=== PATIENT | female | born 1955 | race African-American/Black ===

== ENCOUNTER 2017-08-12 19:31 | Emergency (ER) | payer OTHER ==
[2017-08-12 19:50] VITALS: BP 145/110; PULSE 85; TEMP 99.8; BMI 44.2
[2017-08-12] MEDS ORDERED: LEVOFLOXACIN 500 MG IVPB 100 ML IVPB ONE ×3 (21:11→22:00)
--- NOTE | 2017-08-12 21:11 | PDOC ---
History of Present Illness - General History Source: Patient Exam Limitations: No Limitations - History of Present Illness Initial Comments: 08/12/17 21:48 The patient is a 62 year old female, with a significant past medical history of HTN, DM who presents to the emergency department with pain and redness to L thumb. Patient reports having a small red blister on L thumb that significantly increased in size today. Patient reports increased pain, swelling and redness to the nail. Patient denies any headache, fever/chills, nausea or vomiting. Patient denies any trauma to the area and presents to the ED for further evaluation. <Whit De Guzman - Last Filed: 08/12/17 21:48> - General History Source: Patient <Parviz Sandoval - Last Filed: 08/12/17 23:15> - General Chief Complaint: Redness To Affected Area Stated Complaint: INFECTION Time Seen by Provider: 08/12/17 21:06 Past History <Whit De Guzman - Last Filed: 08/12/17 21:48> - Past Medical History Diabetes: Yes - Surgical History Cholecystectomy: Yes - Suicide/Smoking/Psychosocial Hx Smoking History: Never smoked Have you smoked in the past 12 months: No Hx Alcohol Use: No Drug/Substance Use Hx: No Substance Use Type: None <Parviz Sandoval - Last Filed: 08/12/17 23:15> - Past Medical History Allergies/Adverse Reactions: Allergies Allergy/AdvReac Type Severity Reaction Status Date / Time No Known Allergies Allergy Verified 06/09/15 18:20 Home Medications: Ambulatory Orders Cephalexin [Keflex] 500 mg PO TID #15 capsule 06/09/15 Hydrochlorothiazide [Hctz -] 25 mg PO DAILY #14 tablet 06/09/15 Clindamycin [Cleocin -] 300 mg PO TID #30 capsule 08/12/17 Review of Systems - Review of Systems Able to Perform ROS?: Yes Comments:: 08/12/17 21:48 CONSTITUTIONAL: Absent: fever, no chills, no fatigue EYES: Absent: visual changes ENT: Absent: ear pain, no sore throat CARDIOVASCULAR: Absent: chest pain, no palpitations RESPIRATORY: Absent: cough, no SOB GI: Absent: abdominal pain, no nausea, no vomiting, no constipation, no diarrhea GENITOURINARY: Absent: dysuria, no frequency, no hematuria MUSCULOSKELETAL: Absent: back pain, no arthralgia, no myalgia SKIN:+ L thumb blister. Absent: rash <Whit De Guzman - Last Filed: 08/12/17 21:48> *Physical Exam - Vital Signs Last Vital Signs Temp Pulse Resp BP Pulse Ox 99.8 F H 85 18 145/110 97 08/12/17 19:47 08/12/17 19:47 08/12/17 19:47 08/12/17 19:47 08/12/17 19:47 - Physical Exam Comments: 08/12/17 21:48 GENERAL: Well-appearing, well-nourished. No apparent distress. HEENT: Normocephalic, atraumatic. PERRL, EOM intact. CARDIOVASCULAR: Normal S1, S2. Regular rate and rhythm. PULMONARY: Clear to auscultation bilaterally. ABDOMEN: Soft, non-distended, non-tender. EXTREMITIES: Normal ROM in all four extremities. No gross deformities. SKIN: +Large blister that runs the entire length of lateral aspect of cuticle down to DIP joint. +There is surrounding erythema extended past the MCP joint. + Slight fluctuance with discharge at corner of cuticle. Warm, dry. No rash NEUROLOGICAL: No focal neurological deficits. <Whit De Guzman - Last Filed: 08/12/17 21:48> - Vital Signs Last Vital Signs Temp Pulse Resp BP Pulse Ox 99.8 F H 85 18 145/110 97 08/12/17 19:47 08/12/17 19:47 08/12/17 19:47 08/12/17 19:47 08/12/17 19:47 <Parviz Sandoval - Last Filed: 08/12/17 23:15> Procedures - Incision and Drainage I&D Site: Left: Paronychia (left thumb) Volume(ml): 15 Attempts: 1 Iodinated Packin/ in Plain Packing: No Complications: none Dressing: Yes Progress: 08/12/17 21:59 used 18 gauge needle to decompression blister. <Parviz Sandoval - Last Filed: 08/12/17 23:15> ED Treatment Course - LABORATORY CBC & Chemistry Diagram: 08/12/17 21:36 08/12/17 21:36 <Whit De Guzman - Last Filed: 08/12/17 21:48> - LABORATORY CBC & Chemistry Diagram: 08/12/17 21:36 08/12/17 21:36 <Parviz Sandoval - Last Filed: 08/12/17 23:15> Medical Decision Making - Medical Decision Making 08/12/17 23:15 Dr. Sandoval: The scribe's documentation has been prepared under my direction and personally reviewed by me in its entirery. I confirm that the note above accurately reflects all work, treatment, procedures, and medical decision making performed by me. <Parviz Sandoval - Last Filed: 08/12/17 23:15> *DC/Admit/Observation/Transfer - Attestations Scribe Attestion: 08/12/17 21:49 Documentation prepared by Whit De Guzman, acting as medical office secretary for Parviz Sandoval DO. <Whit De Guzman - Last Filed: 08/12/17 21:48> - Discharge Dispostion Admit: No <Parviz Sandoval - Last Filed: 08/12/17 23:15> Diagnosis at time of Disposition: Paronychia of finger of left hand Cellulitis Qualifiers: Site of cellulitis: extremity Site of cellulitis of extremity: finger Laterality: left Qualified Code(s): L03.012 - Cellulitis of left finger; L03.012 - Cellulitis of left finger - Discharge Dispostion Disposition: HOME Condition at time of disposition: Stable - Prescriptions Prescriptions: Clindamycin [Cleocin -] 300 mg PO TID #30 capsule - Patient Instructions Printed Discharge Instructions: DI for Wound Infection, DI for Cellulitis -- Child Additional Instructions: please take medication as directed. Follow up with your in two days. Return to the ER as soon as possible if increasing pain and swelling to left thumb.
[2017-08-12 21:44] LABS: BASOPHIL 0.9 % (0-2.0); EOSINOPHIL 0.9 % (0-4.5); MCH 31.2 pg (25.7-33.7); MCHC 34.4 g/dl (32.0-36.0); MEAN CELL VOLUME 90.6 fl (80-96); MEAN PLT VOLUME 8.9 fl (7.5-11.1); NEUTROPHILS 72.3 % (42.8-82.8); PLATELET COUNT 249 K/MM3 (134-434); WHITE BLOOD COUNT 15.4 K/mm3 (4.0-10.0)
[2017-08-12 21:57] LABS: INR 1.16 (0.82-1.09); PROTHROMBIN TIME (PATIENT) 13.1 SEC (9.98-11.88)
[2017-08-12 22:37] LABS: ALBUMIN 3.7 g/dl (3.4-5.0); ANION GAP 12 (8-16); CALCIUM 9.4 mg/dL (8.5-10.1); CO2 23 mmol/L (21-32); CREATININE 2.2 mg/dL (0.55-1.02); GLUCOSE,RANDOM 123 mg/dL (74-106); SGOT/AST 22 U/L (15-37); SGPT/ALT 21 U/L (12-78); TOT PROT 7.7 g/dl (6.4-8.2)
[2017-08-12 22:38] LABS: ALK PHOS 106 U/L (45-117); BILIRUBIN,TOTAL 0.8 mg/dL (0.2-1.0)
== END 2017-08-12 23:32 | disposition home or self-care (01) ==
LOC: JER 19:31
PROC: 0H9GXZZ Drainage of Left Hand Skin, External Approach (ICD-10-PCS; principal; 2017-08-12)
PROC: 3E02329 Introduction of Other Anti-infective into Muscle, Percutaneous Approach (ICD-10-PCS; 2017-08-12)
DX: L03.012 Cellulitis of left finger (principal); I10 Essential (primary) hypertension; E11.9 Type 2 diabetes mellitus without complications
CPT/HCPCS: 36415; 80053; 85025; 85610; 87040; 99281-25

== ENCOUNTER 2020-06-26 08:54 | Inpatient (IN) | payer OTHER ==
--- NOTE | 2020-06-26 09:19 | PDOC ---
History of Present Illness - General Chief Complaint: Pain Stated Complaint: LLE/BACK PAIN Time Seen by Provider: 06/26/20 09:07 - History of Present Illness Initial Comments: 06/26/20 10:15 HPI 64y/o F hx of HTN, DM, CKD,herniated disc in lower back (4 years ago) arthritis presents to the ED with 3 days of left sided buttock pain. at baseline, pt ambulates with assistance of a cane. Pt reports pain radiates from her buttock down her leg. She has been unable to ambulate due to pain She dennies any changes in bowel/bladder habits, saddle anesthesia, fevers, chills, trauma/fall. Pt endorsing vaginal bleeding which began 3 days ago as well.pt is post- menopausal,and went through menopause in her late 40''s to early 50's. She denies any other vaginal discharge, or lower abdominal pain. PMHx: as noted above ROS: as noted SHx: Denies Etoh, IVDA, tobacco use Allergies: NKDA ROS: GENERAL/CONSTITUTIONAL: No fever or chills. No weakness. HEAD, EYES, EARS, NOSE AND THROAT: No change in vision. No ear pain or discharge. No sore throat. CARDIOVASCULAR: No chest pain or shortness of breath RESPIRATORY: No cough, wheezing, or hemoptysis. GASTROINTESTINAL: No nausea, vomiting, diarrhea or constipation. GENITOURINARY: No dysuria, frequency, or change in urination. MUSCULOSKELETAL: No joint or muscle swelling or pain. No neck or back pain. SKIN: No rash NEUROLOGIC: No headache, vertigo, loss of consciousness, or change in strength/sensation. ENDOCRINE: No increased thirst. No abnormal weight change HEMATOLOGIC/LYMPHATIC: No anemia, easy bleeding, or history of blood clots. ALLERGIC/IMMUNOLOGIC: No hives or skin allergy. PE: GENERAL: Awake, alert, and fully oriented, uncomfortable. HEAD: No signs of trauma, normocephalic, atraumatic EYES: PERRLA, EOMI, sclera anicteric, conjunctiva clear ENT: Auricles normal inspection, hearing grossly normal, nares patent, oropharynx clear without exudates. Moist mucosa NECK: Normal ROM, supple, no lymphadenopathy, JVD, or masses LUNGS: No distress, speaks full sentences, clear to auscultation bilaterally HEART: Regular rate and rhythm, normal S1 and S2, no murmurs, rubs or gallops, peripheral pulses normal and equal bilaterally. ABDOMEN: Soft, nontender, normoactive bowel sounds. No guarding, no rebound. No masses RECTAL: +rectal tone, no stool in the vault or blood on glove, no saddle anesthesia EXTREMITIES : trace edema in RLE. +SLR, ttp of left buttock and left thigh NEUROLOGICAL: Cranial nerves II through XII grossly intact. Normal speech, no focal sensorimotor deficits SKIN: Warm, Dry, normal turgor, no rashes or lesions noted MDM DDx including but not limited to: MSK Strain, sciatica, endometrial cancer, coaguloathy Workup: labs, pelvis ultrasound, vaginal exam -tylenol, lidocaine patch ED course vaginal exam deferred,as patient unable to tolerate opening her legs secondary to pain,and speculum could not be inserted. scant blood noticed on pads,pt had no lower abdominal pain. able to visualize vulva and labia, and no copious bleeding noted. Re-assessment: pt reports some improvement in pain with tylenol and pain patch when lying still, however on passive leg raise past 30 degrees, she began screaming in pain. will give roxicodone and reassess. 06/26/20 10:44 06/26/20 11:20 06/26/20 12:38 Past History - Medical History Allergies/Adverse Reactions: Allergies Allergy/AdvReac Type Severity Reaction Status Date / Time No Known Allergies Allergy Verified 06/26/20 09:03 Home Medications: Ambulatory Orders Amlodipine Besylate [Norvasc -] 10 mg PO DAILY 06/26/20 Glimepiride [Amaryl -] 4 mg PO BID 06/26/20 Metoprolol Tartrate [Lopressor] 100 mg PO BID 06/26/20 Sitagliptin Phosphate [Januvia] 50 mg PO DAILY 06/27/20 Atorvastatin Ca [Lipitor] 40 mg PO HS #30 tablet 07/14/20 Cyclobenzaprine HCl [Flexeril -] 5 mg PO TID PRN 14 Days #20 tablet 07/14/20 Ferrous Sulfate [Feosol] 325 mg PO DAILY@0800 #30 ud 07/14/20 Folic Acid - 1 mg PO DAILY #30 tablet 07/14/20 Gabapentin [Neurontin -] 200 mg PO TID #90 capsule 07/14/20 Telmisartan [Micardis] 80 mg PO DAILY #30 tablet 07/17/20 COPD: No Diabetes: Yes HTN: Yes - Surgical History Cholecystectomy: Yes - Psycho-Social/Smoking History Smoking History: Unknown if ever smoked Have you smoked in the past 12 months: No - Substance Abuse Hx (Audit-C & DAST Scrn) How often the patient has a drink containing alcohol: Never Score: In Men: 4 or > Positive; In Women: 3 or > Positive: 0 Screen Result (Pos requires Nsg. Audit-10AR): Negative In the last yr the pt used illegal drug/Rx for NonMed reason: No Score: Yes response is considered Positive: 0 Screen Result (Positive result requires Nsg. DAST-10): Negative *Physical Exam - Vital Signs Last Vital Signs Temp Pulse Resp BP Pulse Ox 98.1 F 90 20 162/73 99 06/26/20 09:01 06/26/20 09:01 06/26/20 09:01 06/26/20 09:01 06/26/20 09:01 ED Treatment Course - LABORATORY CBC & Chemistry Diagram: 07/18/20 08:00 07/18/20 08:00 Discharge - Discharge Information Problems reviewed: Yes Clinical Impression/Diagnosis: Intractable pain Sciatica Qualifiers: Laterality: left Qualified Code(s): M54.32 - Sciatica, left side Condition: Stable Disposition: INTERMEDIATE FACILITY - Follow up/Referral - Patient Discharge Instructions - Post Discharge Activity
[2020-06-26] MEDS ORDERED: LIDOCAINE 5% TOPICAL PATCH TP ONE (09:53)
[2020-06-26] MEDS ORDERED: ACETAMINOPHEN 1000 MG/100 ML VIAL (NON FORMULARY) IVPB ONE (09:53)
--- NOTE | 2020-06-26 09:53 | PDOC ---
Documentation entered by Julio Stephenson SCRIBE, acting as scribe for Dariela Barrios MD. Dariela Barrios MD: This documentation has been prepared by the scribe, Julio Stephenson SCRIBE, under my direction and personally reviewed by me in its entirety. I confirm that the documentation accurately reflects all work, treatment, procedures, and medical decision making performed by me. Attending Attestation - Resident Resident Name: Fernando Good - ED Attending Attestation I have performed the following: I have examined & evaluated the patient, The case was reviewed & discussed with the resident, I agree w/resident's findings & plan, Exceptions are as noted - HPI HPI: 64 yo F history DM, HTN, HL presents with vaginal bleeding for the past 4 days, then low back pain radiating into the L buttock and L posterior thigh for the past 3 days. No prior history of either. Denies weakness, numbness. Denies trauma. - Physicial Exam PE: GENERAL: Awake, alert, and fully oriented, appears uncomfortable HEAD: No signs of trauma EYES: PERRLA, EOMI, sclera anicteric, conjunctiva clear ENT: Auricles normal inspection, hearing grossly normal, nares patent, oropharynx clear without exudates. Moist mucosa NECK: Normal ROM, supple, no lymphadenopathy, JVD, or masses LUNGS: Breath sounds equal, clear to auscultation bilaterally. No wheezes, and no crackles HEART: Regular rate and rhythm, normal S1 and S2, no murmurs, rubs or gallops ABDOMEN: Soft, nontender, normoactive bowel sounds. No guarding, no rebound. No masses EXTREMITIES: Normal range of motion, no edema. No clubbing or cyanosis. No cords, erythema, or tenderness NEUROLOGICAL: Cranial nerves II through XII grossly intact. Normal speech. Motor and sensation intact. Gait not tested due to pain. SKIN: Warm, Dry, normal turgor, no rashes or lesions noted. : No external lesions. Vaginal exam limited by patient inability to position for it, having severe back and buttock pain. - Medical Decision Making 06/26/20 10:06 Pt with low back pain radiating into buttock, likely sciatica. Also with vaginal bleeding. Unlikely to be connected, however, will obtain pelvic sono to make sure there is no mass, etc. Discharge - Discharge Information Problems reviewed: Yes Clinical Impression/Diagnosis: Intractable pain Sciatica Qualifiers: Laterality: left Qualified Code(s): M54.32 - Sciatica, left side - Follow up/Referral - Patient Discharge Instructions - Post Discharge Activity
[2020-06-26] MEDS ORDERED: ACETAMINOPHEN INJECTION 100 ML IVPB ONE (10:37)
[2020-06-26] MEDS ORDERED: LIDOCAINE 5% TOPICAL PATCH ONE (10:38)
[2020-06-26 10:54] LABS: EOS % 0.3 % (0-4.5); HEMATOCRIT 28.5 % (32.4-45.2); HEMOGLOBIN 9.4 GM/dL (10.7-15.3); LYMPH % 7.4 % (8-40); MCH 28.9 pg (25.7-33.7); MEAN CELL VOLUME 87.6 fl (80-96); MEAN PLT VOLUME 8.5 fl (7.5-11.1); MONO % 7.8 % (3.8-10.2); NEUT % 83.5 % (42.8-82.8); PLATELET COUNT 308 K/MM3 (134-434); RBC 3.26 M/mm3 (3.60-5.2); RDW 16.1 % (11.6-15.6)
[2020-06-26 11:03] LABS: EPI CELLS 13 /uL (0-25.1); HYALINE CASTS 2 /uL (0-3.1); URINE APPEARANCE CLOUDY; URINE BACTERIA 320 /uL (0-1359); URINE BILIRUBIN NEGATIVE (NEGATIVE); URINE COLOR YELLOW; URINE GLUCOSE (UA) NEGATIVE (NEGATIVE); URINE KETONE NEGATIVE (NEGATIVE); URINE LEUK ESTERASE NEGATIVE (NEGATIVE); URINE NITRITE NEGATIVE (NEGATIVE); URINE PROTEIN 2+ (NEGATIVE); URINE RBC 13 /uL (0-23.9); URINE UROBILINOGEN 0.2 mg/dL (0.2-1.0); URINE WBC 26 /uL (0-25.8)
[2020-06-26 11:10] LABS: INR 1.14 (0.83-1.09); PROTHROMBIN TIME (PATIENT) 13.5 SEC (9.7-13.0)
[2020-06-26 11:12] LABS: ACTIVATED PTT 27.3 SECONDS (25.2-36.5)
[2020-06-26 11:19] LABS: ALBUMIN 2.7 g/dl (3.4-5.0); BILIRUBIN,TOTAL 0.6 mg/dL (0.2-1); BLOOD UREA NITROGEN 58.4 mg/dL (7-18); CALCIUM 9.1 mg/dL (8.5-10.1); CREATININE 2.7 mg/dL (0.55-1.3); POTASSIUM 3.8 mmol/L (3.5-5.1); TOT PROT 6.8 g/dl (6.4-8.2)
[2020-06-26] MEDS ORDERED: oxyCODONE HCL 5 MG TABLET PO ONE (12:37)
[2020-06-26] MEDS ORDERED: SODIUM CHLORIDE 500 ML IV STA (12:39)
[2020-06-26] MEDS ORDERED: oxyCODONE HCL 5 MG TABLET ONE (12:50)
[2020-06-26] MEDS ORDERED: morphine SULFATE 4 MG/ML VIAL IVPUSH ONE (14:49)
[2020-06-26] MEDS ORDERED: morphine SULFATE 4 MG/ML VIAL ONE (15:34)
[2020-06-26] MEDS ORDERED: SODIUM CHLORIDE 1,000 ML IV SCH (15:45)
--- NOTE | 2020-06-26 15:56 | HP ---
CHIEF COMPLAINT: Inability to ambulat 2/2 L. hip pain and vaginal bleeding PCP: Dr. Kristina Gonzalez HISTORY OF PRESENT ILLNESS: Pt. is a 64 y.o. F w/ PMHx. 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 Hip pain over the last 4 days. Pt. states that it started 4 days ago after she finished walking up the stairs and was at rest. Pt. states the pain was a 10/10 on admission but now is a 4/10. Pt denies this ever happening before. Pt. denies any numbness/tingling or weakness in extremities. Pt. denies any numbness in the groin or any changes in bowel or urinary habits. Pt. endorses intentional weight loss of a few pounds. Pt. endorses night sweats over the last 2 days. Pt. denies any fever, chills, cough, diarrhea or constipation. Pt. states she has never had a colonoscopy, last had a Pap Smear ~10 years ago, unsure of last results. Pt. states she had a mammogram a few months ago and was supposed to follow up for second part (ultrasound?) but never did. Pt. endorses intermittent vaginal bleeding over the last 3 days with the last episode being this morning. Pt. states this has never happened. Pt. had menopause in her late 40s/early 50s. Pt. endorses decreased Po intake over te last 2 days because of the pain. Pt. denies nausea, vomiting, or difficulty swallowing. Pt. states that her hesitancy to move her leg is limited by pain and not weakness. Pt. normally ambulates at home with a cane. Pt. unclear of family history but stated her mother had DM, HTN and heart disease. Pt denies any cancer history in her family. ER course was notable for: (1)CBC/ CMP, Tylenol, Lidoderm patch, oxycodone, and morphine (2)EKG ordered, abdominal US (3) Recent Travel: Denies PAST MEDICAL HISTORY: As above PAST SURGICAL HISTORY: [facility](Open) Social History: Smoking: Denies Alcohol: Occasional glass of wine Drugs: Denies Allergies No Known Allergies Allergy (Verified 06/26/20 09:03) HOME MEDICATIONS: Home Medications Medication Instructions Recorded Amlodipine Besylate [Norvasc -] 10 mg PO DAILY 06/26/20 Atorvastatin Calcium 40 mg PO HS 06/26/20 Glimepiride [Amaryl -] 4 mg PO BID 06/26/20 Metoprolol Tartrate [Lopressor] 100 mg PO BID 06/26/20 Telmisartan/Hydrochlorothiazid 1 each PO DAILY 06/26/20 [Telmisartan-Hctz 80-25 mg Tab] REVIEW OF SYSTEMS As above PHYSICAL EXAMINATION Vital Signs - 24 hr 06/26/20 06/26/20 09:01 13:43 Temperature 98.1 F 98.5 F Pulse Rate 90 Pulse Rate [ 67 Left Radial] Respiratory 20 19 Rate Blood Pressure 162/73 Blood Pressure 128/68 [Right Arm] O2 Sat by Pulse 99 99 Oximetry (%) GENERAL: Awake, alert, and fully oriented, in no acute distress. HEAD: Normal with no signs of trauma. EYES: Sclera anicteric, conjunctiva clear. EARS, NOSE, THROAT: Ears normal, nares patent, oropharynx clear without exudates . Moist mucous membranes. NECK: Normal range of motion, supple without lymphadenopathy LUNGS: Breath sounds equal, clear to auscultation bilaterally. No wheezes, and no crackles. No accessory muscle use. HEART: Regular rate and rhythm, normal S1 and S2 without murmur ABDOMEN: Soft, nontender, not distended but obese, normoactive bowel sounds, no guarding, no rebound, no masses. MUSCULOSKELETAL: ROM of left hip and knee limited by pain. Movement of contralateral hip does not induce pain. UPPER EXTREMITIES:warm, well-perfused. No cyanosis. No clubbing. No peripheral edema. 5/5 muscle strength throughout LOWER EXTREMITIES: 2+ dorsal pedal pulses, warm, well-perfused, No calf tenderness. Trace edema. 5/5 muscle strength throughout. Pt. has limited flexion of the L. Hip and knee 2/2 pain however is able to extend on both. NEUROLOGICAL: Sensation in tact throughout. Normal speech. Normal gait. PSYCHIATRIC: Cooperative. Good eye contact. Appropriate mood and affect. SKIN: Warm, dry, normal turgor Laboratory Results - last 24 hr 06/26/20 06/26/20 06/26/20 10:15 10:15 10:15 WBC 14.0 H RBC 3.26 L Hgb 9.4 L Hct 28.5 L MCV 87.6 MCH 28.9 MCHC 33.0 RDW 16.1 H Plt Count 308 D MPV 8.5 Absolute Neuts (auto) 11.7 H Neutrophils % 83.5 H Lymphocytes % 7.4 L D Monocytes % 7.8 Eosinophils % 0.3 Basophils % 1.0 Nucleated RBC % 0 PT with INR 13.50 H INR 1.14 H PTT (Actin FS) 27.3 Sodium 140 Potassium 3.8 Chloride 106 Carbon Dioxide 24 Anion Gap 10 BUN 58.4 H Creatinine 2.7 H Est GFR (CKD-EPI)AfAm 21.04 Est GFR (CKD-EPI)NonAf 18.16 Random Glucose 154 H Calcium 9.1 Total Bilirubin 0.6 AST 29 ALT 16 Alkaline Phosphatase 130 H Total Protein 6.8 Albumin 2.7 L Urine Color Urine Appearance Urine pH Ur Specific Ford Urine Protein Urine Glucose (UA) Urine Ketones Urine Blood Urine Nitrite Urine Bilirubin Urine Urobilinogen Ur Leukocyte Esterase Urine WBC (Auto) Urine RBC (Auto) Urine Casts (Auto) U Epithel Cells (Auto) Urine Bacteria (Auto) Blood Type Antibody Screen 06/26/20 06/26/20 10:15 10:15 WBC RBC Hgb Hct MCV MCH MCHC RDW Plt Count MPV Absolute Neuts (auto) Neutrophils % Lymphocytes % Monocytes % Eosinophils % Basophils % Nucleated RBC % PT with INR INR PTT (Actin FS) Sodium Potassium Chloride Carbon Dioxide Anion Gap BUN Creatinine Est GFR (CKD-EPI)AfAm Est GFR (CKD-EPI)NonAf Random Glucose Calcium Total Bilirubin AST ALT Alkaline Phosphatase Total Protein Albumin Urine Color Yellow Urine Appearance Cloudy Urine pH 5.0 Ur Specific Ford 1.013 Urine Protein 2+ H Urine Glucose (UA) Negative Urine Ketones Negative Urine Blood 3+ H Urine Nitrite Negative Urine Bilirubin Negative Urine Urobilinogen 0.2 Ur Leukocyte Esterase Negative Urine WBC (Auto) 26 Urine RBC (Auto) 13 Urine Casts (Auto) 2 U Epithel Cells (Auto) 13 Urine Bacteria (Auto) 320 Blood Type A POSITIVE Antibody Screen Negative ASSESSMENT/PLAN: Pt. is a 64 y.o. F w/ PMHx. 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 Hip pain over the last 4 days. Pt. states that it started 4 days ago after she finished walking up the stairs and was at rest. Pt. states the pain was a 10/10 on admission but now is a 4/10. #Inability to ambulate 2/2 Intractable hip pain f/u Lumbar and L. Hip MRI Neurosurgery consult appreciated Tylenol, Tramadol and Morphine for pain control c/w Lidoderm Patch Physical therapy Fall precautions #Positive UA w/ Leukocytosis UA positive for protein, blood WBCs and bacteria f/u BCx. and UCx. active infection causing decrease pain threshold? WBCx :14.4 will start Ceftriaxone and f/u cultures Pt. denies dysuria however has DM, Pt. also denies polyuruia #Vaginal Bleeding H/H stable, will continue to monitor Transabdominal US shows multiple fibroids which may be the cause of bleeding DIRECTOR [employer]BILE consul appreciated for TVUS (as patient refusing 2/2 pain) #DM #HTN #HLD #CKD c/w home medications once reconciled Nephrology consult appreciated as Cr. 2.7, last was 2.2 in 2017 UA siginificant for proteinuria and microscopic hematuria, will repeat prior to discharge\ hold oral hypoglycemics, start sliding scale and BGMs ACHS, assess for Insulin requirements and then start on Levemir tomorrow. f/u lipid panel, hepatitis panel, TSH and A1c #FEN no IVF, encourage PO intake monitor and replete as needed Diabetic/ sodium controlled diet #DVT Ppx. Hep SQ Family Medical History Family History: As Documented Visit type - Emergency Visit Emergency Visit: Yes Care time: The patient presented to the Emergency Department on the above date and was hospitalized for further evaluation of their emergent condition. - New Patient This patient is new to me today: Yes Date on this admission: 06/26/20 - Critical Care Critical Care patient: No ATTENDING PHYSICIAN STATEMENT I saw and evaluated the patient. I reviewed the resident's note and discussed the case with the resident. I agree with the resident's findings and plan as documented. SUBJECTIVE: OBJECTIVE: ASSESSMENT AND PLAN:
[2020-06-26] MEDS ORDERED: INSULIN SLIDING SCALE (NOVOLOG) 1 VIAL SQ SCH ×2 (16:30)
[2020-06-26] MEDS: CEFTRIAXONE 1 GM in DEXTROSE 5%-WATER - 50 ML IVPB SCH (16:53)
[2020-06-26] MEDS ORDERED: CEFTRIAXONE 1 GM/50 ML BAG ONE (16:54)
[2020-06-26] MEDS: INSULIN SLIDING SCALE (NOVOLOG) 1 VIAL SQ SCH ×2 (19:11→21:26)
[2020-06-26] MEDS ORDERED: CYCLOBENZAPRINE HCL 10 MG TABLET (FP) PO ONE (19:15)
[2020-06-26] MEDS ORDERED: METOPROLOL TARTRATE 50 MG TABLET (FP) ONE (21:08)
[2020-06-26] MEDS ORDERED: CYCLOBENZAPRINE HCL 10 MG TABLET (FP) ONE (21:08)
[2020-06-26] MEDS ORDERED: ATORVASTATIN CA 40 MG TABLET (FP) ONE (21:09)
[2020-06-26] MEDS: ATORVASTATIN CA 40 MG TABLET (FP) PO SCH (21:25)
[2020-06-26] MEDS: METOPROLOL TARTRATE 50 MG TABLET (FP) PO SCH (21:25)
[2020-06-26] MEDS ORDERED: LIDOCAINE PATCH REMOVAL MC SCH (22:00)
[2020-06-26] MEDS ORDERED: HEPARIN NA (PORCINE) 5,000 UNITS/ML 1ML VIAL SQ SCH (22:00)
--- NOTE | 2020-06-27 00:06 | PN ---
Teaching Attending Note Name of Resident: Reji Moore ATTENDING PHYSICIAN STATEMENT I saw and evaluated the patient. I reviewed the resident's note and discussed the case with the resident. I agree with the resident's findings and plan as documented. SUBJECTIVE: Patient seen and examined at bedside, admitted for L sided sciatic- related pain and vaginal bleeding, MRI pending to r/o spinal canal stenosis. Denies bowel/bladder incontinence/saddle anesthesia. OBJECTIVE: GA mild distress, AAox3 HEENT NC/AT, mild acanthosis, neck supple, dry MM, EOMI Chest CTAB anteriorally CVS S1, S2+, RRR Abd obese, Soft, NT, mildly distended Ext no LE edema, decreased strength and ROM LLE due to severe pain on initiation, 4/5 strength RLE, sensation intact and equal LE b/l. Vital Signs - 24 hr 06/26/20 06/26/20 06/26/20 09:01 13:43 21:27 Temperature 98.1 F 98.5 F Pulse Rate 90 Pulse Rate [ 67 95 H Left Radial] Respiratory 20 19 20 Rate Blood Pressure 162/73 Blood Pressure 128/68 151/78 [Right Arm] O2 Sat by Pulse 99 99 97 Oximetry (%) Laboratory Results - last 24 hr 06/26/20 06/26/20 06/26/20 10:15 10:15 10:15 WBC 14.0 H RBC 3.26 L Hgb 9.4 L Hct 28.5 L MCV 87.6 MCH 28.9 MCHC 33.0 RDW 16.1 H Plt Count 308 D MPV 8.5 Absolute Neuts (auto) 11.7 H Neutrophils % 83.5 H Lymphocytes % 7.4 L D Monocytes % 7.8 Eosinophils % 0.3 Basophils % 1.0 Nucleated RBC % 0 PT with INR 13.50 H INR 1.14 H PTT (Actin FS) 27.3 Sodium 140 Potassium 3.8 Chloride 106 Carbon Dioxide 24 Anion Gap 10 BUN 58.4 H Creatinine 2.7 H Est GFR (CKD-EPI)AfAm 21.04 Est GFR (CKD-EPI)NonAf 18.16 POC Glucometer Random Glucose 154 H Calcium 9.1 Total Bilirubin 0.6 AST 29 ALT 16 Alkaline Phosphatase 130 H Total Protein 6.8 Albumin 2.7 L Urine Color Urine Appearance Urine pH Ur Specific [place] Urine Protein Urine Glucose (UA) Urine Ketones Urine Blood Urine Nitrite Urine Bilirubin Urine Urobilinogen Ur Leukocyte Esterase Urine WBC (Auto) Urine RBC (Auto) Urine Casts (Auto) U Epithel Cells (Auto) Urine Bacteria (Auto) Syphilis Serology Blood Type Antibody Screen 06/26/20 06/26/20 06/26/20 10:15 10:15 16:50 WBC RBC Hgb Hct MCV MCH MCHC RDW Plt Count MPV Absolute Neuts (auto) Neutrophils % Lymphocytes % Monocytes % Eosinophils % Basophils % Nucleated RBC % PT with INR INR PTT (Actin FS) Sodium Potassium Chloride Carbon Dioxide Anion Gap BUN Creatinine Est GFR (CKD-EPI)AfAm Est GFR (CKD-EPI)NonAf POC Glucometer Random Glucose Calcium Total Bilirubin AST ALT Alkaline Phosphatase Total Protein Albumin Urine Color Yellow Urine Appearance Cloudy Urine pH 5.0 Ur Specific [place] 1.013 Urine Protein 2+ H Urine Glucose (UA) Negative Urine Ketones Negative Urine Blood 3+ H Urine Nitrite Negative Urine Bilirubin Negative Urine Urobilinogen 0.2 Ur Leukocyte Esterase Negative Urine WBC (Auto) 26 Urine RBC (Auto) 13 Urine Casts (Auto) 2 U Epithel Cells (Auto) 13 Urine Bacteria (Auto) 320 Syphilis Serology Non-reactive Blood Type A POSITIVE Antibody Screen Negative 06/26/20 06/26/20 18:38 21:18 WBC RBC Hgb Hct MCV MCH MCHC RDW Plt Count MPV Absolute Neuts (auto) Neutrophils % Lymphocytes % Monocytes % Eosinophils % Basophils % Nucleated RBC % PT with INR INR PTT (Actin FS) Sodium Potassium Chloride Carbon Dioxide Anion Gap BUN Creatinine Est GFR (CKD-EPI)AfAm Est GFR (CKD-EPI)NonAf POC Glucometer 133 165 Random Glucose Calcium Total Bilirubin AST ALT Alkaline Phosphatase Total Protein Albumin Urine Color Urine Appearance Urine pH Ur Specific [place] Urine Protein Urine Glucose (UA) Urine Ketones Urine Blood Urine Nitrite Urine Bilirubin Urine Urobilinogen Ur Leukocyte Esterase Urine WBC (Auto) Urine RBC (Auto) Urine Casts (Auto) U Epithel Cells (Auto) Urine Bacteria (Auto) Syphilis Serology Blood Type Antibody Screen Home Medications Medication Instructions Recorded Amlodipine Besylate [Norvasc -] 10 mg PO DAILY 06/26/20 Atorvastatin Calcium 40 mg PO HS 06/26/20 Glimepiride [Amaryl -] 4 mg PO BID 06/26/20 Metoprolol Tartrate [Lopressor] 100 mg PO BID 09/07/20 Telmisartan/Hydrochlorothiazid 1 each PO DAILY 06/26/20 [Telmisartan-Hctz 80-25 mg Tab] Current Medications Generic Name Dose Route Start Last Admin Trade Name Dasia PRN Reason Stop Dose Admin Acetaminophen 650 mg 06/26/20 16:07 Tylenol - PO Q6H PRN PAIN LEVEL 1-5 Atorvastatin Calcium 40 mg 06/26/20 22:00 06/26/20 21:25 Lipitor - PO 40 mg HS ROSCOE Administration Sodium Chloride 1,000 mls @ 50 mls/hr 06/26/20 15:45 06/26/20 16:53 Normal Saline - IV 06/27/20 11:44 50 mls/hr ASDIR ROSCOE Administration Ceftriaxone Sodium 1 gm/ 50 mls @ 100 mls/hr 06/26/20 16:15 06/26/20 16:53 Dextrose IVPB 100 mls/hr DAILY ROSCOE Administration Protocol Insulin Aspart 1 vial 06/26/20 16:30 06/26/20 21:26 Novolog Vial Sliding Scale - SQ Not Given ACHS ROSCOE Protocol Metoprolol Tartrate 100 mg 06/26/20 22:00 06/26/20 21:25 Lopressor - PO 100 mg BID ROSCOE Administration Miscellaneous 1 each 06/26/20 22:00 06/26/20 23:52 Lidoderm Patch Removal MC 1 each DAILY@2200 ROSCOE Administration Morphine Sulfate 4 mg 06/26/20 16:33 Morphine Sulfate IVPUSH ONCE PRN Pain 10/10 Tramadol HCl 50 mg 06/26/20 16:06 Ultram - PO Q6H PRN PAIN LEVEL 4 - 6 ASSESSMENT AND PLAN: 64 F Sciatic nerve compression w/ severe features HTn HLD Morbid Obesity Vaginal bleeding r/o ovarian ca Anemia UTI TIM on CKD Plan: obtain MRI L spine, needs NSG evaluation Control pain w/ opioids/gabapentinoids Ceftriaxone for UTI, send blood/urine cx and follow TIM likely related to pre-renal and NSAID use (patient using ibuprofen/Aleve at home for pain), avoid nephrotoxins Supplement PPI, obtain FOBT PT evaluation DVT ppx: SCD (in view of vaginal bleeding)
[2020-06-27] MEDS ORDERED: morphine SULFATE 4 MG/ML VIAL ONE (00:45)
[2020-06-27] MEDS: morphine SULFATE 4 MG/ML VIAL IVPUSH PRN ×2 (00:55→18:53)
[2020-06-27] MEDS: INSULIN SLIDING SCALE (NOVOLOG) 1 VIAL SQ SCH ×4 (06:57→21:55)
[2020-06-27] MEDS ORDERED: PANTOPRAZOLE 40 MG TABLET ONE (07:00)
[2020-06-27] MEDS: PANTOPRAZOLE 40 MG TABLET PO SCH (07:07)
[2020-06-27 07:14] LABS: BASO % 0.3 % (0-2.0); EOS % 0.9 % (0-4.5); HEMATOCRIT 30.1 % (32.4-45.2); LYMPH % 9.4 % (8-40); MCH 28.9 pg (25.7-33.7); MCHC 33.1 g/dl (32.0-36.0); MEAN CELL VOLUME 87.2 fl (80-96); MEAN PLT VOLUME 8.1 fl (7.5-11.1); MONO % 9.1 % (3.8-10.2); NEUT % 80.3 % (42.8-82.8); PLATELET COUNT 313 K/MM3 (134-434); RBC 3.45 M/mm3 (3.60-5.2); RDW 15.8 % (11.6-15.6); WHITE BLOOD COUNT 12.4 K/mm3 (4.0-10.0)
[2020-06-27 08:02] LABS: ALBUMIN 2.4 g/dl (3.4-5.0); CALCIUM 8.8 mg/dL (8.5-10.1); CREATININE 1.9 mg/dL (0.55-1.3); MAGNESIUM 2.4 mg/dL (1.8-2.4); PHOSPHOROUS 3.8 mg/dL (2.5-4.9); POTASSIUM 3.7 mmol/L (3.5-5.1)
[2020-06-27 08:03] LABS: BILIRUBIN,TOTAL 0.4 mg/dL (0.2-1); TOT PROT 6.6 g/dl (6.4-8.2)
[2020-06-27] MEDS ORDERED: ACETAMINOPHEN 325 MG TABLET (FP) ONE (08:25)
[2020-06-27] MEDS: ACETAMINOPHEN 325 MG TABLET (FP) PO PRN (08:26)
[2020-06-27] MEDS ORDERED: METOPROLOL TARTRATE 50 MG TABLET (FP) ONE (10:49)
[2020-06-27] MEDS ORDERED: CEFTRIAXONE 1 GM/50 ML BAG ONE (10:49)
--- NOTE | 2020-06-27 10:54 | EKG ---
Test Reason : Blood Pressure : / mmHG Vent. Rate : 107 BPM Atrial Rate : 107 BPM P-R Int : 182 ms QRS Dur : 080 ms QT Int : 356 ms P-R-T Axes : 074 016 064 degrees QTc Int : 475 ms SINUS TACHYCARDIA SEPTAL INFARCT , AGE UNDETERMINED ABNORMAL ECG NO PREVIOUS ECGS AVAILABLE Confirmed by Jt Montana MD ([id number]) on 06/27/2020 10:53:18 AM Referred By: Confirmed By:Jt Montana MD
[2020-06-27] MEDS: CEFTRIAXONE 1 GM in DEXTROSE 5%-WATER - 50 ML IVPB SCH (11:03)
[2020-06-27] MEDS: METOPROLOL TARTRATE 50 MG TABLET (FP) PO SCH ×2 (11:03→21:56)
--- NOTE | 2020-06-27 14:26 | PN ---
Teaching Attending Note Name of Resident: Desirae Gage ATTENDING PHYSICIAN STATEMENT I saw and evaluated the patient. I reviewed the resident's note and discussed the case with the resident. I agree with the resident's findings and plan as documented. SUBJECTIVE: Complains of ongoing back pain, radiating down LLE. No further PV bleeding. OBJECTIVE: Low grade fever, Tmax 100.1, Hemodynamically Stable. Last Vital Signs Temp Pulse Resp BP Pulse Ox 98.4 F 82 16 161/84 98 06/27/20 10:44 06/27/20 10:44 06/27/20 07:56 06/27/20 10:44 06/27/20 10:44 HEENT - Atraumatic, Normocephalic. Heart - S1, S2, RRR Lungs - clear to auscultation. Abdomen - High BMI. Soft, non-tender. Bowel Sounds normal. Extremities - no calf tenderness. Neuro - AAO x 3. Limited mobility LLE due to pain, well perfused. Laboratory Results - last 24 hr 06/26/20 06/26/20 06/26/20 10:15 16:50 18:38 WBC RBC Hgb Hct MCV MCH MCHC RDW Plt Count MPV Absolute Neuts (auto) Neutrophils % Lymphocytes % Monocytes % Eosinophils % Basophils % Nucleated RBC % Sodium 140 Potassium 3.8 Chloride 106 Carbon Dioxide 24 Anion Gap 10 BUN 58.4 H Creatinine 2.7 H Est GFR (CKD-EPI)AfAm 21.04 Est GFR (CKD-EPI)NonAf 18.16 POC Glucometer 133 Random Glucose 154 H Hemoglobin A1c % Calcium 9.1 Phosphorus Magnesium Total Bilirubin 0.6 AST 29 ALT 16 Alkaline Phosphatase 130 H Total Protein 6.8 Albumin 2.7 L Triglycerides 69 Cholesterol 95 Total LDL Cholesterol 34 HDL Cholesterol 50 TSH 0.97 Syphilis Serology Non-reactive 06/26/20 06/27/20 06/27/20 21:18 00:48 06:19 WBC 12.4 H RBC 3.45 L Hgb 10.0 L Hct 30.1 L MCV 87.2 MCH 28.9 MCHC 33.1 RDW 15.8 H Plt Count 313 MPV 8.1 Absolute Neuts (auto) 10.0 H Neutrophils % 80.3 Lymphocytes % 9.4 D Monocytes % 9.1 Eosinophils % 0.9 D Basophils % 0.3 Nucleated RBC % 0 Sodium Potassium Chloride Carbon Dioxide Anion Gap BUN Creatinine Est GFR (CKD-EPI)AfAm Est GFR (CKD-EPI)NonAf POC Glucometer 165 155 Random Glucose Hemoglobin A1c % Calcium Phosphorus Magnesium Total Bilirubin AST ALT Alkaline Phosphatase Total Protein Albumin Triglycerides Cholesterol Total LDL Cholesterol HDL Cholesterol TSH Syphilis Serology 06/27/20 06/27/20 06/27/20 06:19 06:19 06:37 WBC RBC Hgb Hct MCV MCH MCHC RDW Plt Count MPV Absolute Neuts (auto) Neutrophils % Lymphocytes % Monocytes % Eosinophils % Basophils % Nucleated RBC % Sodium 144 Potassium 3.7 Chloride 110 H Carbon Dioxide 28 Anion Gap 6 L BUN 46.0 H Creatinine 1.9 H Est GFR (CKD-EPI)AfAm 32.18 Est GFR (CKD-EPI)NonAf 27.77 POC Glucometer 131 Random Glucose 140 H Hemoglobin A1c % 8.0 H Calcium 8.8 Phosphorus 3.8 Magnesium 2.4 Total Bilirubin 0.4 AST 18 ALT 20 Alkaline Phosphatase 182 H Total Protein 6.6 Albumin 2.4 L Triglycerides Cholesterol Total LDL Cholesterol HDL Cholesterol TSH Syphilis Serology 06/27/20 10:57 WBC RBC Hgb Hct MCV MCH MCHC RDW Plt Count MPV Absolute Neuts (auto) Neutrophils % Lymphocytes % Monocytes % Eosinophils % Basophils % Nucleated RBC % Sodium Potassium Chloride Carbon Dioxide Anion Gap BUN Creatinine Est GFR (CKD-EPI)AfAm Est GFR (CKD-EPI)NonAf POC Glucometer 137 Random Glucose Hemoglobin A1c % Calcium Phosphorus Magnesium Total Bilirubin AST ALT Alkaline Phosphatase Total Protein Albumin Triglycerides Cholesterol Total LDL Cholesterol HDL Cholesterol TSH Syphilis Serology Current Medications Generic Name Dose Route Start Last Admin Trade Name Freq PRN Reason Stop Dose Admin Acetaminophen 650 mg 06/26/20 16:07 06/27/20 08:26 Tylenol - PO 650 mg Q6H PRN Administration PAIN LEVEL 1-5 Atorvastatin Calcium 40 mg 06/26/20 22:00 06/26/20 21:25 Lipitor - PO 40 mg HS ROSCOE Administration Ceftriaxone Sodium 1 gm/ 50 mls @ 100 mls/hr 06/26/20 16:15 06/27/20 11:03 Dextrose IVPB 100 mls/hr DAILY ROSCOE Administration Protocol Insulin Aspart 1 vial 06/26/20 16:30 06/27/20 11:03 Novolog Vial Sliding Scale - SQ Not Given ACHS ROSCOE Protocol Metoprolol Tartrate 100 mg 06/26/20 22:00 06/27/20 11:03 Lopressor - PO 100 mg BID ROSCOE Administration Morphine Sulfate 4 mg 06/26/20 16:33 06/27/20 00:55 Morphine Sulfate IVPUSH 4 mg ONCE PRN Administration Pain 10/10 Pantoprazole Sodium 40 mg 06/27/20 07:00 06/27/20 07:07 Protonix - PO 40 mg ACBK ROSCOE Administration Tramadol HCl 50 mg 06/26/20 16:06 Ultram - PO Q6H PRN PAIN LEVEL 4 - 6 Home Medications Medication Instructions Recorded Amlodipine Besylate [Norvasc -] 10 mg PO DAILY 06/26/20 Atorvastatin Calcium 40 mg PO HS 06/26/20 Glimepiride [Amaryl -] 4 mg PO BID 06/26/20 Metoprolol Tartrate [Lopressor] 100 mg PO BID 06/26/20 Telmisartan/Hydrochlorothiazid 1 each PO DAILY 06/26/20 [Telmisartan-Hctz 80-25 mg Tab] Sitagliptin Phosphate [Januvia] 50 mg PO DAILY 06/27/20 ASSESSMENT AND PLAN: 64 year old female with history of DM 2, HTN, HLD, CKD 3, presents with lower back pain, L Hip pain, radiating down LLE, as well as 3 day history of post- menopausal vaginal bleeding, now resolved. 1. Musculoskeletal Back Pain no history of trauma, no bladder/bowel incontinence/saddle paresthesia MRI LS Spine/Hip pending Neurosurgery consulted. Tramadol, Lidoderm patch. PT 2. UA suggestive of UTI Low grade fever, Tmax 100.1, mild leukocytosis Empirically on Ceftriaxone pending Urine Cx. 3. Post-menopausal Dysfunctional Uterine Bleeding Abdominal US- enlarged myomatous uterus. Gynecology eval requested. 4. TIM on CKD 3 - resolved with IV hydration. Creat now 1.9, back to baseline. Nephrology eval. HCTZ held due to TIM 5. HLD - continue Atorvastatin. 6. DM 2 - Glimepiride, Januvia held. Maintain on Novolog sliding scale. 7. HTN - Continue Norvasc, Metoprolol, Telmisartan. DVT Px - SCDs.
[2020-06-27] MEDS ORDERED: traMADol HCL 50 MG TABLET ONE (15:03)
--- NOTE | 2020-06-27 15:05 | CONSULT ---
Consult Consult Specialty:: Nephrology Reason for Consultation:: CKD - History of Present Illness Chief Complaint: back pain History of Present Illness: Pt is 64 year old female with pmhx of ckd, dm, htn, hld who presents with back and left hip pain. She says the pain started after she walked up a flight of stairs about a week ago. She was found to have worsening renal function and I was called to evaluate her. She denies dysuria or hematuria. She denies nsaid use. She denies fevers or chills. She knows she has kidney disease but does not follow with a shipping services sales representative. - History Source History Provided By: Patient, Medical Record - Past Medical History Cardio/Vascular: Yes: HTN, Hyperlipdemia Renal/: Yes: Renal Inusuff Endocrine: Yes: Diabetes Mellitus - Alcohol/Substance Use Hx Alcohol Use: No - Smoking History Smoking history: Unknown if ever smoked Have you smoked in the past 12 months: No Home Medications - Allergies Allergies/Adverse Reactions: Allergies Allergy/AdvReac Type Severity Reaction Status Date / Time No Known Allergies Allergy Verified 06/26/20 09:03 - Home Medications Home Medications: Ambulatory Orders Amlodipine Besylate [Norvasc -] 10 mg PO DAILY 06/26/20 Atorvastatin Calcium 40 mg PO HS 06/26/20 Glimepiride [Amaryl -] 4 mg PO BID 06/26/20 Metoprolol Tartrate [Lopressor] 100 mg PO BID 06/26/20 Telmisartan/Hydrochlorothiazid [Telmisartan-Hctz 80-25 mg Tab] 1 each PO DAILY 06/26/20 Sitagliptin Phosphate [Januvia] 50 mg PO DAILY 06/27/20 Family Medical History Family History: Denies Review of Systems - Review of Systems Constitutional: reports: Weakness Eyes: reports: No Symptoms HENT: reports: No Symptoms Neck: reports: No Symptoms Cardiovascular: reports: No Symptoms Respiratory: reports: No Symptoms Gastrointestinal: reports: No Symptoms Genitourinary: reports: No Symptoms Musculoskeletal: reports: Back Pain Integumentary: reports: No Symptoms Neurological: reports: No Symptoms Endocrine: reports: No Symptoms Hematology/Lymphatic: reports: No Symptoms Psychiatric: reports: No Symptoms Physical Exam Vital Signs: Vital Signs Temperature 98.4 F 06/27/20 10:44 Pulse Rate 82 06/27/20 10:44 Respiratory Rate 16 06/27/20 07:56 Blood Pressure 161/84 06/27/20 10:44 O2 Sat by Pulse Oximetry (%) 98 06/27/20 10:44 Constitutional: Yes: Calm Eyes: Yes: Conjunctiva Clear HENT: Yes: Atraumatic Cardiovascular: Yes: S1, S2 Respiratory: Yes: CTA Bilaterally Gastrointestinal: Yes: Soft, Abdomen, Obese Musculoskeletal: Yes: WNL Edema: Yes Edema: LLE: Trace, RLE: Trace Neurological: Yes: Oriented Psychiatric: Yes: Oriented Labs: CBC, BMP 06/27/20 06:19 06/27/20 06:19 Laboratory Tests 06/09/15 08/12/17 06/26/20 19:10 21:36 10:15 Sodium Potassium Chloride Creatinine 1.5 H 2.2 H D 2.7 H Urine Protein Urine Blood 06/26/20 06/27/20 10:15 06:19 Sodium 144 Potassium 3.7 Chloride 110 H Creatinine 1.9 H Urine Protein 2+ H Urine Blood 3+ H Imaging - Results Chest X-ray: Report Reviewed Problem List - Problems (1) CKD (chronic kidney disease) Code(s): N18.9 - CHRONIC KIDNEY DISEASE, UNSPECIFIED (2) Sciatica Code(s): M54.30 - SCIATICA, UNSPECIFIED SIDE Qualifiers: Laterality: left Qualified Code(s): M54.32 - Sciatica, left side (3) Hypertension Code(s): I10 - ESSENTIAL (PRIMARY) HYPERTENSION Assessment/Plan Current Medications Generic Name Dose Route Start Last Admin Trade Name Freq PRN Reason Stop Dose Admin Acetaminophen 650 mg 06/26/20 16:07 06/27/20 08:26 Tylenol - PO 650 mg Q6H PRN Administration PAIN LEVEL 1-5 Amlodipine Besylate 10 mg 06/28/20 10:00 Norvasc - PO DAILY ROSCOE Atorvastatin Calcium 40 mg 06/26/20 22:00 06/26/20 21:25 Lipitor - PO 40 mg HS ROSCOE Administration Ceftriaxone Sodium 1 gm/ 50 mls @ 100 mls/hr 06/26/20 16:15 06/27/20 11:03 Dextrose IVPB 100 mls/hr DAILY ROSCOE Administration Protocol Insulin Aspart 1 vial 06/26/20 16:30 06/27/20 11:03 Novolog Vial Sliding Scale - SQ Not Given ACHS ROSCOE Protocol Losartan Potassium 50 mg 06/28/20 10:00 Cozaar - PO DAILY ROSCOE Metoprolol Tartrate 100 mg 06/26/20 22:00 06/27/20 11:03 Lopressor - PO 100 mg BID ROSCOE Administration Morphine Sulfate 4 mg 06/26/20 16:33 06/27/20 00:55 Morphine Sulfate IVPUSH 4 mg ONCE PRN Administration Pain 10/10 Pantoprazole Sodium 40 mg 06/27/20 07:00 06/27/20 07:07 Protonix - PO 40 mg ACBK ROSCOE Administration Tramadol HCl 50 mg 06/26/20 16:06 Ultram - PO Q6H PRN PAIN LEVEL 4 - 6 Impression 1. CKD 2. TIM 3. back pain 4. dm 5. htn 6. obesity Plan - check renal ultrasound - check prt to church worker ratio - will need renal workup - check spep and light chains on this admission - cont losartan - repeat labs in am - thiazide on hold - monitor volume status
[2020-06-27] MEDS: traMADol HCL 50 MG TABLET PO PRN (15:07)
--- NOTE | 2020-06-27 16:25 | PN ---
Physical Exam: SUBJECTIVE: Patient seen and examined at bedside, reports that her back/buttock pain radiating down the left lower extremity started on friday. Denies any trauma, fever. chills, nausea, vomiting, diarrhea, OBJECTIVE: Vital Signs Period Temp Pulse Resp BP Sys/Ruiz Pulse Ox Last 24 Hr 98.2 F-100.1 F 82-95 16-20 151-178/78-92 97-98 GENERAL: AAOx3, in no acute distress HEENT: NCAT, PERRLA, EOMI, sclera anicteric, conjunctiva clear, oropharynx clear w/o exudates. MMM. NECK: Normal ROM, supple, no lymphadenopathy, JVD, or masses LUNGS: CTABL no wheezes/ rhonchi/ rales. No distress, speaks in full sentences. No increased work of breathing. HEART: RRR, normal S1 S2, no M/R/G, peripheral pulses 2+ and equal b/l ABDOMEN: Soft, non-tender, + BS. No guarding or rebound. No hepatomegaly or splenomegaly. MSK: ROM WNL, NO CVA tenderness EXTREMITIES: Normal inspection. No peripheral edema. No clubbing or cyanosis. Limited ROM of L. hip and LLE due to pain. NEUROLOGICAL: CN II-XII intact. Normal speech, gait not observed, no focal sensorimotor deficits. PSYCH: Normal mood, normal affect. SKIN: Warm, Dry, normal turgor, no rashes or lesions noted Laboratory Results - last 24 hr 06/26/20 06/26/20 06/26/20 10:15 16:50 18:38 WBC RBC Hgb Hct MCV MCH MCHC RDW Plt Count MPV Absolute Neuts (auto) Neutrophils % Lymphocytes % Monocytes % Eosinophils % Basophils % Nucleated RBC % Sodium 140 Potassium 3.8 Chloride 106 Carbon Dioxide 24 Anion Gap 10 BUN 58.4 H Creatinine 2.7 H Est GFR (CKD-EPI)AfAm 21.04 Est GFR (CKD-EPI)NonAf 18.16 POC Glucometer 133 Random Glucose 154 H Hemoglobin A1c % Calcium 9.1 Phosphorus Magnesium Total Bilirubin 0.6 AST 29 ALT 16 Alkaline Phosphatase 130 H Total Protein 6.8 Albumin 2.7 L Triglycerides 69 Cholesterol 95 Total LDL Cholesterol 34 HDL Cholesterol 50 TSH 0.97 Syphilis Serology Non-reactive 06/26/20 06/27/20 06/27/20 21:18 00:48 06:19 WBC 12.4 H RBC 3.45 L Hgb 10.0 L Hct 30.1 L MCV 87.2 MCH 28.9 MCHC 33.1 RDW 15.8 H Plt Count 313 MPV 8.1 Absolute Neuts (auto) 10.0 H Neutrophils % 80.3 Lymphocytes % 9.4 D Monocytes % 9.1 Eosinophils % 0.9 D Basophils % 0.3 Nucleated RBC % 0 Sodium Potassium Chloride Carbon Dioxide Anion Gap BUN Creatinine Est GFR (CKD-EPI)AfAm Est GFR (CKD-EPI)NonAf POC Glucometer 165 155 Random Glucose Hemoglobin A1c % Calcium Phosphorus Magnesium Total Bilirubin AST ALT Alkaline Phosphatase Total Protein Albumin Triglycerides Cholesterol Total LDL Cholesterol HDL Cholesterol TSH Syphilis Serology 06/27/20 06/27/20 06/27/20 06:19 06:19 06:37 WBC RBC Hgb Hct MCV MCH MCHC RDW Plt Count MPV Absolute Neuts (auto) Neutrophils % Lymphocytes % Monocytes % Eosinophils % Basophils % Nucleated RBC % Sodium 144 Potassium 3.7 Chloride 110 H Carbon Dioxide 28 Anion Gap 6 L BUN 46.0 H Creatinine 1.9 H Est GFR (CKD-EPI)AfAm 32.18 Est GFR (CKD-EPI)NonAf 27.77 POC Glucometer 131 Random Glucose 140 H Hemoglobin A1c % 8.0 H Calcium 8.8 Phosphorus 3.8 Magnesium 2.4 Total Bilirubin 0.4 AST 18 ALT 20 Alkaline Phosphatase 182 H Total Protein 6.6 Albumin 2.4 L Triglycerides Cholesterol Total LDL Cholesterol HDL Cholesterol TSH Syphilis Serology 06/27/20 10:57 WBC RBC Hgb Hct MCV MCH MCHC RDW Plt Count MPV Absolute Neuts (auto) Neutrophils % Lymphocytes % Monocytes % Eosinophils % Basophils % Nucleated RBC % Sodium Potassium Chloride Carbon Dioxide Anion Gap BUN Creatinine Est GFR (CKD-EPI)AfAm Est GFR (CKD-EPI)NonAf POC Glucometer 137 Random Glucose Hemoglobin A1c % Calcium Phosphorus Magnesium Total Bilirubin AST ALT Alkaline Phosphatase Total Protein Albumin Triglycerides Cholesterol Total LDL Cholesterol HDL Cholesterol TSH Syphilis Serology Active Medications Generic Name Dose Route Start Last Admin Trade Name Freq PRN Reason Stop Dose Admin Acetaminophen 650 mg 06/26/20 16:07 06/27/20 08:26 Tylenol - PO 650 mg Q6H PRN Administration PAIN LEVEL 1-5 Amlodipine Besylate 10 mg 06/28/20 10:00 Norvasc - PO DAILY ROSCOE Atorvastatin Calcium 40 mg 06/26/20 22:00 06/26/20 21:25 Lipitor - PO 40 mg HS ROSCOE Administration Ceftriaxone Sodium 1 gm/ 50 mls @ 100 mls/hr 06/26/20 16:15 06/27/20 11:03 Dextrose IVPB 100 mls/hr DAILY ROSCOE Administration Protocol Insulin Aspart 1 vial 06/26/20 16:30 06/27/20 11:03 Novolog Vial Sliding Scale - SQ Not Given ACHS ROSCOE Protocol Losartan Potassium 50 mg 06/28/20 10:00 Cozaar - PO DAILY ROSCOE Metoprolol Tartrate 100 mg 06/26/20 22:00 06/27/20 11:03 Lopressor - PO 100 mg BID ROSCOE Administration Morphine Sulfate 4 mg 06/26/20 16:33 06/27/20 00:55 Morphine Sulfate IVPUSH 4 mg ONCE PRN Administration Pain 10/10 Pantoprazole Sodium 40 mg 06/27/20 07:00 06/27/20 07:07 Protonix - PO 40 mg ACBK ROSCOE Administration Tramadol HCl 50 mg 06/26/20 16:06 06/27/20 15:07 Ultram - PO 50 mg Q6H PRN Administration PAIN LEVEL 4 - 6 ASSESSMENT/PLAN: 64 Y F with a PMHx of DM, HTN, HLD, and CKD presents with lower back and L. Hip pain radiating down LLE over the last 4 days and post-menopausal vaginal bleeding for 3 days. #Intractable hip pain - Most likely mosculoskeletal in nature, no bowel/bladder incontinence and saddle anesthesia - Lumbar and L. Hip MRI, pending read - Neurosurgery consulted, pending recs - Pain control: Tylenol, Tramadol and lidoderm patch - Physical therapy consulted #Positive UA w/ Leukocytosis - UA : positive for protein, blood WBCs and bacteria - v/s: elevated temp 100.1 and elevated wbc 14.4 - continue Ceftriaxone, pending blood and urine culture #Dysfunctional Uterine bleeding - Post-menopausal - Abdominal US shows multiple fibroids and enlarged myomatous uterus - CARPET JOURNEYMAN consuled, pending recs #TIM on CKD(s3) - Improved from Crea 2.7 to 1.9 with IVF - Nephrology consulted, pending recs - Holding HCTZ for now # Hx of DM - BGM + ISS #Hx of HTN - Continue Norvasc, Metoprolol, Telmisartan # Hx of HLD - - Continue Atrovastatin #FEN - Not on standing fluids - Continue to monitor electrolytes - Diabetic/ sodium controlled diet #DVT Ppx. Hep SQ Visit type - Emergency Visit Emergency Visit: Yes ED Registration Date: 06/26/20 Care time: The patient presented to the Emergency Department on the above date and was hospitalized for further evaluation of their emergent condition. - New Patient This patient is new to me today: No - Critical Care Critical Care patient: No - Discharge Referral Referred to [facility] Med [facility] No ATTENDING PHYSICIAN STATEMENT I saw and evaluated the patient. I reviewed the resident's note and discussed the case with the resident. I agree with the resident's findings and plan as documented. SUBJECTIVE: OBJECTIVE: ASSESSMENT AND PLAN:
[2020-06-27 19:49] LABS: EPI CELLS 13 /uL (0-25.1); HYALINE CASTS 0 /uL (0-3.1); URINE APPEARANCE CLEAR; URINE BACTERIA 151 /uL (0-1359); URINE BILIRUBIN NEGATIVE (NEGATIVE); URINE COLOR YELLOW; URINE GLUCOSE (UA) NEGATIVE (NEGATIVE); URINE KETONE NEGATIVE (NEGATIVE); URINE LEUK ESTERASE NEGATIVE (NEGATIVE); URINE NITRITE NEGATIVE (NEGATIVE); URINE PROTEIN 2+ (NEGATIVE); URINE RBC 424 /uL (0-23.9); URINE UROBILINOGEN 0.2 mg/dL (0.2-1.0); URINE WBC 27 /uL (0-25.8)
[2020-06-27 20:12] LABS: YEAST RARE (NEGATIVE)
[2020-06-27] MEDS: ATORVASTATIN CA 40 MG TABLET (FP) PO SCH (21:56)
[2020-06-28] MEDS: traMADol HCL 50 MG TABLET PO PRN ×3 (00:38→20:29)
[2020-06-28] MEDS: INSULIN SLIDING SCALE (NOVOLOG) 1 VIAL SQ SCH ×4 (06:23→22:21)
[2020-06-28] MEDS: PANTOPRAZOLE 40 MG TABLET PO SCH (06:26)
[2020-06-28 08:31] LABS: BILIRUBIN,TOTAL 0.6 mg/dL (0.2-1); BLOOD UREA NITROGEN 40.6 mg/dL (7-18); CALCIUM 8.4 mg/dL (8.5-10.1); CREATININE 1.9 mg/dL (0.55-1.3); MAGNESIUM 2.2 mg/dL (1.8-2.4); PHOSPHOROUS 3.5 mg/dL (2.5-4.9); POTASSIUM 4.4 mmol/L (3.5-5.1); TOT PROT 6.3 g/dl (6.4-8.2)
[2020-06-28 09:02] LABS: HEMATOCRIT 26.7 % (32.4-45.2); HEMOGLOBIN 9.4 GM/dL (10.7-15.3); MCHC 35.1 g/dl (32.0-36.0); MEAN PLT VOLUME 8.7 fl (7.5-11.1); PLATELET COUNT 464 K/MM3 (134-434); RBC 2.94 M/mm3 (3.60-5.2); RDW 16.2 % (11.6-15.6)
[2020-06-28 09:03] LABS: WHITE BLOOD COUNT 20.5 K/mm3 (4.0-10.0)
[2020-06-28] MEDS ORDERED: DEXTROSE 5%-WATER - 50 ML IVPB ONE (09:03)
[2020-06-28] MEDS ORDERED: cefTRIAXone SODIUM 1 GM VIAL ONE (09:03)
[2020-06-28] MEDS: amLODIPine BESYLATE 10 MG TABLET (FP) PO SCH (09:08)
[2020-06-28] MEDS: ACETAMINOPHEN 325 MG TABLET (FP) PO PRN ×2 (09:08→21:44)
[2020-06-28] MEDS: METOPROLOL TARTRATE 50 MG TABLET (FP) PO SCH ×2 (09:08→21:39)
[2020-06-28] MEDS: CEFTRIAXONE 1 GM in DEXTROSE 5%-WATER - 50 ML IVPB SCH (09:09)
[2020-06-28] MEDS ORDERED: LOSARTAN POTASSIUM 50 MG TABLET PO SCH (10:00)
[2020-06-28] MEDS: CYCLOBENZAPRINE HCL 10 MG TABLET (FP) PO SCH ×3 (10:18→21:39)
--- NOTE | 2020-06-28 12:56 | CONSULT ---
Consult Consult Specialty:: WIRE MILL OPERATOR Reason for Consultation:: AUB - History of Present Illness Chief Complaint: Abnormal Vaginal bleeding History of Present Illness: Patient with multiple comorbidities presenting to the hospital for pain and unable to walk. She reports moderate amount of vaginal bleeding that subsided today. 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: No: Alzheimer's, CVA, Dementia, Migraine, Multiple Sclerosis, Peripheral Neuropathy, Parkinson's, Seizure, Syncope, TIA, Vertigo, Other Cardio/Vascular: Yes: HTN, Hyperlipdemia Pulmonary: No: Asthma, Bronchitis, Cancer, COPD, O2 Dependent, Pneumonia, Previ ously Intubated, Pulmonary Embolus, Pulmonary Fibrosis, Sleep Apnea, Other Gastrointestinal: No: Ascites, Cancer, Constipation, Crohn's Disease, Diverticulitis, Diverticulosis, Esophageal Varices, Gastritis, GERD, GI Bleed, Hemorrhoids, Hiatal Hernia, Inflamatory Bowel Disease, Irritable Bowel Disease, Pancreatitis, Peptic Ulcer Disease, Ulcerative Colitis, Other Hepatobiliary: No: Cirrhosis, Cholelithiasis, Cholecystitis, Choledocholithiasis, Hepatitis A, Hepatitis B, Hepatitis C, Other Renal/: Yes: Renal Inusuff ...: No Heme/Onc: Yes: Anemia Infectious Disease: No: AIDS, C-Diff, Herpes Zoster, HIV, MRSA, STD's, Tuberculosis, VREF, Other Psych: No: Addictions, Anxiety, Bipolar, Depression, Panic, Psychosis, Schizophrenia, Other Musculoskeletal: No: Bursitis, Chronic low back pain, Hemiparesis, Hemiplegia, Osteoarthritis, Paraplegia, Other Rheumatology: No: Fibromyalgia, Gout, Lupus, Rheumatoid Arthritis, Sarcoidosis, Vasculitis, Other ENT: No: Allergic Rhinitis, Sinusitis, Other Endocrine: Yes: Diabetes Mellitus - Past Surgical History Past Surgical History: Yes: Cholecystectomy - Alcohol/Substance Use Hx Alcohol Use: No History of Substance Use: reports: None - Smoking History Smoking history: Never smoked Have you smoked in the past 12 months: No Home Medications - Allergies Allergies/Adverse Reactions: Allergies Allergy/AdvReac Type Severity Reaction Status Date / Time No Known Allergies Allergy Verified 06/26/20 09:03 - Home Medications Home Medications: Ambulatory Orders Amlodipine Besylate [Norvasc -] 10 mg PO DAILY 06/26/20 Glimepiride [Amaryl -] 4 mg PO BID 06/26/20 Metoprolol Tartrate [Lopressor] 100 mg PO BID 06/26/20 Telmisartan/Hydrochlorothiazid [Telmisartan-Hctz 80-25 mg Tab] 1 each PO DAILY 06/26/20 Sitagliptin Phosphate [Januvia] 50 mg PO DAILY 06/27/20 Family Medical History Family History: Denies (H/O WIRE MILL OPERATOR malignancy) Review of Systems - Review of Systems Constitutional: reports: No Symptoms Eyes: reports: No Symptoms HENT: reports: No Symptoms Genitourinary: reports: Vaginal Bleeding (patient reports she is no longer bleeding) Breasts: reports: No Symptoms Reported Musculoskeletal: reports: Back Pain (and leg pain) Integumentary: reports: No Symptoms Neurological: reports: No Symptoms Endocrine: reports: No Symptoms Hematology/Lymphatic: reports: No Symptoms Psychiatric: reports: No Symptoms Physical Exam Vital Signs: Vital Signs Temperature 98.9 F 06/28/20 06:00 Pulse Rate 82 06/28/20 06:00 Respiratory Rate 20 06/28/20 06:00 Blood Pressure 152/75 06/28/20 06:00 O2 Sat by Pulse Oximetry (%) 98 06/28/20 09:00 Constitutional: Yes: No Distress HENT: Yes: Atraumatic Neck: Yes: Supple Cardiovascular: Yes: Regular Rate and Rhythm Respiratory: Yes: Regular Gastrointestinal: Yes: Soft, Abdomen, Obese (non-tender, no palpable masses) ...Rectal Exam: Yes: Deferred Renal/: Yes: Other (WIRE MILL OPERATOR exam declined by patient) Breast(s): Yes: Other Musculoskeletal: Yes: Back Pain Extremities: Yes: Other (unable to ambulate) Edema: Yes Edema: LLE: Trace, RLE: Trace Neurological: Yes: Alert, Oriented Psychiatric: Yes: Alert, Oriented Labs: CBC, BMP 06/28/20 07:10 06/28/20 07:10 Imaging - Results Ultrasound: Report Reviewed Assessment/Plan 64 y/o female P5 admitted to the hospital due to lower back/leg pain. WIRE MILL OPERATOR evaluation secondary to PMB and evidence of leiomyomas on ultrasound. Multiple co-morbidities present including obesity and renal insufficiency. Patient reports poor WIRE MILL OPERATOR care as outpatient, unsure regarding fibroid diagnosis previously and declined pelvic exam. PMB likely multi-factorial and outpatient WIRE MILL OPERATOR examination and evaluation is recommended. -WIRE MILL OPERATOR Follow up outpatient for EMB -Continue care as per primary team -Contact WIRE MILL OPERATOR service with any additional questions
--- NOTE | 2020-06-28 13:25 | PN ---
Physical Exam: SUBJECTIVE: Patient seen and examined at bedside side, reports worsening of her LLE pain. No acute events overnight, denies any fevers, chills overnight OBJECTIVE: Vital Signs Period Temp Pulse Resp BP Sys/Ruiz Pulse Ox Last 24 Hr 98.5 F-98.9 F 79-82 18-20 111-152/42-75 94-98 GENERAL: AAOx3, in no acute distress HEENT: NCAT, PERRLA, EOMI, sclera anicteric, conjunctiva clear, oropharynx clear w/o exudates. MMM. NECK: Normal ROM, supple, no lymphadenopathy, JVD, or masses LUNGS: CTABL no wheezes/ rhonchi/ rales. No distress, speaks in full sentences. No increased work of breathing. HEART: RRR, normal S1 S2, no M/R/G, peripheral pulses 2+ and equal b/l ABDOMEN: Soft, non-tender, + BS. No guarding or rebound. No hepatomegaly or splenomegaly. MSK: ROM WNL, NO CVA tenderness EXTREMITIES: Normal inspection. No peripheral edema. No clubbing or cyanosis. Limited ROM of L. hip and LLE due to pain. NEUROLOGICAL: CN II-XII intact. Normal speech, gait not observed, no focal sensorimotor deficits. PSYCH: Normal mood, normal affect. SKIN: Warm, Dry, normal turgor, no rashes or lesions noted Laboratory Results - last 24 hr 06/26/20 06/27/20 06/27/20 15:42 06:19 17:33 WBC RBC Hgb Hct MCV MCH MCHC RDW Neutrophils % Lymphocytes % Nucleated RBC % Sodium Potassium Chloride Carbon Dioxide Anion Gap BUN Creatinine Est GFR (CKD-EPI)AfAm Est GFR (CKD-EPI)NonAf POC Glucometer 155 Random Glucose Calcium Phosphorus Magnesium Total Bilirubin AST ALT Alkaline Phosphatase Total Protein Albumin Urine Color Urine Appearance Urine pH Ur Specific [place] Urine Protein Urine Glucose (UA) Urine Ketones Urine Blood Urine Nitrite Urine Bilirubin Urine Urobilinogen Ur Leukocyte Esterase Urine WBC (Auto) Urine RBC (Auto) Urine Casts (Auto) U Epithel Cells (Auto) Urine Bacteria (Auto) Urine Yeast (Auto) Ur Random Creatinine U Random Total Protein Protein/Creatinin Ratio COVID-19 ([place]) Not detected Hep A IgM Ab Confirm Negative Hep Bs Antigen Negative Hep B Core IgM Ab Negative Hepatitis C Ab (EIA) <0.1 06/27/20 06/27/20 06/27/20 17:38 17:38 21:49 WBC RBC Hgb Hct MCV MCH MCHC RDW Neutrophils % Lymphocytes % Nucleated RBC % Sodium Potassium Chloride Carbon Dioxide Anion Gap BUN Creatinine Est GFR (CKD-EPI)AfAm Est GFR (CKD-EPI)NonAf POC Glucometer 176 Random Glucose Calcium Phosphorus Magnesium Total Bilirubin AST ALT Alkaline Phosphatase Total Protein Albumin Urine Color Yellow Urine Appearance Clear Urine pH 5.0 Ur Specific [place] 1.011 Urine Protein 2+ H Urine Glucose (UA) Negative Urine Ketones Negative Urine Blood 3+ H Urine Nitrite Negative Urine Bilirubin Negative Urine Urobilinogen 0.2 Ur Leukocyte Esterase Negative Urine WBC (Auto) 27 Urine RBC (Auto) 424 Urine Casts (Auto) 0 U Epithel Cells (Auto) 13 Urine Bacteria (Auto) 151 Urine Yeast (Auto) Rare Ur Random Creatinine 60.0 U Random Total Protein 81.1 H Protein/Creatinin Ratio 1.4 COVID-19 ([place]) Hep A IgM Ab Confirm Hep Bs Antigen Hep B Core IgM Ab Hepatitis C Ab (EIA) 06/28/20 06/28/20 06/28/20 06:19 07:10 07:10 WBC 20.5 H RBC 2.94 L Hgb 9.4 L Hct 26.7 L MCV 91.0 MCH 32.0 D MCHC 35.1 RDW 16.2 H Neutrophils % No Result Required. Lymphocytes % No Result Required. Nucleated RBC % 0 Sodium 144 Potassium 4.4 Chloride 111 H Carbon Dioxide 25 Anion Gap 8 BUN 40.6 H Creatinine 1.9 H Est GFR (CKD-EPI)AfAm 32.18 Est GFR (CKD-EPI)NonAf 27.77 POC Glucometer 146 Random Glucose 148 H Calcium 8.4 L Phosphorus 3.5 Magnesium 2.2 Total Bilirubin 0.6 AST 64 H ALT 27 Alkaline Phosphatase 333 H Total Protein 6.3 L Albumin 2.0 L Urine Color Urine Appearance Urine pH Ur Specific [place] Urine Protein Urine Glucose (UA) Urine Ketones Urine Blood Urine Nitrite Urine Bilirubin Urine Urobilinogen Ur Leukocyte Esterase Urine WBC (Auto) Urine RBC (Auto) Urine Casts (Auto) U Epithel Cells (Auto) Urine Bacteria (Auto) Urine Yeast (Auto) Ur Random Creatinine U Random Total Protein Protein/Creatinin Ratio COVID-19 ([place]) Hep A IgM Ab Confirm Hep Bs Antigen Hep B Core IgM Ab Hepatitis C Ab (EIA) 06/28/20 11:44 WBC RBC Hgb Hct MCV MCH MCHC RDW Neutrophils % Lymphocytes % Nucleated RBC % Sodium Potassium Chloride Carbon Dioxide Anion Gap BUN Creatinine Est GFR (CKD-EPI)AfAm Est GFR (CKD-EPI)NonAf POC Glucometer 188 Random Glucose Calcium Phosphorus Magnesium Total Bilirubin AST ALT Alkaline Phosphatase Total Protein Albumin Urine Color Urine Appearance Urine pH Ur Specific [place] Urine Protein Urine Glucose (UA) Urine Ketones Urine Blood Urine Nitrite Urine Bilirubin Urine Urobilinogen Ur Leukocyte Esterase Urine WBC (Auto) Urine RBC (Auto) Urine Casts (Auto) U Epithel Cells (Auto) Urine Bacteria (Auto) Urine Yeast (Auto) Ur Random Creatinine U Random Total Protein Protein/Creatinin Ratio COVID-19 ([place]) Hep A IgM Ab Confirm Hep Bs Antigen Hep B Core IgM Ab Hepatitis C Ab (EIA) Active Medications Generic Name Dose Route Start Last Admin Trade Name Freq PRN Reason Stop Dose Admin Acetaminophen 650 mg 06/26/20 16:07 06/28/20 09:08 Tylenol - PO 650 mg Q6H PRN Administration PAIN LEVEL 1-5 Amlodipine Besylate 10 mg 06/28/20 10:00 06/28/20 09:08 Norvasc - PO 10 mg DAILY ROSCOE Administration Atorvastatin Calcium 40 mg 06/26/20 22:00 06/27/20 21:56 Lipitor - PO 40 mg HS ROSCOE Administration Cyclobenzaprine HCl 10 mg 06/28/20 10:02 06/28/20 10:18 Flexeril - PO 10 mg TID ROSCOE Administration Ceftriaxone Sodium 1 gm/ 50 mls @ 100 mls/hr 06/26/20 16:15 06/28/20 09:09 Dextrose IVPB 100 mls/hr DAILY ROSCOE Administration Protocol Insulin Aspart 1 vial 06/26/20 16:30 06/28/20 12:01 Novolog Vial Sliding Scale - SQ Not Given ACHS ROSCOE Protocol Losartan Potassium 50 mg 06/28/20 10:00 06/28/20 09:08 Cozaar - PO 50 mg DAILY ROSCOE Administration Metoprolol Tartrate 100 mg 06/26/20 22:00 06/28/20 09:08 Lopressor - PO 100 mg BID ROSCOE Administration Morphine Sulfate 4 mg 06/26/20 16:33 06/27/20 18:53 Morphine Sulfate IVPUSH 4 mg ONCE PRN Administration Pain 10/10 Pantoprazole Sodium 40 mg 06/27/20 07:00 06/28/20 06:26 Protonix - PO 40 mg ACBK [facility]COE Administration Tramadol HCl 50 mg 06/26/20 16:06 06/28/20 06:26 Ultram - PO 50 mg Q6H PRN Administration PAIN LEVEL 4 - 6 Imaging: MRI Lumbar spine: some asymmetry in the appearance of the nerve roots which may be related to clumping and arachnoiditis or to underlying mass lesion. Degenerative disease of the lumbosacral spine with accentuation of the lumbar lordosis. L3-L4 L2-L3 moderate degree of spinal stenosis related to bulging annuli and prominent posterior epidural fat with moderate degenerative ages articular facets. L4-L5 grade 1 anterolisthesis of L4 over L5 with broad-based bulging annulus toward the right and left epidural recess with mass effect on the L5 nerve roots in the recesses with more extension into the right L4-L5 foramen. Also hypertrophic changes articular facets contributing to moderate deg ree of spinal stenosis. Multiple lesions related to the uterus and possibly the right adnexa sonography of the pelvis or MRI of pelvis with contrast strongly recommended for further evaluation ASSESSMENT/PLAN: 64 Y F with a PMHx of DM, HTN, HLD, and CKD presents with lower back and L. Hip pain radiating down LLE over the last 4 days and post-menopausal vaginal bleeding for 3 days. #Intractable hip pain - 2/2 to radiculopathy due to herniated disk, no bowel/bladder incontinence and saddle anesthesia - Lumbar and L. Hip MRI: noted as above Patient cannot get contrast study to evaluate for possible mass lesion, due to her kidney functions (low eGFR) - Neurosurgery consulted, Dr. Alberto villegas, recs appreciated Possible L4-L5 laminectomy and fusion - Patient will need contrast imaging to evaluate for mass prior to the surgery, will hydrate and re-evaluate her kidney functions. - Pain control: Tylenol, Tramadol and lidoderm patch - Physical therapy consulted #Positive UA w/ Leukocytosis - UA : positive for protein, blood WBCs and bacteria - v/s: elevated temp 100.1 and elevated wbc 14.4 - continue Ceftriaxone, pending blood and urine culture #Dysfunctional Uterine bleeding - Post-menopausal - Abdominal US shows multiple fibroids and enlarged myomatous uterus - BUSINESS CASE ANALYST consuled, will f/u as outpatient #TIM on CKD(S3) - Improved from Crea 2.7 to 1.9 with IVF - Nephrology consulted - Renal u/s: Small right renal simple cyst measuring 10 x 8 mm. Bilateral renal sinus lipomatosis. - Holding HCTZ for now # Hx of DM - BGM + ISS #Hx of HTN - Continue Norvasc, Metoprolol, Telmisartan # Hx of HLD - Continue Atrovastatin #FEN - Not on standing fluids - Continue to monitor electrolytes - NPO midnight #DVT Ppx - No chemical PPx for now, pending procedure Visit type - Emergency Visit Emergency Visit: Yes ED Registration Date: 06/26/20 Care time: The patient presented to the Emergency Department on the above date and was hospitalized for further evaluation of their emergent condition. - New Patient This patient is new to me today: No - Critical Care Critical Care patient: No - Discharge Referral Referred to [facility] Med P.C.: No ATTENDING PHYSICIAN STATEMENT I saw and evaluated the patient. I reviewed the resident's note and discussed the case with the resident. I agree with the resident's findings and plan as documented. SUBJECTIVE: OBJECTIVE: ASSESSMENT AND PLAN:
[2020-06-28 13:42] LABS: ANISOCYTOSIS 1+; MACROCYTOSIS 0; PLATELET ESTIMATE NORMAL
--- NOTE | 2020-06-28 13:52 | PN ---
Progress Note, Physician History of Present Illness: Pt seen and examined at bedside. She denies lower ext weakness. She still has back pain. - Current Medication List Current Medications: Active Medications Acetaminophen (Tylenol -) 650 mg PO Q6H PRN PRN Reason: PAIN LEVEL 1-5 Last Admin: 06/28/20 09:08 Dose: 650 mg Documented by: Amlodipine Besylate (Norvasc -) 10 mg PO DAILY [facility] Last Admin: 06/28/20 09:08 Dose: 10 mg Documented by: Atorvastatin Calcium (Lipitor -) 40 mg PO HS [facility] Last Admin: 06/27/20 21:56 Dose: 40 mg Documented by: Cyclobenzaprine HCl (Flexeril -) 10 mg PO TID [facility] Last Admin: 06/28/20 10:18 Dose: 10 mg Documented by: Ceftriaxone Sodium 1 gm/ (Dextrose) 50 mls @ 100 mls/hr IVPB DAILY [facility]; Protocol Last Admin: 06/28/20 09:09 Dose: 100 mls/hr Documented by: Insulin Aspart (Novolog Vial Sliding Scale -) 1 vial SQ ACHS [facility]; Protocol Last Admin: 06/28/20 12:01 Dose: Not Given Documented by: Losartan Potassium (Cozaar -) 50 mg PO DAILY [facility] Last Admin: 06/28/20 09:08 Dose: 50 mg Documented by: Metoprolol Tartrate (Lopressor -) 100 mg PO BID [facility] Last Admin: 06/28/20 09:08 Dose: 100 mg Documented by: Morphine Sulfate (Morphine Sulfate) 4 mg IVPUSH ONCE PRN PRN Reason: Pain 10/10 Last Admin: 06/27/20 18:53 Dose: 4 mg Documented by: Pantoprazole Sodium (Protonix -) 40 mg PO ACBK [facility] Last Admin: 06/28/20 06:26 Dose: 40 mg Documented by: Tramadol HCl (Ultram -) 50 mg PO Q6H PRN PRN Reason: PAIN LEVEL 4 - 6 Last Admin: 06/28/20 06:26 Dose: 50 mg Documented by: - Objective Vital Signs: Vital Signs Temperature 98.9 F 06/28/20 06:00 Pulse Rate 82 06/28/20 06:00 Respiratory Rate 20 06/28/20 06:00 Blood Pressure 152/75 06/28/20 06:00 O2 Sat by Pulse Oximetry (%) 98 06/28/20 09:00 Constitutional: Yes: Calm Eyes: Yes: Conjunctiva Clear HENT: Yes: Atraumatic Cardiovascular: Yes: S1, S2 Respiratory: Yes: CTA Bilaterally Gastrointestinal: Yes: Soft, Abdomen, Obese Genitourinary: Yes: WNL Edema: LLE: Trace, RLE: Trace Neurological: Yes: Oriented Psychiatric: Yes: Oriented Labs: CBC, BMP 06/28/20 07:10 06/28/20 07:10 INR, PTT INR 1.14 (0.83-1.09) H 06/26/20 10:15 Problem List - Problems (1) CKD (chronic kidney disease) Code(s): N18.9 - CHRONIC KIDNEY DISEASE, UNSPECIFIED (2) Sciatica Code(s): M54.30 - SCIATICA, UNSPECIFIED SIDE Qualifiers: Laterality: left Qualified Code(s): M54.32 - Sciatica, left side (3) Hypertension Code(s): I10 - ESSENTIAL (PRIMARY) HYPERTENSION Assessment/Plan Current Medications Generic Name Dose Route Start Last Admin Trade Name Freq PRN Reason Stop Dose Admin Acetaminophen 650 mg 06/26/20 16:07 06/28/20 09:08 Tylenol - PO 650 mg Q6H PRN Administration PAIN LEVEL 1-5 Amlodipine Besylate 10 mg 06/28/20 10:00 06/28/20 09:08 Norvasc - PO 10 mg DAILY [facility]COE Administration Atorvastatin Calcium 40 mg 06/26/20 22:00 06/27/20 21:56 Lipitor - PO 40 mg HS ROSCOE Administration Cyclobenzaprine HCl 10 mg 06/28/20 10:02 06/28/20 10:18 Flexeril - PO 10 mg TID [facility]E Administration Ceftriaxone Sodium 1 gm/ 50 mls @ 100 mls/hr 06/26/20 16:15 06/28/20 09:09 Dextrose IVPB 100 mls/hr DAILY [facility]E Administration Protocol Insulin Aspart 1 vial 06/26/20 16:30 06/28/20 12:01 Novolog Vial Sliding Scale - SQ Not Given ACHS ROSCOE Protocol Losartan Potassium 50 mg 06/28/20 10:00 06/28/20 09:08 Cozaar - PO 50 mg DAILY [facility]E Administration Metoprolol Tartrate 100 mg 06/26/20 22:00 06/28/20 09:08 Lopressor - PO 100 mg BID ROSCOE Administration Morphine Sulfate 4 mg 06/26/20 16:33 06/27/20 18:53 Morphine Sulfate IVPUSH 4 mg ONCE PRN Administration Pain 10/10 Pantoprazole Sodium 40 mg 06/27/20 07:00 06/28/20 06:26 Protonix - PO 40 mg ACBK ROSCOE Administration Tramadol HCl 50 mg 06/26/20 16:06 06/28/20 06:26 Ultram - PO 50 mg Q6H PRN Administration PAIN LEVEL 4 - 6 Impression 1. CKD 2. TIM 3. back pain 4. dm 5. htn 6. obesity Plan - renal ultrasound reviewed - will hold losartan for now - gentle hydration - repeat labs in am - neurosurgery eval pending - spoke to radiology about MRI report - follow spep and light chains on this admission
[2020-06-28] MEDS ORDERED: SODIUM CHLORIDE 0.45% 1,000 ML IV SCH (14:00)
--- NOTE | 2020-06-28 14:10 | SPA.PREOP ---
- PRE-OP NOTE Dx: Lumbar spondylosis, herniated discs Planned Procedure: L4-L5 laminectomy and fusion Surgeon: Dr Alberto Pagan Last Vital Signs Temp Pulse Resp BP Pulse Ox 98.9 F 82 20 152/75 98 06/28/20 06:00 06/28/20 06:00 06/28/20 06:00 06/28/20 06:00 06/28/20 09:00 Lab Results WBC 20.5 K/mm3 (4.0-10.0) H 06/28/20 07:10 RBC 2.94 M/mm3 (3.60-5.2) L 06/28/20 07:10 Hgb 9.4 GM/dL (10.7-15.3) L 06/28/20 07:10 Hct 26.7 % (32.4-45.2) L 06/28/20 07:10 MCV 91.0 fl (80-96) 06/28/20 07:10 MCHC 35.1 g/dl (32.0-36.0) 06/28/20 07:10 RDW 16.2 % (11.6-15.6) H 06/28/20 07:10 Plt Count 313 K/MM3 (134-434) 06/27/20 06:19 INR 1.14 (0.83-1.09) H 06/26/20 10:15 Sodium 144 mmol/L (136-145) 06/28/20 07:10 Potassium 4.4 mmol/L (3.5-5.1) 06/28/20 07:10 Chloride 111 mmol/L (98-107) H 06/28/20 07:10 Carbon Dioxide 25 mmol/L (21-32) 06/28/20 07:10 Anion Gap 8 MMOL/L (8-16) 06/28/20 07:10 BUN 40.6 mg/dL (7-18) H 06/28/20 07:10 Creatinine 1.9 mg/dL (0.55-1.3) H 06/28/20 07:10 Random Glucose 148 mg/dL (74-106) H 06/28/20 07:10 Calcium 8.4 mg/dL (8.5-10.1) L 06/28/20 07:10 Blood Type A POSITIVE 09/07/20 10:15 Antibody Screen Negative 06/26/20 10:15 - IMAGING Chest X-ray: Report Reviewed (CXR (06/26/20): Weak inspiration with large heart and prominent hilar markings. Central crowding. Correlation and follow up recommended.) EKG: Report Reviewed (EKG (06/26/20): sinus tachycardia, septal; infarct age undetermined, abnormal ecg, no prior ecgs available) Other: Report Reviewed (MRI Lumbar (06/27/20): L3-L4 bulging annulus toward the right and left with mass effect on the right and left nerve roots in the recesses contributing to moderate degree of stenosis. L3-L4 bulging annulus with prominent posterior epidural fat contributing to narrowing of the thecal sac without disc herniation. Moderate degree of stenosis is noted on axial T2 image #24. L4-5 grade 1 spondylolisthesis of L4 over L5 with broadbase bulging annulus lateralizing or toward the right side with extension into the right foramen with mass effect on the nerve root in the foramen. Also noted hypertrophic degenerative changes articular facets contributing to moderate degree of spinal stenosis. L5-S1 unremarkable except of minimal degenerative changes articular facets.) - ASSESSMENT/PLAN 1. Make NPO after midnight except po meds 2. GI/DVT PPX 3. Medical optimization / clearance 4. Consent to be obtained by surgeon after risks, benefits and alternatives discussed with patient and or Health Care Proxy.
--- NOTE | 2020-06-28 15:11 | PN ---
Teaching Attending Note Name of Resident: Desirae Gage ATTENDING PHYSICIAN STATEMENT I saw and evaluated the patient. I reviewed the resident's note and discussed the case with the resident. I agree with the resident's findings and plan as documented. SUBJECTIVE: Complains of severe ongoing back pain, radiating down LLE. No further PV bleeding. OBJECTIVE: Tmax 100.1 06/27, Hemodynamically Stable. Last Vital Signs Temp Pulse Resp BP Pulse Ox 98.1 F 72 20 158/77 95 06/28/20 14:00 06/28/20 14:00 06/28/20 14:00 06/28/20 14:00 06/28/20 14:00 Heart - S1, S2, RRR Lungs - clear to auscultation. Abdomen - High BMI. Soft, non-tender. Bowel Sounds normal. Extremities - no calf tenderness. Neuro - AAO x 3. Limited mobility LLE due to pain, well perfused. Laboratory Results - last 24 hr 06/26/20 06/27/20 06/27/20 15:42 06:19 17:33 WBC RBC Hgb Hct MCV MCH MCHC RDW Plt Count MPV Neutrophils % Neutrophils % (Manual) Band Neutrophils % Lymphocytes % Lymphocytes % (Manual) Monocytes % (Manual) Eosinophils % (Manual) Basophils % (Manual) Myelocytes % (Man) Promyelocytes % (Man) Blast Cells % (Manual) Nucleated RBC % Metamyelocytes Hypochromia Platelet Estimate Polychromasia Poikilocytosis Anisocytosis Microcytosis Macrocytosis Sodium Potassium Chloride Carbon Dioxide Anion Gap BUN Creatinine Est GFR (CKD-EPI)AfAm Est GFR (CKD-EPI)NonAf POC Glucometer 155 Random Glucose Calcium Phosphorus Magnesium Total Bilirubin AST ALT Alkaline Phosphatase Total Protein Albumin Urine Color Urine Appearance Urine pH Ur Specific [place] Urine Protein Urine Glucose (UA) Urine Ketones Urine Blood Urine Nitrite Urine Bilirubin Urine Urobilinogen Ur Leukocyte Esterase Urine WBC (Auto) Urine RBC (Auto) Urine Casts (Auto) U Epithel Cells (Auto) Urine Bacteria (Auto) Urine Yeast (Auto) Ur Random Creatinine U Random Total Protein Protein/Creatinin Ratio COVID-19 ([place]) Not detected Hep A IgM Ab Confirm Negative Hep Bs Antigen Negative Hep B Core IgM Ab Negative Hepatitis C Ab (EIA) <0.1 06/27/20 06/27/20 06/27/20 17:38 17:38 21:49 WBC RBC Hgb Hct MCV MCH MCHC RDW Plt Count MPV Neutrophils % Neutrophils % (Manual) Band Neutrophils % Lymphocytes % Lymphocytes % (Manual) Monocytes % (Manual) Eosinophils % (Manual) Basophils % (Manual) Myelocytes % (Man) Promyelocytes % (Man) Blast Cells % (Manual) Nucleated RBC % Metamyelocytes Hypochromia Platelet Estimate Polychromasia Poikilocytosis Anisocytosis Microcytosis Macrocytosis Sodium Potassium Chloride Carbon Dioxide Anion Gap BUN Creatinine Est GFR (CKD-EPI)AfAm Est GFR (CKD-EPI)NonAf POC Glucometer 176 Random Glucose Calcium Phosphorus Magnesium Total Bilirubin AST ALT Alkaline Phosphatase Total Protein Albumin Urine Color Yellow Urine Appearance Clear Urine pH 5.0 Ur Specific [place] 1.011 Urine Protein 2+ H Urine Glucose (UA) Negative Urine Ketones Negative Urine Blood 3+ H Urine Nitrite Negative Urine Bilirubin Negative Urine Urobilinogen 0.2 Ur Leukocyte Esterase Negative Urine WBC (Auto) 27 Urine RBC (Auto) 424 Urine Casts (Auto) 0 U Epithel Cells (Auto) 13 Urine Bacteria (Auto) 151 Urine Yeast (Auto) Rare Ur Random Creatinine 60.0 U Random Total Protein 81.1 H Protein/Creatinin Ratio 1.4 COVID-19 ([place]) Hep A IgM Ab Confirm Hep Bs Antigen Hep B Core IgM Ab Hepatitis C Ab (EIA) 06/28/20 06/28/20 06/28/20 06:19 07:10 07:10 WBC 20.5 H RBC 2.94 L Hgb 9.4 L Hct 26.7 L MCV 91.0 MCH 32.0 D MCHC 35.1 RDW 16.2 H Plt Count 464 H D MPV 8.7 Neutrophils % No Result Required. Neutrophils % (Manual) 72.7 Band Neutrophils % 0.0 Lymphocytes % No Result Required. Lymphocytes % (Manual) 14.2 Monocytes % (Manual) 12 H Eosinophils % (Manual) 0.0 Basophils % (Manual) 0.0 Myelocytes % (Man) 0 Promyelocytes % (Man) 0 Blast Cells % (Manual) 0 Nucleated RBC % 0 Metamyelocytes 0 Hypochromia 0 Platelet Estimate Normal Polychromasia 1+ Poikilocytosis 0 Anisocytosis 1+ Microcytosis 1+ Macrocytosis 0 Sodium 144 Potassium 4.4 Chloride 111 H Carbon Dioxide 25 Anion Gap 8 BUN 40.6 H Creatinine 1.9 H Est GFR (CKD-EPI)AfAm 32.18 Est GFR (CKD-EPI)NonAf 27.77 POC Glucometer 146 Random Glucose 148 H Calcium 8.4 L Phosphorus 3.5 Magnesium 2.2 Total Bilirubin 0.6 AST 64 H ALT 27 Alkaline Phosphatase 333 H Total Protein 6.3 L Albumin 2.0 L Urine Color Urine Appearance Urine pH Ur Specific [place] Urine Protein Urine Glucose (UA) Urine Ketones Urine Blood Urine Nitrite Urine Bilirubin Urine Urobilinogen Ur Leukocyte Esterase Urine WBC (Auto) Urine RBC (Auto) Urine Casts (Auto) U Epithel Cells (Auto) Urine Bacteria (Auto) Urine Yeast (Auto) Ur Random Creatinine U Random Total Protein Protein/Creatinin Ratio COVID-19 ([place]) Hep A IgM Ab Confirm Hep Bs Antigen Hep B Core IgM Ab Hepatitis C Ab (EIA) 06/28/20 11:44 WBC RBC Hgb Hct MCV MCH MCHC RDW Plt Count MPV Neutrophils % Neutrophils % (Manual) Band Neutrophils % Lymphocytes % Lymphocytes % (Manual) Monocytes % (Manual) Eosinophils % (Manual) Basophils % (Manual) Myelocytes % (Man) Promyelocytes % (Man) Blast Cells % (Manual) Nucleated RBC % Metamyelocytes Hypochromia Platelet Estimate Polychromasia Poikilocytosis Anisocytosis Microcytosis Macrocytosis Sodium Potassium Chloride Carbon Dioxide Anion Gap BUN Creatinine Est GFR (CKD-EPI)AfAm Est GFR (CKD-EPI)NonAf POC Glucometer 188 Random Glucose Calcium Phosphorus Magnesium Total Bilirubin AST ALT Alkaline Phosphatase Total Protein Albumin Urine Color Urine Appearance Urine pH Ur Specific [place] Urine Protein Urine Glucose (UA) Urine Ketones Urine Blood Urine Nitrite Urine Bilirubin Urine Urobilinogen Ur Leukocyte Esterase Urine WBC (Auto) Urine RBC (Auto) Urine Casts (Auto) U Epithel Cells (Auto) Urine Bacteria (Auto) Urine Yeast (Auto) Ur Random Creatinine U Random Total Protein Protein/Creatinin Ratio COVID-19 ([place]) Hep A IgM Ab Confirm Hep Bs Antigen Hep B Core IgM Ab Hepatitis C Ab (EIA) Current Medications Generic Name Dose Route Start Last Admin Trade Name Freq PRN Reason Stop Dose Admin Acetaminophen 650 mg 06/26/20 16:07 06/28/20 09:08 Tylenol - PO 650 mg Q6H PRN Administration PAIN LEVEL 1-5 Amlodipine Besylate 10 mg 06/28/20 10:00 06/28/20 09:08 Norvasc - PO 10 mg DAILY ROSCOE Administration Atorvastatin Calcium 40 mg 06/26/20 22:00 06/27/20 21:56 Lipitor - PO 40 mg HS ROSCOE Administration Cyclobenzaprine HCl 10 mg 06/28/20 10:02 06/28/20 14:44 Flexeril - PO 10 mg TID ROSCOE Administration Ceftriaxone Sodium 1 gm/ 50 mls @ 100 mls/hr 06/26/20 16:15 06/28/20 09:09 Dextrose IVPB 100 mls/hr DAILY ROSCOE Administration Protocol Sodium Chloride 1,000 mls @ 50 mls/hr 06/28/20 14:00 06/28/20 14:44 1/2 Normal Saline IV 06/29/20 13:54 50 mls/hr ASDIR ROSCOE Administration Insulin Aspart 1 vial 06/26/20 16:30 06/28/20 12:01 Novolog Vial Sliding Scale - SQ Not Given ACHS ROSCOE Protocol Metoprolol Tartrate 100 mg 06/26/20 22:00 06/28/20 09:08 Lopressor - PO 100 mg BID ROSCOE Administration Morphine Sulfate 4 mg 06/26/20 16:33 06/27/20 18:53 Morphine Sulfate IVPUSH 4 mg ONCE PRN Administration Pain 10/10 Pantoprazole Sodium 40 mg 06/27/20 07:00 06/28/20 06:26 Protonix - PO 40 mg ACBK ROSCOE Administration Tramadol HCl 50 mg 06/26/20 16:06 06/28/20 06:26 Ultram - PO 50 mg Q6H PRN Administration PAIN LEVEL 4 - 6 Home Medications Medication Instructions Recorded Amlodipine Besylate [Norvasc -] 10 mg PO DAILY 06/26/20 Glimepiride [Amaryl -] 4 mg PO BID 06/26/20 Metoprolol Tartrate [Lopressor] 100 mg PO BID 06/26/20 Telmisartan/Hydrochlorothiazid 1 each PO DAILY 06/26/20 [Telmisartan-Hctz 80-25 mg Tab] Sitagliptin Phosphate [Januvia] 50 mg PO DAILY 06/27/20 ASSESSMENT AND PLAN: 64 year old female with history of DM 2, HTN, HLD, CKD 3, presents with lower back pain, L Hip pain, radiating down LLE, as well as 3 day history of post- menopausal vaginal bleeding, now resolved. 1. 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 Given CKD and Creat 1.9, for hydration overnight before contrast load for MRI in AM. Neurosurgery following. Tramadol, Lidoderm patch, Flexeril. PT 2. UA suggestive of UTI - Urine Cx grew normal dashawn. Leukocytosis, WBC up to 20 Empirically on Ceftriaxone - will continue until contrast MRI tomorrow and exclusion of abscess. 3. Post-menopausal Dysfunctional Uterine Bleeding Abdominal US - enlarged myomatous uterus. Gynecology evaluated - no bleeding currently - for outpatient endometrial biopsy as per Gyne. H/H stable. 4. Normocytic Anemia - anemia work-up requested. 5. TIM on CKD 3 - resolved with IV hydration. Creat now 1.9, back to baseline. Renal US - bilateral renal lipomatosis, R renal cyst. Nephrology following. HCTZ held due to TIM 6. HLD - continue Atorvastatin. 7. DM 2 - Glimepiride, Januvia held. Maintain on Novolog sliding scale. 8. HTN - Continue Norvasc, Metoprolol, ARB DVT Px - SCDs.
[2020-06-28] MEDS ORDERED: LOSARTAN POTASSIUM 25 MG TABLET PO SCH (15:30)
--- NOTE | 2020-06-28 16:29 | CONSULT ---
Consultation: REQUESTING PROVIDER: Dr. Reis CONSULT REQUEST: We have been asked to medically evaluate this patient for spinal mass. HISTORY OF PRESENT ILLNESS: Patient is a 64 year old female with past medical history of DM, HTN, HLD, CKD, presented to the ED with lower back and left hip pain for 4 days. Patient reported it occurred suddenly after walking, but denies any numbness/tingling or weakness in extremities, denies any numbness in the groin or any changes in bowel or urinary habits. Patient endorses intermittent vaginal bleeding over the last 3 days that since has resolved when she was admitted. Has never had a colonoscopy, last pap smear about 10 years ago, mammogram a few months ago and was advised to follow up but was not able to. Patient reports intentional weight loss, but denies any recent illness or sick contacts. Denies fevers, chills, headache, dizziness, chest pain, shortness of breath, abdominal pain, urinary symptoms. PMHx:DM, HTN, HLD, CKD PSHx: cholecystectomy FHx: no history of blood disorder or cancer in the family Allergies: NKDA SHx: denies smoking, occasional etoh use, denies illicit drug use REVIEW OF SYSTEMS: CONSTITUTIONAL: Absent: fever, chills, diaphoresis, generalized weakness, malaise, loss of appe tite, weight change HEENT: Absent: rhinorrhea, nasal congestion, throat pain, throat swelling, difficulty swallowing, mouth swelling, ear pain, eye pain, visual changes CARDIOVASCULAR: Absent: chest pain, syncope, palpitations, irregular heart rate, lightheadedness, peripheral edema RESPIRATORY: Absent: cough, shortness of breath, dyspnea with exertion, orthopnea, wheezing, stridor, hemoptysis GASTROINTESTINAL: Absent: abdominal pain, abdominal distension, nausea, vomiting, diarrhea, constipation, melena, hematochezia GENITOURINARY: Absent: dysuria, frequency, urgency, hesitancy, hematuria, flank pain, genital pain MUSCULOSKELETAL: back pain Absent: myalgia, arthralgia, joint swelling, neck pain SKIN: Absent: rash, itching, pallor HEMATOLOGIC/IMMUNOLOGIC: Absent: easy bleeding, easy bruising, lymphadenopathy, frequent infections ENDOCRINE: Absent: unexplained weight gain, unexplained weight loss, heat intolerance, cold intolerance NEUROLOGIC: Absent: headache, focal weakness or paresthesias, dizziness, unsteady gait, seizure, mental status changes, bladder or bowel incontinence PSYCHIATRIC: Absent: anxiety, depression, suicidal or homicidal ideation, hallucinations. PHYSICAL EXAMINATION Vital Signs - 24 hr 06/27/20 06/27/20 06/28/20 18:41 18:59 06:00 Temperature 98.5 F 98.9 F Pulse Rate 79 82 Respiratory 18 20 Rate Blood Pressure 111/42 L 152/75 O2 Sat by Pulse 98 94 L Oximetry (%) 06/28/20 06/28/20 09:00 14:00 Temperature 98.1 F Pulse Rate 72 Respiratory 20 Rate Blood Pressure 158/77 O2 Sat by Pulse 98 95 Oximetry (%) GENERAL: Awake, alert, and fully oriented, in no acute distress. NECK: Normal range of motion, supple LUNGS: decreased breath sounds on bilateral bases HEART: Regular rate and rhythm, normal S1 and S2 without murmur, rub or gallop. ABDOMEN: Soft, obese, nontender, not distended, normoactive bowel sounds MUSCULOSKELETAL: Left hip and knee ROM limited by pain LOWER EXTREMITIES: 2+ pulses, warm, well-perfused. No peripheral edema. SKIN: Warm, dry, normal turgor Laboratory Results - last 24 hr 06/26/20 06/27/20 06/27/20 15:42 06:19 17:33 WBC RBC Hgb Hct MCV MCH MCHC RDW Plt Count MPV Neutrophils % Neutrophils % (Manual) Band Neutrophils % Lymphocytes % Lymphocytes % (Manual) Monocytes % (Manual) Eosinophils % (Manual) Basophils % (Manual) Myelocytes % (Man) Promyelocytes % (Man) Blast Cells % (Manual) Nucleated RBC % Metamyelocytes Hypochromia Platelet Estimate Polychromasia Poikilocytosis Anisocytosis Microcytosis Macrocytosis Sodium Potassium Chloride Carbon Dioxide Anion Gap BUN Creatinine Est GFR (CKD-EPI)AfAm Est GFR (CKD-EPI)NonAf POC Glucometer 155 Random Glucose Calcium Phosphorus Magnesium Total Bilirubin AST ALT Alkaline Phosphatase Total Protein Albumin Urine Color Urine Appearance Urine pH Ur Specific [place] Urine Protein Urine Glucose (UA) Urine Ketones Urine Blood Urine Nitrite Urine Bilirubin Urine Urobilinogen Ur Leukocyte Esterase Urine WBC (Auto) Urine RBC (Auto) Urine Casts (Auto) U Epithel Cells (Auto) Urine Bacteria (Auto) Urine Yeast (Auto) Ur Random Creatinine U Random Total Protein Protein/Creatinin Ratio COVID-19 ([place]) Not detected Hep A IgM Ab Confirm Negative Hep Bs Antigen Negative Hep B Core IgM Ab Negative Hepatitis C Ab (EIA) <0.1 06/27/20 06/27/20 06/27/20 17:38 17:38 21:49 WBC RBC Hgb Hct MCV MCH MCHC RDW Plt Count MPV Neutrophils % Neutrophils % (Manual) Band Neutrophils % Lymphocytes % Lymphocytes % (Manual) Monocytes % (Manual) Eosinophils % (Manual) Basophils % (Manual) Myelocytes % (Man) Promyelocytes % (Man) Blast Cells % (Manual) Nucleated RBC % Metamyelocytes Hypochromia Platelet Estimate Polychromasia Poikilocytosis Anisocytosis Microcytosis Macrocytosis Sodium Potassium Chloride Carbon Dioxide Anion Gap BUN Creatinine Est GFR (CKD-EPI)AfAm Est GFR (CKD-EPI)NonAf POC Glucometer 176 Random Glucose Calcium Phosphorus Magnesium Total Bilirubin AST ALT Alkaline Phosphatase Total Protein Albumin Urine Color Yellow Urine Appearance Clear Urine pH 5.0 Ur Specific [place] 1.011 Urine Protein 2+ H Urine Glucose (UA) Negative Urine Ketones Negative Urine Blood 3+ H Urine Nitrite Negative Urine Bilirubin Negative Urine Urobilinogen 0.2 Ur Leukocyte Esterase Negative Urine WBC (Auto) 27 Urine RBC (Auto) 424 Urine Casts (Auto) 0 U Epithel Cells (Auto) 13 Urine Bacteria (Auto) 151 Urine Yeast (Auto) Rare Ur Random Creatinine 60.0 U Random Total Protein 81.1 H Protein/Creatinin Ratio 1.4 COVID-19 ([place]) Hep A IgM Ab Confirm Hep Bs Antigen Hep B Core IgM Ab Hepatitis C Ab (EIA) 06/28/20 06/28/20 06/28/20 06:19 07:10 07:10 WBC 20.5 H RBC 2.94 L Hgb 9.4 L Hct 26.7 L MCV 91.0 MCH 32.0 D MCHC 35.1 RDW 16.2 H Plt Count 464 H D MPV 8.7 Neutrophils % No Result Required. Neutrophils % (Manual) 72.7 Band Neutrophils % 0.0 Lymphocytes % No Result Required. Lymphocytes % (Manual) 14.2 Monocytes % (Manual) 12 H Eosinophils % (Manual) 0.0 Basophils % (Manual) 0.0 Myelocytes % (Man) 0 Promyelocytes % (Man) 0 Blast Cells % (Manual) 0 Nucleated RBC % 0 Metamyelocytes 0 Hypochromia 0 Platelet Estimate Normal Polychromasia 1+ Poikilocytosis 0 Anisocytosis 1+ Microcytosis 1+ Macrocytosis 0 Sodium 144 Potassium 4.4 Chloride 111 H Carbon Dioxide 25 Anion Gap 8 BUN 40.6 H Creatinine 1.9 H Est GFR (CKD-EPI)AfAm 32.18 Est GFR (CKD-EPI)NonAf 27.77 POC Glucometer 146 Random Glucose 148 H Calcium 8.4 L Phosphorus 3.5 Magnesium 2.2 Total Bilirubin 0.6 AST 64 H ALT 27 Alkaline Phosphatase 333 H Total Protein 6.3 L Albumin 2.0 L Urine Color Urine Appearance Urine pH Ur Specific [place] Urine Protein Urine Glucose (UA) Urine Ketones Urine Blood Urine Nitrite Urine Bilirubin Urine Urobilinogen Ur Leukocyte Esterase Urine WBC (Auto) Urine RBC (Auto) Urine Casts (Auto) U Epithel Cells (Auto) Urine Bacteria (Auto) Urine Yeast (Auto) Ur Random Creatinine U Random Total Protein Protein/Creatinin Ratio COVID-19 ([place]) Hep A IgM Ab Confirm Hep Bs Antigen Hep B Core IgM Ab Hepatitis C Ab (EIA) 06/28/20 11:44 WBC RBC Hgb Hct MCV MCH MCHC RDW Plt Count MPV Neutrophils % Neutrophils % (Manual) Band Neutrophils % Lymphocytes % Lymphocytes % (Manual) Monocytes % (Manual) Eosinophils % (Manual) Basophils % (Manual) Myelocytes % (Man) Promyelocytes % (Man) Blast Cells % (Manual) Nucleated RBC % Metamyelocytes Hypochromia Platelet Estimate Polychromasia Poikilocytosis Anisocytosis Microcytosis Macrocytosis Sodium Potassium Chloride Carbon Dioxide Anion Gap BUN Creatinine Est GFR (CKD-EPI)AfAm Est GFR (CKD-EPI)NonAf POC Glucometer 188 Random Glucose Calcium Phosphorus Magnesium Total Bilirubin AST ALT Alkaline Phosphatase Total Protein Albumin Urine Color Urine Appearance Urine pH Ur Specific [place] Urine Protein Urine Glucose (UA) Urine Ketones Urine Blood Urine Nitrite Urine Bilirubin Urine Urobilinogen Ur Leukocyte Esterase Urine WBC (Auto) Urine RBC (Auto) Urine Casts (Auto) U Epithel Cells (Auto) Urine Bacteria (Auto) Urine Yeast (Auto) Ur Random Creatinine U Random Total Protein Protein/Creatinin Ratio COVID-19 ([place]) Hep A IgM Ab Confirm Hep Bs Antigen Hep B Core IgM Ab Hepatitis C Ab (EIA) Active Medications Generic Name Dose Route Start Last Admin Trade Name Freq PRN Reason Stop Dose Admin Acetaminophen 650 mg 06/26/20 16:07 06/28/20 09:08 Tylenol - PO 650 mg Q6H PRN Administration PAIN LEVEL 1-5 Amlodipine Besylate 10 mg 06/28/20 10:00 06/28/20 09:08 Norvasc - PO 10 mg DAILY ROSCOE Administration Atorvastatin Calcium 40 mg 06/26/20 22:00 06/27/20 21:56 Lipitor - PO 40 mg HS ROSCOE Administration Cyclobenzaprine HCl 10 mg 06/28/20 10:02 06/28/20 14:44 Flexeril - PO 10 mg TID ROSCOE Administration Ceftriaxone Sodium 1 gm/ 50 mls @ 100 mls/hr 06/26/20 16:15 06/28/20 09:09 Dextrose IVPB 100 mls/hr DAILY ROSCOE Administration Protocol Sodium Chloride 1,000 mls @ 50 mls/hr 06/28/20 14:00 06/28/20 14:44 1/2 Normal Saline IV 06/29/20 13:54 50 mls/hr ASDIR ROSCOE Administration Insulin Aspart 1 vial 06/26/20 16:30 06/28/20 12:01 Novolog Vial Sliding Scale - SQ Not Given ACHS ROSCOE Protocol Metoprolol Tartrate 100 mg 06/26/20 22:00 06/28/20 09:08 Lopressor - PO 100 mg BID ROSCOE Administration Morphine Sulfate 4 mg 06/26/20 16:33 06/27/20 18:53 Morphine Sulfate IVPUSH 4 mg ONCE PRN Administration Pain 10/10 Pantoprazole Sodium 40 mg 06/27/20 07:00 06/28/20 06:26 Protonix - PO 40 mg ACBK ROSCOE Administration Tramadol HCl 50 mg 06/26/20 16:06 06/28/20 06:26 Ultram - PO 50 mg Q6H PRN Administration PAIN LEVEL 4 - 6 ASSESSMENT/PLAN: Patient is a 64 year old female with past medical history of DM, HTN, HLD, CKD, presented to the ED with lower back and left hip pain for 4 days. We have been asked to medically evaluate this patient for spinal mass. #? spinal mass -L/S MRI w/o contrast : There is some asymmetry in the appearance of the nerve roots which may be related to clumping and arachnoiditis or to underlying mass lesion -recommend MRI with contrast, if renal function permits -otherwise, consider L spine CT/ pelvis without contrast -will order LDH, Ca-125, ESR, CRP Dispo: We will continue to follow the patient. Thank you for this consultative opportunity. Visit type - Emergency Visit Emergency Visit: Yes ED Registration Date: 06/26/20 Care time: The patient presented to the Emergency Department on the above date and was hospitalized for further evaluation of their emergent condition. - New Patient This patient is new to me today: Yes Date on this admission: 06/28/20 - Critical Care Critical Care patient: No ATTENDING PHYSICIAN STATEMENT I saw and evaluated the patient. I reviewed the resident's note and discussed the case with the resident. I agree with the resident's findings and plan as documented. SUBJECTIVE: OBJECTIVE: ASSESSMENT AND PLAN:
[2020-06-28] MEDS: ATORVASTATIN CA 40 MG TABLET (FP) PO SCH (21:39)
[2020-06-29] MEDS: traMADol HCL 50 MG TABLET PO PRN (04:37)
[2020-06-29] MEDS: CYCLOBENZAPRINE HCL 10 MG TABLET (FP) PO SCH ×3 (05:51→21:15)
[2020-06-29] MEDS: INSULIN SLIDING SCALE (NOVOLOG) 1 VIAL SQ SCH ×4 (06:11→21:38)
[2020-06-29] MEDS: PANTOPRAZOLE 40 MG TABLET PO SCH (06:17)
--- NOTE | 2020-06-29 07:17 | PN ---
Teaching Attending Note Name of Resident: Cata Machado ATTENDING PHYSICIAN STATEMENT I saw and evaluated the patient. I reviewed the resident's note and discussed the case with the resident. I agree with the resident's findings and plan as documented. ASSESSMENT AND PLAN: Patient is a 64 year old female with past medical history of DM, HTN, HLD, CKD, presented to the ED with lower back and left hip pain for 4 days. We have been asked to medically evaluate this patient for suspicion of mass effect noted on MRI L spine w/o contrast -L/S MRI w/o contrast : There is some asymmetry in the appearance of the nerve roots which may be related to clumping and arachnoiditis or to underlying mass lesion. Degenerative changes/spinal canal stenosis. Also myomatous uterus -recommend MRI with contrast, but Cr 1.9 limiting this option will check CT T/L spine/pelvis non contrast will check CA125 will discuss with radiology/neurosurgery teams
[2020-06-29 08:20] LABS: BASO % 0.2 % (0-2.0); EOS % 1.1 % (0-4.5); HEMOGLOBIN 8.7 GM/dL (10.7-15.3); LYMPH % 9.3 % (8-40); MCH 28.5 pg (25.7-33.7); MCHC 32.4 g/dl (32.0-36.0); MEAN PLT VOLUME 8.1 fl (7.5-11.1); MONO % 12.3 % (3.8-10.2); NEUT % 77.1 % (42.8-82.8); PLATELET COUNT 320 K/MM3 (134-434); RBC 3.06 M/mm3 (3.60-5.2); RDW 15.7 % (11.6-15.6)
[2020-06-29 08:25] LABS: BILIRUBIN,TOTAL 0.4 mg/dL (0.2-1); BLOOD UREA NITROGEN 43.8 mg/dL (7-18); CALCIUM 8.5 mg/dL (8.5-10.1); CREATININE 2.2 mg/dL (0.55-1.3); MAGNESIUM 2.3 mg/dL (1.8-2.4); PHOSPHOROUS 3.5 mg/dL (2.5-4.9); POTASSIUM 3.5 mmol/L (3.5-5.1); TOT PROT 5.8 g/dl (6.4-8.2)
[2020-06-29] MEDS ORDERED: cefTRIAXone SODIUM 1 GM VIAL ONE (09:06)
[2020-06-29] MEDS ORDERED: DEXTROSE 5%-WATER - 50 ML IVPB ONE ×3 (09:06→18:35)
[2020-06-29] MEDS ORDERED: PT OWN MED DRAWER 7, Y5N ONE (09:06)
[2020-06-29] MEDS: METOPROLOL TARTRATE 50 MG TABLET (FP) PO SCH ×2 (09:09→21:13)
[2020-06-29] MEDS: amLODIPine BESYLATE 10 MG TABLET (FP) PO SCH (09:10)
[2020-06-29] MEDS: CEFTRIAXONE 1 GM in DEXTROSE 5%-WATER - 50 ML IVPB SCH (09:10)
[2020-06-29] MEDS ORDERED: INSULIN (NOVOLOG) ASPART 100 UNITS/ML 10ML VIAL ONE (11:03)
--- NOTE | 2020-06-29 12:58 | PN ---
Progress Note, Physician History of Present Illness: Pt seen and examined at bedside. She is awake and alert. She denies shortness of breath. She complains of right knee pain today. - Current Medication List Current Medications: Active Medications Acetaminophen (Tylenol -) 650 mg PO Q6H PRN PRN Reason: PAIN LEVEL 1-5 Last Admin: 06/28/20 21:44 Dose: 650 mg Documented by: Amlodipine Besylate (Norvasc -) 10 mg PO DAILY [facility] Last Admin: 06/29/20 09:10 Dose: 10 mg Documented by: Atorvastatin Calcium (Lipitor -) 40 mg PO HS [facility] Last Admin: 06/28/20 21:39 Dose: 40 mg Documented by: Cyclobenzaprine HCl (Flexeril -) 10 mg PO TID [facility] Last Admin: 06/29/20 05:51 Dose: 10 mg Documented by: Ceftriaxone Sodium 1 gm/ (Dextrose) 50 mls @ 100 mls/hr IVPB DAILY [facility]; Protocol Last Admin: 06/29/20 09:10 Dose: 100 mls/hr Documented by: Insulin Aspart (Novolog Vial Sliding Scale -) 1 vial SQ ACHS [facility]; Protocol Last Admin: 06/29/20 11:23 Dose: Not Given Documented by: Metoprolol Tartrate (Lopressor -) 100 mg PO BID [facility] Last Admin: 06/29/20 09:09 Dose: 100 mg Documented by: Morphine Sulfate (Morphine Sulfate) 2 mg IVPUSH Q4H PRN PRN Reason: PAIN LEVEL 7 - 10 Pantoprazole Sodium (Protonix -) 40 mg PO ACBK [facility] Last Admin: 06/29/20 06:17 Dose: 40 mg Documented by: Tramadol HCl (Ultram -) 50 mg PO Q6H PRN PRN Reason: PAIN LEVEL 4 - 6 Last Admin: 06/29/20 04:37 Dose: 50 mg Documented by: - Objective Vital Signs: Vital Signs Temperature 99.2 F 06/29/20 06:00 Pulse Rate 80 06/29/20 06:00 Respiratory Rate 20 06/29/20 06:00 Blood Pressure 123/72 06/29/20 06:00 O2 Sat by Pulse Oximetry (%) 92 L 06/29/20 06:00 Constitutional: Yes: Calm Eyes: Yes: Conjunctiva Clear HENT: Yes: Atraumatic Cardiovascular: Yes: S1, S2 Respiratory: Yes: CTA Bilaterally, Rhonchi Gastrointestinal: Yes: Soft, Abdomen, Obese Genitourinary: Yes: WNL Musculoskeletal: Yes: Back Pain Edema: Yes Edema: LLE: Trace, RLE: Trace Neurological: Yes: Oriented Psychiatric: Yes: Oriented Labs: CBC, BMP 06/29/20 07:35 06/29/20 07:35 INR, PTT INR 1.14 (0.83-1.09) H 06/26/20 10:15 Problem List - Problems (1) CKD (chronic kidney disease) Code(s): N18.9 - CHRONIC KIDNEY DISEASE, UNSPECIFIED (2) Sciatica Code(s): M54.30 - SCIATICA, UNSPECIFIED SIDE Qualifiers: Laterality: left Qualified Code(s): M54.32 - Sciatica, left side (3) Hypertension Code(s): I10 - ESSENTIAL (PRIMARY) HYPERTENSION Assessment/Plan Current Medications Generic Name Dose Route Start Last Admin Trade Name Freq PRN Reason Stop Dose Admin Acetaminophen 650 mg 06/26/20 16:07 06/28/20 21:44 Tylenol - PO 650 mg Q6H PRN Administration PAIN LEVEL 1-5 Amlodipine Besylate 10 mg 06/28/20 10:00 06/29/20 09:10 Norvasc - PO 10 mg DAILY [facility] Administration Atorvastatin Calcium 40 mg 06/26/20 22:00 06/28/20 21:39 Lipitor - PO 40 mg HS [facility] Administration Cyclobenzaprine HCl 10 mg 06/28/20 10:02 06/29/20 05:51 Flexeril - PO 10 mg TID [facility] Administration Ceftriaxone Sodium 1 gm/ 50 mls @ 100 mls/hr 06/26/20 16:15 06/29/20 09:10 Dextrose IVPB 100 mls/hr DAILY [facility] Administration Protocol Insulin Aspart 1 vial 06/26/20 16:30 06/29/20 11:23 Novolog Vial Sliding Scale - SQ Not Given ACHS [facility] Protocol Metoprolol Tartrate 100 mg 06/26/20 22:00 06/29/20 09:09 Lopressor - PO 100 mg BID [facility] Administration Morphine Sulfate 2 mg 06/29/20 10:34 Morphine Sulfate IVPUSH Q4H PRN PAIN LEVEL 7 - 10 Pantoprazole Sodium 40 mg 06/27/20 07:00 06/29/20 06:17 Protonix - PO 40 mg ACBK [facility] Administration Tramadol HCl 50 mg 06/26/20 16:06 06/29/20 04:37 Ultram - PO 50 mg Q6H PRN Administration PAIN LEVEL 4 - 6 Impression 1. CKD 2. TIM 3. back pain 4. dm 5. htn 6. obesity 7. possible spinal mass lesion Plan - renal function is worse - will stop fluids as cxr shows congestion - arb stopped (losartan - cont to monitor renal function - oncology input appreciated - neurosurgery input pending - follow tumor markers - neurosurgery and radiology to discuss imaging options - follow spep - discussed with medical team
[2020-06-29] MEDS ORDERED: FUROSEMIDE 40 MG/4 ML INJECTABLE VIAL IVPUSH ONE (12:59)
--- NOTE | 2020-06-29 14:20 | PN ---
Physical Exam: SUBJECTIVE: Patient seen and examined at bedside, reports new onset of pain/numbness in her right knee, upper thigh OBJECTIVE: Vital Signs Period Temp Pulse Resp BP Sys/Ruiz Pulse Ox Last 24 Hr 99.2 F-100.6 F 76-88 20-20 123-164/71-82 91-96 GENERAL: AAOx3, in no acute distress HEENT: NCAT, PERRLA, EOMI, sclera anicteric, conjunctiva clear, oropharynx clear w/o exudates. MMM. NECK: Normal ROM, supple, no lymphadenopathy, JVD, or masses LUNGS: CTABL no wheezes/ rhonchi/ rales. No distress, speaks in full sentences. No increased work of breathing. HEART: RRR, normal S1 S2, no M/R/G, peripheral pulses 2+ and equal b/l ABDOMEN: Soft, non-tender, + BS. No guarding or rebound. No hepatomegaly or splenomegaly. MSK: ROM WNL, NO CVA tenderness EXTREMITIES: Normal inspection. No peripheral edema. No clubbing or cyanosis. Limited ROM of L. hip and LLE due to pain, Limited ROM of Right knee due to pain. NEUROLOGICAL: CN II-XII intact. Normal speech, gait not observed, no focal sensorimotor deficits. PSYCH: Normal mood, normal affect. SKIN: Warm, Dry, normal turgor, no rashes or lesions noted Laboratory Results - last 24 hr 06/28/20 06/28/20 06/29/20 16:52 22:18 06:08 WBC RBC Hgb Hct MCV MCH MCHC RDW Plt Count MPV Absolute Neuts (auto) Neutrophils % Lymphocytes % Monocytes % Eosinophils % Basophils % Nucleated RBC % ESR Sodium Potassium Chloride Carbon Dioxide Anion Gap BUN Creatinine Est GFR (CKD-EPI)AfAm Est GFR (CKD-EPI)NonAf POC Glucometer 179 199 147 Random Glucose Calcium Phosphorus Magnesium Iron TIBC Iron Saturation Unsaturated IBC Ferritin Total Bilirubin AST ALT Alkaline Phosphatase LD Total C-Reactive Protein Total Protein Albumin Vitamin B12 Serum Folate Blood Type Antibody Screen 06/29/20 06/29/20 06/29/20 07:35 07:35 07:35 WBC 15.0 H RBC 3.06 L Hgb 8.7 L Hct 27.0 L MCV 88.0 MCH 28.5 D MCHC 32.4 RDW 15.7 H Plt Count 320 D MPV 8.1 Absolute Neuts (auto) 11.5 H Neutrophils % 77.1 Lymphocytes % 9.3 Monocytes % 12.3 H Eosinophils % 1.1 Basophils % 0.2 Nucleated RBC % 0 ESR Sodium 143 Potassium 3.5 Chloride 109 H Carbon Dioxide 26 Anion Gap 8 BUN 43.8 H Creatinine 2.2 H Est GFR (CKD-EPI)AfAm 26.95 Est GFR (CKD-EPI)NonAf 23.26 POC Glucometer Random Glucose 158 H Calcium 8.5 Phosphorus 3.5 Magnesium 2.3 Iron TIBC Iron Saturation Unsaturated IBC Ferritin Total Bilirubin 0.4 AST 30 ALT 24 Alkaline Phosphatase 354 H LD Total 214 C-Reactive Protein Total Protein 5.8 L Albumin 2.0 L Vitamin B12 Serum Folate Blood Type A POSITIVE Antibody Screen Negative 06/29/20 06/29/20 06/29/20 07:35 07:35 11:22 WBC RBC Hgb Hct MCV MCH MCHC RDW Plt Count MPV Absolute Neuts (auto) Neutrophils % Lymphocytes % Monocytes % Eosinophils % Basophils % Nucleated RBC % ESR 119 H Sodium Potassium Chloride Carbon Dioxide Anion Gap BUN Creatinine Est GFR (CKD-EPI)AfAm Est GFR (CKD-EPI)NonAf POC Glucometer 141 Random Glucose Calcium Phosphorus Magnesium Iron 14 L TIBC 166 L Iron Saturation 8 L Unsaturated IBC 152 L Ferritin 159.3 Total Bilirubin AST ALT Alkaline Phosphatase LD Total C-Reactive Protein 35.3 H Total Protein Albumin Vitamin B12 713 Serum Folate 10 Blood Type Antibody Screen Active Medications Generic Name Dose Route Start Last Admin Trade Name Freq PRN Reason Stop Dose Admin Acetaminophen 650 mg 06/26/20 16:07 06/28/20 21:44 Tylenol - PO 650 mg Q6H PRN Administration PAIN LEVEL 1-5 Amlodipine Besylate 10 mg 06/28/20 10:00 06/29/20 09:10 Norvasc - PO 10 mg DAILY [facility] Administration Atorvastatin Calcium 40 mg 06/26/20 22:00 06/28/20 21:39 Lipitor - PO 40 mg HS [facility] Administration Cyclobenzaprine HCl 10 mg 06/28/20 10:02 06/29/20 13:15 Flexeril - PO 10 mg TID [facility] Administration Piperacillin Sod/Tazobactam 50 mls @ 100 mls/hr 06/29/20 15:00 Sod 2.25 gm/ Dextrose IVPB Q6H-IV [facility] Protocol Piperacillin Sod/Tazobactam 50 mls @ 100 mls/hr 06/29/20 15:00 Sod 2.25 gm/ Dextrose IVPB 06/30/20 03:29 Q6H-IV [facility] Protocol Insulin Aspart 1 vial 06/26/20 16:30 06/29/20 11:23 Novolog Vial Sliding Scale - SQ Not Given ACHS [facility] Protocol Metoprolol Tartrate 100 mg 06/26/20 22:00 06/29/20 09:09 Lopressor - PO 100 mg BID [facility] Administration Morphine Sulfate 2 mg 06/29/20 10:34 Morphine Sulfate IVPUSH Q4H PRN PAIN LEVEL 7 - 10 Pantoprazole Sodium 40 mg 06/27/20 07:00 06/29/20 06:17 Protonix - PO 40 mg ACBK [facility] Administration Tramadol HCl 50 mg 06/26/20 16:06 06/29/20 04:37 Ultram - PO 50 mg Q6H PRN Administration PAIN LEVEL 4 - 6 Imaging: MRI Lumbar spine: some asymmetry in the appearance of the nerve roots which may be related to clumping and arachnoiditis or to underlying mass lesion. Degenerative disease of the lumbosacral spine with accentuation of the lumbar lordosis. L3-L4 L2-L3 moderate degree of spinal stenosis related to bulging annuli and prominent posterior epidural fat with moderate degenerative ages articular facets. L4-L5 grade 1 anterolisthesis of L4 over L5 with broad-based bulging annulus toward the right and left epidural recess with mass effect on the L5 nerve roots in the recesses with more extension into the right L4-L5 foramen. Also hypertrophic changes articular facets contributing to moderate degree of spinal stenosis. Multiple lesions related to the uterus and possibly the right adnexa sonography of the pelvis or MRI of pelvis with contrast strongly recommended for further evaluation ASSESSMENT/PLAN: 64 Y F with a PMHx of DM, HTN, HLD, and CKD presents with lower back and L. Hip pain radiating down LLE over the last 4 days and post-menopausal vaginal bleeding for 3 days. #Intractable hip pain #possible mass on MRI - /2 to radiculopathy due to herniated disk, no bowel/bladder incontinence and saddle anesthesia - Lumbar and L. Hip MRI: noted as above Patient cannot get contrast study to evaluate for possible mass lesion, due to her kidney functions (low eGFR), elevated crea - Neurosurgery consulted, Dr. Alberto villegas, recs appreciated Possible L4-L5 laminectomy and fusion - Patient will need contrast imaging to evaluate for mass prior to the surgery - Pain control: IV Morphine PRN, Lidoderm patch, Flexeril - Physical therapy consulted - Heme-onc consulted f/u CA125 # UA suggestive of UTI w/ Leukocytosis - UA : positive for protein, blood WBCs and bacteria, urine culture: normal dashawn - Leukocytosis is improving from 20.5 to 15 - Spiked fever on Ceftriaxone, switched to Zosyn - ID consulted, pending recs - Awaiting contrast study to r/o possible spinal abscess #Dysfunctional Uterine bleeding - Post-menopausal - Abdominal US shows multiple fibroids and enlarged myomatous uterus - MRI: Multiple lesions related to the uterus and possibly the right adnexa - CTAP: Mass like density in Right hemipelvis with peripheral calcifications, exophytic uterine fibroid vs ovarian mass - LABOR RELATIONS ANALYST consuled, will f/u as outpatient, endometrial biopsy #TIM on CKD(S3) - worsened crea from 1.9 to 2.2 with IVF - Nephrology on board, Dr. marcum, recs appreciated d/c fluids, congestion on CXR d/c losartan - Renal u/s: Small right renal simple cyst measuring 10 x 8 mm. Bilateral renal sinus lipomatosis. - Holding HCTZ for now # Hx of DM - BGM + ISS #Hx of HTN - Continue Norvasc, Metoprolol # Hx of HLD - Continue Atrovastatin #FEN - Not on standing fluids - Continue to monitor electrolytes - Diabetic/sodium controlled Diet #DVT Ppx - No chemical PPx for now, Vaginal bleeding, pending procedure Visit type - Emergency Visit Emergency Visit: Yes ED Registration Date: 06/26/20 Care time: The patient presented to the Emergency Department on the above date and was hospitalized for further evaluation of their emergent condition. - New Patient This patient is new to me today: No - Critical Care Critical Care patient: No - Discharge Referral Referred to [facility] Med P.C.: No ATTENDING PHYSICIAN STATEMENT I saw and evaluated the patient. I reviewed the resident's note and discussed the case with the resident. I agree with the resident's findings and plan as documented. SUBJECTIVE: OBJECTIVE: ASSESSMENT AND PLAN:
[2020-06-29] MEDS ORDERED: PIPERACILLIN/TAZOB 2.25 GM 2.25 GM in DEXTROSE 5%-WATER - 50 ML IVPB SCH (15:00)
[2020-06-29] MEDS ORDERED: PIPERACILLIN/TAZOBACTAM 2.25 GM VIAL IVPB ONE (15:33)
--- NOTE | 2020-06-29 15:54 | PN ---
Teaching Attending Note Name of Resident: Desirae Gage ATTENDING PHYSICIAN STATEMENT I saw and evaluated the patient. I reviewed the resident's note and discussed the case with the resident. I agree with the resident's findings and plan as documented. SUBJECTIVE: Ongoing severe L sided back pain, radiating down LLE. No further PV bleeding. OBJECTIVE: Febrile overnight, Tmax 100.6, Hemodynamically Stable. Last Vital Signs Temp Pulse Resp BP Pulse Ox 99.8 F H 82 20 137/78 92 L 06/29/20 14:00 06/29/20 14:00 06/29/20 14:00 06/29/20 14:00 06/29/20 14:00 Heart - S1, S2, RRR Lungs - clear to auscultation. Abdomen - High BMI. Soft, non-tender. Bowel Sounds normal. Extremities - no calf tenderness. Neuro - AAO x 3. Limited mobility LLE due to pain, well perfused. Laboratory Results - last 24 hr 06/28/20 06/28/20 06/29/20 16:52 22:18 06:08 WBC RBC Hgb Hct MCV MCH MCHC RDW Plt Count MPV Absolute Neuts (auto) Neutrophils % Lymphocytes % Monocytes % Eosinophils % Basophils % Nucleated RBC % ESR Sodium Potassium Chloride Carbon Dioxide Anion Gap BUN Creatinine Est GFR (CKD-EPI)AfAm Est GFR (CKD-EPI)NonAf POC Glucometer 179 199 147 Random Glucose Calcium Phosphorus Magnesium Iron TIBC Iron Saturation Unsaturated IBC Ferritin Total Bilirubin AST ALT Alkaline Phosphatase LD Total C-Reactive Protein Total Protein Albumin Vitamin B12 Serum Folate Blood Type Antibody Screen 06/29/20 06/29/20 06/29/20 07:35 07:35 07:35 WBC 15.0 H RBC 3.06 L Hgb 8.7 L Hct 27.0 L MCV 88.0 MCH 28.5 D MCHC 32.4 RDW 15.7 H Plt Count 320 D MPV 8.1 Absolute Neuts (auto) 11.5 H Neutrophils % 77.1 Lymphocytes % 9.3 Monocytes % 12.3 H Eosinophils % 1.1 Basophils % 0.2 Nucleated RBC % 0 ESR Sodium 143 Potassium 3.5 Chloride 109 H Carbon Dioxide 26 Anion Gap 8 BUN 43.8 H Creatinine 2.2 H Est GFR (CKD-EPI)AfAm 26.95 Est GFR (CKD-EPI)NonAf 23.26 POC Glucometer Random Glucose 158 H Calcium 8.5 Phosphorus 3.5 Magnesium 2.3 Iron TIBC Iron Saturation Unsaturated IBC Ferritin Total Bilirubin 0.4 AST 30 ALT 24 Alkaline Phosphatase 354 H LD Total 214 C-Reactive Protein Total Protein 5.8 L Albumin 2.0 L Vitamin B12 Serum Folate Blood Type A POSITIVE Antibody Screen Negative 06/29/20 06/29/20 06/29/20 07:35 07:35 11:22 WBC RBC Hgb Hct MCV MCH MCHC RDW Plt Count MPV Absolute Neuts (auto) Neutrophils % Lymphocytes % Monocytes % Eosinophils % Basophils % Nucleated RBC % ESR 119 H Sodium Potassium Chloride Carbon Dioxide Anion Gap BUN Creatinine Est GFR (CKD-EPI)AfAm Est GFR (CKD-EPI)NonAf POC Glucometer 141 Random Glucose Calcium Phosphorus Magnesium Iron 14 L TIBC 166 L Iron Saturation 8 L Unsaturated IBC 152 L Ferritin 159.3 Total Bilirubin AST ALT Alkaline Phosphatase LD Total C-Reactive Protein 35.3 H Total Protein Albumin Vitamin B12 713 Serum Folate 10 Blood Type Antibody Screen Current Medications Generic Name Dose Route Start Last Admin Trade Name Freq PRN Reason Stop Dose Admin Acetaminophen 650 mg 06/26/20 16:07 06/28/20 21:44 Tylenol - PO 650 mg Q6H PRN Administration PAIN LEVEL 1-5 Amlodipine Besylate 10 mg 06/28/20 10:00 06/29/20 09:10 Norvasc - PO 10 mg DAILY [facility] Administration Atorvastatin Calcium 40 mg 06/26/20 22:00 06/28/20 21:39 Lipitor - PO 40 mg HS [facility] Administration Cyclobenzaprine HCl 10 mg 06/28/20 10:02 06/29/20 13:15 Flexeril - PO 10 mg TID [facility] Administration Piperacillin Sod/Tazobactam 50 mls @ 100 mls/hr 06/29/20 15:00 Sod 2.25 gm/ Dextrose IVPB Q6H-IV [facility] Protocol Piperacillin Sod/Tazobactam 50 mls @ 100 mls/hr 06/29/20 15:00 06/29/20 15:37 Sod 2.25 gm/ Dextrose IVPB 06/30/20 03:29 100 mls/hr Q6H-IV [facility] Administration Protocol Insulin Aspart 1 vial 06/26/20 16:30 06/29/20 11:23 Novolog Vial Sliding Scale - SQ Not Given ACHS [facility] Protocol Metoprolol Tartrate 100 mg 06/26/20 22:00 06/29/20 09:09 Lopressor - PO 100 mg BID [facility] Administration Morphine Sulfate 2 mg 06/29/20 10:34 Morphine Sulfate IVPUSH Q4H PRN PAIN LEVEL 7 - 10 Pantoprazole Sodium 40 mg 06/27/20 07:00 06/29/20 06:17 Protonix - PO 40 mg ACBK [facility] Administration Tramadol HCl 50 mg 06/26/20 16:06 06/29/20 04:37 Ultram - PO 50 mg Q6H PRN Administration PAIN LEVEL 4 - 6 Home Medications Medication Instructions Recorded Amlodipine Besylate [Norvasc -] 10 mg PO DAILY 06/26/20 Glimepiride [Amaryl -] 4 mg PO BID 06/26/20 Metoprolol Tartrate [Lopressor] 100 mg PO BID 06/26/20 Telmisartan/Hydrochlorothiazid 1 each PO DAILY 06/26/20 [Telmisartan-Hctz 80-25 mg Tab] Sitagliptin Phosphate [Januvia] 50 mg PO DAILY 06/27/20 ASSESSMENT AND PLAN: 64 year old female with history of DM 2, HTN, HLD, CKD 3, presents with lower back pain, L Hip pain, radiating down LLE, as well as 3 day history of post- menopausal vaginal bleeding, now resolved. 1. 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 However, Creat remains too elevated to risk contrast. CT - DJD with central spinal canal stenosis L 4/5, L4 nerve root impingement Neurosurgery following. IV Morphine PRN, Lidoderm patch, Flexeril. PT 2. UA suggestive of UTI - Urine Cx grew normal dashawn. Leukocytosis improving Spiked fever on Ceftriaxone - switched to Zosyn pending spine imaging to exclude abscess. ID consulted. 3. Post-menopausal Dysfunctional Uterine Bleeding Abdominal US - enlarged myomatous uterus. CT - mass-like density R hemipelvis, exophytic fibroid versus ovarian mass. Gynecology evaluated - no bleeding currently - for outpatient endometrial biopsy as per Gyne. H/H stable. 4. Normocytic Anemia - likely sec to CKD 3/Chronic Disease. Will monitor H/H 5. TIM on CKD 3 - resolved with IV hydration. Creat now 2.2, appears to be at baseline. Renal US - bilateral renal lipomatosis, R renal cyst. Discussed with Nephrology - no contrast recommended, IV fluids stopped due to congestion on CXR HCTZ held due to TIM 6. HLD - continue Atorvastatin. 7. DM 2 - Glimepiride, Januvia held. Maintain on Novolog sliding scale. 8. HTN - Continue Norvasc, Metoprolol. ARB held as per Nephrology. DVT Px - SCDs. heparin held due to PV bleeding.
--- NOTE | 2020-06-29 16:16 | PN ---
Progress Note (short form) - Note Progress Note: ID CONSULT DICTATED FEVER/ LEKOCYTOSIS ? SOURCE R/O PELVIC MASS AWAIT C/S CONTINUE ZOSYN DISCUSSED WITH PRIMARY TEAM
[2020-06-29] MEDS: MORPHINE SULFATE 2 MG/ML VIAL IVPUSH PRN (17:32)
[2020-06-29 18:07] LABS: FREE KAPPA,SERUM 83.6 mg/L (3.3-19.4)
[2020-06-29] MEDS ORDERED: PIPERACILLIN/TAZOBACTAM 3.375 GM VIAL IVPB ONE (18:35)
[2020-06-29] MEDS: PIPERACILLIN/TAZOB 3.375 GM 3.375 GM in DEXTROSE 5%-WATER - 50 ML IVPB SCH (18:39)
--- NOTE | 2020-06-29 18:47 | CONS ---
DATE OF CONSULTATION: DATE OF DICTATION: 06/29/2020 INFECTIOUS DISEASE CONSULTATION HISTORY OF PRESENT ILLNESS: A 64-year-old female who was admitted to the hospital on June 26, 2020, with complaints of worsening low back pain, leg pain, and inability to ambulate. She complained of pain in the left buttock area with radiation down the left leg. She also had complaints of vaginal bleeding for 4 days prior to admission. She presented to the emergency room, where she was evaluated. She had a sonogram which showed a myomatous uterus. MRI of the lumbar spine showed asymmetry in the appearance of the nerve root, possibly related to clumping or arachnoiditis or underlying mass lesion. There was DJD of the lumbosacral spine, lumbar spine spinal stenosis. Multiple lesions were noted in the uterus related to possibly the right adnexa. A sonogram of the MRI of the pelvis was strongly suggested. She underwent a lumbar spine CT which showed some degenerative changes of L4 and L5 as well as osteoarthritic changes in the left hip joint. No gross fracture was noted. There were significant degenerative changes involving both knees. There was a mass-like density in the right hemipelvis with peripheral calcifications. It was unclear whether this represented an exophytic uterine fibroid versus an ovarian mass. She was seen in consultation by neurosurgery. An exploration was planned, however deferred secondary to fever and elevated white blood cell count. Her course was complicated by fever to 100.6 and an elevated white blood cell count of 20,000. Cultures were obtained and blood cultures from the 7th have been negative. Urine culture grew normal dashawn. She was empirically treated with ceftriaxone and later Zosyn because of persistent low-grade fever. At the present time she is somnolent, she is awake in bed. She complains of left leg pain. She denies any traumatic injury. PAST MEDICAL HISTORY: Positive for hypertension, hyperlipidemia, chronic kidney disease, osteoarthritis, DJD. PAST SURGICAL HISTORY: Status post cholecystectomy. ALLERGIES: No known allergies. MEDICATION: Include: 1. Zosyn. 2. Flexeril. 3. Norvasc. 4. Lipitor. 5. Lopressor. 6. Tylenol. 7. Lasix. 8. Protonix. SOCIAL HISTORY: She resides in the community. She is a nonsmoker, nondrinker. SYSTEMS REVIEW: Neurologic: No loss of consciousness, seizure activity, focal weakness. Cardiac: Negative for chest pain or palpitations. Respiratory: Negative for cough or sputum production. Gastrointestinal: Negative vomiting or diarrhea. Genitourinary: Negative for urinary tract infection. LABORATORY DATA: White count 15.0, hematocrit 27.0, platelet count 320. BUN 43, creatinine 2.2. Urinalysis: 27 white cells, LDH 35, C-reactive protein 35. COVID-19 PCR nonreactive. Blood cultures negative. PHYSICAL EXAMINATION: General: On exam, she is awake, she is somnolent. Vital signs: Temperature 99.2, T-max 100.6, blood pressure 123/72, pulse 80 regular, respirations 20 per minute. HEENT: Sclerae anicteric. Cardiovascular: Heart sounds S1, S2. Lungs: Clear. Abdomen: Obese. Soft, nontender. Extremities: Positive for edema. There is tenderness present over the left hip area as well as the left lower extremity when manipulated. IMPRESSION: 1. Fever, leukocytosis, unclear source. 2. Possible pelvic mass. 3. Azotemia. 4. Diabetes mellitus. Source of fever and leukocytosis not clear. No clear infectious focus at this time. Agree with repeat imaging of the pelvis. Continue empiric antibiotic coverage of abdominal and pelvic pathogens with Zosyn pending culture results. Case was discussed with primary care team. Neurosurgical followup. Thank you for the kind referral. CARMELA FERNANDES M.D. [id number]
[2020-06-29] MEDS: ATORVASTATIN CA 40 MG TABLET (FP) PO SCH (21:15)
[2020-06-30] MEDS ORDERED: DEXTROSE 5%-WATER - 50 ML IVPB ONE ×3 (00:42→17:44)
[2020-06-30] MEDS ORDERED: PIPERACILLIN/TAZOBACTAM 3.375 GM VIAL IVPB ONE ×3 (00:42→17:44)
[2020-06-30] MEDS: PIPERACILLIN/TAZOB 3.375 GM 3.375 GM in DEXTROSE 5%-WATER - 50 ML IVPB SCH ×3 (01:23→17:46)
[2020-06-30] MEDS: CYCLOBENZAPRINE HCL 10 MG TABLET (FP) PO SCH ×3 (06:08→21:02)
[2020-06-30] MEDS: PANTOPRAZOLE 40 MG TABLET PO SCH (06:08)
[2020-06-30] MEDS: traMADol HCL 50 MG TABLET PO PRN (06:09)
[2020-06-30] MEDS: INSULIN SLIDING SCALE (NOVOLOG) 1 VIAL SQ SCH ×4 (06:12→21:03)
[2020-06-30 08:44] LABS: BASO % 0.4 % (0-2.0); EOS % 1.4 % (0-4.5); HEMATOCRIT 25.2 % (32.4-45.2); HEMOGLOBIN 8.1 GM/dL (10.7-15.3); LYMPH % 11.3 % (8-40); MCH 28.5 pg (25.7-33.7); MCHC 32.2 g/dl (32.0-36.0); MEAN CELL VOLUME 88.6 fl (80-96); MEAN PLT VOLUME 8.2 fl (7.5-11.1); MONO % 13.4 % (3.8-10.2); NEUT % 73.5 % (42.8-82.8); PLATELET COUNT 323 K/MM3 (134-434); RBC 2.84 M/mm3 (3.60-5.2); RDW 15.9 % (11.6-15.6); WHITE BLOOD COUNT 14.6 K/mm3 (4.0-10.0)
[2020-06-30 08:52] LABS: ALBUMIN 1.8 g/dl (3.4-5.0); CALCIUM 8.6 mg/dL (8.5-10.1); POTASSIUM 3.5 mmol/L (3.5-5.1)
[2020-06-30 08:57] LABS: BILIRUBIN,TOTAL 0.6 mg/dL (0.2-1); CREATININE 2.7 mg/dL (0.55-1.3); TOT PROT 5.9 g/dl (6.4-8.2)
[2020-06-30 09:04] LABS: MAGNESIUM 2.2 mg/dL (1.8-2.4)
[2020-06-30] MEDS ORDERED: PT OWN MED DRAWER 7, Y5N ONE (09:15)
[2020-06-30] MEDS: METOPROLOL TARTRATE 50 MG TABLET (FP) PO SCH ×2 (09:19→21:02)
[2020-06-30] MEDS: amLODIPine BESYLATE 10 MG TABLET (FP) PO SCH (09:20)
--- NOTE | 2020-06-30 13:18 | PN ---
Physical Exam: SUBJECTIVE: Patient seen and examined at bedside, continues to report pain in Left leg and Right knee, denies any fevers, chills, nausea, vomiting, diarrhea. OBJECTIVE: Tmax 100.2 yesterday, no fevers overnight. Vital Signs Period Temp Pulse Resp BP Sys/Ruiz Pulse Ox Last 24 Hr 99 F-100.2 F 82-94 18-20 134-144/59-78 92-96 GENERAL: AAOx3, in no acute distress HEENT: NCAT, PERRLA, EOMI, sclera anicteric, conjunctiva clear, oropharynx clear w/o exudates. MMM. NECK: Normal ROM, supple, no lymphadenopathy, JVD, or masses LUNGS: CTABL no wheezes/ rhonchi/ rales. No distress, speaks in full sentences. No increased work of breathing. HEART: RRR, normal S1 S2, no M/R/G, peripheral pulses 2+ and equal b/l ABDOMEN: Soft, non-tender, + BS. No guarding or rebound. No hepatomegaly or splenomegaly. MSK: ROM WNL, NO CVA tenderness EXTREMITIES: Normal inspection. No peripheral edema. No clubbing or cyanosis. Limited ROM of L. hip and LLE due to pain, Limited ROM of Right knee due to pain. NEUROLOGICAL: CN II-XII intact. Normal speech, gait not observed, no focal sensorimotor deficits. PSYCH: Normal mood, normal affect. SKIN: Warm, Dry, normal turgor, no rashes or lesions noted Laboratory Results - last 24 hr 06/27/20 06/27/20 06/29/20 20:00 20:00 07:35 WBC RBC Hgb Hct MCV MCH MCHC RDW Plt Count MPV Absolute Neuts (auto) Neutrophils % Lymphocytes % Monocytes % Eosinophils % Basophils % Nucleated RBC % Sodium Potassium Chloride Carbon Dioxide Anion Gap BUN Creatinine Est GFR (CKD-EPI)AfAm Est GFR (CKD-EPI)NonAf POC Glucometer Random Glucose Calcium Phosphorus Magnesium Total Bilirubin AST ALT Alkaline Phosphatase Total Protein Total Protein (PEP) 5.9 L Albumin Albumin (PEP) 2.5 L Globulin 3.4 Albumin/Globulin Ratio 0.7 Beta Globulins 0.9 CA 125 Antigen 6.8 SHAZIA M-Braden Not observed Free [place] LC, Quant 83.6 H Free [place] LC, Quant 65.7 H Free [place]/Lambda Ratio 1.27 09/10/20 09/10/20 09/11/20 16:26 21:16 06:12 WBC RBC Hgb Hct MCV MCH MCHC RDW Plt Count MPV Absolute Neuts (auto) Neutrophils % Lymphocytes % Monocytes % Eosinophils % Basophils % Nucleated RBC % Sodium Potassium Chloride Carbon Dioxide Anion Gap BUN Creatinine Est GFR (CKD-EPI)AfAm Est GFR (CKD-EPI)NonAf POC Glucometer 129 201 145 Random Glucose Calcium Phosphorus Magnesium Total Bilirubin AST ALT Alkaline Phosphatase Total Protein Total Protein (PEP) Albumin Albumin (PEP) Globulin Albumin/Globulin Ratio Beta Globulins CA 125 Antigen SHAZIA M-Braden Free [place] LC, Quant Free [place] LC, Quant Free [place]/Lambda Ratio 06/30/20 06/30/20 06/30/20 07:39 07:39 11:42 WBC 14.6 H RBC 2.84 L Hgb 8.1 L Hct 25.2 L MCV 88.6 MCH 28.5 MCHC 32.2 RDW 15.9 H Plt Count 323 MPV 8.2 Absolute Neuts (auto) 10.7 H Neutrophils % 73.5 Lymphocytes % 11.3 D Monocytes % 13.4 H Eosinophils % 1.4 Basophils % 0.4 Nucleated RBC % 0 Sodium 140 Potassium 3.5 Chloride 106 Carbon Dioxide 24 Anion Gap 11 BUN 52.0 H Creatinine 2.7 H Est GFR (CKD-EPI)AfAm 21.04 Est GFR (CKD-EPI)NonAf 18.16 POC Glucometer 194 Random Glucose 144 H Calcium 8.6 Phosphorus 4.0 Magnesium 2.2 Total Bilirubin 0.6 AST 47 H ALT 23 Alkaline Phosphatase 375 H Total Protein 5.9 L Total Protein (PEP) Albumin 1.8 L Albumin (PEP) Globulin Albumin/Globulin Ratio Beta Globulins CA 125 Antigen SHAZIA M-Braden Free [place] LC, Quant Free [place] LC, Quant Free [place]/Lambda Ratio Active Medications Generic Name Dose Route Start Last Admin Trade Name Freq PRN Reason Stop Dose Admin Acetaminophen 650 mg 06/26/20 16:07 06/28/20 21:44 Tylenol - PO 650 mg Q6H PRN Administration PAIN LEVEL 1-5 Amlodipine Besylate 10 mg 06/28/20 10:00 06/30/20 09:20 Norvasc - PO 10 mg DAILY [facility] Administration Atorvastatin Calcium 40 mg 06/26/20 22:00 06/29/20 21:15 Lipitor - PO 40 mg HS [facility] Administration Cyclobenzaprine HCl 10 mg 06/28/20 10:02 06/30/20 06:08 Flexeril - PO 10 mg TID [facility] Administration Gabapentin 200 mg 06/30/20 14:00 Neurontin - PO TID [facility] Piperacillin Sod/Tazobactam 50 mls @ 100 mls/hr 06/29/20 18:00 06/30/20 09:20 Sod 3.375 gm/ Dextrose IVPB 100 mls/hr Q8H-IV [facility] Administration Protocol Insulin Aspart 1 vial 06/26/20 16:30 06/30/20 11:43 Novolog Vial Sliding Scale - SQ Not Given ACHS [facility] Protocol Metoprolol Tartrate 100 mg 06/26/20 22:00 06/30/20 09:19 Lopressor - PO 100 mg BID [facility] Administration Morphine Sulfate 2 mg 06/29/20 10:34 06/29/20 17:32 Morphine Sulfate IVPUSH 2 mg Q4H PRN Administration PAIN LEVEL 7 - 10 Pantoprazole Sodium 40 mg 06/27/20 07:00 06/30/20 06:08 Protonix - PO 40 mg ACBK [facility] Administration Tramadol HCl 50 mg 06/26/20 16:06 06/30/20 06:09 Ultram - PO 50 mg Q6H PRN Administration PAIN LEVEL 4 - 6 Imaging: MRI Lumbar spine: some asymmetry in the appearance of the nerve roots which may be related to clumping and arachnoiditis or to underlying mass lesion. Degenerative disease of the lumbosacral spine with accentuation of the lumbar lordosis. L3-L4 L2-L3 moderate degree of spinal stenosis related to bulging annuli and prominent posterior epidural fat with moderate degenerative ages articular facets. L4-L5 grade 1 anterolisthesis of L4 over L5 with broad-based bulging annulus toward the right and left epidural recess with mass effect on the L5 nerve roots in the recesses with more extension into the right L4-L5 foramen. Also hypertrophic changes articular facets contributing to moderate degree of spinal stenosis. Multiple lesions related to the uterus and possibly the right adnexa sonography of the pelvis or MRI of pelvis with contrast strongly recommended for further evaluation ASSESSMENT/PLAN: 64 Y F with a PMHx of DM, HTN, HLD, and CKD presents with lower back and L. Hip pain radiating down LLE over the last 4 days and post-menopausal vaginal bleeding for 3 days. #Intractable hip pain #possible mass on MRI - 2/2 to radiculopathy due to herniated disk, no bowel/bladder incontinence and saddle anesthesia - Lumbar and L. Hip MRI: noted as above Patient cannot get contrast study to evaluate for possible mass lesion, due to her kidney functions (low eGFR), elevated crea will contact PCP to find out baseline crea. - Neurosurgery consulted, Dr. Alberto villegas, recs appreciated Possible L4-L5 laminectomy and fusion - Patient will need contrast imaging to evaluate for mass prior to the surgery - Pain control: IV Morphine PRN, Lidoderm patch, Flexeril - Physical therapy consulted - Heme-onc consulted f/u CA125 # UA suggestive of UTI w/ Leukocytosis - UA : positive for protein, blood WBCs and bacteria, urine culture: normal dashawn - Leukocytosis is improving from 20.5 to 14.6 - Spiked fever on Ceftriaxone, switched to Zosyn - ID consulted, pending recs - Awaiting contrast study to r/o possible spinal abscess #Dysfunctional Uterine bleeding - Post-menopausal - Abdominal US shows multiple fibroids and enlarged myomatous uterus - MRI: Multiple lesions related to the uterus and possibly the right adnexa - CTAP: Mass like density in Right hemipelvis with peripheral calcifications, exophytic uterine fibroid vs ovarian mass - FITTER ARMAMENT consuled, will f/u as outpatient, endometrial biopsy #TIM on CKD(S3) - worsened crea from 1.9 to 2.2 with IVF - Nephrology on board, Dr. marcum, recs appreciated d/c fluids, congestion on CXR d/c losartan - Renal u/s: Small right renal simple cyst measuring 10 x 8 mm. Bilateral renal sinus lipomatosis. - Holding HCTZ for now # Hx of DM - BGM + ISS #Hx of HTN - Continue Norvasc, Metoprolol # Hx of HLD - Continue Atrovastatin #FEN - Not on standing fluids - Continue to monitor electrolytes - Diabetic/sodium controlled Diet #DVT Ppx - No chemical PPx for now, Vaginal bleeding, pending procedure Visit type - Emergency Visit Emergency Visit: Yes ED Registration Date: 06/26/20 Care time: The patient presented to the Emergency Department on the above date and was hospitalized for further evaluation of their emergent condition. - New Patient This patient is new to me today: No - Critical Care Critical Care patient: No - Discharge Referral Referred to [facility] No ATTENDING PHYSICIAN STATEMENT I saw and evaluated the patient. I reviewed the resident's note and discussed the case with the resident. I agree with the resident's findings and plan as documented. SUBJECTIVE: OBJECTIVE: ASSESSMENT AND PLAN:
--- NOTE | 2020-06-30 13:46 | PN ---
Progress Note, Physician History of Present Illness: Pt seen and examined at bedside. She still has back pain but feels that it is a little better. - Current Medication List Current Medications: Active Medications Acetaminophen (Tylenol -) 650 mg PO Q6H PRN PRN Reason: PAIN LEVEL 1-5 Last Admin: 06/28/20 21:44 Dose: 650 mg Documented by: Amlodipine Besylate (Norvasc -) 10 mg PO DAILY [facility] Last Admin: 06/30/20 09:20 Dose: 10 mg Documented by: Atorvastatin Calcium (Lipitor -) 40 mg PO HS [facility] Last Admin: 06/29/20 21:15 Dose: 40 mg Documented by: Cyclobenzaprine HCl (Flexeril -) 10 mg PO TID [facility] Last Admin: 06/30/20 06:08 Dose: 10 mg Documented by: Gabapentin (Neurontin -) 200 mg PO TID [facility] Piperacillin Sod/Tazobactam (Sod 3.375 gm/ Dextrose) 50 mls @ 100 mls/hr IVPB Q8H-IV [facility]; Protocol Last Admin: 06/30/20 09:20 Dose: 100 mls/hr Documented by: Insulin Aspart (Novolog Vial Sliding Scale -) 1 vial SQ ACHS [facility]; Protocol Last Admin: 06/30/20 11:43 Dose: Not Given Documented by: Metoprolol Tartrate (Lopressor -) 100 mg PO BID [facility] Last Admin: 06/30/20 09:19 Dose: 100 mg Documented by: Morphine Sulfate (Morphine Sulfate) 2 mg IVPUSH Q4H PRN PRN Reason: PAIN LEVEL 7 - 10 Last Admin: 06/29/20 17:32 Dose: 2 mg Documented by: Pantoprazole Sodium (Protonix -) 40 mg PO ACBK [facility] Last Admin: 06/30/20 06:08 Dose: 40 mg Documented by: Tramadol HCl (Ultram -) 50 mg PO Q6H PRN PRN Reason: PAIN LEVEL 4 - 6 Last Admin: 06/30/20 06:09 Dose: 50 mg Documented by: - Objective Vital Signs: Vital Signs Temperature 99.7 F H 06/30/20 13:29 Pulse Rate 83 06/30/20 13:29 Respiratory Rate 20 06/30/20 13:29 Blood Pressure 108/72 06/30/20 13:29 O2 Sat by Pulse Oximetry (%) 97 06/30/20 13:29 Constitutional: Yes: Calm Eyes: Yes: Conjunctiva Clear HENT: Yes: Atraumatic Cardiovascular: Yes: S1, S2 Respiratory: Yes: CTA Bilaterally Gastrointestinal: Yes: Soft Genitourinary: Yes: WNL Musculoskeletal: Yes: Back Pain Edema: No Neurological: Yes: Oriented Psychiatric: Yes: Oriented Labs: CBC, BMP 06/30/20 07:39 06/30/20 07:39 INR, PTT INR 1.14 (0.83-1.09) H 06/26/20 10:15 Problem List - Problems (1) CKD (chronic kidney disease) Code(s): N18.9 - CHRONIC KIDNEY DISEASE, UNSPECIFIED (2) Sciatica Code(s): M54.30 - SCIATICA, UNSPECIFIED SIDE Qualifiers: Laterality: left Qualified Code(s): M54.32 - Sciatica, left side (3) Hypertension Code(s): I10 - ESSENTIAL (PRIMARY) HYPERTENSION Assessment/Plan Current Medications Generic Name Dose Route Start Last Admin Trade Name Freq PRN Reason Stop Dose Admin Acetaminophen 650 mg 06/26/20 16:07 06/28/20 21:44 Tylenol - PO 650 mg Q6H PRN Administration PAIN LEVEL 1-5 Amlodipine Besylate 10 mg 06/28/20 10:00 06/30/20 09:20 Norvasc - PO 10 mg DAILY [facility] Administration Atorvastatin Calcium 40 mg 06/26/20 22:00 06/29/20 21:15 Lipitor - PO 40 mg HS [facility] Administration Cyclobenzaprine HCl 10 mg 06/28/20 10:02 06/30/20 06:08 Flexeril - PO 10 mg TID [facility] Administration Gabapentin 200 mg 06/30/20 14:00 Neurontin - PO TID [facility] Piperacillin Sod/Tazobactam 50 mls @ 100 mls/hr 06/29/20 18:00 06/30/20 09:20 Sod 3.375 gm/ Dextrose IVPB 100 mls/hr Q8H-IV [facility] Administration Protocol Insulin Aspart 1 vial 06/26/20 16:30 06/30/20 11:43 Novolog Vial Sliding Scale - SQ Not Given ACHS [facility] Protocol Metoprolol Tartrate 100 mg 06/26/20 22:00 06/30/20 09:19 Lopressor - PO 100 mg BID [facility] Administration Morphine Sulfate 2 mg 06/29/20 10:34 06/29/20 17:32 Morphine Sulfate IVPUSH 2 mg Q4H PRN Administration PAIN LEVEL 7 - 10 Pantoprazole Sodium 40 mg 06/27/20 07:00 06/30/20 06:08 Protonix - PO 40 mg ACBK [facility] Administration Tramadol HCl 50 mg 06/26/20 16:06 06/30/20 06:09 Ultram - PO 50 mg Q6H PRN Administration PAIN LEVEL 4 - 6 Impression 1. CKD 2. TIM 3. back pain 4. dm 5. htn 6. obesity 7. 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
[2020-06-30] MEDS: GABAPENTIN 100 MG CAPSULE PO SCH ×2 (13:55→21:02)
--- NOTE | 2020-06-30 14:48 | PN ---
Progress Note, Physician History of Present Illness: AWAKE, ALERT IN BED REPORTS LESS L LE PAIN LOW GRADE TEMP WBC SL ELEVATED BC NO GROWTH - Current Medication List Current Medications: Active Medications Acetaminophen (Tylenol -) 650 mg PO Q6H PRN PRN Reason: PAIN LEVEL 1-5 Last Admin: 06/28/20 21:44 Dose: 650 mg Documented by: Amlodipine Besylate (Norvasc -) 10 mg PO DAILY [facility] Last Admin: 06/30/20 09:20 Dose: 10 mg Documented by: Atorvastatin Calcium (Lipitor -) 40 mg PO HS [facility] Last Admin: 06/29/20 21:15 Dose: 40 mg Documented by: Cyclobenzaprine HCl (Flexeril -) 10 mg PO TID [facility] Last Admin: 06/30/20 13:55 Dose: 10 mg Documented by: Gabapentin (Neurontin -) 200 mg PO TID [facility] Last Admin: 06/30/20 13:55 Dose: 200 mg Documented by: Piperacillin Sod/Tazobactam (Sod 3.375 gm/ Dextrose) 50 mls @ 100 mls/hr IVPB Q8H-IV [facility]; Protocol Last Admin: 06/30/20 09:20 Dose: 100 mls/hr Documented by: Insulin Aspart (Novolog Vial Sliding Scale -) 1 vial SQ ACHS [facility]; Protocol Last Admin: 06/30/20 11:43 Dose: Not Given Documented by: Metoprolol Tartrate (Lopressor -) 100 mg PO BID [facility] Last Admin: 06/30/20 09:19 Dose: 100 mg Documented by: Morphine Sulfate (Morphine Sulfate) 2 mg IVPUSH Q4H PRN PRN Reason: PAIN LEVEL 7 - 10 Last Admin: 06/29/20 17:32 Dose: 2 mg Documented by: Pantoprazole Sodium (Protonix -) 40 mg PO ACBK [facility] Last Admin: 06/30/20 06:08 Dose: 40 mg Documented by: Tramadol HCl (Ultram -) 50 mg PO Q6H PRN PRN Reason: PAIN LEVEL 4 - 6 Last Admin: 06/30/20 06:09 Dose: 50 mg Documented by: - Objective Vital Signs: Vital Signs Temperature 99.7 F H 06/30/20 13:29 Pulse Rate 83 06/30/20 13:29 Respiratory Rate 20 06/30/20 13:29 Blood Pressure 108/72 06/30/20 13:29 O2 Sat by Pulse Oximetry (%) 97 06/30/20 13:29 Constitutional: Yes: No Distress Eyes: Yes: Conjunctiva Clear Cardiovascular: Yes: Regular Rate and Rhythm, S1, S2 Respiratory: Yes: CTA Bilaterally Gastrointestinal: Yes: Normal Bowel Sounds, Soft. No: Tenderness Edema: Yes Labs: CBC, BMP 06/30/20 07:39 06/30/20 07:39 INR, PTT INR 1.14 (0.83-1.09) H 06/26/20 10:15 Assessment/Plan FEVER/ LEUKOCYTOSIS ? ETIOLOGY R/O PELVIC MASS RENAL FAILURE AWAIT SEPSIS W/U CONTINUE ZOSYN EMPIRICALLY
--- NOTE | 2020-06-30 16:21 | PN ---
Teaching Attending Note Name of Resident: Desirae Gage ATTENDING PHYSICIAN STATEMENT I saw and evaluated the patient. I reviewed the resident's note and discussed the case with the resident. I agree with the resident's findings and plan as documented. SUBJECTIVE: Ongoing L sided back pain, radiating down LLE. No further PV bleeding. OBJECTIVE: Tmax overnight 100.2, Hemodynamically Stable. Last Vital Signs Temp Pulse Resp BP Pulse Ox 99.7 F H 83 20 108/72 97 06/30/20 13:29 06/30/20 13:29 06/30/20 13:29 06/30/20 13:29 06/30/20 13:29 Heart - S1, S2, RRR Lungs - clear to auscultation. Abdomen - High BMI. Soft, non-tender. Bowel Sounds normal. Extremities - no calf tenderness. Neuro - AAO x 3. Limited mobility LLE due to pain, well perfused. Laboratory Results - last 24 hr 06/27/20 06/27/20 06/29/20 20:00 20:00 07:35 WBC RBC Hgb Hct MCV MCH MCHC RDW Plt Count MPV Absolute Neuts (auto) Neutrophils % Lymphocytes % Monocytes % Eosinophils % Basophils % Nucleated RBC % Sodium Potassium Chloride Carbon Dioxide Anion Gap BUN Creatinine Est GFR (CKD-EPI)AfAm Est GFR (CKD-EPI)NonAf POC Glucometer Random Glucose Calcium Phosphorus Magnesium Total Bilirubin AST ALT Alkaline Phosphatase Total Protein Total Protein (PEP) 5.9 L Albumin Albumin (PEP) 2.5 L Globulin 3.4 Albumin/Globulin Ratio 0.7 Beta Globulins 0.9 CA 125 Antigen 6.8 SHAZIA M-Braden Not observed Free [place] LC, Quant 83.6 H Free [place] LC, Quant 65.7 H Free [place]/Lambda Ratio 1.27 06/29/20 06/29/20 06/30/20 16:26 21:16 06:12 WBC RBC Hgb Hct MCV MCH MCHC RDW Plt Count MPV Absolute Neuts (auto) Neutrophils % Lymphocytes % Monocytes % Eosinophils % Basophils % Nucleated RBC % Sodium Potassium Chloride Carbon Dioxide Anion Gap BUN Creatinine Est GFR (CKD-EPI)AfAm Est GFR (CKD-EPI)NonAf POC Glucometer 129 201 145 Random Glucose Calcium Phosphorus Magnesium Total Bilirubin AST ALT Alkaline Phosphatase Total Protein Total Protein (PEP) Albumin Albumin (PEP) Globulin Albumin/Globulin Ratio Beta Globulins [place] 125 Antigen SHAZIA M-Braden Free [place] LC, Quant Free [place]ambda LC, Quant Free [place]/Lambda Ratio 06/30/20 06/30/20 06/30/20 07:39 07:39 11:42 WBC 14.6 H RBC 2.84 L Hgb 8.1 L Hct 25.2 L MCV 88.6 MCH 28.5 MCHC 32.2 RDW 15.9 H Plt Count 323 MPV 8.2 Absolute Neuts (auto) 10.7 H Neutrophils % 73.5 Lymphocytes % 11.3 D Monocytes % 13.4 H Eosinophils % 1.4 Basophils % 0.4 Nucleated RBC % 0 Sodium 140 Potassium 3.5 Chloride 106 Carbon Dioxide 24 Anion Gap 11 BUN 52.0 H Creatinine 2.7 H Est GFR (CKD-EPI)AfAm 21.04 Est GFR (CKD-EPI)NonAf 18.16 POC Glucometer 194 Random Glucose 144 H Calcium 8.6 Phosphorus 4.0 Magnesium 2.2 Total Bilirubin 0.6 AST 47 H ALT 23 Alkaline Phosphatase 375 H Total Protein 5.9 L Total Protein (PEP) Albumin 1.8 L Albumin (PEP) Globulin Albumin/Globulin Ratio Beta Globulins CA 125 Antigen SHAZIA M-Braden Free [place] LC, Quant Free [place]ambda LC, Quant Free [place]/Lambda Ratio Current Medications Generic Name Dose Route Start Last Admin Trade Name Freq PRN Reason Stop Dose Admin Acetaminophen 650 mg 06/26/20 16:07 06/28/20 21:44 Tylenol - PO 650 mg Q6H PRN Administration PAIN LEVEL 1-5 Amlodipine Besylate 10 mg 06/28/20 10:00 06/30/20 09:20 Norvasc - PO 10 mg DAILY [facility] Administration Atorvastatin Calcium 40 mg 06/26/20 22:00 06/29/20 21:15 Lipitor - PO 40 mg HS [facility] Administration Cyclobenzaprine HCl 10 mg 06/28/20 10:02 06/30/20 13:55 Flexeril - PO 10 mg TID [facility] Administration Gabapentin 200 mg 06/30/20 14:00 06/30/20 13:55 Neurontin - PO 200 mg TID [facility] Administration Piperacillin Sod/Tazobactam 50 mls @ 100 mls/hr 06/29/20 18:00 06/30/20 09:20 Sod 3.375 gm/ Dextrose IVPB 100 mls/hr Q8H-IV [facility] Administration Protocol Insulin Aspart 1 vial 06/26/20 16:30 06/30/20 11:43 Novolog Vial Sliding Scale - SQ Not Given ACHS [facility] Protocol Metoprolol Tartrate 100 mg 06/26/20 22:00 06/30/20 09:19 Lopressor - PO 100 mg BID [facility] Administration Morphine Sulfate 2 mg 06/29/20 10:34 06/29/20 17:32 Morphine Sulfate IVPUSH 2 mg Q4H PRN Administration PAIN LEVEL 7 - 10 Pantoprazole Sodium 40 mg 06/27/20 07:00 06/30/20 06:08 Protonix - PO 40 mg ACBK [facility] Administration Tramadol HCl 50 mg 06/26/20 16:06 06/30/20 06:09 Ultram - PO 50 mg Q6H PRN Administration PAIN LEVEL 4 - 6 Home Medications Medication Instructions Recorded Amlodipine Besylate [Norvasc -] 10 mg PO DAILY 06/26/20 Glimepiride [Amaryl -] 4 mg PO BID 06/26/20 Metoprolol Tartrate [Lopressor] 100 mg PO BID 06/26/20 Telmisartan/Hydrochlorothiazid 1 each PO DAILY 06/26/20 [Telmisartan-Hctz 80-25 mg Tab] Sitagliptin Phosphate [Januvia] 50 mg PO DAILY 06/27/20 ASSESSMENT AND PLAN: 64 year old female with history of DM 2, HTN, HLD, CKD 3, presents with lower back pain, L Hip pain, radiating down LLE, as well as 3 day history of post- menopausal vaginal bleeding, now resolved. 1. 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 However, Creat remains too elevated to risk contrast. CT - DJD with central spinal canal stenosis L 4/5, L4 nerve root impingement Neurosurgery following. IV Morphine PRN, Lidoderm patch, Flexeril. Neurontin added. PT 2. UA suggestive of UTI - Urine Cx grew normal dashawn. Leukocytosis improving, down to 14.6 Spiked fever on Ceftriaxone - switched to Zosyn pending further septic work-up and spine imaging to exclude abscess. ID following 3. Post-menopausal Dysfunctional Uterine Bleeding Abdominal US - enlarged myomatous uterus. CT - mass-like density R hemipelvis, exophytic fibroid versus ovarian mass. Gynecology evaluated - no bleeding currently - for outpatient endometrial biopsy as per Gyne. H/H stable. 4. Normocytic Anemia - likely sec to CKD 3/Chronic Disease. Will monitor H/H 5. TIM on CKD 3 - resolved with IV hydration. Creat back up to 2.7, appears likely to to be in or around baseline. Renal US - bilateral renal lipomatosis, R renal cyst. Discussed with Nephrology - no contrast recommended, IV fluids stopped due to congestion on CXR HCTZ held due to TIM 6. HLD - continue Atorvastatin. 7. DM 2 - Glimepiride, Januvia held. Maintain on Novolog sliding scale. 8. HTN - Continue Norvasc, Metoprolol. ARB due to borderline BP. DVT Px - SCDs. Heparin held due to PV bleeding.
[2020-06-30] MEDS: MORPHINE SULFATE 2 MG/ML VIAL IVPUSH PRN (16:25)
[2020-06-30] MEDS ORDERED: INSULIN (NOVOLOG) ASPART 100 UNITS/ML 10ML VIAL ONE (16:32)
[2020-06-30] MEDS: ATORVASTATIN CA 40 MG TABLET (FP) PO SCH (21:02)
[2020-07-01] MEDS ORDERED: PIPERACILLIN/TAZOBACTAM 3.375 GM VIAL IVPB ONE (02:15)
[2020-07-01] MEDS ORDERED: DEXTROSE 5%-WATER - 50 ML IVPB ONE (02:16)
[2020-07-01] MEDS: PIPERACILLIN/TAZOB 3.375 GM 3.375 GM in DEXTROSE 5%-WATER - 50 ML IVPB SCH ×2 (02:21→11:48)
[2020-07-01] MEDS: GABAPENTIN 100 MG CAPSULE PO SCH ×3 (06:06→21:08)
[2020-07-01] MEDS: INSULIN SLIDING SCALE (NOVOLOG) 1 VIAL SQ SCH ×4 (06:06→21:09)
[2020-07-01] MEDS: PANTOPRAZOLE 40 MG TABLET PO SCH (06:06)
[2020-07-01] MEDS: CYCLOBENZAPRINE HCL 10 MG TABLET (FP) PO SCH ×3 (06:06→21:08)
[2020-07-01 08:55] LABS: BASO % 0.3 % (0-2.0); EOS % 3.4 % (0-4.5); HEMATOCRIT 24.5 % (32.4-45.2); HEMOGLOBIN 7.9 GM/dL (10.7-15.3); LYMPH % 12.6 % (8-40); MCH 28.1 pg (25.7-33.7); MCHC 32.1 g/dl (32.0-36.0); MEAN CELL VOLUME 87.6 fl (80-96); NEUT % 72.7 % (42.8-82.8); PLATELET COUNT 332 K/MM3 (134-434); RDW 16.1 % (11.6-15.6); WHITE BLOOD COUNT 12.6 K/mm3 (4.0-10.0)
[2020-07-01 09:28] LABS: ALBUMIN 1.7 g/dl (3.4-5.0); BILIRUBIN,TOTAL 0.6 mg/dL (0.2-1); BLOOD UREA NITROGEN 64.5 mg/dL (7-18); CALCIUM 8.6 mg/dL (8.5-10.1); CREATININE 3.7 mg/dL (0.55-1.3); MAGNESIUM 2.4 mg/dL (1.8-2.4); PHOSPHOROUS 4.7 mg/dL (2.5-4.9); POTASSIUM 3.6 mmol/L (3.5-5.1); TOT PROT 5.9 g/dl (6.4-8.2)
[2020-07-01] MEDS: amLODIPine BESYLATE 10 MG TABLET (FP) PO SCH (11:49)
[2020-07-01] MEDS: ACETAMINOPHEN 325 MG TABLET (FP) PO PRN (11:49)
[2020-07-01] MEDS: METOPROLOL TARTRATE 50 MG TABLET (FP) PO SCH ×2 (11:49→21:07)
--- NOTE | 2020-07-01 14:30 | PN ---
Physical Exam: SUBJECTIVE: Patient seen and examined at bedside. pt still complaining of back and leg pain OBJECTIVE: Vital Signs Period Temp Pulse Resp BP Sys/Ruiz Pulse Ox Last 24 Hr 98.6 F-99.9 F 75-88 18-20 105-152/56-66 95-98 GENERAL: The patient is awake, alert, and fully oriented, in no acute distress. HEAD: Normal with no signs of trauma. LUNGS: Breath sounds equal, clear to auscultation bilaterally, no accessory muscle use. HEART: Regular rate and rhythm, S1, S2 without murmur ABDOMEN: Soft, nontender, nondistended, normoactive bowel sounds, no guarding EXTREMITIES: 2+ pulses, warm, well-perfused, no edema. NEUROLOGICAL: Cranial nerves II through XII grossly intact Laboratory Results - last 24 hr 07/01/20 07/01/20 07/01/20 08:32 08:32 11:31 WBC 12.6 H RBC 2.80 L Hgb 7.9 L Hct 24.5 L MCV 87.6 MCH 28.1 MCHC 32.1 RDW 16.1 H Plt Count 332 MPV 8.0 Absolute Neuts (auto) 9.2 H Neutrophils % 72.7 Lymphocytes % 12.6 Monocytes % 11.0 H Eosinophils % 3.4 D Basophils % 0.3 Nucleated RBC % 0 Sodium 140 Potassium 3.6 Chloride 105 Carbon Dioxide 26 Anion Gap 9 BUN 64.5 H Creatinine 3.7 H Est GFR (CKD-EPI)AfAm 14.38 Est GFR (CKD-EPI)NonAf 12.40 POC Glucometer 236 Random Glucose 201 H Calcium 8.6 Phosphorus 4.7 Magnesium 2.4 Total Bilirubin 0.6 AST 32 ALT 22 Alkaline Phosphatase 329 H Total Protein 5.9 L Albumin 1.7 L Active Medications Generic Name Dose Route Start Last Admin Trade Name Freq PRN Reason Stop Dose Admin Acetaminophen 650 mg 06/26/20 16:07 07/01/20 11:49 Tylenol - PO 650 mg Q6H PRN Administration PAIN LEVEL 1-5 Amlodipine Besylate 10 mg 06/28/20 10:00 07/01/20 11:49 Norvasc - PO 10 mg DAILY ROSCOE Administration Atorvastatin Calcium 40 mg 06/26/20 22:00 06/30/20 21:02 Lipitor - PO 40 mg HS ROSCOE Administration Cyclobenzaprine HCl 10 mg 06/28/20 10:02 07/01/20 06:06 Flexeril - PO 10 mg TID ROSCOE Administration Gabapentin 200 mg 06/30/20 14:00 07/01/20 06:06 Neurontin - PO 200 mg TID ROSCOE Administration Insulin Aspart 1 vial 06/26/20 16:30 07/01/20 11:50 Novolog Vial Sliding Scale - SQ 2 units ACHS ROSCOE Administration Protocol Metoprolol Tartrate 100 mg 06/26/20 22:00 07/01/20 11:49 Lopressor - PO 100 mg BID [facility]COE Administration Morphine Sulfate 2 mg 06/29/20 10:34 06/30/20 16:25 Morphine Sulfate IVPUSH 2 mg Q4H PRN Administration PAIN LEVEL 7 - 10 Pantoprazole Sodium 40 mg 06/27/20 07:00 07/01/20 06:06 Protonix - PO 40 mg ACBK [facility]COE Administration Tramadol HCl 50 mg 06/26/20 16:06 06/30/20 06:09 Ultram - PO 50 mg Q6H PRN Administration PAIN LEVEL 4 - 6 ASSESSMENT/PLAN: 64 yo F PMH DM, HTN, HLD, CKD 3, p/w radiculopathy, lower back pain, 3 day history of post-menopausal vaginal bleeding, now resolved. Musculoskeletal Back Pain 2/2 DJD, nerve impingement, spinal stenosis r/o vertebral mass(es) -No history of trauma, no bladder/bowel incontinence/saddle paresthesia -MRI LS Spine reviewed, recommendation for repeat MRI L Spine with contrast. However, Cr remains too elevated to risk contrast.CT reviewed - DJD with central spinal canal stenosis L 4/5, L4 nerve root impingement -Neurosurgery following. -IV Morphine PRN, Lidoderm patch, Flexeril. Neurontin added. -PT sepsis , r/o uti?? - UA +; UCx negative - was spiking fever despite ceftriaxone. got zosyn x 2 d. will dc zosyn and monitor as wbc and fever resolving. - ID recs appreciated Post-menopausal Dysfunctional Uterine Bleeding -Abdominal US - enlarged myomatous uterus; CT - mass-like density R hemipelvis, exophytic fibroid versus ovarian mass. - ride mechanic recs appreciated . outpt f/u -H/H stable. Normocytic Anemia - likely sec to CKD 3/Chronic Disease. Will monitor H/H TIM on CKD 3 - resolved with IV hydration. Creat back up to 2.7, appears likely to to be in or around baseline. Renal US - bilateral renal lipomatosis, R renal cyst. Discussed with Nephrology - no contrast recommended, IV fluids stopped due to congestion on CXR HCTZ held due to TIM HLD - continue Atorvastatin. DM 2 - Glimepiride, Januvia held. Maintain on Novolog sliding scale. HTN - Continue Norvasc, Metoprolol. ARB due to borderline BP. DVT Px - SCDs. Heparin held due to PV bleeding. ATTENDING PHYSICIAN STATEMENT I saw and evaluated the patient. I reviewed the resident's note and discussed the case with the resident. I agree with the resident's findings and plan as documented. SUBJECTIVE: OBJECTIVE: ASSESSMENT AND PLAN:
--- NOTE | 2020-07-01 15:01 | PN ---
Progress Note, Physician History of Present Illness: Pt seen and examined at bedside. She is awake and alert. She is unable to urinate. She says she has the urge but is unable. - Current Medication List Current Medications: Active Medications Acetaminophen (Tylenol -) 650 mg PO Q6H PRN PRN Reason: PAIN LEVEL 1-5 Last Admin: 07/01/20 11:49 Dose: 650 mg Documented by: Amlodipine Besylate (Norvasc -) 10 mg PO DAILY [facility] Last Admin: 07/01/20 11:49 Dose: 10 mg Documented by: Atorvastatin Calcium (Lipitor -) 40 mg PO HS [facility] Last Admin: 06/30/20 21:02 Dose: 40 mg Documented by: Cyclobenzaprine HCl (Flexeril -) 10 mg PO TID [facility] Last Admin: 07/01/20 06:06 Dose: 10 mg Documented by: Gabapentin (Neurontin -) 200 mg PO TID [facility] Last Admin: 07/01/20 06:06 Dose: 200 mg Documented by: Insulin Aspart (Novolog Vial Sliding Scale -) 1 vial SQ [facility]; Protocol Last Admin: 07/01/20 11:50 Dose: 2 units Documented by: Metoprolol Tartrate (Lopressor -) 100 mg PO BID [facility] Last Admin: 07/01/20 11:49 Dose: 100 mg Documented by: Morphine Sulfate (Morphine Sulfate) 2 mg IVPUSH Q4H PRN PRN Reason: PAIN LEVEL 7 - 10 Last Admin: 06/30/20 16:25 Dose: 2 mg Documented by: Pantoprazole Sodium (Protonix -) 40 mg PO ACBK [facility] Last Admin: 07/01/20 06:06 Dose: 40 mg Documented by: Tramadol HCl (Ultram -) 50 mg PO Q6H PRN PRN Reason: PAIN LEVEL 4 - 6 Last Admin: 06/30/20 06:09 Dose: 50 mg Documented by: - Objective Vital Signs: Vital Signs Temperature 97.8 F 07/01/20 14:00 Pulse Rate 90 07/01/20 14:00 Respiratory Rate 18 07/01/20 14:00 Blood Pressure 125/68 07/01/20 14:00 O2 Sat by Pulse Oximetry (%) 96 07/01/20 14:00 Constitutional: Yes: Calm Eyes: Yes: Conjunctiva Clear HENT: Yes: Atraumatic Cardiovascular: Yes: S1, S2 Respiratory: Yes: CTA Bilaterally Gastrointestinal: Yes: Soft, Abdomen, Obese Genitourinary: Yes: Other (unable to urinate) Musculoskeletal: Yes: Back Pain Edema: No Neurological: Yes: Oriented Psychiatric: Yes: Oriented Labs: CBC, BMP 07/01/20 08:32 07/01/20 08:32 INR, PTT INR 1.14 (0.83-1.09) H 06/26/20 10:15 Problem List - Problems (1) CKD (chronic kidney disease) Code(s): N18.9 - CHRONIC KIDNEY DISEASE, UNSPECIFIED (2) Sciatica Code(s): M54.30 - SCIATICA, UNSPECIFIED SIDE Qualifiers: Laterality: left Qualified Code(s): M54.32 - Sciatica, left side (3) Hypertension Code(s): I10 - ESSENTIAL (PRIMARY) HYPERTENSION Assessment/Plan Current Medications Generic Name Dose Route Start Last Admin Trade Name Freq PRN Reason Stop Dose Admin Acetaminophen 650 mg 06/26/20 16:07 07/01/20 11:49 Tylenol - PO 650 mg Q6H PRN Administration PAIN LEVEL 1-5 Amlodipine Besylate 10 mg 06/28/20 10:00 07/01/20 11:49 Norvasc - PO 10 mg DAILY [facility]COE Administration Atorvastatin Calcium 40 mg 06/26/20 22:00 06/30/20 21:02 Lipitor - PO 40 mg HS ROSCOE Administration Cyclobenzaprine HCl 10 mg 06/28/20 10:02 07/01/20 06:06 Flexeril - PO 10 mg TID ROSCOE Administration Gabapentin 200 mg 06/30/20 14:00 07/01/20 06:06 Neurontin - PO 200 mg TID ROSCOE Administration Insulin Aspart 1 vial 06/26/20 16:30 07/01/20 11:50 Novolog Vial Sliding Scale - SQ 2 units ACHS ROSCOE Administration Protocol Metoprolol Tartrate 100 mg 06/26/20 22:00 07/01/20 11:49 Lopressor - PO 100 mg BID ROSCOE Administration Morphine Sulfate 2 mg 06/29/20 10:34 06/30/20 16:25 Morphine Sulfate IVPUSH 2 mg Q4H PRN Administration PAIN LEVEL 7 - 10 Pantoprazole Sodium 40 mg 06/27/20 07:00 07/01/20 06:06 Protonix - PO 40 mg ACBK ROSCOE Administration Tramadol HCl 50 mg 06/26/20 16:06 06/30/20 06:09 Ultram - PO 50 mg Q6H PRN Administration PAIN LEVEL 4 - 6 Impression 1. CKD 2. TIM 3. back pain 4. dm 5. htn 6. obesity 7. possible spinal mass lesion Plan - renal function is worsening - foster placement unsuccessful - pt has elevated pvr - repeat labs in am - called for urology eval - follow serologies - discussed with IDmarla to be changed to alternate agent - check urine eos - cultures negative so far
--- NOTE | 2020-07-01 15:24 | PN ---
Teaching Attending Note Name of Resident: Savanna Conteh ATTENDING PHYSICIAN STATEMENT I saw and evaluated the patient. I reviewed the resident's note and discussed the case with the resident. I agree with the resident's findings and plan as documented. SUBJECTIVE: Ongoing L sided back pain, radiating down LLE. No further PV bleeding. Difficulty passing urine. OBJECTIVE: Tmax overnight 99.9, Hemodynamically Stable. Last Vital Signs Temp Pulse Resp BP Pulse Ox 97.8 F 90 18 125/68 96 07/01/20 14:00 07/01/20 14:00 07/01/20 14:00 07/01/20 14:00 07/01/20 14:00 Heart - S1, S2, RRR Lungs - clear to auscultation. Abdomen - High BMI. Soft, non-tender. Bowel Sounds normal. Extremities - no calf tenderness. Neuro - AAO x 3. Limited mobility LLE due to pain, well perfused. Laboratory Results - last 24 hr 06/30/20 06/30/20 07/01/20 17:38 21:00 05:59 WBC RBC Hgb Hct MCV MCH MCHC RDW Plt Count MPV Absolute Neuts (auto) Neutrophils % Lymphocytes % Monocytes % Eosinophils % Basophils % Nucleated RBC % Sodium Potassium Chloride Carbon Dioxide Anion Gap BUN Creatinine Est GFR (CKD-EPI)AfAm Est GFR (CKD-EPI)NonAf POC Glucometer 243 214 209 Random Glucose Calcium Phosphorus Magnesium Total Bilirubin AST ALT Alkaline Phosphatase Total Protein Albumin 07/01/20 07/01/20 07/01/20 08:32 08:32 11:31 WBC 12.6 H RBC 2.80 L Hgb 7.9 L Hct 24.5 L MCV 87.6 MCH 28.1 MCHC 32.1 RDW 16.1 H Plt Count 332 MPV 8.0 Absolute Neuts (auto) 9.2 H Neutrophils % 72.7 Lymphocytes % 12.6 Monocytes % 11.0 H Eosinophils % 3.4 D Basophils % 0.3 Nucleated RBC % 0 Sodium 140 Potassium 3.6 Chloride 105 Carbon Dioxide 26 Anion Gap 9 BUN 64.5 H Creatinine 3.7 H Est GFR (CKD-EPI)AfAm 14.38 Est GFR (CKD-EPI)NonAf 12.40 POC Glucometer 236 Random Glucose 201 H Calcium 8.6 Phosphorus 4.7 Magnesium 2.4 Total Bilirubin 0.6 AST 32 ALT 22 Alkaline Phosphatase 329 H Total Protein 5.9 L Albumin 1.7 L Current Medications Generic Name Dose Route Start Last Admin Trade Name Freq PRN Reason Stop Dose Admin Acetaminophen 650 mg 06/26/20 16:07 07/01/20 11:49 Tylenol - PO 650 mg Q6H PRN Administration PAIN LEVEL 1-5 Amlodipine Besylate 10 mg 06/28/20 10:00 07/01/20 11:49 Norvasc - PO 10 mg DAILY [facility]COE Administration Atorvastatin Calcium 40 mg 06/26/20 22:00 06/30/20 21:02 Lipitor - PO 40 mg HS ROSCOE Administration Cyclobenzaprine HCl 10 mg 06/28/20 10:02 07/01/20 15:09 Flexeril - PO 10 mg TID ROSCOE Administration Gabapentin 200 mg 06/30/20 14:00 07/01/20 15:09 Neurontin - PO 200 mg TID ROSCOE Administration Insulin Aspart 1 vial 06/26/20 16:30 07/01/20 11:50 Novolog Vial Sliding Scale - SQ 2 units ACHS ROSCOE Administration Protocol Metoprolol Tartrate 100 mg 06/26/20 22:00 07/01/20 11:49 Lopressor - PO 100 mg BID ROSCOE Administration Morphine Sulfate 2 mg 06/29/20 10:34 06/30/20 16:25 Morphine Sulfate IVPUSH 2 mg Q4H PRN Administration PAIN LEVEL 7 - 10 Pantoprazole Sodium 40 mg 06/27/20 07:00 07/01/20 06:06 Protonix - PO 40 mg ACBK ROSCOE Administration Tramadol HCl 50 mg 06/26/20 16:06 06/30/20 06:09 Ultram - PO 50 mg Q6H PRN Administration PAIN LEVEL 4 - 6 Home Medications Medication Instructions Recorded Amlodipine Besylate [Norvasc -] 10 mg PO DAILY 06/26/20 Glimepiride [Amaryl -] 4 mg PO BID 06/26/20 Metoprolol Tartrate [Lopressor] 100 mg PO BID 06/26/20 Telmisartan/Hydrochlorothiazid 1 each PO DAILY 06/26/20 [Telmisartan-Hctz 80-25 mg Tab] Sitagliptin Phosphate [Januvia] 50 mg PO DAILY 06/27/20 ASSESSMENT AND PLAN: 64 year old female with history of DM 2, HTN, HLD, CKD 3, presents with lower back pain, L Hip pain, radiating down LLE, as well as 3 day history of post- menopausal vaginal bleeding, now resolved. 1. 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 However, Creat remains too elevated to risk contrast. CT - DJD with central spinal canal stenosis L 4/5, L4 nerve root impingement Neurosurgery following. IV Morphine/Tramadol PRN, Lidoderm patch, Flexeril, Neurontin. PT 2. UA suggestive of UTI - Urine Cx grew normal dashawn. Leukocytosis improving, down to 12.6 Spiked fever on Ceftriaxone - switched to Zosyn, now held due to TIM ID following 3. TIM on CKD 3 - worsening Creat, now 3.7, possibly sec to urinary retention/obstructive etiology Renal US - bilateral renal lipomatosis, R renal cyst. Bladder US 07/01 - large post-0void residual. Unsuccessful attempts at foster placement, will consult Urology. Discussed with Nephrology. HCTZ held due to TIM 4. Post-menopausal Dysfunctional Uterine Bleeding Abdominal US - enlarged myomatous uterus. CT - mass-like density R hemipelvis, exophytic fibroid versus ovarian mass. Gynecology evaluated - no bleeding currently - for outpatient endometrial biopsy as per Gyne. H/H stable. 5. Normocytic Anemia - likely sec to CKD 3/Chronic Disease. Will monitor H/H. 6. HLD - continue Atorvastatin. 7. DM 2 - Glimepiride, Januvia held. Maintain on Novolog sliding scale. 8. HTN - Continue Norvasc, Metoprolol. ARB due to TIM. DVT Px - SCDs. Heparin held due to recent PV bleeding.
--- NOTE | 2020-07-01 15:27 | CONSULT ---
Consult Consult Specialty:: UROLOGY Reason for Consultation:: AUR - History of Present Illness Chief Complaint: 64 Y/O Female patient with PMHx. of DM, HTN, HLD, and CKD. DJD with central spinal canal stenosis L 4/5, L4 nerve root impingement She developed lower abd pressure, hesitency weak urine flow and incontinence. PVR> 282 ml. trial of foster catheter was failed and we are consulted. O/E. soft lax abd, distended bladder. meatal stenosis noticed, 16 F foster catheter in serted and drains clear urine. WBC 12.6 HB 7.9. BUN 64.5 S.Creat 3.7. Renal US showed Rt renal cyst-simple, no hydro no stone. - Past Medical History INVENTORY COORDINATOR: No: Alzheimer's, CVA, Dementia, Migraine, Multiple Sclerosis, Peripheral Neuropathy, Parkinson's, Seizure, Syncope, TIA, Vertigo, Other Cardio/Vascular: Yes: HTN, Hyperlipdemia Pulmonary: No: Asthma, Bronchitis, Cancer, COPD, O2 Dependent, Pneumonia, Previously Intubated, Pulmonary Embolus, Pulmonary Fibrosis, Sleep Apnea, Other Gastrointestinal: No: Ascites, Cancer, Constipation, Crohn's Disease, Diverticulitis, Diverticulosis, Esophageal Varices, Gastritis, GERD, GI Bleed, Hemorrhoids, Hiatal Hernia, Inflamatory Bowel Disease, Irritable Bowel Disease, Pancreatitis, Peptic Ulcer Disease, Ulcerative Colitis, Other Hepatobiliary: No: Cirrhosis, Cholelithiasis, Cholecystitis, Choledocholithia sis, Hepatitis A, Hepatitis B, Hepatitis C, Other Renal/: Yes: Renal Inusuff ...: No Infectious Disease: No: AIDS, C-Diff, Herpes Zoster, HIV, MRSA, STD's, Tuberculosis, VREF, Other Psych: No: Addictions, Anxiety, Bipolar, Depression, Panic, Psychosis, Schizophrenia, Other Musculoskeletal: No: Bursitis, Chronic low back pain, Hemiparesis, Hemiplegia, Osteoarthritis, Paraplegia, Other Rheumatology: No: Fibromyalgia, Gout, Lupus, Rheumatoid Arthritis, Sarcoidosis, Vasculitis, Other ENT: No: Allergic Rhinitis, Sinusitis, Other Endocrine: Yes: Diabetes Mellitus - Past Surgical History Past Surgical History: Yes: Cholecystectomy - Alcohol/Substance Use Hx Alcohol Use: No History of Substance Use: reports: None - Smoking History Smoking history: Never smoked Have you smoked in the past 12 months: No Home Medications - Allergies Allergies/Adverse Reactions: Allergies Allergy/AdvReac Type Severity Reaction Status Date / Time No Known Allergies Allergy Verified 06/26/20 09:03 - Home Medications Home Medications: Ambulatory Orders Amlodipine Besylate [Norvasc -] 10 mg PO DAILY 06/26/20 Glimepiride [Amaryl -] 4 mg PO BID 06/26/20 Metoprolol Tartrate [Lopressor] 100 mg PO BID 06/26/20 Telmisartan/Hydrochlorothiazid [Telmisartan-Hctz 80-25 mg Tab] 1 each PO DAILY 06/26/20 Sitagliptin Phosphate [Januvia] 50 mg PO DAILY 06/27/20 Family Medical History Family History: Denies (H/O RISK LEAD malignancy) Physical Exam Vital Signs: Vital Signs Temperature 97.8 F 07/01/20 14:00 Pulse Rate 90 07/01/20 14:00 Respiratory Rate 18 07/01/20 14:00 Blood Pressure 125/68 07/01/20 14:00 O2 Sat by Pulse Oximetry (%) 96 07/01/20 14:00 Labs: CBC, BMP 07/01/20 08:32 07/01/20 08:32 Assessment/Plan TIM AUR Rt renal cyst-simple 16 foster catheter inserted. Plan: keep foster catheter and will schedule her for Cystoscopy and UDS when her medical condition allows.
--- NOTE | 2020-07-01 16:49 | PN ---
Progress Note (short form) - Note Progress Note: Patient seen in follow up. Complains of ongoing pain back, also pain R knee. No significant events overnight. Inpatient Meds reviewed. Current Medications Generic Name Dose Route Start Last Admin Trade Name Freq PRN Reason Stop Dose Admin Acetaminophen 650 mg 06/26/20 16:07 07/01/20 11:49 Tylenol - PO 650 mg Q6H PRN Administration PAIN LEVEL 1-5 Amlodipine Besylate 10 mg 06/28/20 10:00 07/01/20 11:49 Norvasc - PO 10 mg DAILY ROSCOE Administration Atorvastatin Calcium 40 mg 06/26/20 22:00 06/30/20 21:02 Lipitor - PO 40 mg HS ROSCOE Administration Cyclobenzaprine HCl 10 mg 06/28/20 10:02 07/01/20 15:09 Flexeril - PO 10 mg TID ROSCOE Administration Gabapentin 200 mg 06/30/20 14:00 07/01/20 15:09 Neurontin - PO 200 mg TID ROSCOE Administration Insulin Aspart 1 vial 06/26/20 16:30 07/01/20 11:50 Novolog Vial Sliding Scale - SQ 2 units ACHS ROSCOE Administration Protocol Metoprolol Tartrate 100 mg 06/26/20 22:00 07/01/20 11:49 Lopressor - PO 100 mg BID ROSCOE Administration Morphine Sulfate 2 mg 06/29/20 10:34 06/30/20 16:25 Morphine Sulfate IVPUSH 2 mg Q4H PRN Administration PAIN LEVEL 7 - 10 Pantoprazole Sodium 40 mg 06/27/20 07:00 07/01/20 06:06 Protonix - PO 40 mg ACBK ROSCOE Administration Tramadol HCl 50 mg 06/26/20 16:06 06/30/20 06:09 Ultram - PO 50 mg Q6H PRN Administration PAIN LEVEL 4 - 6 On Examination: Last Vital Signs Temp Pulse Resp BP Pulse Ox 97.8 F 90 18 125/68 96 07/01/20 14:00 07/01/20 14:00 07/01/20 14:00 07/01/20 14:00 07/01/20 14:00 General: In no acute distress, obese, lying supine in bed. Extremities: No pallor or icterus. No pedal edema. No palpable lymphadenopathy. CVS: S1, S2, regular, no gallop or murmur. Chest: good air entry bilaterally, clear Abdomen: Non-distended, non-tender, no palpable organomegaly. Neuro: Alert, oriented, non-focal. Labs: CBC, BMP 07/01/20 08:32 07/01/20 08:32 Assessment. Multiple medical issues, admitted with back pain, post-menopausal vaginal bleeding, and found to have a possible mass lesion at cauda equina, incompletely characterized. Awaiting follow up contrast MRI. Aso noted to have pelvic mass - ovarian vs uterine. SHOE DRESSER aware - will be biopsied as outpatient.
[2020-07-01] MEDS: MORPHINE SULFATE 2 MG/ML VIAL IVPUSH PRN (20:33)
[2020-07-01] MEDS ORDERED: INSULIN (NOVOLOG) ASPART 100 UNITS/ML 10ML VIAL ONE (20:49)
[2020-07-01] MEDS: ATORVASTATIN CA 40 MG TABLET (FP) PO SCH (21:07)
[2020-07-02] MEDS: PANTOPRAZOLE 40 MG TABLET PO SCH (06:03)
[2020-07-02] MEDS: INSULIN SLIDING SCALE (NOVOLOG) 1 VIAL SQ SCH ×4 (06:03→21:56)
[2020-07-02] MEDS: GABAPENTIN 100 MG CAPSULE PO SCH ×3 (06:04→21:58)
[2020-07-02] MEDS: CYCLOBENZAPRINE HCL 10 MG TABLET (FP) PO SCH ×3 (06:04→21:58)
[2020-07-02] MEDS: MORPHINE SULFATE 2 MG/ML VIAL IVPUSH PRN (06:11)
[2020-07-02 08:17] LABS: HEMATOCRIT 25.1 % (32.4-45.2); MCH 28.3 pg (25.7-33.7); MEAN CELL VOLUME 88.5 fl (80-96); PLATELET COUNT 337 K/MM3 (134-434); RBC 2.83 M/mm3 (3.60-5.2); RDW 16.3 % (11.6-15.6); WHITE BLOOD COUNT 12.1 K/mm3 (4.0-10.0)
[2020-07-02 08:53] LABS: BLOOD UREA NITROGEN 73.1 mg/dL (7-18); CALCIUM 8.8 mg/dL (8.5-10.1); MAGNESIUM 2.6 mg/dL (1.8-2.4); POTASSIUM 3.7 mmol/L (3.5-5.1)
[2020-07-02 08:55] LABS: CREATININE 4.7 mg/dL (0.55-1.3); PHOSPHOROUS 5.6 mg/dL (2.5-4.9)
[2020-07-02] MEDS: amLODIPine BESYLATE 10 MG TABLET (FP) PO SCH (09:50)
[2020-07-02] MEDS: METOPROLOL TARTRATE 50 MG TABLET (FP) PO SCH ×2 (09:50→21:57)
--- NOTE | 2020-07-02 10:08 | PN ---
Progress Note (short form) - Note Progress Note: i patient was seen ,i was called to revaluate patient with fibroids , PMB and fibroid uterus , CRI, concern about fibroid pressing on ureter causing elevation of creatinine , no bleeding at this time, i reviwed renal sono and ct scan , no evidence of hydronephrosis ,and hydroureter therefore fibroids are not cause of increasing creatinine , in case that is a concern urology consult with ureter stents can relive pressure , patient has multiple co morbidity hysterectomy not indicated at this time till further evaluation of PMB. please notify Dr Coronel for follow up in am for revaluation
--- NOTE | 2020-07-02 13:54 | PN ---
Progress Note, Physician History of Present Illness: Pt seen and examined at bedside. She is awake and alert. She has poor po intake. Foster was placed yesterday and she had about 500 cc in her bladder. - Current Medication List Current Medications: Active Medications Acetaminophen (Tylenol -) 650 mg PO Q6H PRN PRN Reason: PAIN LEVEL 1-5 Last Admin: 07/01/20 11:49 Dose: 650 mg Documented by: Amlodipine Besylate (Norvasc -) 10 mg PO DAILY [facility] Last Admin: 07/02/20 09:50 Dose: 10 mg Documented by: Atorvastatin Calcium (Lipitor -) 40 mg PO HS [facility] Last Admin: 07/01/20 21:07 Dose: 40 mg Documented by: Cyclobenzaprine HCl (Flexeril -) 10 mg PO TID [facility] Last Admin: 07/02/20 06:04 Dose: 10 mg Documented by: Gabapentin (Neurontin -) 200 mg PO TID [facility] Last Admin: 07/02/20 06:04 Dose: 200 mg Documented by: Insulin Aspart (Novolog Vial Sliding Scale -) 1 vial SQ [facility]; Protocol Last Admin: 07/02/20 06:03 Dose: 2 units Documented by: Metoprolol Tartrate (Lopressor -) 100 mg PO BID [facility] Last Admin: 07/02/20 09:50 Dose: 100 mg Documented by: Morphine Sulfate (Morphine Sulfate) 2 mg IVPUSH Q4H PRN PRN Reason: PAIN LEVEL 7 - 10 Last Admin: 07/02/20 06:11 Dose: 2 mg Documented by: Pantoprazole Sodium (Protonix -) 40 mg PO ACBK [facility] Last Admin: 07/02/20 06:03 Dose: 40 mg Documented by: Tramadol HCl (Ultram -) 50 mg PO Q6H PRN PRN Reason: PAIN LEVEL 4 - 6 Last Admin: 06/30/20 06:09 Dose: 50 mg Documented by: - Objective Vital Signs: Vital Signs Temperature 98.7 F 07/02/20 08:00 Pulse Rate 82 07/02/20 08:00 Respiratory Rate 18 07/02/20 09:00 Blood Pressure 131/60 07/02/20 08:00 O2 Sat by Pulse Oximetry (%) 98 07/02/20 09:00 Constitutional: Yes: Calm Eyes: Yes: Conjunctiva Clear HENT: Yes: Atraumatic Cardiovascular: Yes: S1, S2 Respiratory: Yes: CTA Bilaterally Gastrointestinal: Yes: Soft, Abdomen, Obese Genitourinary: Yes: Foster Present Musculoskeletal: Yes: Muscle Weakness Edema: No Neurological: Yes: Oriented Psychiatric: Yes: Oriented Labs: CBC, BMP 07/02/20 07:15 07/02/20 07:15 INR, PTT INR 1.14 (0.83-1.09) H 06/26/20 10:15 Problem List - Problems (1) CKD (chronic kidney disease) Code(s): N18.9 - CHRONIC KIDNEY DISEASE, UNSPECIFIED (2) Sciatica Code(s): M54.30 - SCIATICA, UNSPECIFIED SIDE Qualifiers: Laterality: left Qualified Code(s): M54.32 - Sciatica, left side (3) Hypertension Code(s): I10 - ESSENTIAL (PRIMARY) HYPERTENSION Assessment/Plan Current Medications Generic Name Dose Route Start Last Admin Trade Name Freq PRN Reason Stop Dose Admin Acetaminophen 650 mg 06/26/20 16:07 07/01/20 11:49 Tylenol - PO 650 mg Q6H PRN Administration PAIN LEVEL 1-5 Amlodipine Besylate 10 mg 06/28/20 10:00 07/02/20 09:50 Norvasc - PO 10 mg DAILY [facility] Administration Atorvastatin Calcium 40 mg 06/26/20 22:00 07/01/20 21:07 Lipitor - PO 40 mg HS [facility] Administration Cyclobenzaprine HCl 10 mg 06/28/20 10:02 07/02/20 06:04 Flexeril - PO 10 mg TID [facility] Administration Gabapentin 200 mg 06/30/20 14:00 07/02/20 06:04 Neurontin - PO 200 mg TID [facility] Administration Insulin Aspart 1 vial 06/26/20 16:30 07/02/20 06:03 Novolog Vial Sliding Scale - SQ 2 units ACHS [facility] Administration Protocol Metoprolol Tartrate 100 mg 06/26/20 22:00 07/02/20 09:50 Lopressor - PO 100 mg BID [facility] Administration Morphine Sulfate 2 mg 06/29/20 10:34 07/02/20 06:11 Morphine Sulfate IVPUSH 2 mg Q4H PRN Administration PAIN LEVEL 7 - 10 Pantoprazole Sodium 40 mg 06/27/20 07:00 07/02/20 06:03 Protonix - PO 40 mg ACBK [facility] Administration Tramadol HCl 50 mg 06/26/20 16:06 06/30/20 06:09 Ultram - PO 50 mg Q6H PRN Administration PAIN LEVEL 4 - 6 Impression 1. CKD 2. TIM 3. back pain 4. dm 5. htn 6. obesity 7. possible spinal mass lesion Plan - urine sodium is low - will start gentle hydration - foster in place - urology input appreciated - follow serologies - follow urine eos
[2020-07-02] MEDS ORDERED: SODIUM CHLORIDE 1,000 ML IV SCH (14:00)
--- NOTE | 2020-07-02 14:21 | PN ---
Progress Note (short form) - Note Progress Note: SUBJECTIVE: Ongoing L sided back pain, radiating down LLE. No further PV bleeding. Difficulty passing urine, requiring foster 07/01. OBJECTIVE: Afberile, Hemodynamically Stable. Last Vital Signs Temp Pulse Resp BP Pulse Ox 98.7 F 82 18 131/60 98 07/02/20 08:00 07/02/20 08:00 07/02/20 09:00 07/02/20 08:00 07/02/20 09:00 Heart - S1, S2, RRR Lungs - clear to auscultation. Abdomen - High BMI. Soft, non-tender. Bowel Sounds normal. Extremities - no calf tenderness. Neuro - AAO x 3. Limited mobility LLE due to pain, well perfused. Laboratory Results - last 24 hr 07/01/20 07/01/20 07/01/20 15:30 15:30 16:53 WBC RBC Hgb Hct MCV MCH MCHC RDW Plt Count MPV Sodium Potassium Chloride Carbon Dioxide Anion Gap BUN Creatinine Est GFR (CKD-EPI)AfAm Est GFR (CKD-EPI)NonAf POC Glucometer 286 Random Glucose Calcium Phosphorus Magnesium Urine Osmolality 340 Ur Random Creatinine 208.0 H Ur Random Sodium < 18 L < 18 L Ur Random Potassium 47.0 Ur Random Chloride < 11 L 07/01/20 07/02/20 07/02/20 20:37 05:59 07:15 WBC 12.1 H RBC 2.83 L Hgb 8.0 L Hct 25.1 L MCV 88.5 MCH 28.3 MCHC 32.0 RDW 16.3 H Plt Count 337 MPV 8.0 Sodium Potassium Chloride Carbon Dioxide Anion Gap BUN Creatinine Est GFR (CKD-EPI)AfAm Est GFR (CKD-EPI)NonAf POC Glucometer 273 222 Random Glucose Calcium Phosphorus Magnesium Urine Osmolality Ur Random Creatinine Ur Random Sodium Ur Random Potassium Ur Random Chloride 07/02/20 07/02/20 07:15 12:40 WBC RBC Hgb Hct MCV MCH MCHC RDW Plt Count MPV Sodium 135 L Potassium 3.7 Chloride 101 Carbon Dioxide 23 Anion Gap 12 BUN 73.1 H Creatinine 4.7 H Est GFR (CKD-EPI)AfAm 10.77 Est GFR (CKD-EPI)NonAf 9.29 POC Glucometer 253 Random Glucose 230 H Calcium 8.8 Phosphorus 5.6 H Magnesium 2.6 H Urine Osmolality Ur Random Creatinine Ur Random Sodium Ur Random Potassium Ur Random Chloride Current Medications Generic Name Dose Route Start Last Admin Trade Name Freq PRN Reason Stop Dose Admin Acetaminophen 650 mg 06/26/20 16:07 07/01/20 11:49 Tylenol - PO 650 mg Q6H PRN Administration PAIN LEVEL 1-5 Amlodipine Besylate 10 mg 06/28/20 10:00 07/02/20 09:50 Norvasc - PO 10 mg DAILY [facility] Administration Atorvastatin Calcium 40 mg 06/26/20 22:00 07/01/20 21:07 Lipitor - PO 40 mg HS [facility] Administration Cyclobenzaprine HCl 10 mg 06/28/20 10:02 07/02/20 13:55 Flexeril - PO 10 mg TID [facility] Administration Gabapentin 200 mg 06/30/20 14:00 07/02/20 13:55 Neurontin - PO 200 mg TID [facility] Administration Sodium Chloride 1,000 mls @ 50 mls/hr 07/02/20 14:00 Normal Saline - IV 07/03/20 13:54 ASDIR [facility] Insulin Aspart 1 vial 06/26/20 16:30 07/02/20 13:53 Novolog Vial Sliding Scale - SQ 4 units ACHS [facility] Administration Protocol Metoprolol Tartrate 100 mg 06/26/20 22:00 07/02/20 09:50 Lopressor - PO 100 mg BID [facility] Administration Morphine Sulfate 2 mg 06/29/20 10:34 07/02/20 06:11 Morphine Sulfate IVPUSH 2 mg Q4H PRN Administration PAIN LEVEL 7 - 10 Pantoprazole Sodium 40 mg 06/27/20 07:00 07/02/20 06:03 Protonix - PO 40 mg ACBK [facility] Administration Tramadol HCl 50 mg 06/26/20 16:06 06/30/20 06:09 Ultram - PO 50 mg Q6H PRN Administration PAIN LEVEL 4 - 6 Home Medications Medication Instructions Recorded Amlodipine Besylate [Norvasc -] 10 mg PO DAILY 06/26/20 Glimepiride [Amaryl -] 4 mg PO BID 06/26/20 Metoprolol Tartrate [Lopressor] 100 mg PO BID 06/26/20 Telmisartan/Hydrochlorothiazid 1 each PO DAILY 06/26/20 [Telmisartan-Hctz 80-25 mg Tab] Sitagliptin Phosphate [Januvia] 50 mg PO DAILY 06/27/20 ASSESSMENT AND PLAN: 64 year old female with history of DM 2, HTN, HLD, CKD 3, presents with lower back pain, L Hip pain, radiating down LLE, as well as 3 day history of post- menopausal vaginal bleeding, now resolved. 1. 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 H owever, Creat remains too elevated to risk contrast. CT - DJD with central spinal canal stenosis L 4/5, L4 nerve root impingement Neurosurgery following. IV Morphine/Tramadol PRN, Lidoderm patch, Flexeril, Neurontin. Ongoing PT 2. UA suggestive of UTI - Urine Cx grew normal dashawn. Leukocytosis improving, down to 12.6 Spiked fever on Ceftriaxone - switched to Zosyn, now held due to TIM, not on Abx ID following 3. TIM on CKD 3 - worsening Creat, now 4.7, possibly pre-renal, no definitive obstructive etiology. Renal US - bilateral renal lipomatosis, R renal cyst. Bladder US 07/01 - large post-void residual prior to foster insertion Foster placed by Urology - for out-patient cystoscopy and urodynamic studies as per Urology. Resumed on IV fluids by Nephrology. HCTZ held. Monitor rneal function in response to hydration. 4. Post-menopausal Dysfunctional Uterine Bleeding Abdominal US - enlarged myomatous uterus. CT - mass-like density R hemipelvis, exophytic fibroid versus ovarian mass. Gynecology evaluated - no bleeding currently - Gynecology mass not the cause of patient's TIM/urinary obstruction as per Gynecology. For outpatient endometrial biopsy as per Gyne. H/H stable. 5. Normocytic Anemia - likely sec to CKD 3/Chronic Disease. Will monitor H/H. 6. HLD - continue Atorvastatin. 7. DM 2 - Glimepiride, Januvia held. Levemir 5 units added to Novolog sliding scale due to elevated serum glucose measurements. 8. HTN - Continue Norvasc, Metoprolol. ARB due to TIM. DVT Px - SCDs. Heparin held due to recent PV bleeding. Visit type - Emergency Visit Emergency Visit: Yes ED Registration Date: 06/26/20 Care time: The patient presented to the Emergency Department on the above date and was hospitalized for further evaluation of their emergent condition. - New Patient This patient is new to me today: No - Critical Care Critical Care patient: No - Discharge Referral Referred to [facility] Med P.C.: No
--- NOTE | 2020-07-02 21:44 | PN ---
Progress Note (short form) - Note Progress Note: Patient seen in follow up. Ongoing pain back, pain R knee. No significant events overnight. Inpatient Meds reviewed. Current Medications Generic Name Dose Route Start Last Admin Trade Name Freq PRN Reason Stop Dose Admin Acetaminophen 650 mg 06/26/20 16:07 07/01/20 11:49 Tylenol - PO 650 mg Q6H PRN Administration PAIN LEVEL 1-5 Amlodipine Besylate 10 mg 06/28/20 10:00 07/02/20 09:50 Norvasc - PO 10 mg DAILY [facility] Administration Atorvastatin Calcium 40 mg 06/26/20 22:00 07/01/20 21:07 Lipitor - PO 40 mg HS [facility] Administration Cyclobenzaprine HCl 10 mg 06/28/20 10:02 07/02/20 13:55 Flexeril - PO 10 mg TID [facility] Administration Gabapentin 200 mg 06/30/20 14:00 07/02/20 13:55 Neurontin - PO 200 mg TID [facility] Administration Sodium Chloride 1,000 mls @ 50 mls/hr 07/02/20 14:00 07/02/20 16:50 Normal Saline - IV 07/03/20 13:54 50 mls/hr ASDIR [facility] Administration Insulin Aspart 1 vial 06/26/20 16:30 07/02/20 17:53 Novolog Vial Sliding Scale - SQ 4 units ACHS [facility] Administration Protocol Insulin Detemir 5 units 07/02/20 22:00 Levemir Vial SQ HS [facility] Metoprolol Tartrate 100 mg 06/26/20 22:00 07/02/20 09:50 Lopressor - PO 100 mg BID [facility] Administration Morphine Sulfate 2 mg 06/29/20 10:34 07/02/20 06:11 Morphine Sulfate IVPUSH 2 mg Q4H PRN Administration PAIN LEVEL 7 - 10 Pantoprazole Sodium 40 mg 06/27/20 07:00 07/02/20 06:03 Protonix - PO 40 mg ACBK [facility] Administration Tramadol HCl 50 mg 06/26/20 16:06 06/30/20 06:09 Ultram - PO 50 mg Q6H PRN Administration PAIN LEVEL 4 - 6 On Examination: Last Vital Signs Temp Pulse Resp BP Pulse Ox 98.5 F 80 18 129/68 95 07/02/20 20:44 07/02/20 20:44 07/02/20 20:45 07/02/20 20:44 07/02/20 20:45 General: In no acute distress, obese, lying supine in bed. Extremities: No pallor or icterus. No pedal edema. No palpable lymphadenopathy. CVS: S1, S2, regular, no gallop or murmur. Chest: good air entry bilaterally, clear Abdomen: Non-distended, non-tender, no palpable organomegaly. Neuro: Alert, oriented, non-focal. Labs: CBC, BMP 07/02/20 07:15 07/02/20 07:15 Assessment. Multiple medical issues, admitted with back pain, post-menopausal vaginal bleeding, and found to have a possible mass lesion at cauda equina, incompletely characterized. Awaiting follow up contrast MRI. Aso noted to have pelvic mass - ovarian vs uterine. 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
[2020-07-02] MEDS: ATORVASTATIN CA 40 MG TABLET (FP) PO SCH (21:57)
[2020-07-02] MEDS ORDERED: INSULIN (LEVEMIR) 100 UNITS/ML UNITS SQ SCH (22:00)
[2020-07-03] MEDS: INSULIN SLIDING SCALE (NOVOLOG) 1 VIAL SQ SCH ×4 (06:29→23:04)
[2020-07-03] MEDS: CYCLOBENZAPRINE HCL 10 MG TABLET (FP) PO SCH ×3 (06:31→22:58)
[2020-07-03] MEDS: PANTOPRAZOLE 40 MG TABLET PO SCH (06:34)
[2020-07-03] MEDS: GABAPENTIN 100 MG CAPSULE PO SCH ×3 (06:35→22:59)
[2020-07-03 08:06] LABS: POTASSIUM 4.2 mmol/L (3.5-5.1)
[2020-07-03 08:41] LABS: ALBUMIN 1.7 g/dl (3.4-5.0); BILIRUBIN,TOTAL 0.4 mg/dL (0.2-1); BLOOD UREA NITROGEN 76.6 mg/dL (7-18); CALCIUM 8.7 mg/dL (8.5-10.1); CREATININE 5.1 mg/dL (0.55-1.3)
[2020-07-03] MEDS: traMADol HCL 50 MG TABLET PO PRN ×2 (10:34→22:58)
[2020-07-03] MEDS: METOPROLOL TARTRATE 50 MG TABLET (FP) PO SCH ×2 (10:35→22:58)
[2020-07-03] MEDS: amLODIPine BESYLATE 10 MG TABLET (FP) PO SCH (10:35)
--- NOTE | 2020-07-03 14:46 | PN ---
Progress Note, Physician History of Present Illness: Pt seen and examined at bedside. SHe is awake and alert. She denies shortness of breath. - Current Medication List Current Medications: Active Medications Acetaminophen (Tylenol -) 650 mg PO Q6H PRN PRN Reason: PAIN LEVEL 1-5 Last Admin: 07/01/20 11:49 Dose: 650 mg Documented by: Amlodipine Besylate (Norvasc -) 10 mg PO DAILY [facility] Last Admin: 07/03/20 10:35 Dose: 10 mg Documented by: Atorvastatin Calcium (Lipitor -) 40 mg PO [facility] Last Admin: 07/02/20 21:57 Dose: 40 mg Documented by: Cyclobenzaprine HCl (Flexeril -) 10 mg PO TID [facility] Last Admin: 07/03/20 06:31 Dose: 10 mg Documented by: Gabapentin (Neurontin -) 200 mg PO TID [facility] Last Admin: 07/03/20 06:35 Dose: 200 mg Documented by: Insulin Aspart (Novolog Vial Sliding Scale -) 1 vial SQ [facility]; Protocol Last Admin: 07/03/20 11:32 Dose: 4 units Documented by: Insulin Detemir (Levemir Vial) 5 units SQ [facility] Last Admin: 07/02/20 21:57 Dose: 5 units Documented by: Metoprolol Tartrate (Lopressor -) 100 mg PO BID [facility] Last Admin: 07/03/20 10:35 Dose: 100 mg Documented by: Morphine Sulfate (Morphine Sulfate) 2 mg IVPUSH Q4H PRN PRN Reason: PAIN LEVEL 7 - 10 Last Admin: 07/02/20 06:11 Dose: 2 mg Documented by: Pantoprazole Sodium (Protonix -) 40 mg PO ACBK [facility] Last Admin: 07/03/20 06:34 Dose: 40 mg Documented by: Tramadol HCl (Ultram -) 50 mg PO Q6H PRN PRN Reason: PAIN LEVEL 4 - 6 Last Admin: 07/03/20 10:34 Dose: 50 mg Documented by: - Objective Vital Signs: Vital Signs Temperature 98.8 F 07/03/20 14:10 Pulse Rate 81 07/03/20 14:10 Respiratory Rate 20 07/03/20 14:10 Blood Pressure 141/77 07/03/20 14:10 O2 Sat by Pulse Oximetry (%) 95 07/03/20 14:10 Constitutional: Yes: Calm Eyes: Yes: Conjunctiva Clear HENT: Yes: Atraumatic Neck: Yes: Supple Cardiovascular: Yes: S1, S2 Respiratory: Yes: CTA Bilaterally Gastrointestinal: Yes: Soft, Abdomen, Obese Genitourinary: Yes: Pathak Present Musculoskeletal: Yes: Muscle Weakness Edema: No Neurological: Yes: Oriented Psychiatric: Yes: Oriented Labs: CBC, BMP 07/02/20 07:15 07/03/20 06:45 INR, PTT INR 1.14 (0.83-1.09) H 06/26/20 10:15 Problem List - Problems (1) CKD (chronic kidney disease) Code(s): N18.9 - CHRONIC KIDNEY DISEASE, UNSPECIFIED (2) Sciatica Code(s): M54.30 - SCIATICA, UNSPECIFIED SIDE Qualifiers: Laterality: left Qualified Code(s): M54.32 - Sciatica, left side (3) Hypertension Code(s): I10 - ESSENTIAL (PRIMARY) HYPERTENSION Assessment/Plan Current Medications Generic Name Dose Route Start Last Admin Trade Name Freq PRN Reason Stop Dose Admin Acetaminophen 650 mg 06/26/20 16:07 07/01/20 11:49 Tylenol - PO 650 mg Q6H PRN Administration PAIN LEVEL 1-5 Amlodipine Besylate 10 mg 06/28/20 10:00 07/03/20 10:35 Norvasc - PO 10 mg DAILY [facility] Administration Atorvastatin Calcium 40 mg 06/26/20 22:00 07/02/20 21:57 Lipitor - PO 40 mg HS [facility] Administration Cyclobenzaprine HCl 10 mg 06/28/20 10:02 07/03/20 06:31 Flexeril - PO 10 mg TID [facility] Administration Gabapentin 200 mg 06/30/20 14:00 07/03/20 06:35 Neurontin - PO 200 mg TID [facility] Administration Insulin Aspart 1 vial 06/26/20 16:30 07/03/20 11:32 Novolog Vial Sliding Scale - SQ 4 units ACHS [facility] Administration Protocol Insulin Detemir 5 units 07/02/20 22:00 07/02/20 21:57 Levemir Vial SQ 5 units HS [facility] Administration Metoprolol Tartrate 100 mg 06/26/20 22:00 07/03/20 10:35 Lopressor - PO 100 mg BID [facility] Administration Morphine Sulfate 2 mg 06/29/20 10:34 07/02/20 06:11 Morphine Sulfate IVPUSH 2 mg Q4H PRN Administration PAIN LEVEL 7 - 10 Pantoprazole Sodium 40 mg 06/27/20 07:00 07/03/20 06:34 Protonix - PO 40 mg ACBK [facility] Administration Tramadol HCl 50 mg 06/26/20 16:06 07/03/20 10:34 Ultram - PO 50 mg Q6H PRN Administration PAIN LEVEL 4 - 6 Impression 1. CKD 2. TIM 3. back pain 4. dm 5. htn 6. obesity 7. possible spinal mass lesion Plan - cont to monitor renal function - follow serologies - renal dose meds - decrease neurontin dose - monitor output - cont fluids - follow urine eos
[2020-07-03] MEDS: SODIUM CHLORIDE 0.45% 1,000 ML IV SCH (14:57)
--- NOTE | 2020-07-03 15:55 | PN ---
Teaching Attending Note Name of Resident: Ana Medina ATTENDING PHYSICIAN STATEMENT I saw and evaluated the patient. I reviewed the resident's note and discussed the case with the resident. I agree with the resident's findings and plan as documented. SUBJECTIVE: Some improvement in L sided back pain, radiating down LLE. No further PV bleeding. Difficulty passing urine, requiring foster 07/01. OBJECTIVE: Afebrile, Hemodynamically Stable. Last Vital Signs Temp Pulse Resp BP Pulse Ox 98.8 F 81 20 141/77 95 07/03/20 14:10 07/03/20 14:10 07/03/20 14:10 07/03/20 14:10 07/03/20 14:10 Heart - S1, S2, RRR Lungs - clear to auscultation. Abdomen - High BMI. Soft, non-tender. Bowel Sounds normal. Extremities - no calf tenderness. Neuro - AAO x 3. Limited mobility LLE due to pain, well perfused. Laboratory Results - last 24 hr 06/30/20 07/02/20 07/02/20 15:00 16:35 21:55 Sodium Potassium Chloride Carbon Dioxide Anion Gap BUN Creatinine Est GFR (CKD-EPI)AfAm Est GFR (CKD-EPI)NonAf POC Glucometer 291 300 Random Glucose Calcium Total Bilirubin AST ALT Alkaline Phosphatase Total Protein Albumin Double Strand DNA Ab <1 07/03/20 07/03/20 07/03/20 06:28 06:45 11:32 Sodium 134 L Potassium 4.2 Chloride 100 Carbon Dioxide 21 Anion Gap 13 BUN 76.6 H Creatinine 5.1 H Est GFR (CKD-EPI)AfAm 9.75 Est GFR (CKD-EPI)NonAf 8.42 POC Glucometer 241 261 Random Glucose 248 H Calcium 8.7 Total Bilirubin 0.4 AST 39 H ALT 30 Alkaline Phosphatase 405 H Total Protein 6.0 L Albumin 1.7 L Double Strand DNA Ab Current Medications Generic Name Dose Route Start Last Admin Trade Name Freq PRN Reason Stop Dose Admin Acetaminophen 650 mg 06/26/20 16:07 07/01/20 11:49 Tylenol - PO 650 mg Q6H PRN Administration PAIN LEVEL 1-5 Amlodipine Besylate 10 mg 06/28/20 10:00 07/03/20 10:35 Norvasc - PO 10 mg DAILY [facility] Administration Atorvastatin Calcium 40 mg 06/26/20 22:00 07/02/20 21:57 Lipitor - PO 40 mg HS [facility] Administration Cyclobenzaprine HCl 10 mg 06/28/20 10:02 07/03/20 14:57 Flexeril - PO 10 mg TID [facility] Administration Gabapentin 200 mg 06/30/20 14:00 07/03/20 14:57 Neurontin - PO 200 mg TID [facility] Administration Sodium Chloride 1,000 mls @ 75 mls/hr 07/03/20 15:00 07/03/20 14:57 1/2 Normal Saline IV 75 mls/hr ASDIR [facility] Administration Insulin Aspart 1 vial 06/26/20 16:30 07/03/20 11:32 Novolog Vial Sliding Scale - SQ 4 units ACHS [facility] Administration Protocol Insulin Detemir 5 units 07/02/20 22:00 07/02/20 21:57 Levemir Vial SQ 5 units HS [facility] Administration Metoprolol Tartrate 100 mg 06/26/20 22:00 07/03/20 10:35 Lopressor - PO 100 mg BID [facility] Administration Morphine Sulfate 2 mg 06/29/20 10:34 07/02/20 06:11 Morphine Sulfate IVPUSH 2 mg Q4H PRN Administration PAIN LEVEL 7 - 10 Pantoprazole Sodium 40 mg 06/27/20 07:00 07/03/20 06:34 Protonix - PO 40 mg ACBK [facility] Administration Tramadol HCl 50 mg 06/26/20 16:06 07/03/20 10:34 Ultram - PO 50 mg Q6H PRN Administration PAIN LEVEL 4 - 6 Home Medications Medication Instructions Recorded Amlodipine Besylate [Norvasc -] 10 mg PO DAILY 06/26/20 Glimepiride [Amaryl -] 4 mg PO BID 06/26/20 Metoprolol Tartrate [Lopressor] 100 mg PO BID 06/26/20 Telmisartan/Hydrochlorothiazid 1 each PO DAILY 06/26/20 [Telmisartan-Hctz 80-25 mg Tab] Sitagliptin Phosphate [Januvia] 50 mg PO DAILY 06/27/20 ASSESSMENT AND PLAN: 64 year old female with history of DM 2, HTN, HLD, CKD 3, presents with lower back pain, L Hip pain, radiating down LLE, as well as 3 day history of post- menopausal vaginal bleeding, now resolved. 1. 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 However, Creat remains too elevated to risk contrast. CT - DJD with central spinal canal stenosis L 4/5, L4 nerve root impingement Neurosurgery following. IV Morphine/Tramadol PRN, Lidoderm patch, Flexeril, Neurontin. Ongoing PT 2. UA suggestive of UTI - Urine Cx grew normal dashawn. Leukocytosis improving, down to 12.6 Spiked fever on Ceftriaxone - switched to Zosyn, now held due to TIM, not on Abx ID following 3. TIM on CKD 3 - worsening Creat, now 5.1, etiology unclear. Renal US - bilateral renal lipomatosis, R renal cyst. Bladder US 07/01 - large post-void residual prior to foster insertion Foster placed by Urology - for out-patient cystoscopy and urodynamic studies as per Urology. Resumed on IV fluids by Nephrology. HCTZ held. Monitor renal function in response to hydration. 4. Post-menopausal Dysfunctional Uterine Bleeding Abdominal US - enlarged myomatous uterus. CT - mass-like density R hemipelvis, exophytic fibroid versus ovarian mass. Gynecology evaluated - no bleeding currently - Gynecology mass not the cause of patient's TIM/urinary obstruction as per Gynecology. For outpatient endometrial biopsy as per Gyne. H/H stable. 5. Normocytic Anemia - likely sec to CKD 3/Chronic Disease. Will monitor H/H. 6. HLD - continue Atorvastatin. 7. DM 2 - Glimepiride, Januvia held. Levemir 5 units added to Novolog sliding scale due to elevated serum glucose measurements. 8. HTN - Continue Norvasc, Metoprolol. ARB due to TIM. DVT Px - SCDs. Heparin held due to recent PV bleeding.
[2020-07-03] MEDS: MORPHINE SULFATE 2 MG/ML VIAL IVPUSH PRN (16:44)
--- NOTE | 2020-07-03 17:25 | PN ---
Physical Exam: SUBJECTIVE: Patient seen and examined at bedside, no new complaints, continues to report pain and numbness of LLE. OBJECTIVE: Vital Signs Period Temp Pulse Resp BP Sys/Ruiz Pulse Ox Last 24 Hr 98.4 F-98.8 F 74-83 18-20 115-141/54-77 95-99 GENERAL: AAOx3, in no acute distress HEENT: NCAT, PERRLA, EOMI, sclera anicteric, conjunctiva clear, oropharynx clear w/o exudates. MMM. NECK: Normal ROM, supple, no lymphadenopathy, JVD, or masses LUNGS: CTABL no wheezes/ rhonchi/ rales. No distress, speaks in full sentences. No increased work of breathing. HEART: RRR, normal S1 S2, no M/R/G, peripheral pulses 2+ and equal b/l ABDOMEN: Soft, non-tender, + BS. No guarding or rebound. No hepatomegaly or splenomegaly. MSK: ROM WNL, NO CVA tenderness EXTREMITIES: Normal inspection. No peripheral edema. No clubbing or cyanosis. Limited ROM of L. hip and LLE due to pain, Limited ROM of Right knee due to pain. NEUROLOGICAL: CN II-XII intact. Normal speech, gait not observed, no focal sensorimotor deficits. PSYCH: Normal mood, normal affect. SKIN: Warm, Dry, normal turgor, no rashes or lesions noted Laboratory Results - last 24 hr 06/30/20 07/02/20 07/03/20 15:00 21:55 06:28 Sodium Potassium Chloride Carbon Dioxide Anion Gap BUN Creatinine Est GFR (CKD-EPI)AfAm Est GFR (CKD-EPI)NonAf POC Glucometer 300 241 Random Glucose Calcium Total Bilirubin AST ALT Alkaline Phosphatase Total Protein Albumin Double Strand DNA Ab <1 07/03/20 07/03/20 07/03/20 06:45 11:32 16:56 Sodium 134 L Potassium 4.2 Chloride 100 Carbon Dioxide 21 Anion Gap 13 BUN 76.6 H Creatinine 5.1 H Est GFR (CKD-EPI)AfAm 9.75 Est GFR (CKD-EPI)NonAf 8.42 POC Glucometer 261 261 Random Glucose 248 H Calcium 8.7 Total Bilirubin 0.4 AST 39 H ALT 30 Alkaline Phosphatase 405 H Total Protein 6.0 L Albumin 1.7 L Double Strand DNA Ab Active Medications Generic Name Dose Route Start Last Admin Trade Name Freq PRN Reason Stop Dose Admin Acetaminophen 650 mg 06/26/20 16:07 07/01/20 11:49 Tylenol - PO 650 mg Q6H PRN Administration PAIN LEVEL 1-5 Amlodipine Besylate 10 mg 06/28/20 10:00 07/03/20 10:35 Norvasc - PO 10 mg DAILY ROSCOE Administration Atorvastatin Calcium 40 mg 06/26/20 22:00 07/02/20 21:57 Lipitor - PO 40 mg HS ROSCOE Administration Cyclobenzaprine HCl 10 mg 06/28/20 10:02 07/03/20 14:57 Flexeril - PO 10 mg TID ROSCOE Administration Gabapentin 200 mg 06/30/20 14:00 07/03/20 14:57 Neurontin - PO 200 mg TID ROSCOE Administration Sodium Chloride 1,000 mls @ 75 mls/hr 07/03/20 15:00 07/03/20 14:57 1/2 Normal Saline IV 75 mls/hr ASDIR ROSCOE Administration Insulin Aspart 1 vial 06/26/20 16:30 07/03/20 16:57 Novolog Vial Sliding Scale - SQ 4 units ACHS ROSCOE Administration Protocol Insulin Detemir 7 units 07/03/20 15:56 Levemir Vial SQ HS ROSCOE Metoprolol Tartrate 100 mg 06/26/20 22:00 07/03/20 10:35 Lopressor - PO 100 mg BID ROSCOE Administration Morphine Sulfate 2 mg 06/29/20 10:34 07/03/20 16:44 Morphine Sulfate IVPUSH 2 mg Q4H PRN Administration PAIN LEVEL 7 - 10 Pantoprazole Sodium 40 mg 06/27/20 07:00 07/03/20 06:34 Protonix - PO 40 mg ACBK ROSCOE Administration Tramadol HCl 50 mg 06/26/20 16:06 07/03/20 10:34 Ultram - PO 50 mg Q6H PRN Administration PAIN LEVEL 4 - 6 Imaging: MRI Lumbar spine: some asymmetry in the appearance of the nerve roots which may be related to clumping and arachnoiditis or to underlying mass lesion. Degenerative disease of the lumbosacral spine with accentuation of the lumbar lordosis. L3-L4 L2-L3 moderate degree of spinal stenosis related to bulging annuli and prominent posterior epidural fat with moderate degenerative ages articular facets. L4-L5 grade 1 anterolisthesis of L4 over L5 with broad-based bulging annulus toward the right and left epidural recess with mass effect on the L5 nerve roots in the recesses with more extension into the right L4-L5 foramen. Also hypertrophic changes articular facets contributing to moderate degree of spinal stenosis. Multiple lesions related to the uterus and possibly the right adnexa sonography of the pelvis or MRI of pelvis with contrast strongly recommended for further evaluation ASSESSMENT/PLAN: 64 Y F with a PMHx of DM, HTN, HLD, and CKD presents with lower back and L. Hip pain radiating down LLE over the last 4 days and post-menopausal vaginal bleeding for 3 days. #Intractable back/hip pain - 2/2 to radiculopathy due to herniated disk vs Mass compression, no bowel/bladder incontinence and saddle anesthesia - Lumbar and L. Hip MRI: noted as above Patient cannot get contrast study to evaluate for possible mass lesion, due to her kidney functions (low eGFR), elevated crea - Neurosurgery consulted, Dr. Alberto villegas, recs appreciated Possible L4-L5 laminectomy and fusion - Patient will need contrast imaging to evaluate for mass prior to the surgery - Pain control: IV Morphine PRN, Lidoderm patch, Flexeril, Neurontin - Physical therapy consulted, ongoing PT # UA suggestive of UTI w/ Leukocytosis - UA : positive for protein, blood WBCs and bacteria, urine culture: normal dashawn - Leukocytosis is improving, down to 12.6 - Spiked fever on Ceftriaxone, switched to Zosyn, but now held due to worsening Crea - ID on Board #Dysfunctional Uterine bleeding - Post-menopausal - Abdominal US shows multiple fibroids and enlarged myomatous uterus - MRI: Multiple lesions related to the uterus and possibly the right adnexa - CTAP: Mass like density in Right hemipelvis with peripheral calcifications, exophytic uterine fibroid vs ovarian mass - HEALTH PROMOTION COORDINATOR consuled, will f/u as outpatient, endometrial biopsy Gynecology mass not the cause of patient's TIM/urinary obstruction as per Gynecology #TIM on CKD(S3) - worsening crea, now 5.1, unclear etiology - Renal u/s: Small right renal simple cyst measuring 10 x 8 mm. Bilateral renal sinus lipomatosis. - Nephrology on board, Dr. marcum, recs appreciated - Urology consulted, recs appreciated Pathak placed out-patient cystoscopy and urodynamic studies - Holding HCTZ for now - Resumed IVF # Hx of DM - BGM + ISS #Hx of HTN - Continue Norvasc, Metoprolol # Hx of HLD - Continue Atrovastatin #FEN - Not on standing fluids - Continue to monitor electrolytes - Diabetic/sodium controlled Diet #DVT Ppx - No chemical PPx for now, Vaginal bleeding, pending procedure Visit type - Emergency Visit Emergency Visit: Yes ED Registration Date: 06/26/20 Care time: The patient presented to the Emergency Department on the above date and was hospitalized for further evaluation of their emergent condition. - New Patient This patient is new to me today: No - Critical Care Critical Care patient: No - Discharge Referral Referred to [facility] Med P.C.: No ATTENDING PHYSICIAN STATEMENT I saw and evaluated the patient. I reviewed the resident's note and discussed the case with the resident. I agree with the resident's findings and plan as documented. SUBJECTIVE: OBJECTIVE: ASSESSMENT AND PLAN:
[2020-07-03] MEDS: ATORVASTATIN CA 40 MG TABLET (FP) PO SCH (22:57)
[2020-07-03] MEDS: INSULIN (LEVEMIR) 100 UNITS/ML UNITS SQ SCH (22:59)
[2020-07-03] MEDS ORDERED: INSULIN (NOVOLOG) ASPART 100 UNITS/ML 10ML VIAL ONE (23:03)
[2020-07-04] MEDS: GABAPENTIN 100 MG CAPSULE PO SCH ×3 (05:58→22:59)
[2020-07-04] MEDS: CYCLOBENZAPRINE HCL 10 MG TABLET (FP) PO SCH ×3 (05:58→22:57)
[2020-07-04] MEDS: INSULIN SLIDING SCALE (NOVOLOG) 1 VIAL SQ SCH ×4 (05:59→23:01)
[2020-07-04] MEDS: PANTOPRAZOLE 40 MG TABLET PO SCH (06:00)
[2020-07-04] MEDS ORDERED: INSULIN (NOVOLOG) ASPART 100 UNITS/ML 10ML VIAL ONE ×2 (06:35→11:39)
[2020-07-04] MEDS ORDERED: INSULIN (LEVEMIR) 100 UNITS/ML UNITS SQ ONE (06:36)
[2020-07-04 08:07] LABS: BASO % 0.2 % (0-2.0); EOS % 3.1 % (0-4.5); HEMATOCRIT 24.1 % (32.4-45.2); HEMOGLOBIN 7.9 GM/dL (10.7-15.3); LYMPH % 13.7 % (8-40); MCH 28.7 pg (25.7-33.7); MCHC 32.6 g/dl (32.0-36.0); MEAN CELL VOLUME 87.9 fl (80-96); MONO % 12.3 % (3.8-10.2); NEUT % 70.7 % (42.8-82.8); PLATELET COUNT 335 K/MM3 (134-434); RBC 2.74 M/mm3 (3.60-5.2); WHITE BLOOD COUNT 9.7 K/mm3 (4.0-10.0)
[2020-07-04 08:33] LABS: ALBUMIN 1.6 g/dl (3.4-5.0); BILIRUBIN,TOTAL 0.3 mg/dL (0.2-1); BLOOD UREA NITROGEN 81.4 mg/dL (7-18); CALCIUM 8.4 mg/dL (8.5-10.1); CREATININE 4.2 mg/dL (0.55-1.3); MAGNESIUM 2.3 mg/dL (1.8-2.4); PHOSPHOROUS 5.6 mg/dL (2.5-4.9); POTASSIUM 3.9 mmol/L (3.5-5.1); TOT PROT 6.2 g/dl (6.4-8.2)
[2020-07-04] MEDS ORDERED: PT OWN MED DRAWER 7, Y5N ONE (10:17)
[2020-07-04] MEDS: METOPROLOL TARTRATE 50 MG TABLET (FP) PO SCH ×2 (10:26→22:58)
[2020-07-04] MEDS: amLODIPine BESYLATE 10 MG TABLET (FP) PO SCH (10:26)
[2020-07-04] MEDS: traMADol HCL 50 MG TABLET PO PRN ×2 (10:44→22:58)
[2020-07-04 11:58] LABS: ANISOCYTOSIS 0; MACROCYTOSIS 0; PLATELET ESTIMATE NORMAL; ROULEAU 1+
--- NOTE | 2020-07-04 13:09 | PN ---
Physical Exam: SUBJECTIVE: Patient seen and examined at bedside, reports some improvement of her pain, able to move her legs b/l. Denies any fever, chills, overnight OBJECTIVE: Vital Signs Period Temp Pulse Resp BP Sys/Ruiz Pulse Ox Last 24 Hr 98.8 F-99.7 F 77-83 20-20 126-141/64-77 93-95 GENERAL: AAOx3, in no acute distress HEENT: NCAT, PERRLA, EOMI, sclera anicteric, conjunctiva clear, oropharynx clear w/o exudates. MMM. NECK: Normal ROM, supple, no lymphadenopathy, JVD, or masses LUNGS: CTABL no wheezes/ rhonchi/ rales. No distress, speaks in full sentences. No increased work of breathing. HEART: RRR, normal S1 S2, no M/R/G, peripheral pulses 2+ and equal b/l ABDOMEN: Soft, non-tender, + BS. No guarding or rebound. No hepatomegaly or splenomegaly. MSK: ROM WNL, NO CVA tenderness EXTREMITIES: Normal inspection. No peripheral edema. No clubbing or cyanosis. Limited ROM of L. hip and LLE due to pain, Limited ROM of Right knee due to pain. NEUROLOGICAL: CN II-XII intact. Normal speech, gait not observed, no focal sensorimotor deficits. PSYCH: Normal mood, normal affect. SKIN: Warm, Dry, normal turgor, no rashes or lesions noted Laboratory Results - last 24 hr 06/30/20 07/03/20 07/03/20 15:00 16:56 23:02 WBC RBC Hgb Hct MCV MCH MCHC RDW Plt Count MPV Absolute Neuts (auto) Neutrophils % Neutrophils % (Manual) Band Neutrophils % Lymphocytes % Lymphocytes % (Manual) Monocytes % Monocytes % (Manual) Eosinophils % Eosinophils % (Manual) Basophils % Basophils % (Manual) Myelocytes % (Man) Promyelocytes % (Man) Blast Cells % (Manual) Nucleated RBC % Metamyelocytes Hypochromia Platelet Estimate Polychromasia Poikilocytosis Anisocytosis Microcytosis Macrocytosis Stomatocytes Rouleaux Sodium Potassium Chloride Carbon Dioxide Anion Gap BUN Creatinine Est GFR (CKD-EPI)AfAm Est GFR (CKD-EPI)NonAf POC Glucometer 261 275 Random Glucose Calcium Phosphorus Magnesium Total Bilirubin AST ALT Alkaline Phosphatase Total Protein Albumin Double Strand DNA Ab <1 07/04/20 07/04/20 07/04/20 05:57 06:40 06:40 WBC 9.7 RBC 2.74 L Hgb 7.9 L Hct 24.1 L MCV 87.9 MCH 28.7 MCHC 32.6 RDW 16.0 H Plt Count 335 MPV 8.0 Absolute Neuts (auto) 6.9 Neutrophils % 70.7 Neutrophils % (Manual) 74.0 Band Neutrophils % 1.0 Lymphocytes % 13.7 Lymphocytes % (Manual) 13.0 Monocytes % 12.3 H Monocytes % (Manual) 6 Eosinophils % 3.1 Eosinophils % (Manual) 4.0 D Basophils % 0.2 Basophils % (Manual) 0.0 Myelocytes % (Man) 0 Promyelocytes % (Man) 0 Blast Cells % (Manual) 0 Nucleated RBC % 0 Metamyelocytes 1 D Hypochromia 1+ Platelet Estimate Normal Polychromasia 1+ Poikilocytosis 1+ Anisocytosis 0 Microcytosis 0 Macrocytosis 0 Stomatocytes 1+ Rouleaux 1+ Sodium 133 L Potassium 3.9 Chloride 100 Carbon Dioxide 22 Anion Gap 10 BUN 81.4 H Creatinine 4.2 H Est GFR (CKD-EPI)AfAm 12.33 Est GFR (CKD-EPI)NonAf 10.64 POC Glucometer 250 Random Glucose 241 H Calcium 8.4 L Phosphorus 5.6 H Magnesium 2.3 Total Bilirubin 0.3 AST 38 H ALT 26 Alkaline Phosphatase 356 H Total Protein 6.2 L Albumin 1.6 L Double Strand DNA Ab 07/04/20 11:37 WBC RBC Hgb Hct MCV MCH MCHC RDW Plt Count MPV Absolute Neuts (auto) Neutrophils % Neutrophils % (Manual) Band Neutrophils % Lymphocytes % Lymphocytes % (Manual) Monocytes % Monocytes % (Manual) Eosinophils % Eosinophils % (Manual) Basophils % Basophils % (Manual) Myelocytes % (Man) Promyelocytes % (Man) Blast Cells % (Manual) Nucleated RBC % Metamyelocytes Hypochromia Platelet Estimate Polychromasia Poikilocytosis Anisocytosis Microcytosis Macrocytosis Stomatocytes Rouleaux Sodium Potassium Chloride Carbon Dioxide Anion Gap BUN Creatinine Est GFR (CKD-EPI)AfAm Est GFR (CKD-EPI)NonAf POC Glucometer 261 Random Glucose Calcium Phosphorus Magnesium Total Bilirubin AST ALT Alkaline Phosphatase Total Protein Albumin Double Strand DNA Ab Active Medications Generic Name Dose Route Start Last Admin Trade Name Freq PRN Reason Stop Dose Admin Acetaminophen 650 mg 06/26/20 16:07 07/01/20 11:49 Tylenol - PO 650 mg Q6H PRN Administration PAIN LEVEL 1-5 Amlodipine Besylate 10 mg 06/28/20 10:00 07/04/20 10:26 Norvasc - PO 10 mg DAILY ROSCOE Administration Atorvastatin Calcium 40 mg 06/26/20 22:00 07/03/20 22:57 Lipitor - PO 40 mg HS ROSCOE Administration Cyclobenzaprine HCl 10 mg 06/28/20 10:02 07/04/20 05:58 Flexeril - PO 10 mg TID ROSCOE Administration Gabapentin 200 mg 06/30/20 14:00 07/04/20 05:58 Neurontin - PO 200 mg TID ROSCOE Administration Sodium Chloride 1,000 mls @ 75 mls/hr 07/03/20 15:00 07/03/20 14:57 1/2 Normal Saline IV 75 mls/hr ASDIR ROSCOE Administration Insulin Aspart 1 vial 06/26/20 16:30 07/04/20 11:41 Novolog Vial Sliding Scale - SQ 4 units ACHS ROSCOE Administration Protocol Insulin Detemir 7 units 07/03/20 15:56 07/03/20 22:59 Levemir Vial SQ 7 unit HS ROSCOE Administration Metoprolol Tartrate 100 mg 06/26/20 22:00 07/04/20 10:26 Lopressor - PO 100 mg BID ROSCOE Administration Pantoprazole Sodium 40 mg 06/27/20 07:00 07/04/20 06:00 Protonix - PO 40 mg ACBK ROSCOE Administration Tramadol HCl 50 mg 06/26/20 16:06 07/04/20 10:44 Ultram - PO 50 mg Q6H PRN Administration PAIN LEVEL 4 - 6 Imaging: MRI Lumbar spine: some asymmetry in the appearance of the nerve roots which may be related to clumping and arachnoiditis or to underlying mass lesion. Degenerative disease of the lumbosacral spine with accentuation of the lumbar lordosis. L3-L4 L2-L3 moderate degree of spinal stenosis related to bulging annuli and prominent posterior epidural fat with moderate degenerative ages articular facets. L4-L5 grade 1 anterolisthesis of L4 over L5 with broad-based bulging annulus toward the right and left epidural recess with mass effect on the L5 nerve roots in the recesses with more extension into the right L4-L5 foramen. Also hypertrophic changes articular facets contributing to moderate degree of spinal stenosis. Multiple lesions related to the uterus and possibly the right adnexa sonography of the pelvis or MRI of pelvis with contrast strongly recommended for further evaluation ASSESSMENT/PLAN: 64 Y F with a PMHx of DM, HTN, HLD, and CKD presents with lower back and L. Hip pain radiating down LLE over the last 4 days and post-menopausal vaginal bleeding for 3 days. #Intractable back/hip pain - 2/2 to radiculopathy due to herniated disk vs Mass compression, no bowel/bladder incontinence and saddle anesthesia - Lumbar and L. Hip MRI: noted as above Patient cannot get contrast study to evaluate for possible mass lesion, due to her kidney functions (low eGFR), elevated crea - Neurosurgery consulted, Dr. Alberto villegas, recs appreciated plan for lumbar surgery (L4-5 laminectomies and interbody cage and arthrodesis with Pedicle screw fusion of L4-5 )on - Patient will need contrast imaging to evaluate for mass prior to the surgery - Pain control: IV Morphine PRN, Lidoderm patch, Flexeril, Neurontin - Physical therapy consulted, ongoing PT - Consulted Pain management, for possible Epidural Injection to help alleviate her pain # UA suggestive of UTI w/ Leukocytosis - UA : positive for protein, blood WBCs and bacteria, urine culture: normal dashawn - Leukocytosis resolved, down to 9.7 - Spiked fever on Ceftriaxone, switched to Zosyn, but now held due to worsening Crea - ID on Board #Dysfunctional Uterine bleeding - Post-menopausal - Abdominal US shows multiple fibroids and enlarged myomatous uterus - MRI: Multiple lesions related to the uterus and possibly the right adnexa - CTAP: Mass like density in Right hemipelvis with peripheral calcifications, exophytic uterine fibroid vs ovarian mass - REGIONAL REHABILITATION DIRECTOR consuled, will f/u as outpatient, endometrial biopsy Gynecology mass not the cause of patient's TIM/urinary obstruction as per Gynecology #TIM on CKD(S3) - worsening crea, today 4.2, unclear etiology - Renal u/s: Small right renal simple cyst measuring 10 x 8 mm. Bilateral renal sinus lipomatosis. - Nephrology on board, Dr. marcum, recs appreciated - Urology consulted, recs appreciated Pathak placed out-patient cystoscopy and urodynamic studies - Holding HCTZ for now - Resumed IVF, 1/2 ns 75mls/hr # Hx of DM - BGM + ISS #Hx of HTN - Continue Norvasc, Metoprolol # Hx of HLD - Continue Atrovastatin #FEN - Not on standing fluids - Continue to monitor electrolytes - Diabetic/sodium controlled Diet #DVT Ppx - No chemical PPx for now, Vaginal bleeding, pending procedure Visit type - Emergency Visit Emergency Visit: Yes ED Registration Date: 06/26/20 Care time: The patient presented to the Emergency Department on the above date and was hospitalized for further evaluation of their emergent condition. - New Patient This patient is new to me today: No - Critical Care Critical Care patient: No - Discharge Referral Referred to [facility] Med P.C.: No ATTENDING PHYSICIAN STATEMENT I saw and evaluated the patient. I reviewed the resident's note and discussed the case with the resident. I agree with the resident's findings and plan as documented. SUBJECTIVE: OBJECTIVE: ASSESSMENT AND PLAN:
--- NOTE | 2020-07-04 13:34 | CONSULT ---
Consult - text type - Consultation Consultation Note: NEUROSURGERY CONSULTATION Katherin Martin is a 64 year old female with a past medical history of DM, HTN, CKD and HLD who presented to the [facility] ED on June 26, 2020 with a complaint of Low back pain which radiates to her Left gluteal region and down her Left leg. She denies any antecedent accident or injury which may have been causative. She was resting after ascending stairs when she noted the pain which was 10/10 on a visual analog scale when she presented. She has no prior history of any pain like this and denied any sensory or motor dysfunction associated with this. The patient did have 2 days of night sweats and some vaginal bleeding prior to presentation. Patient normally ambulates with a cane, however, she now has pain limiting motion in her Left leg. The patient has aggravation of back pain with vibration and jostling such as riding in a car over a bumpy road, pot holes or rail road tracks. The patienthas aggravation of symptoms associated with Valsalvas maneuver. The patient walks better with a stooped posture such as pushing a shopping cart. MRI Lumbar demonstrates Lumbar spondylosis with osteophytes, disc bulges and hypertrophic facets and ligamentum flavum. There is an acute disc bulge with zone of high intensity within L45 with significant facet and ligamentum flavum hypertrophy resulting in significant lateral recess stenosis with Grade 1 spondylolisthesis at L45. There is significant facet laxity with fluid within the L45 facets and widening of the intraarticular spaces. The patient describes severe limitations of activities of daily living and a poor quality of life. I described the potential role of injections, bracing, and Physical Therapy as well as medical management in detail. After review of the patients symptoms and imaging, the patient would likely benefit from decompression and stabilization in the Lumbar spine. I described the risks, benefits and alternativesof L45 laminectomies and interbody cage and arthrodesis with Pedicle screw fusion of L45 in great detail. I explained that the risks included, but were not limited to: , coma, paralysis, bleeding, infection, CSF leak possibly requiring spinal drainage or additional surgery, failure to fuse, failure to improve, instrumentation migration/malposition/malfunction and the need for additional surgery. I offered the patient the option to seek another opinion or another surgeon. All questions were answered. Informed consent was obtained. I outlined the anatomy, pathology, surgical approachesand potential complications. The patient asks that we proceed with Lumbar surgery as described. Radiological impression of the MRI raised concern for a mass lesion which may be deviating the conus medullaris to the Right. MRI with gadolinium has been recommended, however, the patient has been unable to have this exam due to progressively deteriorating renal function and progressive increase in both her BUN and Creatinine over the past week. Although this MRI may be important in evaluating a potential intradural/extramedullary lesion, it is not required to address her L45 spondylosis. At this point, the patient is largely remaining bedbound and the advantages of obtaining this MRI prior to proceeding with her L45 decompression and stabilization are not clear since her risks of prolonged bedrest may exceed the risks of proceeding without this exam and completing it when her renal function improves.
--- NOTE | 2020-07-04 14:49 | PN ---
Teaching Attending Note Name of Resident: Desirae Gage ATTENDING PHYSICIAN STATEMENT I saw and evaluated the patient. I reviewed the resident's note and discussed the case with the resident. I agree with the resident's findings and plan as documented. SUBJECTIVE: pt seen and examined OBJECTIVE: Last Vital Signs Temp Pulse Resp BP Pulse Ox 98.7 F 76 20 140/70 95 07/04/20 09:10 07/04/20 09:10 07/04/20 09:10 07/04/20 09:10 07/04/20 09:10 GENERAL: Awake, alert, and fully oriented, in no acute distress. HEENT: AT/NC, PERRLA, EOMI LUNGS: Breath sounds equal, clear to auscultation bilaterally. No wheezes, and no crackles. No accessory muscle use. HEART: Regular rate and rhythm, normal S1 and S2 ABDOMEN: Obese, Soft, nontender, not distended, LLQ round mass felt on deep palpation MUSCULOSKELETAL: Normal range of motion at all joints. No bony deformities or tenderness. No CVA tenderness. UPPER EXTREMITIES: 2+ pulses, warm, well-perfused. No cyanosis. No clubbing. No peripheral edema. LOWER EXTREMITIES: 2+ pulses, warm, well-perfused. No calf tenderness. No peripheral edema. NEUROLOGICAL: Cranial nerves II-XII intact. Normal speech. LE limited strength 4/5 (pain?) ASSESSMENT AND PLAN: 64 year old female with history of DM 2, HTN, HLD, CKD 3, presents with lower back pain, L Hip pain, radiating down LLE, as well as 3 day history of post- menopausal vaginal bleeding, now resolved. # Sciatica and Back Pain sec to DJD, nerve impingement, spinal stenosis No history of trauma, no bladder/bowel incontinence/saddle paresthesia MRI LS Spine reviewed, recommendation for repeat MRI L Spine with contrast. However, Creat remains too elevated to risk contrast. CT - DJD with central spinal canal stenosis L 4/5, L4 nerve root impingement Neurosurgery following. IV Morphine/Tramadol PRN, Lidoderm patch, Flexeril, Neurontin. Ongoing PT For epidural anesthesia assessment tentative plan for lumbar surgery (L4-5 laminectomies and interbody cage and arthrodesis with Pedicle screw fusion of L4-5 )on Neurosurgery consult appreciated Case discussed with consults # TIM on CKD 3 improving Creat could be AIN (will need biopsy for definitive dx). Paraneoplastic? Renal US - bilateral renal lipomatosis, R renal cyst. Bladder US 07/01 - large post-void residual prior to foster insertion Foster placed by Urology avoid nephrotoxin, renal dose of medications # Post-menopausal Dysfunctional Uterine Bleeding Abdominal US - enlarged myomatous uterus. CT - mass-like density R hemipelvis, exophytic fibroid versus ovarian mass. Gynecology evaluated. For outpatient endometrial biopsy as per [employer] H/H stable. tumor markers send Normocytic Anemia HLD DM 2 HTN DVT Px - SCDs.
[2020-07-04 15:43] VITALS: BMI 43.0
--- NOTE | 2020-07-04 16:17 | PN ---
Progress Note, Physician History of Present Illness: Pt seen and examined at bedside. She is awake and alert. She denies shortness of breath. She still has back pain. - Current Medication List Current Medications: Active Medications Acetaminophen (Tylenol -) 650 mg PO Q6H PRN PRN Reason: PAIN LEVEL 1-5 Last Admin: 07/01/20 11:49 Dose: 650 mg Documented by: Amlodipine Besylate (Norvasc -) 10 mg PO DAILY [facility] Last Admin: 07/04/20 10:26 Dose: 10 mg Documented by: Atorvastatin Calcium (Lipitor -) 40 mg PO [facility] Last Admin: 07/03/20 22:57 Dose: 40 mg Documented by: Cyclobenzaprine HCl (Flexeril -) 10 mg PO TID [facility] Last Admin: 07/04/20 14:02 Dose: 10 mg Documented by: Gabapentin (Neurontin -) 200 mg PO TID [facility] Last Admin: 07/04/20 14:02 Dose: 200 mg Documented by: Sodium Chloride (1/2 Normal Saline) 1,000 mls @ 75 mls/hr IV ASDIR [facility] Last Admin: 07/03/20 14:57 Dose: 75 mls/hr Documented by: Insulin Aspart (Novolog Vial Sliding Scale -) 1 vial SQ [facility]; Protocol Last Admin: 07/04/20 11:41 Dose: 4 units Documented by: Insulin Detemir (Levemir Vial) 7 units SQ [facility] Last Admin: 07/03/20 22:59 Dose: 7 unit Documented by: Metoprolol Tartrate (Lopressor -) 100 mg PO BID [facility] Last Admin: 07/04/20 10:26 Dose: 100 mg Documented by: Pantoprazole Sodium (Protonix -) 40 mg PO ACBK [facility] Last Admin: 07/04/20 06:00 Dose: 40 mg Documented by: Tramadol HCl (Ultram -) 50 mg PO Q6H PRN PRN Reason: PAIN LEVEL 4 - 6 Last Admin: 07/04/20 10:44 Dose: 50 mg Documented by: - Objective Vital Signs: Vital Signs Temperature 98.2 F 07/04/20 14:00 Pulse Rate 77 07/04/20 14:00 Respiratory Rate 20 07/04/20 14:00 Blood Pressure 142/62 07/04/20 14:00 O2 Sat by Pulse Oximetry (%) 96 07/04/20 14:00 Constitutional: Yes: Calm Eyes: Yes: Conjunctiva Clear HENT: Yes: Atraumatic Neck: Yes: Supple Cardiovascular: Yes: S1, S2 Respiratory: Yes: CTA Bilaterally Gastrointestinal: Yes: Soft Genitourinary: Yes: WNL Musculoskeletal: Yes: Back Pain Extremities: Yes: WNL Edema: No Neurological: Yes: Oriented Psychiatric: Yes: Oriented Labs: CBC, BMP 07/04/20 06:40 07/04/20 06:40 INR, PTT INR 1.14 (0.83-1.09) H 06/26/20 10:15 Problem List - Problems (1) CKD (chronic kidney disease) Code(s): N18.9 - CHRONIC KIDNEY DISEASE, UNSPECIFIED (2) Sciatica Code(s): M54.30 - SCIATICA, UNSPECIFIED SIDE Qualifiers: Laterality: left Qualified Code(s): M54.32 - Sciatica, left side (3) Hypertension Code(s): I10 - ESSENTIAL (PRIMARY) HYPERTENSION Assessment/Plan Current Medications Generic Name Dose Route Start Last Admin Trade Name Freq PRN Reason Stop Dose Admin Acetaminophen 650 mg 06/26/20 16:07 07/01/20 11:49 Tylenol - PO 650 mg Q6H PRN Administration PAIN LEVEL 1-5 Amlodipine Besylate 10 mg 06/28/20 10:00 07/04/20 10:26 Norvasc - PO 10 mg DAILY [facility] Administration Atorvastatin Calcium 40 mg 06/26/20 22:00 07/03/20 22:57 Lipitor - PO 40 mg HS [facility] Administration Cyclobenzaprine HCl 10 mg 06/28/20 10:02 07/04/20 14:02 Flexeril - PO 10 mg TID [facility] Administration Gabapentin 200 mg 06/30/20 14:00 07/04/20 14:02 Neurontin - PO 200 mg TID [facility] Administration Sodium Chloride 1,000 mls @ 75 mls/hr 07/03/20 15:00 07/03/20 14:57 1/2 Normal Saline IV 75 mls/hr ASDIR [facility]COE Administration Insulin Aspart 1 vial 06/26/20 16:30 07/04/20 11:41 Novolog Vial Sliding Scale - SQ 4 units ACHS [facility]E Administration Protocol Insulin Detemir 7 units 07/03/20 15:56 07/03/20 22:59 Levemir Vial SQ 7 unit HS [facility] Administration Metoprolol Tartrate 100 mg 06/26/20 22:00 07/04/20 10:26 Lopressor - PO 100 mg BID [facility] Administration Pantoprazole Sodium 40 mg 06/27/20 07:00 07/04/20 06:00 Protonix - PO 40 mg ACBK [facility]E Administration Tramadol HCl 50 mg 06/26/20 16:06 07/04/20 10:44 Ultram - PO 50 mg Q6H PRN Administration PAIN LEVEL 4 - 6 Laboratory Tests 06/27/20 06/30/20 06/30/20 20:00 07:39 15:00 Creatinine 2.7 H Est GFR (CKD-EPI)AfAm 21.04 Phosphorus Urine Eosinophils Ur Random Sodium SHAZIA M-Braden Not observed c-ANCA Pending Proteinase 3 (PR3) Pending p-ANCA Pending Atypical p-ANCA Pending Myeloperoxidase Ab Pending Double Strand DNA Ab <1 Glomerular Base Memb Ab Pending 07/01/20 07/01/20 07/04/20 15:30 15:30 06:40 Creatinine 4.2 H Est GFR (CKD-EPI)AfAm 12.33 Phosphorus 5.6 H Urine Eosinophils None seen Ur Random Sodium < 18 L SHAZIA M-Braden c-ANCA Proteinase 3 (PR3) p-ANCA Atypical p-ANCA Myeloperoxidase Ab Double Strand DNA Ab Glomerular Base Memb Ab Impression 1. CKD 2. TIM 3. back pain 4. dm 5. htn 6. obesity 7. possible spinal mass lesion Plan - renal function is starting to improve - low urine sodium suggestive of pre-renal disease - follow serologies - repeat labs in am - urine eos negative - discussed with medical team
[2020-07-04] MEDS: SODIUM CHLORIDE 0.45% 1,000 ML IV SCH ×2 (16:41→16:43)
--- NOTE | 2020-07-04 21:42 | CONSULT ---
Consult Consult Specialty:: Interventional Spine & Pain Management Reason for Consultation:: THERESA evaluation - History of Present Illness Chief Complaint: Low back and left leg pain History of Present Illness: The patient reports acute onset of left low back and leg pain while stair climbing over two weeks ago. She denies previous episodes of pain. She is currently being treated for TIM evalution of pelvic mass. Imaging Findings demonstrated ? deviation of the conus due to ? unkown mass. Given the patients current renal function she is unable to complete the work up. At rest with current analgesic regiment pt pain is improved however witht eh slightest movement the patient demonstrates severe radicular pain rated 9/10. 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: No: Alzheimer's, CVA, Dementia, Migraine, Multiple Sclerosis, Peripheral Neuropathy, Parkinson's, Seizure, Syncope, TIA, Vertigo, Other Cardio/Vascular: Yes: HTN, Hyperlipdemia Pulmonary: No: Asthma, Bronchitis, Cancer, COPD, O2 Dependent, Pneumonia, Previously Intubated, Pulmonary Embolus, Pulmonary Fibrosis, Sleep Apnea, Other Gastrointestinal: No: Ascites, Cancer, Constipation, Crohn's Disease, Diverticulitis, Diverticulosis, Esophageal Varices, Gastritis, GERD, GI Bleed, H emorrhoids, Hiatal Hernia, Inflamatory Bowel Disease, Irritable Bowel Disease, Pancreatitis, Peptic Ulcer Disease, Ulcerative Colitis, Other Hepatobiliary: No: Cirrhosis, Cholelithiasis, Cholecystitis, Choledocholithiasis, Hepatitis A, Hepatitis B, Hepatitis C, Other Renal/: Yes: Renal Inusuff ...: No Infectious Disease: No: AIDS, C-Diff, Herpes Zoster, HIV, MRSA, STD's, Tuberculosis, VREF, Other Psych: No: Addictions, Anxiety, Bipolar, Depression, Panic, Psychosis, Schizophrenia, Other Musculoskeletal: No: Bursitis, Chronic low back pain, Hemiparesis, Hemiplegia, Osteoarthritis, Paraplegia, Other Rheumatology: No: Fibromyalgia, Gout, Lupus, Rheumatoid Arthritis, Sarcoidosis, Vasculitis, Other ENT: No: Allergic Rhinitis, Sinusitis, Other Endocrine: Yes: Diabetes Mellitus - Past Surgical History Past Surgical History: Yes: Cholecystectomy - Alcohol/Substance Use Hx Alcohol Use: No History of Substance Use: reports: None - Smoking History Smoking history: Never smoked Have you smoked in the past 12 months: No Home Medications - Allergies Allergies/Adverse Reactions: Allergies Allergy/AdvReac Type Severity Reaction Status Date / Time No Known Allergies Allergy Verified 06/26/20 09:03 - Home Medications Home Medications: Ambulatory Orders Amlodipine Besylate [Norvasc -] 10 mg PO DAILY 06/26/20 Glimepiride [Amaryl -] 4 mg PO BID 06/26/20 Metoprolol Tartrate [Lopressor] 100 mg PO BID 06/26/20 Telmisartan/Hydrochlorothiazid [Telmisartan-Hctz 80-25 mg Tab] 1 each PO DAILY 06/26/20 Sitagliptin Phosphate [Januvia] 50 mg PO DAILY 06/27/20 Family Medical History Family History: Denies (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) Review of Systems - Review of Systems Constitutional: reports: No Symptoms Eyes: reports: No Symptoms HENT: reports: No Symptoms Neck: reports: No Symptoms Cardiovascular: reports: No Symptoms Respiratory: reports: No Symptoms Gastrointestinal: reports: No Symptoms Musculoskeletal: reports: Back Pain, Extremity Pain Neurological: reports: Parasthesia Endocrine: reports: No Symptoms Psychiatric: reports: No Symptoms Physical Exam Vital Signs: Vital Signs Temperature 98.9 F 07/04/20 17:26 Pulse Rate 76 07/04/20 17:26 Respiratory Rate 20 07/04/20 17:26 Blood Pressure 121/76 07/04/20 17:26 O2 Sat by Pulse Oximetry (%) 95 07/04/20 17:26 Constitutional: Yes: Well Nourished, No Distress, Calm Eyes: Yes: Conjunctiva Clear, EOM Intact HENT: Yes: Atraumatic, Normocephalic Neck: Yes: Trachea Midline Cardiovascular: Yes: Regular Rate and Rhythm Respiratory: Yes: WNL Musculoskeletal: Yes: Back Pain, Muscle Pain Wound/Incision: No: Evgeny Removed Neurological: Yes: Alert, Oriented ...Motor Strength: WNL Labs: CBC, BMP 07/04/20 06:40 07/04/20 06:40 Imaging - Results Cat Scan: Report Reviewed, Image Reviewed MRI: Report Reviewed, Image Reviewed Assessment/Plan The patients pain is likley multifactorial secondary to lumbar spinal stenosis with radiculopathy. Pt has ? spinal mass with mass effect on the conus. Given the patients multiple comorbidities she is not a candidate for an Epidural steroid injection at this prior to completion of her MRI with contrast. This ca se was discussed with Dr. Gonzalez Neurosurgery. Recommend Neurosurgical evaluation and treatment. Thank you for your consult Matthieu Major DO Interventional Spine & Pain Management
[2020-07-04] MEDS: ATORVASTATIN CA 40 MG TABLET (FP) PO SCH (22:58)
[2020-07-04] MEDS: INSULIN (LEVEMIR) 100 UNITS/ML UNITS SQ SCH (23:00)
[2020-07-05] MEDS: PANTOPRAZOLE 40 MG TABLET PO SCH (06:08)
[2020-07-05] MEDS: CYCLOBENZAPRINE HCL 10 MG TABLET (FP) PO SCH ×3 (06:09→21:42)
[2020-07-05] MEDS: GABAPENTIN 100 MG CAPSULE PO SCH ×3 (06:10→21:43)
[2020-07-05] MEDS: INSULIN SLIDING SCALE (NOVOLOG) 1 VIAL SQ SCH ×4 (06:14→21:35)
[2020-07-05 07:58] LABS: BASO % 0.3 % (0-2.0); EOS % 3.4 % (0-4.5); HEMATOCRIT 24.3 % (32.4-45.2); LYMPH % 12.5 % (8-40); MCH 28.7 pg (25.7-33.7); MEAN CELL VOLUME 87.1 fl (80-96); MONO % 11.6 % (3.8-10.2); NEUT % 72.2 % (42.8-82.8); PLATELET COUNT 354 K/MM3 (134-434); RBC 2.79 M/mm3 (3.60-5.2); RDW 15.7 % (11.6-15.6); WHITE BLOOD COUNT 10.1 K/mm3 (4.0-10.0)
[2020-07-05 08:39] LABS: POTASSIUM 4.1 mmol/L (3.5-5.1)
[2020-07-05] MEDS: METOPROLOL TARTRATE 50 MG TABLET (FP) PO SCH ×2 (09:01→21:42)
[2020-07-05] MEDS: amLODIPine BESYLATE 10 MG TABLET (FP) PO SCH (09:01)
[2020-07-05 09:02] LABS: ALBUMIN 1.6 g/dl (3.4-5.0); BILIRUBIN,TOTAL 0.8 mg/dL (0.2-1); BLOOD UREA NITROGEN 81.5 mg/dL (7-18); CALCIUM 8.5 mg/dL (8.5-10.1); CREATININE 3.7 mg/dL (0.55-1.3); MAGNESIUM 2.2 mg/dL (1.8-2.4); TOT PROT 5.5 g/dl (6.4-8.2)
[2020-07-05 12:09] LABS: ANTIGLOMERULAR BASEMENT MEN.AB 3 units (0-20)
--- NOTE | 2020-07-05 12:59 | PN ---
Physical Exam: SUBJECTIVE: Patient seen and examined at bedside, she continues to report pain, no new complaints OBJECTIVE: Vital Signs Period Temp Pulse Resp BP Sys/Ruiz Pulse Ox Last 24 Hr 97.4 F-98.9 F 73-82 20-20 117-142/62-78 92-98 GENERAL: AAOx3, in no acute distress HEENT: NCAT, PERRLA, EOMI, sclera anicteric, conjunctiva clear, oropharynx clear w/o exudates. MMM. NECK: Normal ROM, supple, no lymphadenopathy, JVD, or masses LUNGS: CTABL no wheezes/ rhonchi/ rales. No distress, speaks in full sentences. No increased work of breathing. HEART: RRR, normal S1 S2, no M/R/G, peripheral pulses 2+ and equal b/l ABDOMEN: Soft, non-tender, + BS. No guarding or rebound. No hepatomegaly or splenomegaly. MSK: ROM WNL, NO CVA tenderness EXTREMITIES: Normal inspection. No peripheral edema. No clubbing or cyanosis. Limited ROM of L. hip and LLE due to pain, Limited ROM of Right knee due to pain. NEUROLOGICAL: CN II-XII intact. Normal speech, gait not observed, no focal sensorimotor deficits. PSYCH: Normal mood, normal affect. SKIN: Warm, Dry, normal turgor, no rashes or lesions noted Laboratory Results - last 24 hr 06/30/20 07/01/20 07/04/20 15:00 15:30 16:45 WBC RBC Hgb Hct MCV MCH MCHC RDW Plt Count MPV Absolute Neuts (auto) Neutrophils % Lymphocytes % Monocytes % Eosinophils % Basophils % Nucleated RBC % Sodium Potassium Chloride Carbon Dioxide Anion Gap BUN Creatinine Est GFR (CKD-EPI)AfAm Est GFR (CKD-EPI)NonAf POC Glucometer 247 Random Glucose Calcium Phosphorus Magnesium Total Bilirubin AST ALT Alkaline Phosphatase Total Protein Albumin Urine Eosinophils None seen Glomerular Base Memb Ab 3 07/04/20 07/05/20 07/05/20 22:54 06:13 06:50 WBC 10.1 H RBC 2.79 L Hgb 8.0 L Hct 24.3 L MCV 87.1 MCH 28.7 MCHC 33.0 RDW 15.7 H Plt Count 354 MPV 8.0 Absolute Neuts (auto) 7.3 Neutrophils % 72.2 Lymphocytes % 12.5 Monocytes % 11.6 H Eosinophils % 3.4 Basophils % 0.3 Nucleated RBC % 0 Sodium Potassium Chloride Carbon Dioxide Anion Gap BUN Creatinine Est GFR (CKD-EPI)AfAm Est GFR (CKD-EPI)NonAf POC Glucometer 268 269 Random Glucose Calcium Phosphorus Magnesium Total Bilirubin AST ALT Alkaline Phosphatase Total Protein Albumin Urine Eosinophils Glomerular Base Memb Ab 07/05/20 07/05/20 06:50 11:08 WBC RBC Hgb Hct MCV MCH MCHC RDW Plt Count MPV Absolute Neuts (auto) Neutrophils % Lymphocytes % Monocytes % Eosinophils % Basophils % Nucleated RBC % Sodium 133 L Potassium 4.1 Chloride 102 Carbon Dioxide 20 L Anion Gap 11 BUN 81.5 H Creatinine 3.7 H Est GFR (CKD-EPI)AfAm 14.38 Est GFR (CKD-EPI)NonAf 12.40 POC Glucometer 248 Random Glucose 275 H Calcium 8.5 Phosphorus 5.0 H Magnesium 2.2 Total Bilirubin 0.8 AST 38 H ALT 26 Alkaline Phosphatase 324 H Total Protein 5.5 L Albumin 1.6 L Urine Eosinophils Glomerular Base Memb Ab Active Medications Generic Name Dose Route Start Last Admin Trade Name Freq PRN Reason Stop Dose Admin Acetaminophen 650 mg 06/26/20 16:07 07/01/20 11:49 Tylenol - PO 650 mg Q6H PRN Administration PAIN LEVEL 1-5 Amlodipine Besylate 10 mg 06/28/20 10:00 07/05/20 09:01 Norvasc - PO 10 mg DAILY [facility] Administration Atorvastatin Calcium 40 mg 06/26/20 22:00 07/04/20 22:58 Lipitor - PO 40 mg HS [facility] Administration Cyclobenzaprine HCl 10 mg 06/28/20 10:02 07/05/20 06:09 Flexeril - PO 10 mg TID [facility] Administration Gabapentin 200 mg 06/30/20 14:00 07/05/20 06:10 Neurontin - PO 200 mg TID [facility] Administration Sodium Chloride 1,000 mls @ 75 mls/hr 07/03/20 15:00 07/04/20 16:43 1/2 Normal Saline IV Not Given ASDIR ROSCOE Insulin Aspart 1 vial 06/26/20 16:30 07/05/20 11:14 Novolog Vial Sliding Scale - SQ 2 units ACHS ROSCOE Administration Protocol Insulin Detemir 7 units 07/03/20 15:56 07/04/20 23:00 Levemir Vial SQ 7 unit HS [facility] Administration Metoprolol Tartrate 100 mg 06/26/20 22:00 07/05/20 09:01 Lopressor - PO 100 mg BID [facility] Administration Pantoprazole Sodium 40 mg 06/27/20 07:00 07/05/20 06:08 Protonix - PO 40 mg ACBK [facility] Administration Tramadol HCl 50 mg 06/26/20 16:06 07/04/20 22:58 Ultram - PO 50 mg Q6H PRN Administration PAIN LEVEL 4 - 6 ASSESSMENT/PLAN: 64 Y F with a PMHx of DM, HTN, HLD, and CKD presents with lower back and L. Hip pain radiating down LLE over the last 4 days and post-menopausal vaginal bleeding for 3 days. #Intractable back/hip pain - 2/2 to radiculopathy due to herniated disk vs Mass compression, no bowel/bladder incontinence and saddle anesthesia - Lumbar and L. Hip MRI: noted as above Patient cannot get contrast study to evaluate for possible mass lesion, due to her kidney functions (low eGFR), elevated crea - Neurosurgery consulted, Dr. Alberto villegas, kevin appreciated plan for lumbar surgery (L4-5 laminectomies and interbody cage and arthrodesis with Pedicle screw fusion of L4-5 )on - NPO after midnight - d/c AC - Pain control: IV Morphine PRN, Lidoderm patch, Flexeril, Neurontin - Physical therapy consulted, ongoing PT - Consulted Pain management, for possible Epidural Injection to help alleviate her pain -Not a Candidate for Steroid Injection # UA suggestive of UTI w/ Leukocytosis - UA : positive for protein, blood WBCs and bacteria, urine culture: normal dashawn - Leukocytosis resolved, down to 9.7, today 10.1 - Spiked fever on Ceftriaxone, switched to Zosyn, but discontinued Zosyn due to worsening Crea - ID on Board #Dysfunctional Uterine bleeding - Post-menopausal - Abdominal US shows multiple fibroids and enlarged myomatous uterus - MRI: Multiple lesions related to the uterus and possibly the right adnexa - CTAP: Mass like density in Right hemipelvis with peripheral calcifications, exophytic uterine fibroid vs ovarian mass - METAL TECHNICIAN consuled, will f/u as outpatient, endometrial biopsy Gynecology mass not the cause of patient's TIM/urinary obstruction as per Gynecology #TIM on CKD(S3) - Crea is improving 3.7 , unclear etiology - Renal u/s: Small right renal simple cyst measuring 10 x 8 mm. Bilateral renal sinus lipomatosis. - Nephrology on board, Dr. marcum, recs appreciated - Urology consulted, recs appreciated Pathak placed out-patient cystoscopy and urodynamic studies - Holding HCTZ for now - Resumed IVF, 1/2 ns 75mls/hr # Hx of DM - BGM + ISS #Hx of HTN - Continue Norvasc, Metoprolol # Hx of HLD - Continue Atrovastatin #FEN - Not on standing fluids - Continue to monitor electrolytes - NPO after midnight #DVT Ppx - No chemical PPx for now, Vaginal bleeding, pending procedure Visit type - Emergency Visit Emergency Visit: Yes ED Registration Date: 06/26/20 Care time: The patient presented to the Emergency Department on the above date and was hospitalized for further evaluation of their emergent condition. - New Patient This patient is new to me today: No - Critical Care Critical Care patient: No - Discharge Referral Referred to [facility] Med P.C.: No ATTENDING PHYSICIAN STATEMENT I saw and evaluated the patient. I reviewed the resident's note and discussed the case with the resident. I agree with the resident's findings and plan as documented. SUBJECTIVE: OBJECTIVE: ASSESSMENT AND PLAN:
--- NOTE | 2020-07-05 13:44 | PN ---
Progress Note, Physician History of Present Illness: Pt seen and examined at bedside. She is awake and alert. She denies shortness of breath. - Current Medication List Current Medications: Active Medications Acetaminophen (Tylenol -) 650 mg PO Q6H PRN PRN Reason: PAIN LEVEL 1-5 Last Admin: 07/01/20 11:49 Dose: 650 mg Documented by: Amlodipine Besylate (Norvasc -) 10 mg PO DAILY [facility] Last Admin: 07/05/20 09:01 Dose: 10 mg Documented by: Atorvastatin Calcium (Lipitor -) 40 mg PO [facility] Last Admin: 07/04/20 22:58 Dose: 40 mg Documented by: Cyclobenzaprine HCl (Flexeril -) 10 mg PO TID [facility] Last Admin: 07/05/20 13:15 Dose: 10 mg Documented by: Gabapentin (Neurontin -) 200 mg PO TID [facility] Last Admin: 07/05/20 13:15 Dose: 200 mg Documented by: Sodium Chloride (1/2 Normal Saline) 1,000 mls @ 75 mls/hr IV ASDIR [facility] Last Admin: 07/04/20 16:43 Dose: Not Given Documented by: Insulin Aspart (Novolog Vial Sliding Scale -) 1 vial SQ [facility]; Protocol Last Admin: 07/05/20 11:14 Dose: 2 units Documented by: Insulin Detemir (Levemir Vial) 7 units SQ [facility] Last Admin: 07/04/20 23:00 Dose: 7 unit Documented by: Metoprolol Tartrate (Lopressor -) 100 mg PO BID [facility] Last Admin: 07/05/20 09:01 Dose: 100 mg Documented by: Pantoprazole Sodium (Protonix -) 40 mg PO ACBK [facility] Last Admin: 07/05/20 06:08 Dose: 40 mg Documented by: Tramadol HCl (Ultram -) 50 mg PO Q6H PRN PRN Reason: PAIN LEVEL 4 - 6 Last Admin: 07/04/20 22:58 Dose: 50 mg Documented by: - Objective Vital Signs: Vital Signs Temperature 97.8 F 07/05/20 09:00 Pulse Rate 73 07/05/20 09:00 Respiratory Rate 20 07/05/20 09:00 Blood Pressure 123/72 07/05/20 09:00 O2 Sat by Pulse Oximetry (%) 94 L 07/05/20 09:00 Constitutional: Yes: Calm Eyes: Yes: Conjunctiva Clear HENT: Yes: Atraumatic Cardiovascular: Yes: S1, S2 Respiratory: Yes: CTA Bilaterally Gastrointestinal: Yes: Soft, Abdomen, Obese Genitourinary: Yes: Pathak Present Musculoskeletal: Yes: WNL Edema: No Neurological: Yes: Oriented Psychiatric: Yes: Oriented Labs: CBC, BMP 07/05/20 06:50 07/05/20 06:50 INR, PTT INR 1.14 (0.83-1.09) H 06/26/20 10:15 Problem List - Problems (1) CKD (chronic kidney disease) Code(s): N18.9 - CHRONIC KIDNEY DISEASE, UNSPECIFIED (2) Sciatica Code(s): M54.30 - SCIATICA, UNSPECIFIED SIDE Qualifiers: Laterality: left Qualified Code(s): M54.32 - Sciatica, left side (3) Hypertension Code(s): I10 - ESSENTIAL (PRIMARY) HYPERTENSION Assessment/Plan Current Medications Generic Name Dose Route Start Last Admin Trade Name Freq PRN Reason Stop Dose Admin Acetaminophen 650 mg 06/26/20 16:07 07/01/20 11:49 Tylenol - PO 650 mg Q6H PRN Administration PAIN LEVEL 1-5 Amlodipine Besylate 10 mg 06/28/20 10:00 07/05/20 09:01 Norvasc - PO 10 mg DAILY [facility] Administration Atorvastatin Calcium 40 mg 06/26/20 22:00 07/04/20 22:58 Lipitor - PO 40 mg HS [facility] Administration Cyclobenzaprine HCl 10 mg 06/28/20 10:02 07/05/20 13:15 Flexeril - PO 10 mg TID [facility] Administration Gabapentin 200 mg 06/30/20 14:00 07/05/20 13:15 Neurontin - PO 200 mg TID [facility] Administration Sodium Chloride 1,000 mls @ 75 mls/hr 07/03/20 15:00 07/04/20 16:43 1/2 Normal Saline IV Not Given ASDIR ROSCOE Insulin Aspart 1 vial 06/26/20 16:30 07/05/20 11:14 Novolog Vial Sliding Scale - SQ 2 units ACHS ROSCOE Administration Protocol Insulin Detemir 7 units 07/03/20 15:56 07/04/20 23:00 Levemir Vial SQ 7 unit HS [facility] Administration Metoprolol Tartrate 100 mg 06/26/20 22:00 07/05/20 09:01 Lopressor - PO 100 mg BID [facility]E Administration Pantoprazole Sodium 40 mg 06/27/20 07:00 07/05/20 06:08 Protonix - PO 40 mg ACBK [facility]E Administration Tramadol HCl 50 mg 06/26/20 16:06 07/04/20 22:58 Ultram - PO 50 mg Q6H PRN Administration PAIN LEVEL 4 - 6 Laboratory Tests 06/27/20 06/30/20 20:00 15:00 SHAZIA M-Braden Not observed Double Strand DNA Ab <1 Glomerular Base Memb Ab 3 Impression 1. CKD 2. TIM 3. back pain 4. dm 5. htn 6. obesity 7. possible spinal mass lesion Plan - renal function is improving - repeat labs in am - follow serologies - tim likely in part pre-renal - repeat labs in am - urine eos negative
--- NOTE | 2020-07-05 14:57 | PN ---
DATE OF VISIT: 07/05/2020 HISTORY: This is a 64-year-old female with history of central spinal canal stenosis and nerve root impingement. She was found to be in overflow incontinence. A 16-Georgian Pathak catheter was inserted. The patient had more than 300 mL of residual urine. She was given a trial at voiding which she failed. A repeat bladder scan revealed a distended bladder. Therefore, the Pathak was reinserted. PAST MEDICAL HISTORY: She does have history of diabetes, hypertension, dyslipidemia, chronic kidney disease. She also has hyperlipidemia. SOCIAL HISTORY: She denies ethanolism or tobacco. ALLERGIES: She denies any allergies. PAST SURGICAL HISTORY: She has undergone a cholecystectomy. LABORATORY: Her BUN is 64.5 and creatinine 3.7. IMPRESSION AT PRESENT: 1. [id number] renal failure. 2. A right renal cyst. 3. Recurrent urinary retention. Must rule out neurogenic bladder secondary to spinal stenosis. Patient should undergo a cystoscopy as well as a urodynamic evaluation. This could be done as an outpatient. Marlene [id number]
[2020-07-05] MEDS: SODIUM CHLORIDE 0.45% 1,000 ML IV SCH ×2 (15:00→18:31)
--- NOTE | 2020-07-05 15:07 | PN ---
Teaching Attending Note Name of Resident: Desirae Gage ATTENDING PHYSICIAN STATEMENT I saw and evaluated the patient. I reviewed the resident's note and discussed the case with the resident. I agree with the resident's findings and plan as documented. SUBJECTIVE: OBJECTIVE: Last Vital Signs Temp Pulse Resp BP Pulse Ox 97.8 F 73 20 123/72 94 L 07/05/20 09:00 07/05/20 09:00 07/05/20 09:00 07/05/20 09:00 07/05/20 09:00 GENERAL: Awake, alert, and fully oriented, in no acute distress. HEENT: AT/NC, PERRLA, EOMI LUNGS: Breath sounds equal, clear to auscultation bilaterally. No wheezes, and no crackles. No accessory muscle use. HEART: Regular rate and rhythm, normal S1 and S2 ABDOMEN: Obese, Soft, nontender, not distended, LLQ round mass felt on deep palpation MUSCULOSKELETAL: Normal range of motion at all joints. No bony deformities or tenderness. No CVA tenderness. UPPER EXTREMITIES: 2+ pulses, warm, well-perfused. No cyanosis. No clubbing. No peripheral edema. LOWER EXTREMITIES: 2+ pulses, warm, well-perfused. No calf tenderness. No peripheral edema. NEUROLOGICAL: Cranial nerves II-XII intact. Normal speech. LE limited strength 4/5 CBCD WBC 10.1 K/mm3 (4.0-10.0) H 07/05/20 06:50 RBC 2.79 M/mm3 (3.60-5.2) L 07/05/20 06:50 Hgb 8.0 GM/dL (10.7-15.3) L 07/05/20 06:50 Hct 24.3 % (32.4-45.2) L 07/05/20 06:50 MCV 87.1 fl (80-96) 07/05/20 06:50 MCHC 33.0 g/dl (32.0-36.0) 07/05/20 06:50 RDW 15.7 % (11.6-15.6) H 07/05/20 06:50 Plt Count 354 K/MM3 (134-434) 07/05/20 06:50 MPV 8.0 fl (7.5-11.1) 07/05/20 06:50 CMP Sodium 133 mmol/L (136-145) L 07/05/20 06:50 Potassium 4.1 mmol/L (3.5-5.1) 07/05/20 06:50 Chloride 102 mmol/L (98-107) 07/05/20 06:50 Carbon Dioxide 20 mmol/L (21-32) L 07/05/20 06:50 Anion Gap 11 MMOL/L (8-16) 07/05/20 06:50 BUN 81.5 mg/dL (7-18) H 07/05/20 06:50 Creatinine 3.7 mg/dL (0.55-1.3) H 07/05/20 06:50 Calcium 8.5 mg/dL (8.5-10.1) 07/05/20 06:50 Total Bilirubin 0.8 mg/dL (0.2-1) 07/05/20 06:50 AST 38 U/L (15-37) H 07/05/20 06:50 ALT 26 U/L (13-61) 07/05/20 06:50 Alkaline Phosphatase 324 U/L (45-117) H 07/05/20 06:50 Total Protein 5.5 g/dl (6.4-8.2) L 07/05/20 06:50 Albumin 1.6 g/dl (3.4-5.0) L 07/05/20 06:50 Active Medications Acetaminophen (Tylenol -) 650 mg PO Q6H PRN PRN Reason: PAIN LEVEL 1-5 Last Admin: 07/01/20 11:49 Dose: 650 mg Documented by: Amlodipine Besylate (Norvasc -) 10 mg PO DAILY [facility] Last Admin: 07/05/20 09:01 Dose: 10 mg Documented by: Atorvastatin Calcium (Lipitor -) 40 mg PO HS [facility] Last Admin: 07/04/20 22:58 Dose: 40 mg Documented by: Cyclobenzaprine HCl (Flexeril -) 10 mg PO TID [facility] Last Admin: 07/05/20 13:15 Dose: 10 mg Documented by: Gabapentin (Neurontin -) 200 mg PO TID [facility] Last Admin: 07/05/20 13:15 Dose: 200 mg Documented by: Sodium Chloride (1/2 Normal Saline) 1,000 mls @ 75 mls/hr IV ASDIR [facility] Last Admin: 07/04/20 16:43 Dose: Not Given Documented by: Insulin Aspart (Novolog Vial Sliding Scale -) 1 vial SQ ACHS [facility]; Protocol Last Admin: 07/05/20 11:14 Dose: 2 units Documented by: Insulin Detemir (Levemir Vial) 7 units SQ [facility] Last Admin: 07/04/20 23:00 Dose: 7 unit Documented by: Metoprolol Tartrate (Lopressor -) 100 mg PO BID [facility] Last Admin: 07/05/20 09:01 Dose: 100 mg Documented by: Pantoprazole Sodium (Protonix -) 40 mg PO ACBK [facility] Last Admin: 07/05/20 06:08 Dose: 40 mg Documented by: Tramadol HCl (Ultram -) 50 mg PO Q6H PRN PRN Reason: PAIN LEVEL 4 - 6 Last Admin: 07/04/20 22:58 Dose: 50 mg Documented by: ASSESSMENT AND PLAN: 64 year old female with history of DM 2, HTN, HLD, CKD 3, presents with lower back pain, L Hip pain, radiating down LLE, as well as 3 day history of post- menopausal vaginal bleeding, now resolved. # Sciatica and Back Pain sec to DJD, nerve impingement, spinal stenosis MRI LS Spine reviewed CT - DJD with central spinal canal stenosis L 4/5, L4 nerve root impingement pain management as indicated Ongoing PT plan for lumbar surgery (L4-5 laminectomies and interbody cage and arthrodesis with Pedicle screw fusion of L4-5 )on ASA 3, RCRI 2 risk, moderate risk patient for surgery Neurosurgery consult appreciated Case discussed with consults # TIM on CKD 3 improving Creat could be AIN (will need biopsy for definitive dx). Paraneoplastic? Renal US - bilateral renal lipomatosis, R renal cyst. Bladder US 07/01 - large post-void residual prior to foster insertion Fotser placed by Urology avoid nephrotoxin, renal dose of medications Post-menopausal Dysfunctional Uterine Bleeding, Rt hemipelvic mass -outpatient workup with OBGYN Normocytic Anemia, stable h&H HLD DM 2 HTN DVT Px - SCDs.
--- NOTE | 2020-07-05 15:56 | SPA.PREOP ---
- PRE-OP NOTE Dx: lumbar spondylosis Planned Procedure: L4-5 laminectomy with fusion Surgeon: Dr. Gonzalez Last Vital Signs Temp Pulse Resp BP Pulse Ox 98.5 F 72 20 108/60 95 07/05/20 15:04 07/05/20 15:04 07/05/20 15:04 07/05/20 15:04 07/05/20 15:04 Lab Results WBC 10.1 K/mm3 (4.0-10.0) H 07/05/20 06:50 RBC 2.79 M/mm3 (3.60-5.2) L 07/05/20 06:50 Hgb 8.0 GM/dL (10.7-15.3) L 07/05/20 06:50 Hct 24.3 % (32.4-45.2) L 07/05/20 06:50 MCV 87.1 fl (80-96) 07/05/20 06:50 MCHC 33.0 g/dl (32.0-36.0) 07/05/20 06:50 RDW 15.7 % (11.6-15.6) H 07/05/20 06:50 Plt Count 354 K/MM3 (134-434) 07/05/20 06:50 INR 1.14 (0.83-1.09) H 06/26/20 10:15 Sodium 133 mmol/L (136-145) L 07/05/20 06:50 Potassium 4.1 mmol/L (3.5-5.1) 07/05/20 06:50 Chloride 102 mmol/L (98-107) 07/05/20 06:50 Carbon Dioxide 20 mmol/L (21-32) L 07/05/20 06:50 Anion Gap 11 MMOL/L (8-16) 07/05/20 06:50 BUN 81.5 mg/dL (7-18) H 07/05/20 06:50 Creatinine 3.7 mg/dL (0.55-1.3) H 07/05/20 06:50 Random Glucose 275 mg/dL (74-106) H 07/05/20 06:50 Calcium 8.5 mg/dL (8.5-10.1) 07/05/20 06:50 Blood Type A POSITIVE 06/29/20 07:35 Antibody Screen Negative 06/29/20 07:35 - IMAGING Cat Scan: Report Reviewed (NAIE 06/26) EKG: Report Reviewed (sinus tachy at 107 on 06/26) - ASSESSMENT/PLAN 1. Make NPO after midnight except po meds 2. GI/DVT PPX 3. Medical optimization / clearance in chart, see medical note from 07/05 4. Consent to be obtained by surgeon after risks, benefits and alternatives discussed with patient and or Health Care Proxy. 5. T&S ordered with 2 units PRBC on hold for OR 07/06
[2020-07-05 17:10] LABS: ATYPICAL pANCA <1:20 titer (Neg:<1:20); C-ANCA <1:20 titer (Neg:<1:20)
[2020-07-05] MEDS: INSULIN (LEVEMIR) 100 UNITS/ML UNITS SQ SCH (21:41)
[2020-07-05] MEDS: ATORVASTATIN CA 40 MG TABLET (FP) PO SCH (21:43)
[2020-07-05] MEDS: ACETAMINOPHEN 325 MG TABLET (FP) PO PRN (21:44)
[2020-07-06] MEDS: INSULIN SLIDING SCALE (NOVOLOG) 1 VIAL SQ SCH ×4 (06:31→22:39)
[2020-07-06] MEDS: GABAPENTIN 100 MG CAPSULE PO SCH ×3 (06:32→21:57)
[2020-07-06] MEDS: CYCLOBENZAPRINE HCL 10 MG TABLET (FP) PO SCH ×3 (06:32→21:59)
[2020-07-06] MEDS: PANTOPRAZOLE 40 MG TABLET PO SCH (06:33)
[2020-07-06] MEDS ORDERED: EPHEDRINE SULFATE/0.9% NACL/PF 50 MG/10 ML SYRINGE NR ONE (07:12)
[2020-07-06] MEDS ORDERED: ceFAZolin SODIUM 1 GM VIAL ONE ×3 (07:12→18:44)
[2020-07-06] MEDS ORDERED: LIDOCAINE HCL/PF 2% SDV 5ML VIAL ONE ×2 (07:12→12:32)
[2020-07-06] MEDS ORDERED: SODIUM CHLORIDE 0.9% P/F 10 ML VIAL IJ ONE (07:12)
[2020-07-06] MEDS ORDERED: fentaNYL CITRATE 250 MCG/5 ML VIAL ONE (07:13)
[2020-07-06] MEDS ORDERED: SUCCINYLCHOLINE CHLORIDE 200 MG/10 ML SYRINGE ONE (07:13)
[2020-07-06] MEDS ORDERED: ROCURONIUM BROMIDE 50 MG/5 ML SYRINGE ONE ×2 (07:13→11:36)
[2020-07-06] MEDS ORDERED: PROPOFOL 20 ML ONE ×3 (07:13)
[2020-07-06] MEDS ORDERED: MIDAZOLAM HCL 2 MG/2 ML SINGLE DOSE VIAL ONE ×4 (07:13→14:48)
[2020-07-06] MEDS ORDERED: VANCOMYCIN 1,000 MG VIAL (RESTRICTED TO ID ONLY) ONE ×2 (07:18→13:29)
[2020-07-06] MEDS ORDERED: BUPIVACAINE LIPOSOME/PF (EXPAREL) 266 MG/20 ML VIAL ONE (07:18)
[2020-07-06] MEDS ORDERED: GENTAMICIN SO4 80 MG/2 ML VIAL ONE (07:18)
[2020-07-06] MEDS ORDERED: LIDOCAINE 1%/EPI 1:100000 (20 ML MULTI DOSE VIAL) ONE (07:18)
[2020-07-06] MEDS ORDERED: THROMBIN (BOVINE) 5,000 UNIT VIAL TP ONE (07:19)
[2020-07-06] MEDS ORDERED: DEXAMETHASONE SOD PHOSPHATE 4 MG/1 ML VIAL ONE (07:21)
[2020-07-06 08:25] LABS: BASO % 0.3 % (0-2.0); EOS % 3.3 % (0-4.5); HEMATOCRIT 24.2 % (32.4-45.2); LYMPH % 14.9 % (8-40); MCH 28.8 pg (25.7-33.7); MCHC 33.1 g/dl (32.0-36.0); MEAN CELL VOLUME 86.9 fl (80-96); MEAN PLT VOLUME 7.7 fl (7.5-11.1); MONO % 10.9 % (3.8-10.2); NEUT % 70.6 % (42.8-82.8); PLATELET COUNT 387 K/MM3 (134-434); RBC 2.79 M/mm3 (3.60-5.2); RDW 15.8 % (11.6-15.6); WHITE BLOOD COUNT 11.2 K/mm3 (4.0-10.0)
[2020-07-06 08:39] LABS: POTASSIUM 3.9 mmol/L (3.5-5.1)
[2020-07-06 09:19] LABS: ALBUMIN 1.7 g/dl (3.4-5.0); BILIRUBIN,TOTAL 0.2 mg/dL (0.2-1); BLOOD UREA NITROGEN 76.1 mg/dL (7-18); CALCIUM 8.8 mg/dL (8.5-10.1); CREATININE 3.1 mg/dL (0.55-1.3); MAGNESIUM 2.2 mg/dL (1.8-2.4); TOT PROT 5.7 g/dl (6.4-8.2)
[2020-07-06] MEDS ORDERED: HYDROmorphone HCl 2 MG/ML VIAL IVPUSH PRN ×4 (10:36→15:54)
[2020-07-06] MEDS ORDERED: ONDANSETRON 4 MG/2 ML VIAL IVPUSH PRN ×3 (10:36→15:54)
[2020-07-06] MEDS ORDERED: LACTATED RINGERS SOLUTION 1,000 ML IV SCH (10:45)
[2020-07-06] MEDS ORDERED: ceFAZolin SODIUM 1 GM VIAL IVPB ONE (11:11)
[2020-07-06 11:13] LABS: MACROCYTOSIS 0; PLATELET ESTIMATE NORMAL
[2020-07-06 11:16] LABS: ANISOCYTOSIS 1+
[2020-07-06] MEDS ORDERED: VANCOMYCIN 1,000 MG VIAL (RESTRICTED TO ID ONLY) IVPB ONE (11:17)
[2020-07-06] MEDS ORDERED: BACITRACIN 50,000 UNITS VIAL NR ONE (11:17)
[2020-07-06] MEDS ORDERED: LIDOCAINE 1%/EPI 1:100000 (20 ML MULTI DOSE VIAL) IJ ONE (11:17)
[2020-07-06] MEDS ORDERED: GENTAMICIN 80MG PREMIX BAG IVPB ONE (12:14)
[2020-07-06] MEDS ORDERED: BUPIVACAINE HCL/PF 0.5% (5 MG/ML) 30 ML VIAL IJ ONE (12:15)
[2020-07-06] MEDS ORDERED: HYDROGEN PEROXIDE 473 ML PO ONE (12:21)
[2020-07-06] MEDS ORDERED: BUPIVACAINE LIPOSOME/PF (EXPAREL) 266 MG/20 ML VIAL NR ONE (12:24)
[2020-07-06] MEDS ORDERED: NEOSTIGMINE METHYLSULFATE 0.5 MG/1 ML - 10 ML MDV ONE (12:35)
[2020-07-06] MEDS ORDERED: GLYCOPYRROLATE 0.2 MG/1 ML VIAL ONE (12:35)
[2020-07-06] MEDS ORDERED: ONDANSETRON 4 MG/2 ML VIAL ONE (13:17)
--- NOTE | 2020-07-06 13:49 | PN ---
Physical Exam: SUBJECTIVE: Patient was taken to OR this morning, will f/u post surgery OBJECTIVE: Vital Signs Period Temp Pulse Resp BP Sys/Ruiz Pulse Ox Last 24 Hr 98.4 F-98.8 F 72-79 20-20 108-139/60-74 95-96 Laboratory Results - last 24 hr 06/30/20 07/05/20 07/05/20 15:00 16:35 17:26 WBC RBC Hgb Hct MCV MCH MCHC RDW Plt Count MPV Absolute Neuts (auto) Neutrophils % Neutrophils % (Manual) Band Neutrophils % Lymphocytes % Lymphocytes % (Manual) Monocytes % Monocytes % (Manual) Eosinophils % Eosinophils % (Manual) Basophils % Basophils % (Manual) Myelocytes % (Man) Promyelocytes % (Man) Blast Cells % (Manual) Nucleated RBC % Metamyelocytes Hypochromia Platelet Estimate Polychromasia Poikilocytosis Anisocytosis Microcytosis Macrocytosis Sodium Potassium Chloride Carbon Dioxide Anion Gap BUN Creatinine Est GFR (CKD-EPI)AfAm Est GFR (CKD-EPI)NonAf POC Glucometer 259 Random Glucose Calcium Phosphorus Magnesium Total Bilirubin AST ALT Alkaline Phosphatase Total Protein Albumin c-ANCA <1:20 Proteinase 3 (PR3) <3.5 p-ANCA <1:20 Atypical p-ANCA <1:20 Myeloperoxidase Ab <9.0 Blood Type A POSITIVE Antibody Screen Negative Crossmatch See Detail 07/05/20 07/06/20 07/06/20 21:34 06:31 07:42 WBC 11.2 H RBC 2.79 L Hgb 8.0 L Hct 24.2 L MCV 86.9 MCH 28.8 MCHC 33.1 RDW 15.8 H Plt Count 387 MPV 7.7 Absolute Neuts (auto) 7.9 Neutrophils % 70.6 Neutrophils % (Manual) 73.7 Band Neutrophils % 1.0 Lymphocytes % 14.9 Lymphocytes % (Manual) 18.2 D Monocytes % 10.9 H Monocytes % (Manual) 6 Eosinophils % 3.3 Eosinophils % (Manual) 1.0 Basophils % 0.3 Basophils % (Manual) 0.0 Myelocytes % (Man) 0 Promyelocytes % (Man) 0 Blast Cells % (Manual) 0 Nucleated RBC % 0 Metamyelocytes 0 D Hypochromia 0 Platelet Estimate Normal Polychromasia 1+ Poikilocytosis 0 Anisocytosis 1+ Microcytosis 1+ Macrocytosis 0 Sodium Potassium Chloride Carbon Dioxide Anion Gap BUN Creatinine Est GFR (CKD-EPI)AfAm Est GFR (CKD-EPI)NonAf POC Glucometer 245 222 Random Glucose Calcium Phosphorus Magnesium Total Bilirubin AST ALT Alkaline Phosphatase Total Protein Albumin c-ANCA Proteinase 3 (PR3) p-ANCA Atypical p-ANCA Myeloperoxidase Ab Blood Type Antibody Screen Crossmatch 07/06/20 07:42 WBC RBC Hgb Hct MCV MCH MCHC RDW Plt Count MPV Absolute Neuts (auto) Neutrophils % Neutrophils % (Manual) Band Neutrophils % Lymphocytes % Lymphocytes % (Manual) Monocytes % Monocytes % (Manual) Eosinophils % Eosinophils % (Manual) Basophils % Basophils % (Manual) Myelocytes % (Man) Promyelocytes % (Man) Blast Cells % (Manual) Nucleated RBC % Metamyelocytes Hypochromia Platelet Estimate Polychromasia Poikilocytosis Anisocytosis Microcytosis Macrocytosis Sodium 134 L Potassium 3.9 Chloride 103 Carbon Dioxide 20 L Anion Gap 11 BUN 76.1 H Creatinine 3.1 H Est GFR (CKD-EPI)AfAm 17.81 Est GFR (CKD-EPI)NonAf 15.36 POC Glucometer Random Glucose 236 H Calcium 8.8 Phosphorus 5.0 H Magnesium 2.2 Total Bilirubin 0.2 AST 25 ALT 22 Alkaline Phosphatase 275 H Total Protein 5.7 L Albumin 1.7 L c-ANCA Proteinase 3 (PR3) p-ANCA Atypical p-ANCA Myeloperoxidase Ab Blood Type Antibody Screen Crossmatch Active Medications Generic Name Dose Route Start Last Admin Trade Name Freq PRN Reason Stop Dose Admin Acetaminophen 650 mg 06/26/20 16:07 07/05/20 21:44 Tylenol - PO 650 mg Q6H PRN Administration PAIN LEVEL 1-5 Amlodipine Besylate 10 mg 06/28/20 10:00 07/05/20 09:01 Norvasc - PO 10 mg DAILY [facility] Administration Atorvastatin Calcium 40 mg 06/26/20 22:00 07/05/20 21:43 Lipitor - PO 40 mg HS [facility] Administration Cyclobenzaprine HCl 10 mg 06/28/20 10:02 07/06/20 06:32 Flexeril - PO 10 mg TID [facility] Administration Gabapentin 200 mg 06/30/20 14:00 07/06/20 06:32 Neurontin - PO 200 mg TID [facility] Administration Hydromorphone HCl 0.5 mg 07/06/20 10:36 Dilaudid Vial - IVPUSH Q15M PRN PAIN LEVEL 7 - 10 Hydromorphone HCl 0.25 mg 07/06/20 10:37 Dilaudid Vial - IVPUSH ONCE PRN PAIN LEVEL 4 - 6 Sodium Chloride 1,000 mls @ 75 mls/hr 07/03/20 15:00 07/05/20 18:31 1/2 Normal Saline IV 75 mls/hr ASDIR [facility] Administration Lactated Ringer's 1,000 mls @ 75 mls/hr 07/06/20 10:45 Lactated Ringers Solution IV ASDIR [facility] Insulin Aspart 1 vial 06/26/20 16:30 07/06/20 06:31 Novolog Vial Sliding Scale - SQ Not Given ACHS [facility] Protocol Insulin Detemir 7 units 07/03/20 15:56 07/05/20 21:41 Levemir Vial SQ 7 unit HS [facility] Administration Metoprolol Tartrate 100 mg 06/26/20 22:00 07/05/20 21:42 Lopressor - PO 100 mg BID [facility] Administration Ondansetron HCl 4 mg 07/06/20 10:36 Zofran Injection IVPUSH Q6H PRN NAUSEA AND/OR VOMITING Pantoprazole Sodium 40 mg 06/27/20 07:00 07/06/20 06:33 Protonix - PO 40 mg ACBK [facility] Administration Tramadol HCl 50 mg 06/26/20 16:06 07/04/20 22:58 Ultram - PO 50 mg Q6H PRN Administration PAIN LEVEL 4 - 6 ASSESSMENT/PLAN: 64 Y F with a PMHx of DM, HTN, HLD, and CKD presents with lower back and L. Hip pain radiating down LLE over the last 4 days and post-menopausal vaginal bleeding for 3 days. #Intractable back/hip pain - 2/2 to radiculopathy due to herniated disk vs Mass compression, no bowel/bladder incontinence and saddle anesthesia - Lumbar and L. Hip MRI: noted Patient cannot get contrast study to evaluate for possible mass lesion, due to her kidney functions (low eGFR), elevated crea - Neurosurgery consulted, Dr. Alberto villegas, recs appreciated In OR today, L4-5 laminectomy with fusion - Pain control: As per surgery recs # UA suggestive of UTI w/ Leukocytosis - UA : positive for protein, blood WBCs and bacteria, urine culture: normal dashawn - Leukocytosis 11.2, afebrile and hemodynamically stable - Spiked fever on Ceftriaxone, switched to Zosyn, but discontinued Zosyn due to worsening Crea - ID on Board #Dysfunctional Uterine bleeding - Post-menopausal - Abdominal US shows multiple fibroids and enlarged myomatous uterus - MRI: Multiple lesions related to the uterus and possibly the right adnexa - CTAP: Mass like density in Right hemipelvis with peripheral calcifications, exophytic uterine fibroid vs ovarian mass - PHOTOGEOLOGIST consuled, will f/u as outpatient, endometrial biopsy Gynecology mass not the cause of patient's TIM/urinary obstruction as per Gynecology #TIM on CKD(S3) - Crea is improving 3.1 , unclear etiology - Renal u/s: Small right renal simple cyst measuring 10 x 8 mm. Bilateral renal sinus lipomatosis. - Nephrology on board, Dr. marcum, recs appreciated - Urology consulted, recs appreciated Pathak placed out-patient cystoscopy and urodynamic studies - Holding HCTZ for now - Resumed IVF, 1/2 ns 75mls/hr # Hx of DM - BGM + ISS #Hx of HTN - Continue Norvasc, Metoprolol # Hx of HLD - Continue Atrovastatin #FEN - Not on standing fluids - Continue to monitor electrolytes - NPO after midnight #DVT Ppx - No chemical PPx for now, Vaginal bleeding, procedure #Dispo - OR today, will f/u post procedure Visit type - Emergency Visit Emergency Visit: Yes ED Registration Date: 06/26/20 Care time: The patient presented to the Emergency Department on the above date and was hospitalized for further evaluation of their emergent condition. - New Patient This patient is new to me today: No - Critical Care Critical Care patient: No - Discharge Referral Referred to [facility] No ATTENDING PHYSICIAN STATEMENT I saw and evaluated the patient. I reviewed the resident's note and discussed the case with the resident. I agree with the resident's findings and plan as documented. SUBJECTIVE: OBJECTIVE: ASSESSMENT AND PLAN:
[2020-07-06] MEDS ORDERED: oxyCODONE HCL 5 MG TABLET PO PRN (14:42)
--- NOTE | 2020-07-06 14:49 | OP ---
Operative Note - Note: Operative Date: 07/06/20 Pre-Operative Diagnosis: L45 spondylosis, Lumbar degenerative disc disease Operation: L45 laminectomies with decompression and fusion Post-Operative Diagnosis: Same as Pre-op Surgeon: Alberto Gonzalez [employer] Supervisor: Gabrielle Nelson Anesthesiologist/APPAREL DESIGNER: Gretchen Dawson Anesthesia: General, Local Estimated Blood Loss (mls): 400 Drains & Tubes with Location: Gabino right paravetebral GABINO drain Fluid Volume Replaced (mls): 1,200 Operative Report Dictated: Yes
[2020-07-06] MEDS ORDERED: MIDAZOLAM HCL 2 MG/2 ML SINGLE DOSE VIAL IVPUSH ONE (15:01)
[2020-07-06] MEDS ORDERED: ACETAMINOPHEN 1000 MG/100 ML VIAL (NON FORMULARY) IVPB PRN (15:02)
[2020-07-06] MEDS ORDERED: HYDROmorphone HCl 2 MG/ML VIAL ONE (15:28)
[2020-07-06] MEDS: METOPROLOL TARTRATE 50 MG TABLET (FP) PO SCH ×2 (15:35→21:57)
[2020-07-06] MEDS: amLODIPine BESYLATE 10 MG TABLET (FP) PO SCH (15:35)
--- NOTE | 2020-07-06 16:04 | PN ---
Teaching Attending Note Name of Resident: Desirae Gage ATTENDING PHYSICIAN STATEMENT I saw and evaluated the patient. I reviewed the resident's note and discussed the case with the resident. I agree with the resident's findings and plan as documented. SUBJECTIVE: pt was not seen today as she went early to OR OBJECTIVE: refer to resident notes ASSESSMENT AND PLAN: 64 year old female with history of DM 2, HTN, HLD, CKD 3, presents with lower back pain, L Hip pain, radiating down LLE, as well as 3 day history of post- menopausal vaginal bleeding, now resolved. # Sciatica and Back Pain sec to DJD, nerve impingement, spinal stenosis MRI LS Spine reviewed CT - DJD with central spinal canal stenosis L 4/5, L4 nerve root impingement pain management as indicated for L4-5 laminectomies and interbody cage and arthrodesis with Pedicle screw fusion of L4-5 Neurosurgery consult appreciated Case discussed with consults # TIM on CKD 3 improving Creat could be AIN (will need biopsy for definitive dx). Paraneoplastic? Renal US - bilateral renal lipomatosis, R renal cyst. Bladder US 07/01 - large post-void residual prior to foster insertion Foster placed by Urology avoid nephrotoxin, renal dose of medications Post-menopausal Dysfunctional Uterine Bleeding, Rt hemipelvic mass -outpatient workup with OBGYN Normocytic Anemia, stable h&H HLD DM 2 HTN DVT Px - SCDs.
--- NOTE | 2020-07-06 16:18 | PN ---
Progress Note, Physician History of Present Illness: Pt seen and examined at bedside. She is s/p laminectomy. - Current Medication List Current Medications: Active Medications Acetaminophen (Ofirmev Injection -) 1,000 mg IVPB ONCE PRN PRN Reason: PAIN LEVEL 1-5 Stop: 07/07/20 15:03 Acetaminophen (Tylenol -) 650 mg PO Q6H PRN PRN Reason: PAIN LEVEL 1-5 Amlodipine Besylate (Norvasc -) 10 mg PO DAILY [facility] Atorvastatin Calcium (Lipitor -) 40 mg PO HS [facility] Cyclobenzaprine HCl (Flexeril -) 10 mg PO TID [facility] Diphenhydramine HCl (Benadryl -) 25 mg PO Q6H PRN PRN Reason: FOR ITCHING Ferrous Sulfate (Feosol -) 325 mg PO DAILY [facility] Folic Acid (Folic Acid -) 1 mg PO DAILY [facility] Gabapentin (Neurontin -) 200 mg PO TID [facility] Heparin Sodium (Porcine) (Heparin -) 5,000 unit SQ TID [facility] Hydromorphone HCl (Dilaudid Vial -) 0.5 mg IVPUSH Q15M PRN PRN Reason: PAIN LEVEL 7 - 10 Hydromorphone HCl (Dilaudid Vial -) 0.25 mg IVPUSH ONCE PRN PRN Reason: PAIN LEVEL 4 - 6 Cefazolin Sodium (Ancef 1 Gm Premixed Ivpb -) 1 gm in 50 mls @ 100 mls/hr IVPB Q8H-IV [facility] Sodium Chloride (1/2 Normal Saline) 1,000 mls @ 75 mls/hr IV ASDIR [facility] Insulin Aspart (Novolog Vial Sliding Scale -) 1 vial SQ ACHS [facility]; Protocol Insulin Detemir (Levemir Vial) 7 units SQ HS [facility] Metoprolol Tartrate (Lopressor -) 100 mg PO BID [facility] Midazolam HCl (Versed -) 2 mg IVPUSH ONCE ONE Stop: 07/06/20 15:02 Ondansetron HCl (Zofran Injection) 4 mg IVPUSH Q6H PRN PRN Reason: NAUSEA Ondansetron HCl (Zofran Injection) 4 mg IVPUSH Q6H PRN PRN Reason: NAUSEA AND/OR VOMITING Oxycodone HCl (Roxicodone -) 5 mg PO Q4H PRN PRN Reason: PAIN LEVEL 1-5 Oxycodone HCl (Roxicodone -) 10 mg PO Q4H PRN PRN Reason: PAIN LEVEL 6-10 Pantoprazole Sodium (Protonix -) 40 mg PO ACBK [facility] - Objective Vital Signs: Vital Signs Temperature 98.7 F 07/06/20 14:20 Pulse Rate 76 07/06/20 14:45 Respiratory Rate 16 07/06/20 14:45 Blood Pressure 153/73 07/06/20 14:45 O2 Sat by Pulse Oximetry (%) 98 07/06/20 14:45 Constitutional: Yes: Calm Eyes: Yes: Conjunctiva Clear HENT: Yes: Atraumatic Cardiovascular: Yes: S1, S2 Respiratory: Yes: CTA Bilaterally Gastrointestinal: Yes: Soft, Abdomen, Obese Genitourinary: Yes: Pathak Present Edema: No Neurological: Yes: Other (pt just came out of OR) Labs: CBC, BMP 07/06/20 07:42 07/06/20 07:42 INR, PTT INR 1.14 (0.83-1.09) H 06/26/20 10:15 Problem List - Problems (1) CKD (chronic kidney disease) Code(s): N18.9 - CHRONIC KIDNEY DISEASE, UNSPECIFIED (2) Sciatica Code(s): M54.30 - SCIATICA, UNSPECIFIED SIDE Qualifiers: Laterality: left Qualified Code(s): M54.32 - Sciatica, left side (3) Hypertension Code(s): I10 - ESSENTIAL (PRIMARY) HYPERTENSION Assessment/Plan Current Medications Generic Name Dose Route Start Last Admin Trade Name Freq PRN Reason Stop Dose Admin Acetaminophen 1,000 mg 07/06/20 15:02 Ofirmev Injection - IVPB 07/07/20 15:03 ONCE PRN PAIN LEVEL 1-5 Acetaminophen 650 mg 07/06/20 15:54 Tylenol - PO Q6H PRN PAIN LEVEL 1-5 Amlodipine Besylate 10 mg 07/07/20 10:00 Norvasc - PO DAILY [facility] Atorvastatin Calcium 40 mg 07/06/20 22:00 Lipitor - PO HS [facility] Cyclobenzaprine HCl 10 mg 07/06/20 22:00 Flexeril - PO TID [facility] Diphenhydramine HCl 25 mg 07/06/20 14:30 Benadryl - PO Q6H PRN FOR ITCHING Ferrous Sulfate 325 mg 07/07/20 10:00 Feosol - PO DAILY [facility] Folic Acid 1 mg 07/07/20 10:00 Folic Acid - PO DAILY [facility] Gabapentin 200 mg 07/06/20 22:00 Neurontin - PO TID [facility] Heparin Sodium (Porcine) 5,000 unit 07/07/20 10:00 Heparin - SQ TID [facility] Hydromorphone HCl 0.5 mg 07/06/20 15:54 Dilaudid Vial - IVPUSH Q15M PRN PAIN LEVEL 7 - 10 Hydromorphone HCl 0.25 mg 07/06/20 15:54 Dilaudid Vial - IVPUSH ONCE PRN PAIN LEVEL 4 - 6 Cefazolin Sodium 1 gm in 50 mls @ 100 mls/hr 07/06/20 18:30 Ancef 1 Gm Premixed Ivpb - IVPB Q8H-IV [facility] Sodium Chloride 1,000 mls @ 75 mls/hr 07/06/20 15:54 1/2 Normal Saline IV ASDIR [facility] Insulin Aspart 1 vial 07/06/20 16:30 Novolog Vial Sliding Scale - SQ ACHS [facility] Protocol Insulin Detemir 7 units 07/06/20 22:00 Levemir Vial SQ HS [facility] Metoprolol Tartrate 100 mg 07/06/20 22:00 Lopressor - PO BID [facility] Midazolam HCl 2 mg 07/06/20 15:01 Versed - IVPUSH 07/06/20 15:02 ONCE ONE Ondansetron HCl 4 mg 07/06/20 14:30 Zofran Injection IVPUSH Q6H PRN NAUSEA Ondansetron HCl 4 mg 07/06/20 15:54 Zofran Injection IVPUSH Q6H PRN NAUSEA AND/OR VOMITING Oxycodone HCl 5 mg 07/06/20 14:42 Roxicodone - PO Q4H PRN PAIN LEVEL 1-5 Oxycodone HCl 10 mg 07/06/20 14:42 Roxicodone - PO Q4H PRN PAIN LEVEL 6-10 Pantoprazole Sodium 40 mg 07/07/20 07:00 Protonix - PO ACBK [facility] Impression 1. CKD 2. TIM 3. back pain 4. dm 5. htn 6. obesity 7. 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
[2020-07-06] MEDS ORDERED: MORPHINE SULFATE 2 MG/ML VIAL IVPUSH PRN (17:03)
[2020-07-06] MEDS: SODIUM CHLORIDE 0.45% 1,000 ML IV SCH (18:30)
[2020-07-06] MEDS ORDERED: DEXTROSE 5%-WATER - 50 ML IVPB ONE (18:44)
[2020-07-06] MEDS: CEFAZOLIN 1 GM in DEXTROSE 5%-WATER - 50 ML IVPB SCH (18:46)
[2020-07-06] MEDS ORDERED: INSULIN (NOVOLOG) ASPART 100 UNITS/ML 10ML VIAL ONE (19:17)
[2020-07-06] MEDS: ATORVASTATIN CA 40 MG TABLET (FP) PO SCH (21:57)
[2020-07-06] MEDS: INSULIN (LEVEMIR) 100 UNITS/ML UNITS SQ SCH (22:37)
[2020-07-07] MEDS ORDERED: DEXTROSE 5%-WATER - 50 ML IVPB ONE ×3 (01:40→17:56)
[2020-07-07] MEDS ORDERED: ceFAZolin SODIUM 1 GM VIAL ONE ×3 (01:40→17:56)
[2020-07-07] MEDS: CEFAZOLIN 1 GM in DEXTROSE 5%-WATER - 50 ML IVPB SCH ×3 (01:42→17:58)
[2020-07-07] MEDS: CYCLOBENZAPRINE HCL 10 MG TABLET (FP) PO SCH ×3 (05:53→21:03)
[2020-07-07] MEDS: GABAPENTIN 100 MG CAPSULE PO SCH ×3 (05:53→21:03)
[2020-07-07] MEDS: PANTOPRAZOLE 40 MG TABLET PO SCH (06:03)
[2020-07-07] MEDS: INSULIN SLIDING SCALE (NOVOLOG) 1 VIAL SQ SCH ×4 (06:06→21:04)
[2020-07-07 08:43] LABS: BASO % 0.1 % (0-2.0); EOS % 0.1 % (0-4.5); HEMATOCRIT 22.5 % (32.4-45.2); HEMOGLOBIN 7.5 GM/dL (10.7-15.3); LYMPH % 6.2 % (8-40); MCH 29.3 pg (25.7-33.7); MCHC 33.4 g/dl (32.0-36.0); MEAN CELL VOLUME 87.7 fl (80-96); MEAN PLT VOLUME 7.8 fl (7.5-11.1); NEUT % 86.6 % (42.8-82.8); PLATELET COUNT 433 K/MM3 (134-434); RBC 2.56 M/mm3 (3.60-5.2); RDW 16.1 % (11.6-15.6); WHITE BLOOD COUNT 17.7 K/mm3 (4.0-10.0)
[2020-07-07] MEDS ORDERED: PT OWN MED DRAWER 7, Y5N ONE (09:07)
[2020-07-07] MEDS: FOLIC ACID 1 MG TABLET (FP) PO SCH (09:11)
[2020-07-07] MEDS: FERROUS SO4 325 MG TABLET (FP) PO SCH (09:11)
[2020-07-07] MEDS: METOPROLOL TARTRATE 50 MG TABLET (FP) PO SCH ×2 (09:12→21:03)
[2020-07-07] MEDS: amLODIPine BESYLATE 10 MG TABLET (FP) PO SCH (09:14)
[2020-07-07] MEDS: HEPARIN NA (PORCINE) 5,000 UNITS/ML 1ML VIAL SQ SCH ×3 (09:14→21:03)
[2020-07-07] MEDS: SODIUM CHLORIDE 0.45% 1,000 ML IV SCH ×3 (09:15→15:44)
[2020-07-07 09:19] LABS: POTASSIUM 4.6 mmol/L (3.5-5.1)
[2020-07-07 09:29] LABS: ALBUMIN 1.7 g/dl (3.4-5.0); BILIRUBIN,TOTAL 0.4 mg/dL (0.2-1); BLOOD UREA NITROGEN 76.4 mg/dL (7-18); CALCIUM 8.8 mg/dL (8.5-10.1); CREATININE 2.8 mg/dL (0.55-1.3); MAGNESIUM 2.2 mg/dL (1.8-2.4); PHOSPHOROUS 5.1 mg/dL (2.5-4.9); TOT PROT 5.7 g/dl (6.4-8.2)
--- NOTE | 2020-07-07 10:32 | PN ---
Progress Note (short form) - Note Progress Note: Surgery POD #1 L45 laminectomies with decompression and fusion. Patient seen and examined on AM rounds. Patient states her pain is controlled and she denies any Radicular symptoms, N/V, fever or chills. She has not been OOB yet and still has her foster. Vital Signs Temp 97.7 F 07/07/20 08:02 Pulse 76 07/07/20 08:02 Resp 20 07/07/20 08:02 BP 129/62 07/07/20 08:02 Pulse Ox 100 07/07/20 08:02 Intake & Output 07/06/20 07/06/20 07/07/20 11:59 23:59 11:59 Intake Total 1210 850 Output Total 1600 1250 440 Balance -390 -400 -440 Intake: IV 1210 800 1/2 Normal Saline 1,000 300 ml @ 75 mls/hr IV ASDIR [facility] Rx#:[id number] RAC 10 IVPB 50 Output: Drainage 50 40 Right Back 50 40 Urine 1200 1200 400 Foster 800 800 400 Estimated Blood Loss 400 Other: Voiding Method Indwelling Catheter Indwelling Catheter Indwelling Catheter # Unmeasured Voids Foster 1 Bowel Movement No CBC, BMP 07/07/20 07:41 07/07/20 07:41 PE: A&Ox3, NAD, flat affect at baseline Unlabroed resp on 2L NC Lumbar spine: dressing c/d/i with SAMANTHA drain secure in good position some slight drainage around ostomy site Drain put out 90cc post op palak blood. appropriate to status. B/L LE compartments soft, supple and non-tender with scds in place, +2 DP pulses and 5/5 dorsi/plantar flexion, sensation to light touch intact throughout Problem List - Problems (1) S/P lumbar spinal fusion Assessment/Plan: POD #1 L45 laminectomy,decompression and fusions doing well with post op anemia asymptomatic. -Aggressive PT-OOB with TLSO and PT- up to chair for meals -DVT prophylaxis as ordered in setting of TIM -Renal following and recs appreciated-d/c foster per renal -Repeat CBC this afternoon- discussed with Medical team - Encourage IS -measure and record drain output -D/c planning for rehab Code(s): Z98.1 - ARTHRODESIS STATUS
[2020-07-07] MEDS: oxyCODONE HCL 5 MG TABLET PO PRN (10:54)
--- NOTE | 2020-07-07 11:19 | PN ---
Progress Note (short form) - Note Progress Note: Anesthesia Post op Pt seen and examined S:Alert and awake comfortable O: Vital Signs Temperature 97.7 F 07/07/20 08:02 Pulse Rate 76 07/07/20 08:02 Respiratory Rate 20 07/07/20 08:02 Blood Pressure 129/62 07/07/20 08:02 O2 Sat by Pulse Oximetry (%) 100 07/07/20 08:02 CBC, BMP 07/07/20 07:41 07/07/20 07:41 A/P: Current Active Problems CKD (chronic kidney disease) (Acute) Intractable pain (Acute) S/P lumbar spinal fusion (Acute) Sciatica (Acute) Doing well post op Voices no complaint Continue current care Ramiro Gentile MD
[2020-07-07] MEDS ORDERED: INSULIN (NOVOLOG) ASPART 100 UNITS/ML 10ML VIAL ONE (11:29)
--- NOTE | 2020-07-07 12:44 | PN ---
Physical Exam: SUBJECTIVE: Patient seen and examined at bedside, she was eating her breakfast. reports improvement of her pain, denies any new complaints OBJECTIVE: Vital Signs Period Temp Pulse Resp BP Sys/Ruiz Pulse Ox Last 24 Hr 97.7 F-98.9 F 75-89 10-20 129-159/62-88 95-100 GENERAL: AAOx3, in no acute distress HEENT: NCAT, PERRLA, EOMI, sclera anicteric, conjunctiva clear, oropharynx clear w/o exudates. MMM. NECK: Normal ROM, supple, no lymphadenopathy, JVD, or masses LUNGS: CTABL no wheezes/ rhonchi/ rales. No distress, speaks in full sentences. No increased work of breathing. HEART: RRR, normal S1 S2, no M/R/G, peripheral pulses 2+ and equal b/l ABDOMEN: Soft, non-tender, + BS. No guarding or rebound. No hepatomegaly or splenomegaly. MSK: ROM WNL, NO CVA tenderness, SAMANTHA draining blood. EXTREMITIES: Normal inspection. No peripheral edema. No clubbing or cyanosis. Able to move b/l LE NEUROLOGICAL: CN II-XII intact. Normal speech, gait not observed, no focal sensorimotor deficits, intact motor and sensory in b/l LE PSYCH: Normal mood, normal affect. SKIN: Warm, Dry, normal turgor, no rashes or lesions noted Laboratory Results - last 24 hr 07/05/20 07/06/20 07/06/20 16:35 17:11 22:36 WBC RBC Hgb Hct MCV MCH MCHC RDW Plt Count MPV Absolute Neuts (auto) Neutrophils % Lymphocytes % Monocytes % Eosinophils % Basophils % Nucleated RBC % Sodium Potassium Chloride Carbon Dioxide Anion Gap BUN Creatinine Est GFR (CKD-EPI)AfAm Est GFR (CKD-EPI)NonAf POC Glucometer 245 307 Random Glucose Calcium Phosphorus Magnesium Total Bilirubin AST ALT Alkaline Phosphatase Total Protein Albumin Blood Type A POSITIVE Antibody Screen Negative Crossmatch See Detail 07/07/20 07/07/20 07/07/20 06:04 07:41 07:41 WBC 17.7 H RBC 2.56 L Hgb 7.5 L Hct 22.5 L MCV 87.7 MCH 29.3 MCHC 33.4 RDW 16.1 H Plt Count 433 MPV 7.8 Absolute Neuts (auto) 15.3 H Neutrophils % 86.6 H D Lymphocytes % 6.2 L D Monocytes % 7.0 Eosinophils % 0.1 D Basophils % 0.1 Nucleated RBC % 0 Sodium 136 Potassium 4.6 Chloride 106 Carbon Dioxide 20 L Anion Gap 10 BUN 76.4 H Creatinine 2.8 H Est GFR (CKD-EPI)AfAm 20.14 Est GFR (CKD-EPI)NonAf 17.38 POC Glucometer 308 Random Glucose 305 H Calcium 8.8 Phosphorus 5.1 H Magnesium 2.2 Total Bilirubin 0.4 AST 27 ALT 21 Alkaline Phosphatase 255 H Total Protein 5.7 L Albumin 1.7 L Blood Type Antibody Screen Crossmatch 07/07/20 11:32 WBC RBC Hgb Hct MCV MCH MCHC RDW Plt Count MPV Absolute Neuts (auto) Neutrophils % Lymphocytes % Monocytes % Eosinophils % Basophils % Nucleated RBC % Sodium Potassium Chloride Carbon Dioxide Anion Gap BUN Creatinine Est GFR (CKD-EPI)AfAm Est GFR (CKD-EPI)NonAf POC Glucometer 295 Random Glucose Calcium Phosphorus Magnesium Total Bilirubin AST ALT Alkaline Phosphatase Total Protein Albumin Blood Type Antibody Screen Crossmatch Active Medications Generic Name Dose Route Start Last Admin Trade Name Freq PRN Reason Stop Dose Admin Acetaminophen 650 mg 07/06/20 15:54 Tylenol - PO Q6H PRN PAIN LEVEL 1-5 Amlodipine Besylate 10 mg 07/07/20 10:00 07/07/20 09:14 Norvasc - PO 10 mg DAILY [facility] Administration Atorvastatin Calcium 40 mg 07/06/20 22:00 07/06/20 21:57 Lipitor - PO 40 mg HS [facility] Administration Cyclobenzaprine HCl 10 mg 07/06/20 22:00 07/07/20 05:53 Flexeril - PO 10 mg TID [facility] Administration Diphenhydramine HCl 25 mg 07/06/20 14:30 Benadryl - PO Q6H PRN FOR ITCHING Ferrous Sulfate 325 mg 07/07/20 08:00 07/07/20 09:11 Feosol - PO 325 mg DAILY@0800 [facility] Administration Folic Acid 1 mg 07/07/20 10:00 07/07/20 09:11 Folic Acid - PO 1 mg DAILY [facility] Administration Gabapentin 200 mg 07/06/20 22:00 07/07/20 05:53 Neurontin - PO 200 mg TID [facility] Administration Heparin Sodium (Porcine) 5,000 unit 07/07/20 10:00 07/07/20 09:14 Heparin - SQ 5,000 unit TID [facility] Administration Cefazolin Sodium 1 gm/ 50 mls @ 100 mls/hr 07/06/20 18:30 07/07/20 09:22 Dextrose IVPB 07/07/20 18:29 100 mls/hr Q8H-IV [facility] Administration Sodium Chloride 1,000 mls @ 75 mls/hr 07/06/20 15:54 07/07/20 09:15 1/2 Normal Saline IV 75 mls/hr ASDIR [facility] Administration Insulin Aspart 1 vial 07/06/20 16:30 07/07/20 11:34 Novolog Vial Sliding Scale - SQ 4 units ACHS [facility] Administration Protocol Insulin Detemir 7 units 07/06/20 22:00 07/06/20 22:37 Levemir Vial SQ 7 units HS [facility] Administration Metoprolol Tartrate 100 mg 07/06/20 22:00 07/07/20 09:12 Lopressor - PO 100 mg BID [facility] Administration Morphine Sulfate 2 mg 07/06/20 17:03 Morphine Sulfate IVPUSH Q4H PRN breakthrough pain Ondansetron HCl 4 mg 07/06/20 14:30 Zofran Injection IVPUSH Q6H PRN NAUSEA Oxycodone HCl 5 mg 07/06/20 14:42 Roxicodone - PO Q4H PRN PAIN LEVEL 1-5 Oxycodone HCl 10 mg 07/06/20 14:42 07/07/20 10:54 Roxicodone - PO 10 mg Q4H PRN Administration PAIN LEVEL 6-10 Pantoprazole Sodium 40 mg 07/07/20 07:00 07/07/20 06:03 Protonix - PO 40 mg ACBK [facility] Administration ASSESSMENT/PLAN: 64 Y F with a PMHx of DM, HTN, HLD, and CKD presents with lower back and L. Hip pain radiating down LLE over the last 4 days and post-menopausal vaginal bleeding for 3 days. #Intractable back/hip pain - 2/2 to radiculopathy due to herniated disk vs Mass compression, no bowel/b ladder incontinence and saddle anesthesia - Lumbar and L. Hip MRI: noted Patient cannot get contrast study to evaluate for possible mass lesion, due to her kidney functions (low eGFR), elevated crea - Neurosurgery consulted, Dr. Alberto villegas, recs appreciated s/p L4-L5 laminectomies with decompression and fusion POD#1 - Pain control: As per surgery recs #TIM on CKD(S3) - Crea is improving 3.1 , unclear etiology - Renal u/s: Small right renal simple cyst measuring 10 x 8 mm. Bilateral renal sinus lipomatosis. - Nephrology on board, Dr. marcum, recs appreciated - Urology consulted, recs appreciated out-patient cystoscopy and urodynamic studies - Holding HCTZ for now - Resumed IVF, 1/2 ns 75mls/hr #Dysfunctional Uterine bleeding - Post-menopausal - Abdominal US shows multiple fibroids and enlarged myomatous uterus - MRI: Multiple lesions related to the uterus and possibly the right adnexa - CTAP: Mass like density in Right hemipelvis with peripheral calcifications, exophytic uterine fibroid vs ovarian mass - [employer] consuled, will f/u as outpatient, endometrial biopsy Gynecology mass not the cause of patient's TIM/urinary obstruction as per Gynecology # Hx of DM - BGM + ISS #Hx of HTN - Continue Norvasc, Metoprolol # Hx of HLD - Continue Atrovastatin #FEN - 1/2 NS 75mls/hr - Continue to monitor electrolytes - Diabetic diet #DVT Ppx - Heparin SQ TID #Dispo - Will continue to monitor in [place], Planning d/c to rehab Visit type - Emergency Visit Emergency Visit: Yes ED Registration Date: 06/26/20 Care time: The patient presented to the Emergency Department on the above date and was hospitalized for further evaluation of their emergent condition. - New Patient This patient is new to me today: No - Critical Care Critical Care patient: No - Discharge Referral Referred to [facility] Med [facility] No ATTENDING PHYSICIAN STATEMENT I saw and evaluated the patient. I reviewed the resident's note and discussed the case with the resident. I agree with the resident's findings and plan as documented. SUBJECTIVE: OBJECTIVE: ASSESSMENT AND PLAN:
--- NOTE | 2020-07-07 14:06 | PN ---
Progress Note, Physician History of Present Illness: Pt seen and examined at bedside. She is awake and alert. She denies shortness of breath. - Current Medication List Current Medications: Active Medications Acetaminophen (Tylenol -) 650 mg PO Q6H PRN PRN Reason: PAIN LEVEL 1-5 Amlodipine Besylate (Norvasc -) 10 mg PO DAILY [facility] Last Admin: 07/07/20 09:14 Dose: 10 mg Documented by: Atorvastatin Calcium (Lipitor -) 40 mg PO HS [facility] Last Admin: 07/06/20 21:57 Dose: 40 mg Documented by: Cyclobenzaprine HCl (Flexeril -) 10 mg PO TID [facility] Last Admin: 07/07/20 13:32 Dose: 10 mg Documented by: Diphenhydramine HCl (Benadryl -) 25 mg PO Q6H PRN PRN Reason: FOR ITCHING Ferrous Sulfate (Feosol -) 325 mg PO DAILY@0800 [facility] Last Admin: 07/07/20 09:11 Dose: 325 mg Documented by: Folic Acid (Folic Acid -) 1 mg PO DAILY [facility] Last Admin: 07/07/20 09:11 Dose: 1 mg Documented by: Gabapentin (Neurontin -) 200 mg PO TID [facility] Last Admin: 07/07/20 13:33 Dose: 200 mg Documented by: Heparin Sodium (Porcine) (Heparin -) 5,000 unit SQ TID [facility] Last Admin: 07/07/20 13:33 Dose: 5,000 unit Documented by: Cefazolin Sodium 1 gm/ (Dextrose) 50 mls @ 100 mls/hr IVPB Q8H-IV [facility] Stop: 07/07/20 18:29 Last Admin: 07/07/20 09:22 Dose: 100 mls/hr Documented by: Sodium Chloride (1/2 Normal Saline) 1,000 mls @ 75 mls/hr IV ASDIR [facility] Last Admin: 07/07/20 09:15 Dose: 75 mls/hr Documented by: Insulin Aspart (Novolog Vial Sliding Scale -) 1 vial SQ [facility]; Protocol Last Admin: 07/07/20 11:34 Dose: 4 units Documented by: Insulin Detemir (Levemir Vial) 7 units SQ [facility] Last Admin: 07/06/20 22:37 Dose: 7 units Documented by: Metoprolol Tartrate (Lopressor -) 100 mg PO BID [facility] Last Admin: 07/07/20 09:12 Dose: 100 mg Documented by: Morphine Sulfate (Morphine Sulfate) 2 mg IVPUSH Q4H PRN PRN Reason: breakthrough pain Ondansetron HCl (Zofran Injection) 4 mg IVPUSH Q6H PRN PRN Reason: NAUSEA Oxycodone HCl (Roxicodone -) 5 mg PO Q4H PRN PRN Reason: PAIN LEVEL 1-5 Oxycodone HCl (Roxicodone -) 10 mg PO Q4H PRN PRN Reason: PAIN LEVEL 6-10 Last Admin: 07/07/20 10:54 Dose: 10 mg Documented by: Pantoprazole Sodium (Protonix -) 40 mg PO ACBK [facility] Last Admin: 07/07/20 06:03 Dose: 40 mg Documented by: - Objective Vital Signs: Vital Signs Temperature 98.5 F 07/07/20 08:55 Pulse Rate 78 07/07/20 08:55 Respiratory Rate 20 07/07/20 08:55 Blood Pressure 138/79 07/07/20 08:55 O2 Sat by Pulse Oximetry (%) 98 07/07/20 09:00 Constitutional: Yes: Calm Neck: Yes: WNL Cardiovascular: Yes: S1, S2 Respiratory: Yes: CTA Bilaterally Gastrointestinal: Yes: Soft Genitourinary: Yes: Pathak Present Musculoskeletal: Yes: Back Pain Edema: No Neurological: Yes: Oriented Psychiatric: Yes: Oriented Labs: CBC, BMP 07/07/20 07:41 07/07/20 07:41 INR, PTT INR 1.14 (0.83-1.09) H 06/26/20 10:15 Problem List - Problems (1) CKD (chronic kidney disease) Code(s): N18.9 - CHRONIC KIDNEY DISEASE, UNSPECIFIED (2) Sciatica Code(s): M54.30 - SCIATICA, UNSPECIFIED SIDE Qualifiers: Laterality: left Qualified Code(s): M54.32 - Sciatica, left side (3) Hypertension Code(s): I10 - ESSENTIAL (PRIMARY) HYPERTENSION Assessment/Plan Current Medications Generic Name Dose Route Start Last Admin Trade Name Freq PRN Reason Stop Dose Admin Acetaminophen 650 mg 07/06/20 15:54 Tylenol - PO Q6H PRN PAIN LEVEL 1-5 Amlodipine Besylate 10 mg 07/07/20 10:00 07/07/20 09:14 Norvasc - PO 10 mg DAILY [facility] Administration Atorvastatin Calcium 40 mg 07/06/20 22:00 07/06/20 21:57 Lipitor - PO 40 mg HS [facility] Administration Cyclobenzaprine HCl 10 mg 07/06/20 22:00 07/07/20 13:32 Flexeril - PO 10 mg TID [facility] Administration Diphenhydramine HCl 25 mg 07/06/20 14:30 Benadryl - PO Q6H PRN FOR ITCHING Ferrous Sulfate 325 mg 07/07/20 08:00 07/07/20 09:11 Feosol - PO 325 mg DAILY@0800 [facility] Administration Folic Acid 1 mg 07/07/20 10:00 07/07/20 09:11 Folic Acid - PO 1 mg DAILY [facility] Administration Gabapentin 200 mg 07/06/20 22:00 07/07/20 13:33 Neurontin - PO 200 mg TID [facility] Administration Heparin Sodium (Porcine) 5,000 unit 07/07/20 10:00 07/07/20 13:33 Heparin - SQ 5,000 unit TID [facility] Administration Cefazolin Sodium 1 gm/ 50 mls @ 100 mls/hr 07/06/20 18:30 07/07/20 09:22 Dextrose IVPB 07/07/20 18:29 100 mls/hr Q8H-IV [facility] Administration Sodium Chloride 1,000 mls @ 75 mls/hr 07/06/20 15:54 07/07/20 09:15 1/2 Normal Saline IV 75 mls/hr ASDIR [facility] Administration Insulin Aspart 1 vial 07/06/20 16:30 07/07/20 11:34 Novolog Vial Sliding Scale - SQ 4 units ACHS [facility] Administration Protocol Insulin Detemir 7 units 07/06/20 22:00 07/06/20 22:37 Levemir Vial SQ 7 units HS [facility] Administration Metoprolol Tartrate 100 mg 07/06/20 22:00 07/07/20 09:12 Lopressor - PO 100 mg BID [facility] Administration Morphine Sulfate 2 mg 07/06/20 17:03 Morphine Sulfate IVPUSH Q4H PRN breakthrough pain Ondansetron HCl 4 mg 07/06/20 14:30 Zofran Injection IVPUSH Q6H PRN NAUSEA Oxycodone HCl 5 mg 07/06/20 14:42 Roxicodone - PO Q4H PRN PAIN LEVEL 1-5 Oxycodone HCl 10 mg 07/06/20 14:42 07/07/20 10:54 Roxicodone - PO 10 mg Q4H PRN Administration PAIN LEVEL 6-10 Pantoprazole Sodium 40 mg 07/07/20 07:00 07/07/20 06:03 Protonix - PO 40 mg ACBK [facility] Administration Laboratory Tests 06/27/20 06/30/20 20:00 15:00 SHAZIA M-Braden Not observed c-ANCA <1:20 Proteinase 3 (PR3) <3.5 p-ANCA <1:20 Atypical p-ANCA <1:20 Myeloperoxidase Ab <9.0 Double Strand DNA Ab <1 Glomerular Base Memb Ab 3 Impression 1. CKD 2. TIM 3. back pain 4. dm 5. htn 6. obesity 7. possible spinal mass lesion Plan - renal function improving - serologies negative - cont fluids, decrease rate - repeat labs in am - tim likely in part pre-renal
[2020-07-07 15:59] LABS: BASO % 0.1 % (0-2.0); EOS % 0.3 % (0-4.5); HEMATOCRIT 22.6 % (32.4-45.2); HEMOGLOBIN 7.4 GM/dL (10.7-15.3); LYMPH % 7.3 % (8-40); MCH 28.8 pg (25.7-33.7); MCHC 32.9 g/dl (32.0-36.0); MEAN CELL VOLUME 87.6 fl (80-96); MEAN PLT VOLUME 8.1 fl (7.5-11.1); NEUT % 83.3 % (42.8-82.8); PLATELET COUNT 435 K/MM3 (134-434); RBC 2.58 M/mm3 (3.60-5.2); RDW 15.9 % (11.6-15.6); WHITE BLOOD COUNT 17.7 K/mm3 (4.0-10.0)
--- NOTE | 2020-07-07 16:03 | PN ---
Teaching Attending Note Name of Resident: Desirae Gage ATTENDING PHYSICIAN STATEMENT I saw and evaluated the patient. I reviewed the resident's note and discussed the case with the resident. I agree with the resident's findings and plan as documented. SUBJECTIVE: pt seen and examined, reporting improvement of pain OBJECTIVE: Last Vital Signs Temp Pulse Resp BP Pulse Ox 98.5 F 78 20 138/79 98 07/07/20 08:55 07/07/20 08:55 07/07/20 08:55 07/07/20 08:55 07/07/20 09:00 GENERAL: Awake, alert, and fully oriented, in no acute distress. HEENT: AT/NC, PERRLA, EOMI LUNGS: Breath sounds equal, clear to auscultation bilaterally. No wheezes, and no crackles. No accessory muscle use. HEART: Regular rate and rhythm, normal S1 and S2 ABDOMEN: Obese, Soft, nontender, not distended, LLQ round mass felt on deep palpation MUSCULOSKELETAL: Normal range of motion at all joints. No bony deformities or tenderness. No CVA tenderness. UPPER EXTREMITIES: 2+ pulses, warm, well-perfused. No cyanosis. No clubbing. No peripheral edema. LOWER EXTREMITIES: 2+ pulses, warm, well-perfused. No calf tenderness. No peripheral edema. NEUROLOGICAL: Cranial nerves II-XII intact. Normal speech. LE limited strength 4/5 CBCD WBC 17.7 K/mm3 (4.0-10.0) H 07/07/20 07:41 RBC 2.56 M/mm3 (3.60-5.2) L 07/07/20 07:41 Hgb 7.5 GM/dL (10.7-15.3) L 07/07/20 07:41 Hct 22.5 % (32.4-45.2) L 07/07/20 07:41 MCV 87.7 fl (80-96) 07/07/20 07:41 MCHC 33.4 g/dl (32.0-36.0) 07/07/20 07:41 RDW 16.1 % (11.6-15.6) H 07/07/20 07:41 Plt Count 433 K/MM3 (134-434) 07/07/20 07:41 MPV 7.8 fl (7.5-11.1) 07/07/20 07:41 CMP Sodium 136 mmol/L (136-145) 07/07/20 07:41 Potassium 4.6 mmol/L (3.5-5.1) 07/07/20 07:41 Chloride 106 mmol/L (98-107) 07/07/20 07:41 Carbon Dioxide 20 mmol/L (21-32) L 07/07/20 07:41 Anion Gap 10 MMOL/L (8-16) 07/07/20 07:41 BUN 76.4 mg/dL (7-18) H 07/07/20 07:41 Creatinine 2.8 mg/dL (0.55-1.3) H 07/07/20 07:41 Calcium 8.8 mg/dL (8.5-10.1) 07/07/20 07:41 Total Bilirubin 0.4 mg/dL (0.2-1) 07/07/20 07:41 AST 27 U/L (15-37) 07/07/20 07:41 ALT 21 U/L (13-61) 07/07/20 07:41 Alkaline Phosphatase 255 U/L (45-117) H 07/07/20 07:41 Total Protein 5.7 g/dl (6.4-8.2) L 07/07/20 07:41 Albumin 1.7 g/dl (3.4-5.0) L 07/07/20 07:41 Active Medications Acetaminophen (Tylenol -) 650 mg PO Q6H PRN PRN Reason: PAIN LEVEL 1-5 Amlodipine Besylate (Norvasc -) 10 mg PO DAILY [facility] Last Admin: 07/07/20 09:14 Dose: 10 mg Documented by: Atorvastatin Calcium (Lipitor -) 40 mg PO HS [facility] Last Admin: 07/06/20 21:57 Dose: 40 mg Documented by: Cyclobenzaprine HCl (Flexeril -) 10 mg PO TID [facility] Last Admin: 07/07/20 13:32 Dose: 10 mg Documented by: Diphenhydramine HCl (Benadryl -) 25 mg PO Q6H PRN PRN Reason: FOR ITCHING Ferrous Sulfate (Feosol -) 325 mg PO DAILY@0800 [facility] Last Admin: 07/07/20 09:11 Dose: 325 mg Documented by: Folic Acid (Folic Acid -) 1 mg PO DAILY [facility] Last Admin: 07/07/20 09:11 Dose: 1 mg Documented by: Gabapentin (Neurontin -) 200 mg PO TID [facility] Last Admin: 07/07/20 13:33 Dose: 200 mg Documented by: Heparin Sodium (Porcine) (Heparin -) 5,000 unit SQ TID [facility] Last Admin: 07/07/20 13:33 Dose: 5,000 unit Documented by: Cefazolin Sodium 1 gm/ (Dextrose) 50 mls @ 100 mls/hr IVPB Q8H-IV [facility] Stop: 07/07/20 18:29 Last Admin: 07/07/20 09:22 Dose: 100 mls/hr Documented by: Sodium Chloride (1/2 Normal Saline) 1,000 mls @ 50 mls/hr IV ASDIR [facility] Last Admin: 07/07/20 14:26 Dose: 50 mls/hr Documented by: Insulin Aspart (Novolog Vial Sliding Scale -) 1 vial SQ [facility]; Protocol Last Admin: 07/07/20 11:34 Dose: 4 units Documented by: Insulin Detemir (Levemir Vial) 7 units SQ HS [facility] Last Admin: 07/06/20 22:37 Dose: 7 units Documented by: Metoprolol Tartrate (Lopressor -) 100 mg PO BID [facility] Last Admin: 07/07/20 09:12 Dose: 100 mg Documented by: Morphine Sulfate (Morphine Sulfate) 2 mg IVPUSH Q4H PRN PRN Reason: breakthrough pain Ondansetron HCl (Zofran Injection) 4 mg IVPUSH Q6H PRN PRN Reason: NAUSEA Oxycodone HCl (Roxicodone -) 5 mg PO Q4H PRN PRN Reason: PAIN LEVEL 1-5 Oxycodone HCl (Roxicodone -) 10 mg PO Q4H PRN PRN Reason: PAIN LEVEL 6-10 Last Admin: 07/07/20 10:54 Dose: 10 mg Documented by: Pantoprazole Sodium (Protonix -) 40 mg PO ACBK [facility] Last Admin: 07/07/20 06:03 Dose: 40 mg Documented by: ASSESSMENT AND PLAN: 64 year old female with history of DM 2, HTN, HLD, CKD 3, presents with lower back pain, L Hip pain, radiating down LLE, as well as 3 day history of post- menopausal vaginal bleeding, now resolved. # Sciatica and Back Pain sec to DJD, nerve impingement, spinal stenosis s/p L4-5 laminectomies, SAMANTHA drain pain management as indicated PT will trend H&H keep Hg>7 Neurosurgery consult appreciated Case discussed with consults # TIM on CKD 3 improving Creat likely multifactorial Pathak placed by Urology avoid nephrotoxin, renal dose of medications Post-menopausal Dysfunctional Uterine Bleeding, Rt hemipelvic mass -outpatient workup with OBGYN Normocytic Anemia, stable h&H HLD DM 2 HTN DVT Px - SCDs.
[2020-07-07] MEDS: ATORVASTATIN CA 40 MG TABLET (FP) PO SCH (21:03)
[2020-07-07] MEDS: INSULIN (LEVEMIR) 100 UNITS/ML UNITS SQ SCH (21:03)
[2020-07-08] MEDS: oxyCODONE HCL 5 MG TABLET PO PRN ×3 (04:20→21:50)
[2020-07-08] MEDS: GABAPENTIN 100 MG CAPSULE PO SCH ×3 (06:09→21:50)
[2020-07-08] MEDS: HEPARIN NA (PORCINE) 5,000 UNITS/ML 1ML VIAL SQ SCH ×3 (06:09→21:48)
[2020-07-08] MEDS: CYCLOBENZAPRINE HCL 10 MG TABLET (FP) PO SCH ×3 (06:09→21:48)
[2020-07-08] MEDS: PANTOPRAZOLE 40 MG TABLET PO SCH (06:10)
[2020-07-08] MEDS: INSULIN SLIDING SCALE (NOVOLOG) 1 VIAL SQ SCH ×4 (06:10→21:44)
[2020-07-08] MEDS ORDERED: INSULIN (NOVOLOG) ASPART 100 UNITS/ML 10ML VIAL ONE ×3 (06:37→20:55)
[2020-07-08 07:44] LABS: BASO % 0.3 % (0-2.0); EOS % 1.7 % (0-4.5); HEMATOCRIT 22.6 % (32.4-45.2); HEMOGLOBIN 7.5 GM/dL (10.7-15.3); LYMPH % 11.8 % (8-40); MCH 28.9 pg (25.7-33.7); MCHC 33.1 g/dl (32.0-36.0); MEAN CELL VOLUME 87.4 fl (80-96); MEAN PLT VOLUME 7.6 fl (7.5-11.1); MONO % 10.3 % (3.8-10.2); NEUT % 75.9 % (42.8-82.8); PLATELET COUNT 432 K/MM3 (134-434); RBC 2.58 M/mm3 (3.60-5.2); RDW 15.9 % (11.6-15.6); WHITE BLOOD COUNT 13.9 K/mm3 (4.0-10.0)
[2020-07-08 08:26] LABS: ALBUMIN 1.7 g/dl (3.4-5.0); BILIRUBIN,TOTAL 0.2 mg/dL (0.2-1); BLOOD UREA NITROGEN 71.5 mg/dL (7-18); CALCIUM 8.5 mg/dL (8.5-10.1); CREATININE 2.5 mg/dL (0.55-1.3); MAGNESIUM 1.8 mg/dL (1.8-2.4); PHOSPHOROUS 3.5 mg/dL (2.5-4.9); POTASSIUM 4.1 mmol/L (3.5-5.1); TOT PROT 5.4 g/dl (6.4-8.2)
[2020-07-08] MEDS: FERROUS SO4 325 MG TABLET (FP) PO SCH (09:21)
[2020-07-08] MEDS: METOPROLOL TARTRATE 50 MG TABLET (FP) PO SCH ×2 (09:21→21:47)
[2020-07-08] MEDS: FOLIC ACID 1 MG TABLET (FP) PO SCH (09:21)
[2020-07-08] MEDS: amLODIPine BESYLATE 10 MG TABLET (FP) PO SCH (09:21)
[2020-07-08 11:44] LABS: ANISOCYTOSIS 1+; MACROCYTOSIS 0; PLATELET ESTIMATE NORMAL
--- NOTE | 2020-07-08 12:57 | PN ---
Physical Exam: SUBJECTIVE: Patient seen and examined OBJECTIVE: Vital Signs Period Temp Pulse Resp BP Sys/Ruiz Pulse Ox Last 24 Hr 98.6 F-99.5 F 80-85 20-20 134-155/72-86 96-97 GENERAL: Awake, alert, and fully oriented, in no acute distress. HEENT: AT/NC, PERRLA, EOMI LUNGS: Breath sounds equal, clear to auscultation bilaterally. No wheezes, and no crackles. No accessory muscle use. HEART: Regular rate and rhythm, normal S1 and S2 ABDOMEN: Obese, Soft, nontender, not distended, LLQ round mass felt on deep palpation MUSCULOSKELETAL: Normal range of motion at all joints. No bony deformities or tenderness. No CVA tenderness. UPPER EXTREMITIES: 2+ pulses, warm, well-perfused. No cyanosis. No clubbing. No peripheral edema. LOWER EXTREMITIES: 2+ pulses, warm, well-perfused. No calf tenderness. No peripheral edema. NEUROLOGICAL: Cranial nerves II-XII intact. Normal speech. LE limited strength 4/5 Laboratory Results - last 24 hr 07/05/20 07/07/20 07/07/20 16:35 15:45 16:32 WBC 17.7 H RBC 2.58 L Hgb 7.4 L Hct 22.6 L MCV 87.6 MCH 28.8 MCHC 32.9 RDW 15.9 H Plt Count 435 H MPV 8.1 Absolute Neuts (auto) 14.7 H Neutrophils % 83.3 H Neutrophils % (Manual) Band Neutrophils % Lymphocytes % 7.3 L Lymphocytes % (Manual) Monocytes % 9.0 Monocytes % (Manual) Eosinophils % 0.3 D Eosinophils % (Manual) Basophils % 0.1 Basophils % (Manual) Myelocytes % (Man) Promyelocytes % (Man) Blast Cells % (Manual) Nucleated RBC % 0 Metamyelocytes Hypochromia Platelet Estimate Polychromasia Poikilocytosis Basophilic Stippling Anisocytosis Microcytosis Macrocytosis Sodium Potassium Chloride Carbon Dioxide Anion Gap BUN Creatinine Est GFR (CKD-EPI)AfAm Est GFR (CKD-EPI)NonAf POC Glucometer 313 Random Glucose Calcium Phosphorus Magnesium Total Bilirubin AST ALT Alkaline Phosphatase Total Protein Albumin Crossmatch See Detail 07/07/20 07/08/20 07/08/20 20:36 06:03 07:30 WBC RBC Hgb Hct MCV MCH MCHC RDW Plt Count MPV Absolute Neuts (auto) Neutrophils % Neutrophils % (Manual) Band Neutrophils % Lymphocytes % Lymphocytes % (Manual) Monocytes % Monocytes % (Manual) Eosinophils % Eosinophils % (Manual) Basophils % Basophils % (Manual) Myelocytes % (Man) Promyelocytes % (Man) Blast Cells % (Manual) Nucleated RBC % Metamyelocytes Hypochromia Platelet Estimate Polychromasia Poikilocytosis Basophilic Stippling Anisocytosis Microcytosis Macrocytosis Sodium 136 Potassium 4.1 Chloride 106 Carbon Dioxide 23 Anion Gap 7 L BUN 71.5 H Creatinine 2.5 H Est GFR (CKD-EPI)AfAm 23.09 Est GFR (CKD-EPI)NonAf 19.93 POC Glucometer 353 251 Random Glucose 276 H Calcium 8.5 Phosphorus 3.5 Magnesium 1.8 Total Bilirubin 0.2 AST 20 ALT 13 Alkaline Phosphatase 219 H Total Protein 5.4 L Albumin 1.7 L Crossmatch 07/08/20 07/08/20 07:30 11:42 WBC 13.9 H RBC 2.58 L Hgb 7.5 L Hct 22.6 L MCV 87.4 MCH 28.9 MCHC 33.1 RDW 15.9 H Plt Count 432 MPV 7.6 Absolute Neuts (auto) 10.5 H Neutrophils % 75.9 Neutrophils % (Manual) 82.0 Band Neutrophils % 0.0 Lymphocytes % 11.8 D Lymphocytes % (Manual) 9.0 D Monocytes % 10.3 H Monocytes % (Manual) 3 L Eosinophils % 1.7 D Eosinophils % (Manual) 3.0 D Basophils % 0.3 Basophils % (Manual) 2.0 D Myelocytes % (Man) 1 D Promyelocytes % (Man) 0 Blast Cells % (Manual) 0 Nucleated RBC % 0 Metamyelocytes 0 Hypochromia 0 Platelet Estimate Normal Polychromasia 0 Poikilocytosis 0 Basophilic Stippling 1+ Anisocytosis 1+ Microcytosis 0 Macrocytosis 0 Sodium Potassium Chloride Carbon Dioxide Anion Gap BUN Creatinine Est GFR (CKD-EPI)AfAm Est GFR (CKD-EPI)NonAf POC Glucometer 234 Random Glucose Calcium Phosphorus Magnesium Total Bilirubin AST ALT Alkaline Phosphatase Total Protein Albumin Crossmatch Active Medications Generic Name Dose Route Start Last Admin Trade Name Freq PRN Reason Stop Dose Admin Acetaminophen 650 mg 07/06/20 15:54 Tylenol - PO Q6H PRN PAIN LEVEL 1-5 Amlodipine Besylate 10 mg 07/07/20 10:00 07/08/20 09:21 Norvasc - PO 10 mg DAILY ROSCOE Administration Atorvastatin Calcium 40 mg 07/06/20 22:00 07/07/20 21:03 Lipitor - PO 40 mg HS ROSCOE Administration Cyclobenzaprine HCl 10 mg 07/06/20 22:00 07/08/20 06:09 Flexeril - PO 10 mg TID ROSCOE Administration Diphenhydramine HCl 25 mg 07/06/20 14:30 Benadryl - PO Q6H PRN FOR ITCHING Ferrous Sulfate 325 mg 07/07/20 08:00 07/08/20 09:21 Feosol - PO 325 mg DAILY@0800 ROSCOE Administration Folic Acid 1 mg 07/07/20 10:00 07/08/20 09:21 Folic Acid - PO 1 mg DAILY ROSCOE Administration Gabapentin 200 mg 07/06/20 22:00 07/08/20 06:09 Neurontin - PO 200 mg TID ROSCOE Administration Heparin Sodium (Porcine) 5,000 unit 07/07/20 10:00 07/08/20 06:09 Heparin - SQ 5,000 unit TID ROSCOE Administration Sodium Chloride 1,000 mls @ 50 mls/hr 07/07/20 14:06 07/07/20 14:26 1/2 Normal Saline IV 50 mls/hr ASDIR ROSCOE Administration Insulin Aspart 1 vial 07/06/20 16:30 07/08/20 11:51 Novolog Vial Sliding Scale - SQ 2 units ACHS ROSCOE Administration Protocol Insulin Detemir 7 units 07/06/20 22:00 07/07/20 21:03 Levemir Vial SQ 7 units HS ROSCOE Administration Metoprolol Tartrate 100 mg 07/06/20 22:00 07/08/20 09:21 Lopressor - PO 100 mg BID ROSCOE Administration Morphine Sulfate 2 mg 07/06/20 17:03 Morphine Sulfate IVPUSH Q4H PRN breakthrough pain Ondansetron HCl 4 mg 07/06/20 14:30 Zofran Injection IVPUSH Q6H PRN NAUSEA Oxycodone HCl 5 mg 07/06/20 14:42 Roxicodone - PO Q4H PRN PAIN LEVEL 1-5 Oxycodone HCl 10 mg 07/06/20 14:42 07/08/20 10:03 Roxicodone - PO 10 mg Q4H PRN Administration PAIN LEVEL 6-10 Pantoprazole Sodium 40 mg 07/07/20 07:00 07/08/20 06:10 Protonix - PO 40 mg ACBK ROSCOE Administration ASSESSMENT/PLAN: 64 year old female with history of DM 2, HTN, HLD, CKD 3, presents with lower back pain, L Hip pain, radiating down LLE, as well as 3 day history of post- menopausal vaginal bleeding, now resolved. # Sciatica and Back Pain sec to DJD, nerve impingement, spinal stenosis s/p L4-5 laminectomies, SAMANTHA drain pain management as indicated PT will trend H&H keep Hg>7 Neurosurgery consult appreciated Case discussed with consults # TIM on CKD 3 improving Creat likely multifactorial plan to trend creatinine for next 24-48 hr to decide about MRI with contrast. If not will plan dc to rehab. avoid nephrotoxin, renal dose of medications Post-menopausal Dysfunctional Uterine Bleeding, Rt hemipelvic mass -outpatient workup with OBGYN Normocytic Anemia, stable h&H HLD DM 2 HTN DVT Px - SCDs. Visit type - Emergency Visit Emergency Visit: Yes ED Registration Date: 06/26/20 Care time: The patient presented to the Emergency Department on the above date and was hospitalized for further evaluation of their emergent condition. - New Patient This patient is new to me today: No - Critical Care Critical Care patient: No - Discharge Referral Referred to [facility] Med P.C.: No
[2020-07-08] MEDS: SODIUM CHLORIDE 0.45% 1,000 ML IV SCH (14:10)
[2020-07-08] MEDS: ATORVASTATIN CA 40 MG TABLET (FP) PO SCH (21:47)
[2020-07-08] MEDS: INSULIN (LEVEMIR) 100 UNITS/ML UNITS SQ SCH (21:49)
[2020-07-09] MEDS: oxyCODONE HCL 5 MG TABLET PO PRN ×2 (06:26→12:55)
[2020-07-09] MEDS: HEPARIN NA (PORCINE) 5,000 UNITS/ML 1ML VIAL SQ SCH ×3 (06:26→22:44)
[2020-07-09] MEDS: INSULIN SLIDING SCALE (NOVOLOG) 1 VIAL SQ SCH ×4 (06:26→22:42)
[2020-07-09] MEDS: GABAPENTIN 100 MG CAPSULE PO SCH ×3 (06:27→22:46)
[2020-07-09] MEDS: CYCLOBENZAPRINE HCL 10 MG TABLET (FP) PO SCH ×2 (07:25→09:20)
[2020-07-09 08:26] LABS: BASO % 0.2 % (0-2.0); EOS % 2.3 % (0-4.5); HEMATOCRIT 22.6 % (32.4-45.2); HEMOGLOBIN 7.4 GM/dL (10.7-15.3); LYMPH % 15.3 % (8-40); MCH 28.3 pg (25.7-33.7); MCHC 32.6 g/dl (32.0-36.0); MEAN CELL VOLUME 86.8 fl (80-96); MEAN PLT VOLUME 7.4 fl (7.5-11.1); MONO % 11.7 % (3.8-10.2); NEUT % 70.5 % (42.8-82.8); PLATELET COUNT 467 K/MM3 (134-434); RBC 2.61 M/mm3 (3.60-5.2); RDW 16.4 % (11.6-15.6); WHITE BLOOD COUNT 12.2 K/mm3 (4.0-10.0)
[2020-07-09 08:43] LABS: ALBUMIN 1.7 g/dl (3.4-5.0); BILIRUBIN,TOTAL 0.3 mg/dL (0.2-1); BLOOD UREA NITROGEN 67.8 mg/dL (7-18); CALCIUM 8.6 mg/dL (8.5-10.1); CREATININE 2.4 mg/dL (0.55-1.3); POTASSIUM 4.4 mmol/L (3.5-5.1); TOT PROT 5.7 g/dl (6.4-8.2)
[2020-07-09] MEDS: METOPROLOL TARTRATE 50 MG TABLET (FP) PO SCH ×2 (09:20→22:43)
[2020-07-09] MEDS: amLODIPine BESYLATE 10 MG TABLET (FP) PO SCH (09:21)
[2020-07-09] MEDS: FOLIC ACID 1 MG TABLET (FP) PO SCH (09:21)
[2020-07-09] MEDS: FERROUS SO4 325 MG TABLET (FP) PO SCH (09:21)
[2020-07-09] MEDS: PANTOPRAZOLE 40 MG TABLET PO SCH (09:23)
--- NOTE | 2020-07-09 12:30 | PN ---
Physical Exam: SUBJECTIVE: Patient seen and examined, reports she does not have pain but feels sore OBJECTIVE: Vital Signs Period Temp Pulse Resp BP Sys/Ruiz Pulse Ox Last 24 Hr 98.4 F-98.8 F 74-88 20-20 115-154/70-88 92-95 GENERAL: The patient is awake, but sleepy HEAD: Normal with no signs of trauma. ENT: moist mucous membranes.. LUNGS: Breath sounds equal, clear to auscultation bilaterally, no wheezes, no crackles, no accessory muscle use. HEART: Regular rate and rhythm, S1, S2 without murmur, rub or gallop. ABDOMEN: Soft, nontender, nondistended, normoactive bowel sounds EXTREMITIES: 2+ pulses, warm, well-perfused, no edema. SAMANTHA drain present NEUROLOGICAL: positive for sensation and movement of b/l feet SKIN: Warm, dry, normal turgor, no rashes or lesions noted CBC, BMP 07/09/20 07:50 07/09/20 07:50 Active Medications Generic Name Dose Route Start Last Admin Trade Name Freq PRN Reason Stop Dose Admin Acetaminophen 650 mg 07/06/20 15:54 Tylenol - PO Q6H PRN PAIN LEVEL 1-5 Amlodipine Besylate 10 mg 07/07/20 10:00 07/09/20 09:21 Norvasc - PO 10 mg DAILY ROSCOE Administration Atorvastatin Calcium 40 mg 07/06/20 22:00 07/08/20 21:47 Lipitor - PO 40 mg HS ROSCOE Administration Cyclobenzaprine HCl 10 mg 07/06/20 22:00 07/09/20 09:20 Flexeril - PO 10 mg TID ROSCOE Administration Diphenhydramine HCl 25 mg 07/06/20 14:30 Benadryl - PO Q6H PRN FOR ITCHING Ferrous Sulfate 325 mg 07/07/20 08:00 07/09/20 09:21 Feosol - PO 325 mg DAILY@0800 ROSCOE Administration Folic Acid 1 mg 07/07/20 10:00 07/09/20 09:21 Folic Acid - PO 1 mg DAILY ROSCOE Administration Gabapentin 200 mg 07/06/20 22:00 07/09/20 06:27 Neurontin - PO 200 mg TID ROSCOE Administration Heparin Sodium (Porcine) 5,000 unit 07/07/20 10:00 07/09/20 06:26 Heparin - SQ 5,000 unit TID ROSCOE Administration Sodium Chloride 1,000 mls @ 50 mls/hr 07/07/20 14:06 07/08/20 14:10 1/2 Normal Saline IV 50 mls/hr ASDIR ROSCOE Administration Insulin Aspart 1 vial 07/06/20 16:30 07/09/20 11:25 Novolog Vial Sliding Scale - SQ Not Given ACHS [facility] Protocol Insulin Detemir 7 units 07/06/20 22:00 07/08/20 21:49 Levemir Vial SQ 7 units HS ROSCOE Administration Metoprolol Tartrate 100 mg 07/06/20 22:00 07/09/20 09:20 Lopressor - PO 100 mg BID ROSCEO Administration Morphine Sulfate 2 mg 07/06/20 17:03 Morphine Sulfate IVPUSH Q4H PRN breakthrough pain Ondansetron HCl 4 mg 07/06/20 14:30 Zofran Injection IVPUSH Q6H PRN NAUSEA Oxycodone HCl 5 mg 07/06/20 14:42 Roxicodone - PO Q4H PRN PAIN LEVEL 1-5 Oxycodone HCl 10 mg 07/06/20 14:42 07/09/20 06:26 Roxicodone - PO 10 mg Q4H PRN Administration PAIN LEVEL 6-10 Pantoprazole Sodium 40 mg 07/07/20 07:00 07/09/20 09:23 Protonix - PO 40 mg ACBK ROSCOE Administration ASSESSMENT/PLAN: 64 Y F with a PMHx of DM, HTN, HLD, and CKD who is admitted for intractable back pain and s/p Laminectomy. #s/p Laminectomy, disc herniation - Disc herniation seen on MRI - pain management: multifactoral pain - Neurosurgery preformed L4-5 laminectomies with decompressions and fusion - recommends aggressive PT-OOB, patient has difficulty participating with PT and will need rehab - decreased Flexaril to 5mg bid prn, gabapentin 200 TID - drain to be removed tomorrow - continue incentive spirometer - Oxy as needed for pain, morphine 2 q4h prn - continue to monitor H/H, keep hgb > 7 - if creatinine lowers, patient would benefit from a MRI with contrast #HTN - continue amlodipine #anemia - likely multifactoral, iron deficiency - continue ferrous sulfate #TIM on CKD - cannot exclude AIN - continue to monitor creatinine #DM - continue BGM's and SS - continue levemir 7 #DVT ppx: heparin tid FEN - diabetic diet dispo: continue rehab planning Visit type - Emergency Visit Emergency Visit: No - New Patient This patient is new to me today: Yes Date on this admission: 07/09/20 - Critical Care Critical Care patient: No ATTENDING PHYSICIAN STATEMENT I saw and evaluated the patient. I reviewed the resident's note and discussed the case with the resident. I agree with the resident's findings and plan as documented. SUBJECTIVE: OBJECTIVE: ASSESSMENT AND PLAN:
--- NOTE | 2020-07-09 13:20 | PN ---
Teaching Attending Note Name of Resident: Funmilayo Sawant ATTENDING PHYSICIAN STATEMENT I saw and evaluated the patient. I reviewed the resident's note and discussed the case with the resident. I agree with the resident's findings and plan as documented. SUBJECTIVE: pt seen and examined OBJECTIVE: Last Vital Signs Temp Pulse Resp BP Pulse Ox 98.5 F 74 20 136/70 95 07/09/20 11:10 07/09/20 11:10 07/09/20 11:10 07/09/20 11:10 07/09/20 11:10 GENERAL: Awake,appears sleepy, lethargic?, and fully oriented, in no acute distress. HEENT: AT/NC, PERRLA, EOMI LUNGS: Breath sounds equal, clear to auscultation bilaterally. No wheezes, and no crackles. No accessory muscle use. HEART: Regular rate and rhythm, normal S1 and S2 ABDOMEN: Obese, Soft, nontender, not distended, LLQ round mass felt on deep palpation MUSCULOSKELETAL: Normal range of motion at all joints. No bony deformities or tenderness. No CVA tenderness. UPPER EXTREMITIES: 2+ pulses, warm, well-perfused. No cyanosis. No clubbing. No peripheral edema. LOWER EXTREMITIES: 2+ pulses, warm, well-perfused. No calf tenderness. No peripheral edema. NEUROLOGICAL: Cranial nerves II-XII intact. Normal speech. LE limited strength 4/5 CBCD WBC 12.2 K/mm3 (4.0-10.0) H 07/09/20 07:50 RBC 2.61 M/mm3 (3.60-5.2) L 07/09/20 07:50 Hgb 7.4 GM/dL (10.7-15.3) L 07/09/20 07:50 Hct 22.6 % (32.4-45.2) L 07/09/20 07:50 MCV 86.8 fl (80-96) 07/09/20 07:50 MCHC 32.6 g/dl (32.0-36.0) 07/09/20 07:50 RDW 16.4 % (11.6-15.6) H 07/09/20 07:50 Plt Count 467 K/MM3 (134-434) H 07/09/20 07:50 MPV 7.4 fl (7.5-11.1) L 07/09/20 07:50 CMP Sodium 135 mmol/L (136-145) L 07/09/20 07:50 Potassium 4.4 mmol/L (3.5-5.1) 07/09/20 07:50 Chloride 105 mmol/L (98-107) 07/09/20 07:50 Carbon Dioxide 24 mmol/L (21-32) 07/09/20 07:50 Anion Gap 7 MMOL/L (8-16) L 07/09/20 07:50 BUN 67.8 mg/dL (7-18) H 07/09/20 07:50 Creatinine 2.4 mg/dL (0.55-1.3) H 07/09/20 07:50 Random Glucose 231 mg/dL (74-106) H 07/09/20 07:50 Calcium 8.6 mg/dL (8.5-10.1) 07/09/20 07:50 Total Bilirubin 0.3 mg/dL (0.2-1) 07/09/20 07:50 AST 15 U/L (15-37) 07/09/20 07:50 ALT 9 U/L (13-61) L 07/09/20 07:50 Alkaline Phosphatase 200 U/L (45-117) H 07/09/20 07:50 Total Protein 5.7 g/dl (6.4-8.2) L 07/09/20 07:50 Albumin 1.7 g/dl (3.4-5.0) L 07/09/20 07:50 Active Medications Acetaminophen (Tylenol -) 650 mg PO Q6H PRN PRN Reason: PAIN LEVEL 1-5 Amlodipine Besylate (Norvasc -) 10 mg PO DAILY [facility] Last Admin: 07/09/20 09:21 Dose: 10 mg Documented by: Atorvastatin Calcium (Lipitor -) 40 mg PO HS [facility] Last Admin: 07/08/20 21:47 Dose: 40 mg Documented by: Cyclobenzaprine HCl (Flexeril -) 5 mg PO BID PRN PRN Reason: BACK PAIN Diphenhydramine HCl (Benadryl -) 25 mg PO Q6H PRN PRN Reason: FOR ITCHING Ferrous Sulfate (Feosol -) 325 mg PO DAILY@0800 [facility] Last Admin: 07/09/20 09:21 Dose: 325 mg Documented by: Folic Acid (Folic Acid -) 1 mg PO DAILY [facility] Last Admin: 07/09/20 09:21 Dose: 1 mg Documented by: Gabapentin (Neurontin -) 200 mg PO TID [facility] Last Admin: 07/09/20 06:27 Dose: 200 mg Documented by: Heparin Sodium (Porcine) (Heparin -) 5,000 unit SQ TID [facility] Last Admin: 07/09/20 06:26 Dose: 5,000 unit Documented by: Sodium Chloride (1/2 Normal Saline) 1,000 mls @ 50 mls/hr IV ASDIR [facility] Last Admin: 07/08/20 14:10 Dose: 50 mls/hr Documented by: Insulin Aspart (Novolog Vial Sliding Scale -) 1 vial SQ [facility]; Protocol Last Admin: 07/09/20 11:25 Dose: Not Given Documented by: Insulin Detemir (Levemir Vial) 7 units SQ HS [facility] Last Admin: 07/08/20 21:49 Dose: 7 units Documented by: Metoprolol Tartrate (Lopressor -) 100 mg PO BID [facility] Last Admin: 07/09/20 09:20 Dose: 100 mg Documented by: Morphine Sulfate (Morphine Sulfate) 2 mg IVPUSH Q4H PRN PRN Reason: breakthrough pain Ondansetron HCl (Zofran Injection) 4 mg IVPUSH Q6H PRN PRN Reason: NAUSEA Oxycodone HCl (Roxicodone -) 5 mg PO Q4H PRN PRN Reason: PAIN LEVEL 1-5 Oxycodone HCl (Roxicodone -) 10 mg PO Q4H PRN PRN Reason: PAIN LEVEL 6-10 Last Admin: 07/09/20 12:55 Dose: 10 mg Documented by: Pantoprazole Sodium (Protonix -) 40 mg PO ACBK [facility] Last Admin: 07/09/20 09:23 Dose: 40 mg Documented by: ASSESSMENT AND PLAN: 64 year old female with history of DM 2, HTN, HLD, CKD 3, presents with lower back pain, L Hip pain, radiating down LLE, as well as 3 day history of post- menopausal vaginal bleeding, now resolved. # Sciatica and Back Pain sec to DJD, nerve impingement, spinal stenosis s/p L4-5 laminectomies, SAMANTHA drain drain to be removed in AM pain management as indicated will taper flexeril and reassess mental status c/w current gabapentin dose PT will trend H&H keep Hg>7 Neurosurgery consult appreciated Case discussed with consults # TIM on CKD 3 improving Creat likely multifactorial plan to trend creatinine for next 24 to decide about MRI with contrast. If not will plan dc to rehab. avoid nephrotoxin, renal dose of medications Post-menopausal Dysfunctional Uterine Bleeding, Rt hemipelvic mass -outpatient workup with OBGYN Normocytic Anemia, stable h&H HLD DM 2 HTN DVT Px - SCDs.
[2020-07-09] MEDS ORDERED: INSULIN (NOVOLOG) ASPART 100 UNITS/ML 10ML VIAL ONE (21:04)
[2020-07-09] MEDS: INSULIN (LEVEMIR) 100 UNITS/ML UNITS SQ SCH (22:40)
[2020-07-09] MEDS: ATORVASTATIN CA 40 MG TABLET (FP) PO SCH (22:43)
[2020-07-09] MEDS: SODIUM CHLORIDE 0.45% 1,000 ML IV SCH (22:46)
[2020-07-10] MEDS: GABAPENTIN 100 MG CAPSULE PO SCH ×3 (06:34→21:21)
[2020-07-10] MEDS: HEPARIN NA (PORCINE) 5,000 UNITS/ML 1ML VIAL SQ SCH ×3 (06:34→21:20)
[2020-07-10] MEDS: INSULIN SLIDING SCALE (NOVOLOG) 1 VIAL SQ SCH ×4 (06:35→21:22)
[2020-07-10] MEDS: ACETAMINOPHEN 325 MG TABLET (FP) PO PRN ×2 (06:35→21:19)
[2020-07-10] MEDS: PANTOPRAZOLE 40 MG TABLET PO SCH (06:35)
[2020-07-10 09:21] LABS: ALBUMIN 1.6 g/dl (3.4-5.0); BILIRUBIN,TOTAL 0.3 mg/dL (0.2-1); BLOOD UREA NITROGEN 71.9 mg/dL (7-18); CALCIUM 8.3 mg/dL (8.5-10.1); CREATININE 2.2 mg/dL (0.55-1.3); POTASSIUM 4.7 mmol/L (3.5-5.1); TOT PROT 5.3 g/dl (6.4-8.2)
[2020-07-10] MEDS: amLODIPine BESYLATE 10 MG TABLET (FP) PO SCH (09:24)
[2020-07-10] MEDS: FOLIC ACID 1 MG TABLET (FP) PO SCH (09:24)
[2020-07-10] MEDS: METOPROLOL TARTRATE 50 MG TABLET (FP) PO SCH ×2 (09:24→21:20)
[2020-07-10] MEDS: FERROUS SO4 325 MG TABLET (FP) PO SCH (09:24)
[2020-07-10 10:06] LABS: HEMATOCRIT 21.3 % (32.4-45.2); MCH 28.7 pg (25.7-33.7); MEAN CELL VOLUME 87.1 fl (80-96); MEAN PLT VOLUME 7.7 fl (7.5-11.1); PLATELET COUNT 438 K/MM3 (134-434); RBC 2.45 M/mm3 (3.60-5.2); RDW 16.3 % (11.6-15.6); WHITE BLOOD COUNT 12.3 K/mm3 (4.0-10.0)
--- NOTE | 2020-07-10 10:42 | PN ---
Progress Note (short form) - Note Progress Note: Surgery POD #4 L45 laminectomies with decompression and fusion. Patient seen and examined on AM rounds. Patient states she is having right LE pain with any movement. She is tolerating her diet and denies any CP, SOB, N/V, fever or chills. She has not been OOB yet 2/2 pain although she has stood at the bedside. Vital Signs Temp 97.7 F 07/10/20 06:00 Pulse 88 07/10/20 06:00 Resp 20 07/10/20 06:00 BP 148/76 07/10/20 06:00 Pulse Ox 92 L 07/10/20 06:00 Intake & Output 07/09/20 07/09/20 07/10/20 11:59 23:59 11:59 Intake Total 300 200 300 Output Total 810 1040 Balance 300 -610 -740 Intake: IV 300 200 300 1/2 Normal Saline 1,000 300 200 300 ml @ 50 mls/hr IV ASDIR ROSCOE Rx#:[id number] IVPB 0 0 0 Output: Drainage 10 40 Right Back 10 40 Urine 800 1000 Foster 800 1000 Other: Voiding Method Indwelling Catheter Indwelling Catheter Indwelling Catheter Bowel Movement No No No Body Mass Index (BMI) 43.0 CBC, BMP 07/10/20 07:32 07/10/20 07:32 PE: A&Ox3, NAD, flat affect at baseline Unlabroed resp on 2L NC Lumbar spine: incision c/d/i with surrounding tissue intact and no evidence of tracking erythema, or evidence of collection or active d/c. SAMANTHA removed and tip fully intact. drain ostomy clean and dry. B/L LE compartments soft, supple and non-tender with scds in place, +2 DP pulses and 5/5 dorsi/plantar flexion, sensation to light touch intact throughout Problem List - Problems (1) S/P lumbar spinal fusion Assessment/Plan: POD #4 L45 laminectomy,decompression and fusions stable with post op anemia continued to be asymptomatic. -regular transfusion threshold- discussed with medicine- will transfuse today. -Aggressive PT-OOB with TLSO and PT- up to chair for meals -DVT prophylaxis as ordered in setting of TIM -Renal following and recs appreciated-d/c foster per renal/urology -Trend H&H - Encourage IS -D/c planning for rehab Evaluation and plan discussed with Dr Gonzalez Code(s): Z98.1 - ARTHRODESIS STATUS
[2020-07-10] MEDS ORDERED: INSULIN (NOVOLOG) ASPART 100 UNITS/ML 10ML VIAL ONE ×2 (11:25→20:54)
--- NOTE | 2020-07-10 13:57 | PN ---
Physical Exam: SUBJECTIVE: Patient seen and examined at bedside. No acute events reported overnight. OBJECTIVE: Vital Signs Period Temp Pulse Resp BP Sys/Ruiz Pulse Ox Last 24 Hr 97.7 F-98.9 F 75-94 20-20 117-148/61-76 91-96 GENERAL: AAOx3, in no acute distress. appears sleepy HEENT: NCAT, PERRLA, EOMI, sclera anicteric, conjunctiva clear, oropharynx clear w/o exudates. MMM. NECK: Normal ROM, supple, no lymphadenopathy, JVD, or masses LUNGS: CTABL no wheezes/ rhonchi/ rales. No distress, speaks in full sentences. No increased work of breathing. HEART: RRR, normal S1 S2, no M/R/G, peripheral pulses 2+ and equal b/l ABDOMEN: Soft, NTND, + BS. No guarding or rebound. No hepatomegaly or splenomegaly. MSK: ROM WNL EXTREMITIES: Normal inspection. No peripheral edema. No clubbing or cyanosis. NEUROLOGICAL: CN II-XII intact. Normal speech, normal gait, no focal sensorimotor deficits. SKIN: Warm, Dry, normal turgor, no rashes or lesions noted Laboratory Results - last 24 hr CBC, BMP 07/10/20 07:32 07/10/20 07:32 07/05/20 07/09/20 07/09/20 16:35 16:40 22:39 WBC RBC Hgb Hct MCV MCH MCHC RDW Plt Count MPV Sodium Potassium Chloride Carbon Dioxide Anion Gap BUN Creatinine Est GFR (CKD-EPI)AfAm Est GFR (CKD-EPI)NonAf POC Glucometer 247 293 Random Glucose Calcium Total Bilirubin AST ALT Alkaline Phosphatase Total Protein Albumin Blood Type A POSITIVE Antibody Screen Negative Crossmatch See Detail 07/10/20 07/10/20 07/10/20 06:31 07:32 07:32 WBC 12.3 H RBC 2.45 L Hgb 7.0 L Hct 21.3 L MCV 87.1 MCH 28.7 MCHC 33.0 RDW 16.3 H Plt Count 438 H MPV 7.7 Sodium 137 Potassium 4.7 Chloride 106 Carbon Dioxide 23 Anion Gap 7 L BUN 71.9 H Creatinine 2.2 H Est GFR (CKD-EPI)AfAm 26.95 Est GFR (CKD-EPI)NonAf 23.26 POC Glucometer 264 Random Glucose 251 H Calcium 8.3 L Total Bilirubin 0.3 AST 19 ALT 10 L Alkaline Phosphatase 209 H Total Protein 5.3 L Albumin 1.6 L Blood Type Antibody Screen Crossmatch 07/10/20 07/10/20 10:48 11:15 WBC RBC Hgb Hct MCV MCH MCHC RDW Plt Count MPV Sodium Potassium Chloride Carbon Dioxide Anion Gap BUN Creatinine Est GFR (CKD-EPI)AfAm Est GFR (CKD-EPI)NonAf POC Glucometer 284 Random Glucose Calcium Total Bilirubin AST ALT Alkaline Phosphatase Total Protein Albumin Blood Type A POSITIVE Antibody Screen Negative Crossmatch See Detail Active Medications Generic Name Dose Route Start Last Admin Trade Name Freq PRN Reason Stop Dose Admin Acetaminophen 650 mg 07/06/20 15:54 07/10/20 06:35 Tylenol - PO 650 mg Q6H PRN Administration PAIN LEVEL 1-5 Amlodipine Besylate 10 mg 07/07/20 10:00 07/10/20 09:24 Norvasc - PO 10 mg DAILY ROSCOE Administration Atorvastatin Calcium 40 mg 07/06/20 22:00 07/09/20 22:43 Lipitor - PO 40 mg HS ROSCOE Administration Cyclobenzaprine HCl 5 mg 07/09/20 12:20 Flexeril - PO BID PRN BACK PAIN Diphenhydramine HCl 25 mg 07/06/20 14:30 Benadryl - PO Q6H PRN FOR ITCHING Ferrous Sulfate 325 mg 07/07/20 08:00 07/10/20 09:24 Feosol - PO 325 mg DAILY@0800 ROSCOE Administration Folic Acid 1 mg 07/07/20 10:00 07/10/20 09:24 Folic Acid - PO 1 mg DAILY ROSCOE Administration Gabapentin 200 mg 07/06/20 22:00 07/10/20 06:34 Neurontin - PO 200 mg TID ROSCOE Administration Heparin Sodium (Porcine) 5,000 unit 07/07/20 10:00 07/10/20 06:34 Heparin - SQ 5,000 unit TID ROSCOE Administration Sodium Chloride 1,000 mls @ 50 mls/hr 07/07/20 14:06 07/09/20 22:46 1/2 Normal Saline IV 50 mls/hr ASDIR ROSCOE Administration Insulin Aspart 1 vial 07/06/20 16:30 07/10/20 11:33 Novolog Vial Sliding Scale - SQ 4 units ACHS ROSCOE Administration Protocol Insulin Detemir 7 units 07/06/20 22:00 07/09/20 22:40 Levemir Vial SQ 7 units HS ROSCOE Administration Metoprolol Tartrate 100 mg 07/06/20 22:00 07/10/20 09:24 Lopressor - PO 100 mg BID ROSCOE Administration Ondansetron HCl 4 mg 07/06/20 14:30 Zofran Injection IVPUSH Q6H PRN NAUSEA Pantoprazole Sodium 40 mg 07/07/20 07:00 07/10/20 06:35 Protonix - PO 40 mg ACBK ROSCOE Administration ASSESSMENT/PLAN: 64 y/o Lady with a PMHx of DM, HTN, HLD, and CKD who is admitted for intractable back pain and s/p Laminectomy. #s/p Laminectomy for a disc herniation - Neurosurgery preformed L4-5 laminectomies with decompressions and fusion - recommends aggressive PT-OOB, pt able to walk with PT today pending rehab placement - drain removed today - continue incentive spirometer - Oxy as needed for pain, morphine 2 q4h prn - continue to monitor H/H, keep hgb > 7 - creatinine back to baseline: renal contacted for MRI reccs- not indicated this admission due to low GFR radiology will not do the study -Pathak d/c today; trial and void today #HTN - continue amlodipine #anemia - likely multifactoral, iron deficiency -1U PRBC transfused today -post transfusion CBC at 7 PM - continue ferrous sulfate -FOBT ordered -retic count ordered #TIM on CKD - cannot exclude AIN - continue to monitor creatinine #DM - ISS, BGM - c/w levemir 7 #Dysfunctional Uterine Bleeding -post-menopausal bleeding -Rt hemipelvic mass -outpatient f/u with OBGYN #Ppx -DVT: heparin tid #FEN -no standing fluids -monitor lytes, replete PRN -diabetic diet dispo: continue rehab planning Visit type - Emergency Visit Emergency Visit: No - New Patient This patient is new to me today: Yes Date on this admission: 07/10/20 - Critical Care Critical Care patient: No - Discharge Referral Referred to [facility] Med P.C.: No ATTENDING PHYSICIAN STATEMENT I saw and evaluated the patient. I reviewed the resident's note and discussed the case with the resident. I agree with the resident's findings and plan as documented. SUBJECTIVE: OBJECTIVE: ASSESSMENT AND PLAN:
[2020-07-10] MEDS: SODIUM CHLORIDE 0.45% 1,000 ML IV SCH (14:10)
--- NOTE | 2020-07-10 14:38 | PN ---
Progress Note, Physician History of Present Illness: Pt seen and examined at bedside. She feels that her back pain is improving. She feels that it is better than it was before the surgery. - Current Medication List Current Medications: Active Medications Acetaminophen (Tylenol -) 650 mg PO Q6H PRN PRN Reason: PAIN LEVEL 1-5 Last Admin: 07/10/20 06:35 Dose: 650 mg Documented by: Amlodipine Besylate (Norvasc -) 10 mg PO DAILY [facility] Last Admin: 07/10/20 09:24 Dose: 10 mg Documented by: Atorvastatin Calcium (Lipitor -) 40 mg PO HS [facility] Last Admin: 07/09/20 22:43 Dose: 40 mg Documented by: Cyclobenzaprine HCl (Flexeril -) 5 mg PO BID PRN PRN Reason: BACK PAIN Diphenhydramine HCl (Benadryl -) 25 mg PO Q6H PRN PRN Reason: FOR ITCHING Ferrous Sulfate (Feosol -) 325 mg PO DAILY@0800 [facility] Last Admin: 07/10/20 09:24 Dose: 325 mg Documented by: Folic Acid (Folic Acid -) 1 mg PO DAILY [facility] Last Admin: 07/10/20 09:24 Dose: 1 mg Documented by: Gabapentin (Neurontin -) 200 mg PO TID [facility] Last Admin: 07/10/20 14:09 Dose: 200 mg Documented by: Heparin Sodium (Porcine) (Heparin -) 5,000 unit SQ TID [facility] Last Admin: 07/10/20 14:09 Dose: 5,000 unit Documented by: Sodium Chloride (1/2 Normal Saline) 1,000 mls @ 50 mls/hr IV ASDIR [facility] Last Admin: 07/10/20 14:10 Dose: Not Given Documented by: Insulin Aspart (Novolog Vial Sliding Scale -) 1 vial SQ [facility]; Protocol Last Admin: 07/10/20 11:33 Dose: 4 units Documented by: Insulin Detemir (Levemir Vial) 7 units SQ [facility] Last Admin: 07/09/20 22:40 Dose: 7 units Documented by: Metoprolol Tartrate (Lopressor -) 100 mg PO BID [facility] Last Admin: 07/10/20 09:24 Dose: 100 mg Documented by: Ondansetron HCl (Zofran Injection) 4 mg IVPUSH Q6H PRN PRN Reason: NAUSEA Pantoprazole Sodium (Protonix -) 40 mg PO ACBK [facility] Last Admin: 07/10/20 06:35 Dose: 40 mg Documented by: - Objective Vital Signs: Vital Signs Temperature 97.7 F 07/10/20 06:00 Pulse Rate 88 07/10/20 06:00 Respiratory Rate 07/10/20 06:00 Blood Pressure 148/76 07/10/20 06:00 O2 Sat by Pulse Oximetry (%) 92 L 07/10/20 06:00 Constitutional: Yes: Calm Eyes: Yes: Conjunctiva Clear HENT: Yes: Atraumatic Neck: Yes: Supple Cardiovascular: Yes: S1, S2 Respiratory: Yes: CTA Bilaterally Gastrointestinal: Yes: Soft, Abdomen, Obese Genitourinary: Yes: WNL Musculoskeletal: Yes: WNL Edema: No Neurological: Yes: Oriented Psychiatric: Yes: Oriented Labs: CBC, BMP 07/10/20 07:32 07/10/20 07:32 INR, PTT INR 1.14 (0.83-1.09) H 06/26/20 10:15 Problem List - Problems (1) CKD (chronic kidney disease) Code(s): N18.9 - CHRONIC KIDNEY DISEASE, UNSPECIFIED (2) Sciatica Code(s): M54.30 - SCIATICA, UNSPECIFIED SIDE Qualifiers: Laterality: left Qualified Code(s): M54.32 - Sciatica, left side (3) Hypertension Code(s): I10 - ESSENTIAL (PRIMARY) HYPERTENSION Assessment/Plan Current Medications Generic Name Dose Route Start Last Admin Trade Name Freq PRN Reason Stop Dose Admin Acetaminophen 650 mg 07/06/20 15:54 07/10/20 06:35 Tylenol - PO 650 mg Q6H PRN Administration PAIN LEVEL 1-5 Amlodipine Besylate 10 mg 07/07/20 10:00 07/10/20 09:24 Norvasc - PO 10 mg DAILY [facility] Administration Atorvastatin Calcium 40 mg 07/06/20 22:00 07/09/20 22:43 Lipitor - PO 40 mg HS [facility] Administration Cyclobenzaprine HCl 5 mg 07/09/20 12:20 Flexeril - PO BID PRN BACK PAIN Diphenhydramine HCl 25 mg 07/06/20 14:30 Benadryl - PO Q6H PRN FOR ITCHING Ferrous Sulfate 325 mg 07/07/20 08:00 07/10/20 09:24 Feosol - PO 325 mg DAILY@0800 [facility] Administration Folic Acid 1 mg 07/07/20 10:00 07/10/20 09:24 Folic Acid - PO 1 mg DAILY [facility] Administration Gabapentin 200 mg 07/06/20 22:00 07/10/20 14:09 Neurontin - PO 200 mg TID [facility] Administration Heparin Sodium (Porcine) 5,000 unit 07/07/20 10:00 07/10/20 14:09 Heparin - SQ 5,000 unit TID [facility] Administration Sodium Chloride 1,000 mls @ 50 mls/hr 07/07/20 14:06 07/10/20 14:10 1/2 Normal Saline IV Not Given ASDIR [facility] Insulin Aspart 1 vial 07/06/20 16:30 07/10/20 11:33 Novolog Vial Sliding Scale - SQ 4 units ACHS [facility] Administration Protocol Insulin Detemir 7 units 07/06/20 22:00 07/09/20 22:40 Levemir Vial SQ 7 units HS [facility] Administration Metoprolol Tartrate 100 mg 07/06/20 22:00 07/10/20 09:24 Lopressor - PO 100 mg BID [facility] Administration Ondansetron HCl 4 mg 07/06/20 14:30 Zofran Injection IVPUSH Q6H PRN NAUSEA Pantoprazole Sodium 40 mg 07/07/20 07:00 07/10/20 06:35 Protonix - PO 40 mg ACBK [facility] Administration Impression 1. CKD 2. TIM 3. back pain 4. dm 5. htn 6. obesity 7. possible spinal mass lesion Plan - renal function is improving - continue to monitor - repeat labs in am - discussed with medical team - hold fluids with blood transfusion - tim likely in part pre-renal
[2020-07-10 16:26] LABS: BASO % 0.5 % (0-2.0); EOS % 2.3 % (0-4.5); HEMATOCRIT 21.9 % (32.4-45.2); HEMOGLOBIN 7.3 GM/dL (10.7-15.3); LYMPH % 10.7 % (8-40); MCH 29.1 pg (25.7-33.7); MCHC 33.1 g/dl (32.0-36.0); MEAN CELL VOLUME 87.9 fl (80-96); MONO % 10.3 % (3.8-10.2); NEUT % 76.2 % (42.8-82.8); PLATELET COUNT 466 K/MM3 (134-434); RDW 16.5 % (11.6-15.6); WHITE BLOOD COUNT 14.1 K/mm3 (4.0-10.0)
--- NOTE | 2020-07-10 16:38 | PN ---
Teaching Attending Note Name of Resident: Glenn Monson ATTENDING PHYSICIAN STATEMENT I saw and evaluated the patient. I reviewed the resident's note and discussed the case with the resident. I agree with the resident's findings and plan as documented. SUBJECTIVE: pt seen and examined, mental status improved OBJECTIVE: Last Vital Signs Temp Pulse Resp BP Pulse Ox 99 F 84 20 147/69 96 07/10/20 14:00 07/10/20 14:00 07/10/20 14:00 07/10/20 14:00 07/10/20 14:00 GENERAL: Awake,more alert, and fully oriented, in no acute distress. HEENT: AT/NC, PERRLA, EOMI LUNGS: Breath sounds equal, clear to auscultation bilaterally. No wheezes, and no crackles. No accessory muscle use. HEART: Regular rate and rhythm, normal S1 and S2 ABDOMEN: Obese, Soft, nontender, not distended, LLQ round mass felt on deep palpation MUSCULOSKELETAL: Normal range of motion at all joints. No bony deformities or tenderness. No CVA tenderness. UPPER EXTREMITIES: 2+ pulses, warm, well-perfused. No cyanosis. No clubbing. No peripheral edema. LOWER EXTREMITIES: 2+ pulses, warm, well-perfused. No calf tenderness. No p eripheral edema. NEUROLOGICAL: Cranial nerves II-XII intact. Normal speech. LE limited strength 4/5 CBCD WBC 12.3 K/mm3 (4.0-10.0) H 07/10/20 07:32 RBC 2.45 M/mm3 (3.60-5.2) L 07/10/20 07:32 Hgb 7.0 GM/dL (10.7-15.3) L 07/10/20 07:32 Hct 21.3 % (32.4-45.2) L 07/10/20 07:32 MCV 87.1 fl (80-96) 07/10/20 07:32 MCHC 33.0 g/dl (32.0-36.0) 07/10/20 07:32 RDW 16.3 % (11.6-15.6) H 07/10/20 07:32 Plt Count 438 K/MM3 (134-434) H 07/10/20 07:32 MPV 7.7 fl (7.5-11.1) 07/10/20 07:32 CMP Sodium 137 mmol/L (136-145) 07/10/20 07:32 Potassium 4.7 mmol/L (3.5-5.1) 07/10/20 07:32 Chloride 106 mmol/L (98-107) 07/10/20 07:32 Carbon Dioxide 23 mmol/L (21-32) 07/10/20 07:32 Anion Gap 7 MMOL/L (8-16) L 07/10/20 07:32 BUN 71.9 mg/dL (7-18) H 07/10/20 07:32 Creatinine 2.2 mg/dL (0.55-1.3) H 07/10/20 07:32 Calcium 8.3 mg/dL (8.5-10.1) L 07/10/20 07:32 Total Bilirubin 0.3 mg/dL (0.2-1) 07/10/20 07:32 AST 19 U/L (15-37) 07/10/20 07:32 ALT 10 U/L (13-61) L 07/10/20 07:32 Alkaline Phosphatase 209 U/L (45-117) H 07/10/20 07:32 Total Protein 5.3 g/dl (6.4-8.2) L 07/10/20 07:32 Albumin 1.6 g/dl (3.4-5.0) L 07/10/20 07:32 Active Medications Acetaminophen (Tylenol -) 650 mg PO Q6H PRN PRN Reason: PAIN LEVEL 1-5 Last Admin: 07/10/20 06:35 Dose: 650 mg Documented by: Amlodipine Besylate (Norvasc -) 10 mg PO DAILY [facility] Last Admin: 07/10/20 09:24 Dose: 10 mg Documented by: Atorvastatin Calcium (Lipitor -) 40 mg PO HS [facility] Last Admin: 07/09/20 22:43 Dose: 40 mg Documented by: Cyclobenzaprine HCl (Flexeril -) 5 mg PO BID PRN PRN Reason: BACK PAIN Diphenhydramine HCl (Benadryl -) 25 mg PO Q6H PRN PRN Reason: FOR ITCHING Ferrous Sulfate (Feosol -) 325 mg PO DAILY@0800 [facility] Last Admin: 07/10/20 09:24 Dose: 325 mg Documented by: Folic Acid (Folic Acid -) 1 mg PO DAILY [facility] Last Admin: 07/10/20 09:24 Dose: 1 mg Documented by: Gabapentin (Neurontin -) 200 mg PO TID [facility] Last Admin: 07/10/20 14:09 Dose: 200 mg Documented by: Heparin Sodium (Porcine) (Heparin -) 5,000 unit SQ TID [facility] Last Admin: 07/10/20 14:09 Dose: 5,000 unit Documented by: Sodium Chloride (1/2 Normal Saline) 1,000 mls @ 50 mls/hr IV ASDIR [facility] Last Admin: 07/10/20 14:10 Dose: Not Given Documented by: Insulin Aspart (Novolog Vial Sliding Scale -) 1 vial SQ ACHS [facility]; Protocol Last Admin: 07/10/20 11:33 Dose: 4 units Documented by: Insulin Detemir (Levemir Vial) 7 units SQ HS [facility] Last Admin: 07/09/20 22:40 Dose: 7 units Documented by: Metoprolol Tartrate (Lopressor -) 100 mg PO BID [facility] Last Admin: 07/10/20 09:24 Dose: 100 mg Documented by: Ondansetron HCl (Zofran Injection) 4 mg IVPUSH Q6H PRN PRN Reason: NAUSEA Pantoprazole Sodium (Protonix -) 40 mg PO ACBK [facility] Last Admin: 07/10/20 06:35 Dose: 40 mg Documented by: ASSESSMENT AND PLAN: 64 year old female with history of DM 2, HTN, HLD, CKD 3, presents with lower back pain, L Hip pain, radiating down LLE, as well as 3 day history of post- menopausal vaginal bleeding, now resolved. # Sciatica and Back Pain sec to DJD, nerve impingement, spinal stenosis s/p L4-5 laminectomies, SAMANTHA drain drain removed pain management as indicated c/w current gabapentin dose PT (continue to encourage pt to participate) Neurosurgery consult appreciated Case discussed with consults # TIM on CKD 3 improving Creat likely multifactorial (AIN with pre-renal component) will differ MRI with inocencia during this admission to outpatient. avoid nephrotoxin, renal dose of medications # Normocytic Anemia Hg dropped to 7 no overt bleeding will check FOBT, sent for reticulocytes, repeat SPEP transfuse 1pRBC # Urinary retention failed TOV on friday will repeat again and reach to urologist pt will need to address foster prior to discharge to rehab Post-menopausal Dysfunctional Uterine Bleeding, Rt hemipelvic mass -outpatient workup with OBGYN HLD DM 2 HTN DVT Px - SCDs.
[2020-07-10] MEDS: INSULIN (LEVEMIR) 100 UNITS/ML UNITS SQ SCH (21:20)
[2020-07-10] MEDS: ATORVASTATIN CA 40 MG TABLET (FP) PO SCH (21:20)
[2020-07-10 21:31] LABS: BASO % 0.2 % (0-2.0); EOS % 2.1 % (0-4.5); HEMATOCRIT 24.6 % (32.4-45.2); HEMOGLOBIN 8.1 GM/dL (10.7-15.3); MCH 28.8 pg (25.7-33.7); MEAN CELL VOLUME 87.4 fl (80-96); MEAN PLT VOLUME 7.6 fl (7.5-11.1); MONO % 9.1 % (3.8-10.2); NEUT % 76.6 % (42.8-82.8); PLATELET COUNT 475 K/MM3 (134-434); RBC 2.82 M/mm3 (3.60-5.2); RDW 16.4 % (11.6-15.6); WHITE BLOOD COUNT 14.5 K/mm3 (4.0-10.0)
[2020-07-11] MEDS: HEPARIN NA (PORCINE) 5,000 UNITS/ML 1ML VIAL SQ SCH ×3 (06:30→22:56)
[2020-07-11] MEDS: PANTOPRAZOLE 40 MG TABLET PO SCH (06:30)
[2020-07-11] MEDS: GABAPENTIN 100 MG CAPSULE PO SCH ×3 (06:31→22:59)
[2020-07-11] MEDS: INSULIN SLIDING SCALE (NOVOLOG) 1 VIAL SQ SCH ×4 (06:38→22:59)
[2020-07-11 08:45] LABS: HEMOGLOBIN 8.3 GM/dL (10.7-15.3); MCH 29.5 pg (25.7-33.7); MCHC 33.3 g/dl (32.0-36.0); MEAN CELL VOLUME 88.6 fl (80-96); MEAN PLT VOLUME 7.9 fl (7.5-11.1); PLATELET COUNT 469 K/MM3 (134-434); RBC 2.82 M/mm3 (3.60-5.2); WHITE BLOOD COUNT 14.9 K/mm3 (4.0-10.0)
[2020-07-11 09:01] LABS: BLOOD UREA NITROGEN 60.8 mg/dL (7-18); CALCIUM 9.1 mg/dL (8.5-10.1); POTASSIUM 4.7 mmol/L (3.5-5.1)
[2020-07-11 09:03] LABS: ALBUMIN 1.7 g/dl (3.4-5.0); BILIRUBIN,DIRECT 0.2 mg/dL (0.0-0.2); BILIRUBIN,TOTAL 0.7 mg/dL (0.2-1); TOT PROT 5.8 g/dl (6.4-8.2)
[2020-07-11] MEDS: FERROUS SO4 325 MG TABLET (FP) PO SCH (09:05)
[2020-07-11] MEDS: ACETAMINOPHEN 325 MG TABLET (FP) PO PRN ×2 (09:06→22:58)
[2020-07-11] MEDS: METOPROLOL TARTRATE 50 MG TABLET (FP) PO SCH ×2 (09:07→22:56)
[2020-07-11] MEDS: FOLIC ACID 1 MG TABLET (FP) PO SCH (09:07)
[2020-07-11] MEDS: amLODIPine BESYLATE 10 MG TABLET (FP) PO SCH (09:08)
[2020-07-11] MEDS ORDERED: POLYETHYLENE GLYCOL 3350 119 GM BTL PO ONE (09:32)
[2020-07-11] MEDS ORDERED: SENNOSIDES 8.6MG TABLET (FP) PO PRN (09:32)
[2020-07-11 10:06] LABS: ANISOCYTOSIS 0; MACROCYTOSIS 0
[2020-07-11 10:15] LABS: PLATELET ESTIMATE ADEQUATE
[2020-07-11] MEDS: CYCLOBENZAPRINE HCL 10 MG TABLET (FP) PO PRN (11:16)
--- NOTE | 2020-07-11 11:43 | PN ---
Progress Note (short form) - Note Progress Note: POD #5 L45 laminectomies with decompression and fusion. Patient seen and examined on AM rounds. Patient states she is having Left LE pain with any movement. She is tolerating her diet and denies any CP, SOB, N/V, fever or chills. She has not been OOB yet 2/2 pain although she has stood at the bedside. Last Vital Signs Temp Pulse Resp BP Pulse Ox 98.8 F 94 H 20 135/78 96 07/11/20 09:00 07/11/20 09:00 07/11/20 09:00 07/11/20 09:00 07/11/20 09:00 CBC, BMP 07/11/20 07:40 07/11/20 07:40 PE: A&Ox3, NAD, flat affect at baseline Unlabroed resp on 2L NC Lumbar spine: pt refused exam of lumbar region. B/L LE compartments soft, supple and non-tender with scds in place, +2 DP pulses and 5/5 dorsi/plantar flexion, sensation to light touch intact throughout Problem List - Problems (1) S/P lumbar spinal fusion Assessment/Plan: POD #4 L45 laminectomy,decompression and fusions stable with post op anemia continued to be asymptomatic. -regular transfusion per medicine -Aggressive PT-OOB with TLSO and PT- up to chair for meals -DVT prophylaxis as ordered in setting of TIM -Renal following and recs appreciated-d/c foster per renal/urology -Trend H&H - Encourage IS -D/c planning for rehab Evaluation and plan discussed with Dr Gonzalez
[2020-07-11] MEDS ORDERED: INSULIN (NOVOLOG) ASPART 100 UNITS/ML 10ML VIAL ONE ×2 (11:45→18:56)
[2020-07-11] MEDS ORDERED: traMADol HCL 50 MG TABLET PO ONE (12:00)
--- NOTE | 2020-07-11 13:07 | PN ---
Progress Note, Physician History of Present Illness: Pt seen and examined at bedside. SHe is awake and alert. She denies shortness of breath. - Current Medication List Current Medications: Active Medications Acetaminophen (Tylenol -) 650 mg PO Q6H PRN PRN Reason: PAIN LEVEL 1-5 Last Admin: 07/11/20 09:06 Dose: 650 mg Documented by: Amlodipine Besylate (Norvasc -) 10 mg PO DAILY [facility] Last Admin: 07/11/20 09:08 Dose: 10 mg Documented by: Atorvastatin Calcium (Lipitor -) 40 mg PO [facility] Last Admin: 07/10/20 21:20 Dose: 40 mg Documented by: Cyclobenzaprine HCl (Flexeril -) 5 mg PO BID PRN PRN Reason: BACK PAIN Last Admin: 07/11/20 11:16 Dose: 5 mg Documented by: Diphenhydramine HCl (Benadryl -) 25 mg PO Q6H PRN PRN Reason: FOR ITCHING Ferrous Sulfate (Feosol -) 325 mg PO DAILY@0800 [facility] Last Admin: 07/11/20 09:05 Dose: 325 mg Documented by: Folic Acid (Folic Acid -) 1 mg PO DAILY [facility] Last Admin: 07/11/20 09:07 Dose: 1 mg Documented by: Gabapentin (Neurontin -) 200 mg PO TID [facility] Last Admin: 07/11/20 06:31 Dose: 200 mg Documented by: Heparin Sodium (Porcine) (Heparin -) 5,000 unit SQ TID [facility] Last Admin: 07/11/20 06:30 Dose: 5,000 unit Documented by: Insulin Aspart (Novolog Vial Sliding Scale -) 1 vial SQ [facility]; Protocol Last Admin: 07/11/20 11:48 Dose: 4 units Documented by: Insulin Detemir (Levemir Vial) 7 units SQ [facility] Last Admin: 07/10/20 21:20 Dose: 7 units Documented by: Metoprolol Tartrate (Lopressor -) 100 mg PO BID [facility] Last Admin: 07/11/20 09:07 Dose: 100 mg Documented by: Ondansetron HCl (Zofran Injection) 4 mg IVPUSH Q6H PRN PRN Reason: NAUSEA Pantoprazole Sodium (Protonix -) 40 mg PO ACBK [facility] Last Admin: 07/11/20 06:30 Dose: 40 mg Documented by: Robert (Senna -) 2 tab PO HS PRN PRN Reason: CONSTIPATION - Objective Vital Signs: Vital Signs Temperature 98.8 F 07/11/20 09:00 Pulse Rate 94 H 07/11/20 09:00 Respiratory Rate 20 07/11/20 09:00 Blood Pressure 135/78 07/11/20 09:00 O2 Sat by Pulse Oximetry (%) 96 07/11/20 09:00 Constitutional: Yes: Calm Eyes: Yes: Conjunctiva Clear HENT: Yes: Atraumatic Neck: Yes: Supple Cardiovascular: Yes: S1, S2 Respiratory: Yes: CTA Bilaterally Gastrointestinal: Yes: Normal Bowel Sounds, Soft Genitourinary: Yes: WNL Musculoskeletal: Yes: Back Pain Edema: No Neurological: Yes: Oriented Psychiatric: Yes: Oriented Labs: CBC, BMP 07/11/20 07:40 07/11/20 07:40 INR, PTT INR 1.14 (0.83-1.09) H 06/26/20 10:15 Problem List - Problems (1) CKD (chronic kidney disease) Code(s): N18.9 - CHRONIC KIDNEY DISEASE, UNSPECIFIED (2) Sciatica Code(s): M54.30 - SCIATICA, UNSPECIFIED SIDE Qualifiers: Laterality: left Qualified Code(s): M54.32 - Sciatica, left side (3) Hypertension Code(s): I10 - ESSENTIAL (PRIMARY) HYPERTENSION Assessment/Plan Current Medications Generic Name Dose Route Start Last Admin Trade Name Freq PRN Reason Stop Dose Admin Acetaminophen 650 mg 07/06/20 15:54 07/11/20 09:06 Tylenol - PO 650 mg Q6H PRN Administration PAIN LEVEL 1-5 Amlodipine Besylate 10 mg 07/07/20 10:00 07/11/20 09:08 Norvasc - PO 10 mg DAILY [facility] Administration Atorvastatin Calcium 40 mg 07/06/20 22:00 07/10/20 21:20 Lipitor - PO 40 mg HS [facility] Administration Cyclobenzaprine HCl 5 mg 07/09/20 12:20 07/11/20 11:16 Flexeril - PO 5 mg BID PRN Administration BACK PAIN Diphenhydramine HCl 25 mg 07/06/20 14:30 Benadryl - PO Q6H PRN FOR ITCHING Ferrous Sulfate 325 mg 07/07/20 08:00 07/11/20 09:05 Feosol - PO 325 mg DAILY@0800 [facility] Administration Folic Acid 1 mg 07/07/20 10:00 07/11/20 09:07 Folic Acid - PO 1 mg DAILY [facility] Administration Gabapentin 200 mg 07/06/20 22:00 07/11/20 06:31 Neurontin - PO 200 mg TID [facility] Administration Heparin Sodium (Porcine) 5,000 unit 07/07/20 10:00 07/11/20 06:30 Heparin - SQ 5,000 unit TID [facility] Administration Insulin Aspart 1 vial 07/06/20 16:30 07/11/20 11:48 Novolog Vial Sliding Scale - SQ 4 units ACHS [facility] Administration Protocol Insulin Detemir 7 units 07/06/20 22:00 07/10/20 21:20 Levemir Vial SQ 7 units HS [facility] Administration Metoprolol Tartrate 100 mg 07/06/20 22:00 07/11/20 09:07 Lopressor - PO 100 mg BID [facility] Administration Ondansetron HCl 4 mg 07/06/20 14:30 Zofran Injection IVPUSH Q6H PRN NAUSEA Pantoprazole Sodium 40 mg 07/07/20 07:00 07/11/20 06:30 Protonix - PO 40 mg ACBK [facility] Administration Senna 2 tab 07/11/20 09:32 Senna - PO HS PRN [facility]ST[facility] Impression 1. CKD 2. TIM 3. back pain 4. dm 5. htn 6. obesity 7. 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
--- NOTE | 2020-07-11 13:25 | PN ---
Physical Exam: SUBJECTIVE: Patient seen and examined at bedside. No acute events reported overnight. OBJECTIVE: Vital Signs Period Temp Pulse Resp BP Sys/Ruiz Pulse Ox Last 24 Hr 98.8 F-99.9 F 84-98 20-20 135-160/69-88 96-97 GENERAL: AAOx3, in no acute distress. appears sleepy HEENT: NCAT, PERRLA, EOMI, sclera anicteric, conjunctiva clear, oropharynx clear w/o exudates. MMM. NECK: Normal ROM, supple, no lymphadenopathy, JVD, or masses LUNGS: CTABL no wheezes/ rhonchi/ rales. No distress, speaks in full sentences. No increased work of breathing. HEART: RRR, normal S1 S2, no M/R/G, peripheral pulses 2+ and equal b/l ABDOMEN: Soft, NTND, + BS. No guarding or rebound. No hepatomegaly or splenomegaly. MSK: LE limited strength 4/5 EXTREMITIES: Normal inspection. No peripheral edema. No clubbing or cyanosis. NEUROLOGICAL: CN II-XII intact. Normal speech, no focal sensorimotor deficits. SKIN: Warm, Dry, normal turgor, no rashes or lesions noted Laboratory Results - last 24 hr CBC, BMP 07/11/20 07:40 07/11/20 07:40 07/05/20 07/10/20 07/10/20 16:35 10:48 13:30 WBC RBC Hgb Hct MCV MCH MCHC RDW Plt Count MPV Absolute Neuts (auto) Neutrophils % Neutrophils % (Manual) Band Neutrophils % Lymphocytes % Lymphocytes % (Manual) Monocytes % Monocytes % (Manual) Eosinophils % Eosinophils % (Manual) Basophils % Basophils % (Manual) Myelocytes % (Man) Promyelocytes % (Man) Blast Cells % (Manual) Nucleated RBC % Metamyelocytes Hypochromia Platelet Estimate Polychromasia Poikilocytosis Basophilic Stippling Anisocytosis Microcytosis Macrocytosis Retic Count 3.34 H Sodium Potassium Chloride Carbon Dioxide Anion Gap BUN Creatinine Est GFR (CKD-EPI)AfAm Est GFR (CKD-EPI)NonAf POC Glucometer Random Glucose Calcium Total Bilirubin Direct Bilirubin AST ALT Alkaline Phosphatase Total Protein Albumin Blood Type A POSITIVE A POSITIVE Antibody Screen Negative Negative Crossmatch See Detail See Detail 07/10/20 07/10/20 07/10/20 13:30 16:26 20:45 WBC 14.1 H 14.5 H RBC 2.50 L 2.82 L Hgb 7.3 L 8.1 L Hct 21.9 L 24.6 L MCV 87.9 87.4 MCH 29.1 28.8 MCHC 33.1 33.0 RDW 16.5 H 16.4 H Plt Count 466 H 475 H MPV 8.0 7.6 Absolute Neuts (auto) 10.8 H 11.1 H Neutrophils % 76.2 76.6 Neutrophils % (Manual) Band Neutrophils % Lymphocytes % 10.7 D 12.0 Lymphocytes % (Manual) Monocytes % 10.3 H 9.1 Monocytes % (Manual) Eosinophils % 2.3 2.1 Eosinophils % (Manual) Basophils % 0.5 0.2 Basophils % (Manual) Myelocytes % (Man) Promyelocytes % (Man) Blast Cells % (Manual) Nucleated RBC % 0 0 Metamyelocytes Hypochromia Platelet Estimate Polychromasia Poikilocytosis Basophilic Stippling Anisocytosis Microcytosis Macrocytosis Retic Count Sodium Potassium Chloride Carbon Dioxide Anion Gap BUN Creatinine Est GFR (CKD-EPI)AfAm Est GFR (CKD-EPI)NonAf POC Glucometer 283 Random Glucose Calcium Total Bilirubin Direct Bilirubin AST ALT Alkaline Phosphatase Total Protein Albumin Blood Type Antibody Screen Crossmatch 07/10/20 07/11/20 07/11/20 21:18 06:37 07:40 WBC 14.9 H RBC 2.82 L Hgb 8.3 L Hct 25.0 L MCV 88.6 MCH 29.5 MCHC 33.3 RDW 16.0 H Plt Count 469 H MPV 7.9 Absolute Neuts (auto) Neutrophils % No Result Required. Neutrophils % (Manual) 80.0 Band Neutrophils % 0.0 Lymphocytes % No Result Required. Lymphocytes % (Manual) 9.0 Monocytes % Monocytes % (Manual) 7 D Eosinophils % Eosinophils % (Manual) 2.0 Basophils % Basophils % (Manual) 0.0 Myelocytes % (Man) 0 D Promyelocytes % (Man) 0 Blast Cells % (Manual) 0 Nucleated RBC % 0 Metamyelocytes 2 D Hypochromia 0 Platelet Estimate Adequate Polychromasia 0 Poikilocytosis 0 Basophilic Stippling 1+ Anisocytosis 0 Microcytosis 0 Macrocytosis 0 Retic Count Sodium Potassium Chloride Carbon Dioxide Anion Gap BUN Creatinine Est GFR (CKD-EPI)AfAm Est GFR (CKD-EPI)NonAf POC Glucometer 299 239 Random Glucose Calcium Total Bilirubin Direct Bilirubin AST ALT Alkaline Phosphatase Total Protein Albumin Blood Type Antibody Screen Crossmatch 07/11/20 07/11/20 07/11/20 07:40 07:40 11:34 WBC RBC Hgb Hct MCV MCH MCHC RDW Plt Count MPV Absolute Neuts (auto) Neutrophils % Neutrophils % (Manual) Band Neutrophils % Lymphocytes % Lymphocytes % (Manual) Monocytes % Monocytes % (Manual) Eosinophils % Eosinophils % (Manual) Basophils % Basophils % (Manual) Myelocytes % (Man) Promyelocytes % (Man) Blast Cells % (Manual) Nucleated RBC % Metamyelocytes Hypochromia Platelet Estimate Polychromasia Poikilocytosis Basophilic Stippling Anisocytosis Microcytosis Macrocytosis Retic Count Sodium 138 Potassium 4.7 Chloride 108 H Carbon Dioxide 24 Anion Gap 6 L BUN 60.8 H Creatinine 2.0 H Est GFR (CKD-EPI)AfAm 30.25 Est GFR (CKD-EPI)NonAf 26.10 POC Glucometer 279 Random Glucose 249 H Calcium 9.1 Total Bilirubin 0.7 Direct Bilirubin 0.2 AST 21 ALT 10 L Alkaline Phosphatase 258 H Total Protein 5.8 L Albumin 1.7 L Blood Type Antibody Screen Crossmatch Active Medications Generic Name Dose Route Start Last Admin Trade Name Freq PRN Reason Stop Dose Admin Acetaminophen 650 mg 07/06/20 15:54 07/11/20 09:06 Tylenol - PO 650 mg Q6H PRN Administration PAIN LEVEL 1-5 Amlodipine Besylate 10 mg 07/07/20 10:00 07/11/20 09:08 Norvasc - PO 10 mg DAILY ROSCOE Administration Atorvastatin Calcium 40 mg 07/06/20 22:00 07/10/20 21:20 Lipitor - PO 40 mg HS ROSCOE Administration Cyclobenzaprine HCl 5 mg 07/09/20 12:20 07/11/20 11:16 Flexeril - PO 5 mg BID PRN Administration BACK PAIN Diphenhydramine HCl 25 mg 07/06/20 14:30 Benadryl - PO Q6H PRN FOR ITCHING Ferrous Sulfate 325 mg 07/07/20 08:00 07/11/20 09:05 Feosol - PO 325 mg DAILY@0800 ROSCOE Administration Folic Acid 1 mg 07/07/20 10:00 07/11/20 09:07 Folic Acid - PO 1 mg DAILY ROSCOE Administration Gabapentin 200 mg 07/06/20 22:00 07/11/20 06:31 Neurontin - PO 200 mg TID ROSCOE Administration Heparin Sodium (Porcine) 5,000 unit 07/07/20 10:00 07/11/20 06:30 Heparin - SQ 5,000 unit TID ROSCOE Administration Sodium Chloride 1,000 mls @ 42 mls/hr 07/11/20 13:15 1/2 Normal Saline IV ASDIR ROSCOE Insulin Aspart 1 vial 07/06/20 16:30 07/11/20 11:48 Novolog Vial Sliding Scale - SQ 4 units ACHS ROSCOE Administration Protocol Insulin Detemir 7 units 07/06/20 22:00 07/10/20 21:20 Levemir Vial SQ 7 units HS ROSCOE Administration Metoprolol Tartrate 100 mg 07/06/20 22:00 07/11/20 09:07 Lopressor - PO 100 mg BID ROSCOE Administration Ondansetron HCl 4 mg 07/06/20 14:30 Zofran Injection IVPUSH Q6H PRN NAUSEA Pantoprazole Sodium 40 mg 07/07/20 07:00 07/11/20 06:30 Protonix - PO 40 mg ACBK ROSCOE Administration Senna 2 tab 07/11/20 09:32 Senna - PO HS PRN CONSTIPATION ASSESSMENT/PLAN: 64 y/o Lady with a PMHx of DM, HTN, HLD, and CKD who is admitted for intractable back pain and s/p Laminectomy. #s/p Laminectomy for a disc herniation - Neurosurgery preformed L4-5 laminectomies with decompressions and fusion - recommends aggressive PT-OOB, pt able to walk with PT today pending rehab placement - continue incentive spirometer - Oxy as needed for pain, morphine 2 q4h prn - continue to monitor H/H, keep hgb > 7 - creatinine back to baseline: renal contacted for MRI reccs- not indicated this admission due to low GFR radiology will not do the study #HTN - continue amlodipine #anemia - likely multifactoral, iron deficiency - continue ferrous sulfate #TIM on CKD - cannot exclude AIN - continue to monitor creatinine #DM - ISS, BGM - c/w levemir 7 #Dysfunctional Uterine Bleeding -post-menopausal bleeding -Rt hemipelvic mass -outpatient f/u with OBGYN #Ppx -DVT: heparin tid #FEN -no standing fluids -monitor lytes, replete PRN -diabetic diet dispo: continue rehab planning Visit type - Emergency Visit Emergency Visit: No - New Patient This patient is new to me today: No - Critical Care Critical Care patient: No - Discharge Referral Referred to [facility] Med [facility].C[facility] No ATTENDING PHYSICIAN STATEMENT I saw and evaluated the patient. I reviewed the resident's note and discussed the case with the resident. I agree with the resident's findings and plan as documented. SUBJECTIVE: OBJECTIVE: ASSESSMENT AND PLAN:
[2020-07-11] MEDS: SODIUM CHLORIDE 0.45% 1,000 ML IV SCH (13:36)
--- NOTE | 2020-07-11 17:17 | PN ---
Teaching Attending Note Name of Resident: Glenn Monson ATTENDING PHYSICIAN STATEMENT I saw and evaluated the patient. I reviewed the resident's note and discussed the case with the resident. I agree with the resident's findings and plan as documented. SUBJECTIVE: Complains of L back pain, radiating down L hip and LLE, difficult to weight bear. OBJECTIVE: Afebrile, Hemodynamically stable Last Vital Signs Temp Pulse Resp BP Pulse Ox 99.5 F 84 20 123/56 L 96 07/11/20 14:00 07/11/20 14:00 07/11/20 14:00 07/11/20 14:00 07/11/20 14:00 HEENT - Atraumatic, Normocephalic. Heart - S1 S2, RRR Lungs - clear to auscultation Abdomen - High BMI, soft, non-tender. Bowel Sounds normal. Extremities - mild edema, no calf tenderness. Decreased ROM of LLE due to pain on movement Laboratory Results - last 24 hr 07/10/20 07/10/20 07/11/20 20:45 21:18 06:37 WBC 14.5 H RBC 2.82 L Hgb 8.1 L Hct 24.6 L MCV 87.4 MCH 28.8 MCHC 33.0 RDW 16.4 H Plt Count 475 H MPV 7.6 Absolute Neuts (auto) 11.1 H Neutrophils % 76.6 Neutrophils % (Manual) Band Neutrophils % Lymphocytes % 12.0 Lymphocytes % (Manual) Monocytes % 9.1 Monocytes % (Manual) Eosinophils % 2.1 Eosinophils % (Manual) Basophils % 0.2 Basophils % (Manual) Myelocytes % (Man) Promyelocytes % (Man) Blast Cells % (Manual) Nucleated RBC % 0 Metamyelocytes Hypochromia Platelet Estimate Polychromasia Poikilocytosis Basophilic Stippling Anisocytosis Microcytosis Macrocytosis Sodium Potassium Chloride Carbon Dioxide Anion Gap BUN Creatinine Est GFR (CKD-EPI)AfAm Est GFR (CKD-EPI)NonAf POC Glucometer 299 239 Random Glucose Calcium Total Bilirubin Direct Bilirubin AST ALT Alkaline Phosphatase Total Protein Albumin SARS-CoV-2 (PCR) 07/11/20 07/11/20 07/11/20 07:40 07:40 07:40 WBC 14.9 H RBC 2.82 L Hgb 8.3 L Hct 25.0 L MCV 88.6 MCH 29.5 MCHC 33.3 RDW 16.0 H Plt Count 469 H MPV 7.9 Absolute Neuts (auto) Neutrophils % No Result Required. Neutrophils % (Manual) 80.0 Band Neutrophils % 0.0 Lymphocytes % No Result Required. Lymphocytes % (Manual) 9.0 Monocytes % Monocytes % (Manual) 7 D Eosinophils % Eosinophils % (Manual) 2.0 Basophils % Basophils % (Manual) 0.0 Myelocytes % (Man) 0 D Promyelocytes % (Man) 0 Blast Cells % (Manual) 0 Nucleated RBC % 0 Metamyelocytes 2 D Hypochromia 0 Platelet Estimate Adequate Polychromasia 0 Poikilocytosis 0 Basophilic Stippling 1+ Anisocytosis 0 Microcytosis 0 Macrocytosis 0 Sodium 138 Potassium 4.7 Chloride 108 H Carbon Dioxide 24 Anion Gap 6 L BUN 60.8 H Creatinine 2.0 H Est GFR (CKD-EPI)AfAm 30.25 Est GFR (CKD-EPI)NonAf 26.10 POC Glucometer Random Glucose 249 H Calcium 9.1 Total Bilirubin 0.7 Direct Bilirubin 0.2 AST 21 ALT 10 L Alkaline Phosphatase 258 H Total Protein 5.8 L Albumin 1.7 L SARS-CoV-2 (PCR) 07/11/20 07/11/20 07/11/20 11:30 11:34 16:48 WBC RBC Hgb Hct MCV MCH MCHC RDW Plt Count MPV Absolute Neuts (auto) Neutrophils % Neutrophils % (Manual) Band Neutrophils % Lymphocytes % Lymphocytes % (Manual) Monocytes % Monocytes % (Manual) Eosinophils % Eosinophils % (Manual) Basophils % Basophils % (Manual) Myelocytes % (Man) Promyelocytes % (Man) Blast Cells % (Manual) Nucleated RBC % Metamyelocytes Hypochromia Platelet Estimate Polychromasia Poikilocytosis Basophilic Stippling Anisocytosis Microcytosis Macrocytosis Sodium Potassium Chloride Carbon Dioxide Anion Gap BUN Creatinine Est GFR (CKD-EPI)AfAm Est GFR (CKD-EPI)NonAf POC Glucometer 279 235 Random Glucose Calcium Total Bilirubin Direct Bilirubin AST ALT Alkaline Phosphatase Total Protein Albumin SARS-CoV-2 (PCR) Negative Current Medications Generic Name Dose Route Start Last Admin Trade Name Freq PRN Reason Stop Dose Admin Acetaminophen 650 mg 07/06/20 15:54 07/11/20 09:06 Tylenol - PO 650 mg Q6H PRN Administration PAIN LEVEL 1-5 Amlodipine Besylate 10 mg 07/07/20 10:00 07/11/20 09:08 Norvasc - PO 10 mg DAILY ROSCOE Administration Atorvastatin Calcium 40 mg 07/06/20 22:00 07/10/20 21:20 Lipitor - PO 40 mg HS ROSCOE Administration Cyclobenzaprine HCl 5 mg 07/09/20 12:20 07/11/20 11:16 Flexeril - PO 5 mg BID PRN Administration BACK PAIN Diphenhydramine HCl 25 mg 07/06/20 14:30 Benadryl - PO Q6H PRN FOR ITCHING Ferrous Sulfate 325 mg 07/07/20 08:00 07/11/20 09:05 Feosol - PO 325 mg DAILY@0800 ROSCOE Administration Folic Acid 1 mg 07/07/20 10:00 07/11/20 09:07 Folic Acid - PO 1 mg DAILY ROSCOE Administration Gabapentin 200 mg 07/06/20 22:00 07/11/20 14:41 Neurontin - PO 200 mg TID ROSCOE Administration Heparin Sodium (Porcine) 5,000 unit 07/07/20 10:00 07/11/20 14:39 Heparin - SQ 5,000 unit TID ROSCOE Administration Sodium Chloride 1,000 mls @ 42 mls/hr 07/11/20 13:15 07/11/20 13:36 1/2 Normal Saline IV 42 mls/hr ASDIR ROSCOE Administration Insulin Aspart 1 vial 07/06/20 16:30 07/11/20 16:52 Novolog Vial Sliding Scale - SQ 2 units ACHS ROSCOE Administration Protocol Insulin Detemir 7 units 07/06/20 22:00 07/10/20 21:20 Levemir Vial SQ 7 units HS ROSCOE Administration Metoprolol Tartrate 100 mg 07/06/20 22:00 07/11/20 09:07 Lopressor - PO 100 mg BID ROSCOE Administration Ondansetron HCl 4 mg 07/06/20 14:30 Zofran Injection IVPUSH Q6H PRN NAUSEA Pantoprazole Sodium 40 mg 07/07/20 07:00 07/11/20 06:30 Protonix - PO 40 mg ACBK ROSCOE Administration Senna 2 tab 07/11/20 09:32 Senna - PO HS PRN CONSTIPATION Home Medications Medication Instructions Recorded Amlodipine Besylate [Norvasc -] 10 mg PO DAILY 06/26/20 Glimepiride [Amaryl -] 4 mg PO BID 06/26/20 Metoprolol Tartrate [Lopressor] 100 mg PO BID 06/26/20 Telmisartan/Hydrochlorothiazid 1 each PO DAILY 06/26/20 [Telmisartan-Hctz 80-25 mg Tab] Sitagliptin Phosphate [Januvia] 50 mg PO DAILY 06/27/20 ASSESSMENT AND PLAN: 64 year old female with history of DM 2, HTN, HLD, CKD 3, presents with lower back pain, L Hip pain, radiating down LLE, as well as 3 day history of post- menopausal vaginal bleeding, now resolved. 1. Sciatica and Back Pain sec to DJD, nerve impingement, spinal stenosis, possible vertebral mass(es) POD 5 s/p L4-5 laminectomy/decompression/fusion s/p SAMANTHA drain removal continue gabapentin Neurosurgery following. PT Radiology recommended MRI to exclude mass - unable to obtain due to renal function. Further management as er Neurosurgery and Hem/Onc. 2. TIM on CKD 3 - improving. Renal US - bilateral renal lipomatosis, R renal cyst. 3. Normocytic anemia, multifactorial sec to CKD/Chronic Disease/adalberto-op blood loss - Stable s/p transfusion 1 unit PRBCs. 4. Urinary Retention Failed TOV Pathak in situ For urology follow up as out-patient. 5. Post-menopausal Dysfunctional Uterine Bleeding Abdominal US - enlarged myomatous uterus. CT - mass-like density R hemipelvis, exophytic fibroid versus ovarian mass. Gynecology evaluated - no bleeding currently - Gynecology mass not the cause of patient's TIM/urinary obstruction as per Gynecology. For outpatient endometrial biopsy as per Gyne. 6. HLD - on Statin. 7. DM 2 - Glimepiride, Januvia held. Maintain on Levemir/Novolog as per sliding scale. 8. HTN - continue Norvasc, Lopressor. ARB held due to TIM. DVT Px - Heparin SQ
[2020-07-11] MEDS: ATORVASTATIN CA 40 MG TABLET (FP) PO SCH (22:56)
[2020-07-11] MEDS: INSULIN (LEVEMIR) 100 UNITS/ML UNITS SQ SCH (22:59)
[2020-07-12] MEDS: CYCLOBENZAPRINE HCL 10 MG TABLET (FP) PO PRN (00:10)
[2020-07-12] MEDS: HEPARIN NA (PORCINE) 5,000 UNITS/ML 1ML VIAL SQ SCH ×3 (06:31→21:54)
[2020-07-12] MEDS: PANTOPRAZOLE 40 MG TABLET PO SCH (06:32)
[2020-07-12] MEDS: GABAPENTIN 100 MG CAPSULE PO SCH ×3 (06:32→21:55)
[2020-07-12] MEDS: INSULIN SLIDING SCALE (NOVOLOG) 1 VIAL SQ SCH ×4 (06:33→21:56)
[2020-07-12] MEDS: SODIUM CHLORIDE 0.45% 1,000 ML IV SCH ×2 (06:36→15:11)
[2020-07-12 08:16] LABS: BASO % 0.3 % (0-2.0); EOS % 2.1 % (0-4.5); HEMATOCRIT 25.2 % (32.4-45.2); HEMOGLOBIN 8.3 GM/dL (10.7-15.3); LYMPH % 13.2 % (8-40); MCH 29.4 pg (25.7-33.7); MCHC 33.1 g/dl (32.0-36.0); MEAN CELL VOLUME 88.7 fl (80-96); MEAN PLT VOLUME 7.6 fl (7.5-11.1); MONO % 9.4 % (3.8-10.2); PLATELET COUNT 469 K/MM3 (134-434); RBC 2.84 M/mm3 (3.60-5.2); RDW 16.5 % (11.6-15.6); WHITE BLOOD COUNT 15.2 K/mm3 (4.0-10.0)
[2020-07-12] MEDS ORDERED: MAGNESIUM HYDROX 2400MG/30ML ORAL SUSPENSION 30 ML CUP PO ONE (08:18)
[2020-07-12 08:52] LABS: BLOOD UREA NITROGEN 54.7 mg/dL (7-18); CREATININE 1.9 mg/dL (0.55-1.3); MAGNESIUM 2.1 mg/dL (1.8-2.4); PHOSPHOROUS 3.6 mg/dL (2.5-4.9); POTASSIUM 5.2 mmol/L (3.5-5.1)
[2020-07-12] MEDS: FERROUS SO4 325 MG TABLET (FP) PO SCH (09:16)
[2020-07-12] MEDS: METOPROLOL TARTRATE 50 MG TABLET (FP) PO SCH ×2 (09:16→21:55)
[2020-07-12] MEDS: FOLIC ACID 1 MG TABLET (FP) PO SCH (09:16)
[2020-07-12] MEDS: amLODIPine BESYLATE 10 MG TABLET (FP) PO SCH (09:16)
--- NOTE | 2020-07-12 10:39 | PN ---
Progress Note, Physician History of Present Illness: Pt seen and examined at bedside. She is awake and alert. She denies shortness of breath. - Current Medication List Current Medications: Active Medications Acetaminophen (Tylenol -) 650 mg PO Q6H PRN PRN Reason: PAIN LEVEL 1-5 Last Admin: 07/11/20 22:58 Dose: 650 mg Documented by: Amlodipine Besylate (Norvasc -) 10 mg PO DAILY [facility] Last Admin: 07/12/20 09:16 Dose: 10 mg Documented by: Atorvastatin Calcium (Lipitor -) 40 mg PO HS [facility] Last Admin: 07/11/20 22:56 Dose: 40 mg Documented by: Cyclobenzaprine HCl (Flexeril -) 5 mg PO BID PRN PRN Reason: BACK PAIN Last Admin: 07/12/20 00:10 Dose: 5 mg Documented by: Diphenhydramine HCl (Benadryl -) 25 mg PO Q6H PRN PRN Reason: FOR ITCHING Ferrous Sulfate (Feosol -) 325 mg PO DAILY@0800 [facility] Last Admin: 07/12/20 09:16 Dose: 325 mg Documented by: Folic Acid (Folic Acid -) 1 mg PO DAILY [facility] Last Admin: 07/12/20 09:16 Dose: 1 mg Documented by: Gabapentin (Neurontin -) 200 mg PO TID [facility] Last Admin: 07/12/20 06:32 Dose: 200 mg Documented by: Heparin Sodium (Porcine) (Heparin -) 5,000 unit SQ TID [facility] Last Admin: 07/12/20 06:31 Dose: 5,000 unit Documented by: Sodium Chloride (1/2 Normal Saline) 1,000 mls @ 42 mls/hr IV ASDIR [facility] Last Admin: 07/12/20 06:36 Dose: 42 mls/hr Documented by: Insulin Aspart (Novolog Vial Sliding Scale -) 1 vial SQ [facility]; Protocol Last Admin: 07/12/20 06:33 Dose: Not Given Documented by: Insulin Detemir (Levemir Vial) 7 units SQ [facility] Last Admin: 07/11/20 22:59 Dose: 7 units Documented by: Metoprolol Tartrate (Lopressor -) 100 mg PO BID [facility] Last Admin: 07/12/20 09:16 Dose: 100 mg Documented by: Ondansetron HCl (Zofran Injection) 4 mg IVPUSH Q6H PRN PRN Reason: NAUSEA Pantoprazole Sodium (Protonix -) 40 mg PO ACBK ROSCOE Last Admin: 07/12/20 06:32 Dose: 40 mg Documented by: Robert (Senna -) 2 tab PO HS PRN PRN Reason: CONSTIPATION - Objective Vital Signs: Vital Signs Temperature 99 F 07/12/20 06:00 Pulse Rate 85 07/12/20 06:00 Respiratory Rate 20 07/12/20 06:00 Blood Pressure 155/72 07/12/20 06:00 O2 Sat by Pulse Oximetry (%) 94 L 07/12/20 06:00 Constitutional: Yes: Calm Eyes: Yes: Conjunctiva Clear HENT: Yes: Atraumatic Neck: Yes: Supple Cardiovascular: Yes: S1, S2 Respiratory: Yes: CTA Bilaterally Gastrointestinal: Yes: Normal Bowel Sounds, Soft Genitourinary: Yes: WNL Musculoskeletal: Yes: Back Pain Edema: No Neurological: Yes: Oriented Psychiatric: Yes: Oriented Labs: CBC, BMP 07/12/20 07:25 07/12/20 07:25 INR, PTT INR 1.14 (0.83-1.09) H 06/26/20 10:15 Problem List - Problems (1) CKD (chronic kidney disease) Code(s): N18.9 - CHRONIC KIDNEY DISEASE, UNSPECIFIED (2) Sciatica Code(s): M54.30 - SCIATICA, UNSPECIFIED SIDE Qualifiers: Laterality: left Qualified Code(s): M54.32 - Sciatica, left side (3) Hypertension Code(s): I10 - ESSENTIAL (PRIMARY) HYPERTENSION Assessment/Plan Current Medications Generic Name Dose Route Start Last Admin Trade Name Freq PRN Reason Stop Dose Admin Acetaminophen 650 mg 07/06/20 15:54 07/11/20 22:58 Tylenol - PO 650 mg Q6H PRN Administration PAIN LEVEL 1-5 Amlodipine Besylate 10 mg 07/07/20 10:00 07/12/20 09:16 Norvasc - PO 10 mg DAILY ROSCOE Administration Atorvastatin Calcium 40 mg 07/06/20 22:00 07/11/20 22:56 Lipitor - PO 40 mg HS ROSCOE Administration Cyclobenzaprine HCl 5 mg 07/09/20 12:20 07/12/20 00:10 Flexeril - PO 5 mg BID PRN Administration BACK PAIN Diphenhydramine HCl 25 mg 07/06/20 14:30 Benadryl - PO Q6H PRN FOR ITCHING Ferrous Sulfate 325 mg 07/07/20 08:00 07/12/20 09:16 Feosol - PO 325 mg DAILY@0800 ROSCOE Administration Folic Acid 1 mg 07/07/20 10:00 07/12/20 09:16 Folic Acid - PO 1 mg DAILY ROSCOE Administration Gabapentin 200 mg 07/06/20 22:00 07/12/20 06:32 Neurontin - PO 200 mg TID ROSCOE Administration Heparin Sodium (Porcine) 5,000 unit 07/07/20 10:00 07/12/20 06:31 Heparin - SQ 5,000 unit TID [facility] Administration Sodium Chloride 1,000 mls @ 42 mls/hr 07/11/20 13:15 07/12/20 06:36 1/2 Normal Saline IV 42 mls/hr ASDIR ROSCOE Administration Insulin Aspart 1 vial 07/06/20 16:30 07/12/20 06:33 Novolog Vial Sliding Scale - SQ Not Given [facility] Protocol Insulin Detemir 7 units 07/06/20 22:00 07/11/20 22:59 Levemir Vial SQ 7 units HS [facility] Administration Metoprolol Tartrate 100 mg 07/06/20 22:00 07/12/20 09:16 Lopressor - PO 100 mg BID ROSCOE Administration Ondansetron HCl 4 mg 07/06/20 14:30 Zofran Injection IVPUSH Q6H PRN NAUSEA Pantoprazole Sodium 40 mg 07/07/20 07:00 07/12/20 06:32 Protonix - PO 40 mg ACBK ROSCOE Administration Senna 2 tab 07/11/20 09:32 Senna - PO HS PRN CONSTIPATION Impression 1. CKD 2. TIM 3. back pain 4. dm 5. htn 6. obesity 7. possible spinal mass lesion Plan - renal function continues to improve - can cont fluids - bowel regimen for constipation - avoid nephrotoxins - cont to monitor potassium - fluids should help decrease - tim likely in part pre-renal
[2020-07-12] MEDS: POLYETHYLENE GLYCOL 3350 119 GM BTL PO SCH (11:32)
--- NOTE | 2020-07-12 13:19 | PN ---
Physical Exam: SUBJECTIVE: Patient seen and examined at bedside. No acute events reported overnight. Patient endorses constipation. OBJECTIVE: Vital Signs Period Temp Pulse Resp BP Sys/Ruiz Pulse Ox Last 24 Hr 97.2 F-99.9 F 81-96 20-20 123-157/54-76 93-96 GENERAL: AAOx3, in no acute distress. appears sleepy. HEENT: NCAT, PERRLA, EOMI, sclera anicteric, conjunctiva clear, oropharynx clear w/o exudates. MMM. NECK: Normal ROM, supple, no lymphadenopathy, JVD, or masses LUNGS: CTABL no wheezes/ rhonchi/ rales. No distress, speaks in full sentences. No increased work of breathing. HEART: RRR, normal S1 S2, no M/R/G, peripheral pulses 2+ and equal b/l ABDOMEN: Soft, NTND, + BS. No guarding or rebound. No hepatomegaly or splenomegaly. MSK: LE limited strength 4/5 EXTREMITIES: Normal inspection. No peripheral edema. No clubbing or cyanosis. NEUROLOGICAL: CN II-XII intact. Normal speech, no focal sensorimotor deficits. SKIN: Warm, Dry, normal turgor, no rashes or lesions noted Laboratory Results - last 24 hr CBC, BMP 07/12/20 07:25 07/12/20 07:25 07/11/20 07/11/20 07/11/20 11:30 16:48 22:55 WBC RBC Hgb Hct MCV MCH MCHC RDW Plt Count MPV Absolute Neuts (auto) Neutrophils % Lymphocytes % Monocytes % Eosinophils % Basophils % Nucleated RBC % Sodium Potassium Chloride Carbon Dioxide Anion Gap BUN Creatinine Est GFR (CKD-EPI)AfAm Est GFR (CKD-EPI)NonAf POC Glucometer 235 236 Random Glucose Calcium Phosphorus Magnesium Stool Occult Blood SARS-CoV-2 (PCR) Negative 07/12/20 07/12/20 07/12/20 06:26 07:25 07:25 WBC 15.2 H RBC 2.84 L Hgb 8.3 L Hct 25.2 L MCV 88.7 MCH 29.4 MCHC 33.1 RDW 16.5 H Plt Count 469 H MPV 7.6 Absolute Neuts (auto) 11.4 H Neutrophils % 75.0 Lymphocytes % 13.2 Monocytes % 9.4 Eosinophils % 2.1 Basophils % 0.3 Nucleated RBC % 0 Sodium 138 Potassium 5.2 H Chloride 107 Carbon Dioxide 22 Anion Gap 9 BUN 54.7 H Creatinine 1.9 H Est GFR (CKD-EPI)AfAm 32.18 Est GFR (CKD-EPI)NonAf 27.77 POC Glucometer 146 Random Glucose 152 H Calcium 9.0 Phosphorus 3.6 Magnesium 2.1 Stool Occult Blood SARS-CoV-2 (PCR) 07/12/20 07/12/20 10:12 10:50 WBC RBC Hgb Hct MCV MCH MCHC RDW Plt Count MPV Absolute Neuts (auto) Neutrophils % Lymphocytes % Monocytes % Eosinophils % Basophils % Nucleated RBC % Sodium Potassium Chloride Carbon Dioxide Anion Gap BUN Creatinine Est GFR (CKD-EPI)AfAm Est GFR (CKD-EPI)NonAf POC Glucometer 210 Random Glucose Calcium Phosphorus Magnesium Stool Occult Blood Negative SARS-CoV-2 (PCR) Active Medications Generic Name Dose Route Start Last Admin Trade Name Freq PRN Reason Stop Dose Admin Acetaminophen 650 mg 07/06/20 15:54 07/11/20 22:58 Tylenol - PO 650 mg Q6H PRN Administration PAIN LEVEL 1-5 Amlodipine Besylate 10 mg 07/07/20 10:00 07/12/20 09:16 Norvasc - PO 10 mg DAILY [facility] Administration Atorvastatin Calcium 40 mg 07/06/20 22:00 07/11/20 22:56 Lipitor - PO 40 mg HS [facility] Administration Cyclobenzaprine HCl 5 mg 07/09/20 12:20 07/12/20 00:10 Flexeril - PO 5 mg BID PRN Administration BACK PAIN Diphenhydramine HCl 25 mg 07/06/20 14:30 Benadryl - PO Q6H PRN FOR ITCHING Ferrous Sulfate 325 mg 07/07/20 08:00 07/12/20 09:16 Feosol - PO 325 mg DAILY@0800 [facility] Administration Folic Acid 1 mg 07/07/20 10:00 07/12/20 09:16 Folic Acid - PO 1 mg DAILY [facility] Administration Gabapentin 200 mg 07/06/20 22:00 07/12/20 06:32 Neurontin - PO 200 mg TID [facility] Administration Heparin Sodium (Porcine) 5,000 unit 07/07/20 10:00 07/12/20 06:31 Heparin - SQ 5,000 unit TID [facility] Administration Sodium Chloride 1,000 mls @ 42 mls/hr 07/11/20 13:15 07/12/20 06:36 1/2 Normal Saline IV 42 mls/hr ASDIR [facility] Administration Insulin Aspart 1 vial 07/06/20 16:30 07/12/20 10:55 Novolog Vial Sliding Scale - SQ 2 units ACHS [facility] Administration Protocol Insulin Detemir 7 units 07/06/20 22:00 07/11/20 22:59 Levemir Vial SQ 7 units HS [facility] Administration Metoprolol Tartrate 100 mg 07/06/20 22:00 07/12/20 09:16 Lopressor - PO 100 mg BID [facility] Administration Ondansetron HCl 4 mg 07/06/20 14:30 Zofran Injection IVPUSH Q6H PRN NAUSEA Pantoprazole Sodium 40 mg 07/07/20 07:00 07/12/20 06:32 Protonix - PO 40 mg ACBK [facility] Administration Polyethylene Glycol 17 gm 07/12/20 11:00 07/12/20 11:32 Miralax (For Daily Use) - PO Not Given DAILY [facility] Senna 2 tab 07/11/20 09:32 Senna - PO HS PRN CONSTIPATION ASSESSMENT/PLAN: 64 y/o Lady with a PMHx of DM, HTN, HLD, and CKD who is admitted for intractable back pain and s/p Laminectomy. #s/p Laminectomy for a disc herniation - Neurosurgery preformed L4-5 laminectomies with decompressions and fusion - recommends aggressive PT-OOB, pt not compliant with PT - continue incentive spirometer - Oxy as needed for pain, morphine 2 q4h prn - continue to monitor H/H, keep hgb > 7 - creatinine back to baseline: renal contacted for MRI reccs- not indicated this admission due to low GFR radiology will not do the study #Leukocytosis -WBC trending up -continue to monitor CBC -monitor vitals if pt becomes febrile again will order cultures/CXR #Constipation -Laxatives given -Patient had a bowel movement after enema today #HTN - continue amlodipine #anemia - likely multifactoral, iron deficiency - continue ferrous sulfate #TIM on CKD - cannot exclude AIN -1/2 NS @ 42 mls/hr - continue to monitor creatinine -K 5.2 today continue to monitor; continue IVF #DM - ISS, BGM - c/w levemir 7 #Dysfunctional Uterine Bleeding -post-menopausal bleeding -Rt hemipelvic mass -outpatient f/u with OBGYN #FEN -1/2 NS @ 42 mls/hr -monitor lytes, replete PRN -diabetic diet #Ppx -DVT: heparin tid dispo: continue rehab planning Visit type - Emergency Visit Emergency Visit: No - New Patient This patient is new to me today: No - Critical Care Critical Care patient: No - Discharge Referral Referred to [facility] No ATTENDING PHYSICIAN STATEMENT I saw and evaluated the patient. I reviewed the resident's note and discussed the case with the resident. I agree with the resident's findings and plan as documented. SUBJECTIVE: OBJECTIVE: ASSESSMENT AND PLAN:
--- NOTE | 2020-07-12 14:07 | PN ---
Teaching Attending Note Name of Resident: Glenn Monson ATTENDING PHYSICIAN STATEMENT I saw and evaluated the patient. I reviewed the resident's note and discussed the case with the resident. I agree with the resident's findings and plan as documented. SUBJECTIVE: Some improvement in L back pain, radiating down L hip and LLE, difficult to weight bear. Successful BM after enema OBJECTIVE: Low grade Temp overnight Tmax 99.9, Hemodynamically stable, more comfortable today Last Vital Signs Temp Pulse Resp BP Pulse Ox 99.3 F 89 17 127/79 93 L 07/12/20 10:00 07/12/20 10:00 07/12/20 10:00 07/12/20 10:00 07/12/20 10:00 HEENT - Atraumatic, Normocephalic. Heart - S1 S2, RRR Lungs - clear to auscultation Abdomen - High BMI, soft, non-tender. Bowel Sounds normal. Extremities - mild edema, no calf tenderness. Decreased ROM of LLE due to pain on movement Laboratory Results - last 24 hr 07/11/20 07/11/20 07/11/20 11:30 16:48 22:55 WBC RBC Hgb Hct MCV MCH MCHC RDW Plt Count MPV Absolute Neuts (auto) Neutrophils % Lymphocytes % Monocytes % Eosinophils % Basophils % Nucleated RBC % Sodium Potassium Chloride Carbon Dioxide Anion Gap BUN Creatinine Est GFR (CKD-EPI)AfAm Est GFR (CKD-EPI)NonAf POC Glucometer 235 236 Random Glucose Calcium Phosphorus Magnesium Stool Occult Blood SARS-CoV-2 (PCR) Negative 07/12/20 07/12/20 07/12/20 06:26 07:25 07:25 WBC 15.2 H RBC 2.84 L Hgb 8.3 L Hct 25.2 L MCV 88.7 MCH 29.4 MCHC 33.1 RDW 16.5 H Plt Count 469 H MPV 7.6 Absolute Neuts (auto) 11.4 H Neutrophils % 75.0 Lymphocytes % 13.2 Monocytes % 9.4 Eosinophils % 2.1 Basophils % 0.3 Nucleated RBC % 0 Sodium 138 Potassium 5.2 H Chloride 107 Carbon Dioxide 22 Anion Gap 9 BUN 54.7 H Creatinine 1.9 H Est GFR (CKD-EPI)AfAm 32.18 Est GFR (CKD-EPI)NonAf 27.77 POC Glucometer 146 Random Glucose 152 H Calcium 9.0 Phosphorus 3.6 Magnesium 2.1 Stool Occult Blood SARS-CoV-2 (PCR) 07/12/20 07/12/20 10:12 10:50 WBC RBC Hgb Hct MCV MCH MCHC RDW Plt Count MPV Absolute Neuts (auto) Neutrophils % Lymphocytes % Monocytes % Eosinophils % Basophils % Nucleated RBC % Sodium Potassium Chloride Carbon Dioxide Anion Gap BUN Creatinine Est GFR (CKD-EPI)AfAm Est GFR (CKD-EPI)NonAf POC Glucometer 210 Random Glucose Calcium Phosphorus Magnesium Stool Occult Blood Negative SARS-CoV-2 (PCR) Current Medications Generic Name Dose Route Start Last Admin Trade Name Freq PRN Reason Stop Dose Admin Acetaminophen 650 mg 07/06/20 15:54 07/11/20 22:58 Tylenol - PO 650 mg Q6H PRN Administration PAIN LEVEL 1-5 Amlodipine Besylate 10 mg 07/07/20 10:00 07/12/20 09:16 Norvasc - PO 10 mg DAILY [facility] Administration Atorvastatin Calcium 40 mg 07/06/20 22:00 07/11/20 22:56 Lipitor - PO 40 mg HS [facility] Administration Cyclobenzaprine HCl 5 mg 07/09/20 12:20 07/12/20 00:10 Flexeril - PO 5 mg BID PRN Administration BACK PAIN Diphenhydramine HCl 25 mg 07/06/20 14:30 Benadryl - PO Q6H PRN FOR ITCHING Ferrous Sulfate 325 mg 07/07/20 08:00 07/12/20 09:16 Feosol - PO 325 mg DAILY@0800 [facility] Administration Folic Acid 1 mg 07/07/20 10:00 07/12/20 09:16 Folic Acid - PO 1 mg DAILY [facility] Administration Gabapentin 200 mg 07/06/20 22:00 07/12/20 06:32 Neurontin - PO 200 mg TID [facility] Administration Heparin Sodium (Porcine) 5,000 unit 07/07/20 10:00 07/12/20 06:31 Heparin - SQ 5,000 unit TID [facility] Administration Sodium Chloride 1,000 mls @ 42 mls/hr 07/11/20 13:15 07/12/20 06:36 1/2 Normal Saline IV 42 mls/hr ASDIR [facility] Administration Insulin Aspart 1 vial 07/06/20 16:30 07/12/20 10:55 Novolog Vial Sliding Scale - SQ 2 units ACHS [facility] Administration Protocol Insulin Detemir 7 units 07/06/20 22:00 07/11/20 22:59 Levemir Vial SQ 7 units HS [facility] Administration Metoprolol Tartrate 100 mg 07/06/20 22:00 07/12/20 09:16 Lopressor - PO 100 mg BID [facility] Administration Ondansetron HCl 4 mg 07/06/20 14:30 Zofran Injection IVPUSH Q6H PRN NAUSEA Pantoprazole Sodium 40 mg 07/07/20 07:00 07/12/20 06:32 Protonix - PO 40 mg ACBK [facility] Administration Polyethylene Glycol 17 gm 07/12/20 11:00 07/12/20 11:32 Miralax (For Daily Use) - PO Not Given DAILY [facility]COE Senna 2 tab 07/11/20 09:32 Senna - PO HS PRN CONSTIPATION Home Medications Medication Instructions Recorded Amlodipine Besylate [Norvasc -] 10 mg PO DAILY 06/26/20 Glimepiride [Amaryl -] 4 mg PO BID 06/26/20 Metoprolol Tartrate [Lopressor] 100 mg PO BID 06/26/20 Telmisartan/Hydrochlorothiazid 1 each PO DAILY 06/26/20 [Telmisartan-Hctz 80-25 mg Tab] Sitagliptin Phosphate [Januvia] 50 mg PO DAILY 06/27/20 ASSESSMENT AND PLAN: 64 year old female with history of DM 2, HTN, HLD, CKD 3, presents with lower back pain, L Hip pain, radiating down LLE, as well as 3 day history of post- menopausal vaginal bleeding, now resolved. 1. Sciatica and Back Pain sec to DJD, nerve impingement, spinal stenosis, possible vertebral mass(es) POD 6 s/p L4-5 laminectomy/decompression/fusion s/p SAMANTHA drain removal Continue gabapentin Neurosurgery following. Ongoing PT Radiology recommended MRI to exclude mass - unable to obtain due to renal function. Further management as per Neurosurgery and Hem/Onc. Temp mildly elevated at 99.9, WBC 15.2 - no clear signs of infection. If any fever will order genao-culture/CXR. Incentive Spirometry. 2. TIM on CKD 3 - improving. Renal US - bilateral renal lipomatosis, R renal cyst. Continue IV fluids as per Nephrology. K 5.2, will monitor. IV hydration ongoing. 3. Normocytic anemia, multifactorial sec to CKD/Chronic Disease/adalberto-op blood loss - Stable s/p transfusion 1 unit PRBCs. FOBT negative, 4. Urinary Retention Failed TOV Pathak in situ For urology follow up as out-patient. 5. Post-menopausal Dysfunctional Uterine Bleeding Abdominal US - enlarged myomatous uterus. CT - mass-like density R hemipelvis, exophytic fibroid versus ovarian mass. Gynecology evaluated - no bleeding currently - Gynecology mass not the cause of patient's TIM/urinary obstruction as per Gynecology. For outpatient endometrial biopsy as per Gyne. 6. HLD - on Statin. 7. DM 2 - Glimepiride, Januvia held. Maintain on Levemir/Novolog as per sliding scale. 8. HTN - continue Norvasc, Lopressor. ARB held due to TIM. DVT Px - Heparin SQ
[2020-07-12] MEDS: ACETAMINOPHEN 325 MG TABLET (FP) PO PRN (17:45)
[2020-07-12] MEDS: ATORVASTATIN CA 40 MG TABLET (FP) PO SCH (21:54)
[2020-07-12] MEDS: INSULIN (LEVEMIR) 100 UNITS/ML UNITS SQ SCH (21:56)
[2020-07-13] MEDS: INSULIN SLIDING SCALE (NOVOLOG) 1 VIAL SQ SCH ×4 (06:40→21:31)
[2020-07-13] MEDS: GABAPENTIN 100 MG CAPSULE PO SCH ×3 (06:42→21:31)
[2020-07-13] MEDS: PANTOPRAZOLE 40 MG TABLET PO SCH (06:42)
[2020-07-13] MEDS: HEPARIN NA (PORCINE) 5,000 UNITS/ML 1ML VIAL SQ SCH ×3 (06:42→21:31)
[2020-07-13] MEDS: SODIUM CHLORIDE 0.45% 1,000 ML IV SCH ×2 (06:42→13:52)
[2020-07-13] MEDS: ACETAMINOPHEN 325 MG TABLET (FP) PO PRN (06:43)
[2020-07-13 08:19] LABS: BASO % 0.5 % (0-2.0); HEMATOCRIT 23.5 % (32.4-45.2); HEMOGLOBIN 7.9 GM/dL (10.7-15.3); LYMPH % 12.1 % (8-40); MCH 29.6 pg (25.7-33.7); MCHC 33.4 g/dl (32.0-36.0); MEAN CELL VOLUME 88.5 fl (80-96); MEAN PLT VOLUME 7.7 fl (7.5-11.1); MONO % 9.5 % (3.8-10.2); NEUT % 74.9 % (42.8-82.8); PLATELET COUNT 457 K/MM3 (134-434); RBC 2.66 M/mm3 (3.60-5.2); RDW 16.4 % (11.6-15.6)
[2020-07-13 08:58] LABS: ALBUMIN 1.6 g/dl (3.4-5.0); BILIRUBIN,TOTAL 0.3 mg/dL (0.2-1); BLOOD UREA NITROGEN 48.4 mg/dL (7-18); CALCIUM 9.1 mg/dL (8.5-10.1); CREATININE 1.6 mg/dL (0.55-1.3); POTASSIUM 4.9 mmol/L (3.5-5.1); TOT PROT 5.5 g/dl (6.4-8.2)
[2020-07-13] MEDS: FERROUS SO4 325 MG TABLET (FP) PO SCH (09:43)
[2020-07-13] MEDS: FOLIC ACID 1 MG TABLET (FP) PO SCH (09:43)
[2020-07-13] MEDS: METOPROLOL TARTRATE 50 MG TABLET (FP) PO SCH ×2 (09:43→21:31)
[2020-07-13] MEDS: amLODIPine BESYLATE 10 MG TABLET (FP) PO SCH (09:43)
--- NOTE | 2020-07-13 12:36 | PN ---
Progress Note (short form) - Note Progress Note: Surgery: Vital Signs Period Temp Pulse Resp BP Sys/Ruiz Pulse Ox Last 24 Hr 97.6 F-100.3 F 84-94 17-20 123-160/71-84 93-98 Pathak: clear yellow urine, 1600ml GEN: A&0x3, NAD BAck: dressing changed. Inc c/d/i. No erythema or drainage noted. Reapplied dry 4x4 gauze and tegaderm CBC, BMP 07/13/20 07:19 07/13/20 07:19 A/P: 64 yo female s/p L45 laminectomy with decompression/fusion, POD#7 Surgical wound healing well, continue dry dressing with tegaderm at all times Awaiting discharge to rehab D/w Dr. Gonzalez
--- NOTE | 2020-07-13 14:41 | PN ---
Teaching Attending Note Name of Resident: Glenn Monson ATTENDING PHYSICIAN STATEMENT I saw and evaluated the patient. I reviewed the resident's note and discussed the case with the resident. I agree with the resident's findings and plan as documented. SUBJECTIVE: Some ongoing improvement in L back pain, radiating down L hip and LLE, still difficult to weight bear. Fever overnight. OBJECTIVE: Tmax 100.3, Hemodynamically stable. AAO x 3 Last Vital Signs Temp Pulse Resp BP Pulse Ox 99.5 F 92 H 18 160/84 98 07/13/20 06:00 07/13/20 09:55 07/13/20 09:55 07/13/20 09:55 07/13/20 09:55 HEENT - Atraumatic, Normocephalic. Heart - S1 S2, RRR Lungs - clear to auscultation Abdomen - High BMI, soft, non-tender. Bowel Sounds normal. Extremities - mild edema, no calf tenderness. Some improvement in ROM of LLE - limited due to pain on movement Laboratory Results - last 24 hr 07/12/20 07/12/20 07/13/20 17:32 21:52 06:23 WBC RBC Hgb Hct MCV MCH MCHC RDW Plt Count MPV Absolute Neuts (auto) Neutrophils % Lymphocytes % Monocytes % Eosinophils % Basophils % Nucleated RBC % Sodium Potassium Chloride Carbon Dioxide Anion Gap BUN Creatinine Est GFR (CKD-EPI)AfAm Est GFR (CKD-EPI)NonAf POC Glucometer 218 187 117 Random Glucose Calcium Total Bilirubin AST ALT Alkaline Phosphatase Total Protein Albumin 07/13/20 07/13/20 07/13/20 07:19 07:19 11:55 WBC 13.0 H RBC 2.66 L Hgb 7.9 L Hct 23.5 L MCV 88.5 MCH 29.6 MCHC 33.4 RDW 16.4 H Plt Count 457 H MPV 7.7 Absolute Neuts (auto) 9.8 H Neutrophils % 74.9 Lymphocytes % 12.1 Monocytes % 9.5 Eosinophils % 3.0 Basophils % 0.5 Nucleated RBC % 0 Sodium 138 Potassium 4.9 Chloride 108 H Carbon Dioxide 24 Anion Gap 6 L BUN 48.4 H Creatinine 1.6 H Est GFR (CKD-EPI)AfAm 39.61 Est GFR (CKD-EPI)NonAf 34.18 POC Glucometer 152 Random Glucose 120 H Calcium 9.1 Total Bilirubin 0.3 AST 22 ALT 16 Alkaline Phosphatase 255 H Total Protein 5.5 L Albumin 1.6 L Current Medications Generic Name Dose Route Start Last Admin Trade Name Freq PRN Reason Stop Dose Admin Acetaminophen 650 mg 07/06/20 15:54 07/13/20 06:43 Tylenol - PO 650 mg Q6H PRN Administration PAIN LEVEL 1-5 Amlodipine Besylate 10 mg 07/07/20 10:00 07/13/20 09:43 Norvasc - PO 10 mg DAILY [facility]E Administration Atorvastatin Calcium 40 mg 07/06/20 22:00 07/12/20 21:54 Lipitor - PO 40 mg HS [facility] Administration Cyclobenzaprine HCl 5 mg 07/09/20 12:20 07/12/20 00:10 Flexeril - PO 5 mg BID PRN Administration BACK PAIN Diphenhydramine HCl 25 mg 07/06/20 14:30 Benadryl - PO Q6H PRN FOR ITCHING Ferrous Sulfate 325 mg 07/07/20 08:00 07/13/20 09:43 Feosol - PO 325 mg DAILY@0800 [facility] Administration Folic Acid 1 mg 07/07/20 10:00 07/13/20 09:43 Folic Acid - PO 1 mg DAILY [facility] Administration Gabapentin 200 mg 07/06/20 22:00 07/13/20 13:50 Neurontin - PO 200 mg TID [facility] Administration Heparin Sodium (Porcine) 5,000 unit 07/07/20 10:00 07/13/20 13:50 Heparin - SQ 5,000 unit TID [facility] Administration Sodium Chloride 1,000 mls @ 42 mls/hr 07/11/20 13:15 07/13/20 13:52 1/2 Normal Saline IV Not Given ASDIR [facility] Insulin Aspart 1 vial 07/06/20 16:30 07/13/20 12:11 Novolog Vial Sliding Scale - SQ Not Given ACHS [facility] Protocol Insulin Detemir 7 units 07/06/20 22:00 07/12/20 21:56 Levemir Vial SQ 7 units HS [facility] Administration Metoprolol Tartrate 100 mg 07/06/20 22:00 07/13/20 09:43 Lopressor - PO 100 mg BID [facility] Administration Ondansetron HCl 4 mg 07/06/20 14:30 Zofran Injection IVPUSH Q6H PRN NAUSEA Pantoprazole Sodium 40 mg 07/07/20 07:00 07/13/20 06:42 Protonix - PO 40 mg ACBK [facility] Administration Polyethylene Glycol 17 gm 07/12/20 11:00 07/12/20 11:32 Miralax (For Daily Use) - PO Not Given DAILY [facility]E Senna 2 tab 07/11/20 09:32 Senna - PO HS PRN CONSTIPATION Home Medications Medication Instructions Recorded Amlodipine Besylate [Norvasc -] 10 mg PO DAILY 06/26/20 Glimepiride [Amaryl -] 4 mg PO BID 06/26/20 Metoprolol Tartrate [Lopressor] 100 mg PO BID 06/26/20 Telmisartan/Hydrochlorothiazid 1 each PO DAILY 06/26/20 [Telmisartan-Hctz 80-25 mg Tab] Sitagliptin Phosphate [Januvia] 50 mg PO DAILY 06/27/20 ASSESSMENT AND PLAN: 64 year old female with history of DM 2, HTN, HLD, CKD 3, presents with lower back pain, L Hip pain, radiating down LLE, as well as 3 day history of post- menopausal vaginal bleeding, now resolved. 1. Sciatica and Back Pain sec to DJD, nerve impingement, spinal stenosis, possible vertebral mass(es) POD 7 s/p L4-5 laminectomy/decompression/fusion s/p SAMANTHA drain removal Continue Gabapentin Neurosurgery following. Ongoing PT Radiology recommended MRI to exclude mass - unable to obtain due to renal function. Further management as per Neurosurgery and Hem/Onc. Temp elevated at 100.3, WBC 13 - no clear source of infection. CXR - clear. Urine and Blood Cultures sent. Surgical wound site evaluated by Neurosurgery - no signs of infection. ID re-eval requested. 2. TIM on CKD 3 - continued improvement. Creat down to 1.6 from 5.1 Renal US - bilateral renal lipomatosis, R renal cyst. Continue IV fluids as per Nephrology. K 4.9, will monitor. IV hydration ongoing as per Nephrology. Nephrology and urology follow-ups on discharge. 3. Normocytic anemia, multifactorial sec to CKD/Chronic Disease/adalberto-op blood loss - Stable s/p transfusion 1 unit PRBCs. FOBT negative. 4. Urinary Retention Failed TOV Pathak in situ For urology follow up as out-patient. 5. Post-menopausal Dysfunctional Uterine Bleeding Abdominal US - enlarged myomatous uterus. CT - mass-like density R hemipelvis, exophytic fibroid versus ovarian mass. Gynecology evaluated - no bleeding currently - Gynecology mass not the cause of patient's TIM/urinary obstruction as per Gynecology. For outpatient endometrial biopsy as per Gyne. 6. HLD - on Statin. 7. DM 2 - Glimepiride, Januvia held. Maintain on Levemir/Novolog as per sliding scale. 8. HTN - continue Norvasc, Lopressor. ARB held due to TIM. DVT Px - Heparin SQ
--- NOTE | 2020-07-13 15:03 | PN ---
Progress Note, Physician History of Present Illness: Pt seen and examined at bedside. SHe is awake and alert. She denies shortness of breath. - Current Medication List Current Medications: Active Medications Acetaminophen (Tylenol -) 650 mg PO Q6H PRN PRN Reason: PAIN LEVEL 1-5 Last Admin: 07/13/20 06:43 Dose: 650 mg Documented by: Amlodipine Besylate (Norvasc -) 10 mg PO DAILY [facility] Last Admin: 07/13/20 09:43 Dose: 10 mg Documented by: Atorvastatin Calcium (Lipitor -) 40 mg PO HS [facility] Last Admin: 07/12/20 21:54 Dose: 40 mg Documented by: Cyclobenzaprine HCl (Flexeril -) 5 mg PO BID PRN PRN Reason: BACK PAIN Last Admin: 07/12/20 00:10 Dose: 5 mg Documented by: Diphenhydramine HCl (Benadryl -) 25 mg PO Q6H PRN PRN Reason: FOR ITCHING Ferrous Sulfate (Feosol -) 325 mg PO DAILY@0800 [facility] Last Admin: 07/13/20 09:43 Dose: 325 mg Documented by: Folic Acid (Folic Acid -) 1 mg PO DAILY [facility] Last Admin: 07/13/20 09:43 Dose: 1 mg Documented by: Gabapentin (Neurontin -) 200 mg PO TID [facility] Last Admin: 07/13/20 13:50 Dose: 200 mg Documented by: Heparin Sodium (Porcine) (Heparin -) 5,000 unit SQ TID [facility] Last Admin: 07/13/20 13:50 Dose: 5,000 unit Documented by: Sodium Chloride (1/2 Normal Saline) 1,000 mls @ 42 mls/hr IV ASDIR [facility] Last Admin: 07/13/20 13:52 Dose: Not Given Documented by: Insulin Aspart (Novolog Vial Sliding Scale -) 1 vial SQ [facility]; Protocol Last Admin: 07/13/20 12:11 Dose: Not Given Documented by: Insulin Detemir (Levemir Vial) 7 units SQ [facility] Last Admin: 07/12/20 21:56 Dose: 7 units Documented by: Metoprolol Tartrate (Lopressor -) 100 mg PO BID [facility] Last Admin: 07/13/20 09:43 Dose: 100 mg Documented by: Ondansetron HCl (Zofran Injection) 4 mg IVPUSH Q6H PRN PRN Reason: NAUSEA Pantoprazole Sodium (Protonix -) 40 mg PO ACBK [facility] Last Admin: 07/13/20 06:42 Dose: 40 mg Documented by: Polyethylene Glycol (Miralax (For Daily Use) -) 17 gm PO DAILY [facility] Last Admin: 07/12/20 11:32 Dose: Not Given Documented by: Senna (Senna -) 2 tab PO HS PRN PRN Reason: CONSTIPATION - Objective Vital Signs: Vital Signs Temperature 99.5 F 07/13/20 06:00 Pulse Rate 92 H 07/13/20 09:55 Respiratory Rate 18 07/13/20 09:55 Blood Pressure 160/84 07/13/20 09:55 O2 Sat by Pulse Oximetry (%) 98 07/13/20 09:55 Constitutional: Yes: Calm Eyes: Yes: Conjunctiva Clear HENT: Yes: Atraumatic Neck: Yes: Supple Cardiovascular: Yes: S1, S2 Respiratory: Yes: CTA Bilaterally Gastrointestinal: Yes: Normal Bowel Sounds, Soft Genitourinary: Yes: Pathak Present Musculoskeletal: Yes: Back Pain Edema: No Neurological: Yes: Oriented Psychiatric: Yes: Oriented Labs: CBC, BMP 07/13/20 07:19 07/13/20 07:19 INR, PTT INR 1.14 (0.83-1.09) H 06/26/20 10:15 Problem List - Problems (1) CKD (chronic kidney disease) Code(s): N18.9 - CHRONIC KIDNEY DISEASE, UNSPECIFIED (2) Sciatica Code(s): M54.30 - SCIATICA, UNSPECIFIED SIDE Qualifiers: Laterality: left Qualified Code(s): M54.32 - Sciatica, left side (3) Hypertension Code(s): I10 - ESSENTIAL (PRIMARY) HYPERTENSION Assessment/Plan Current Medications Generic Name Dose Route Start Last Admin Trade Name Freq PRN Reason Stop Dose Admin Acetaminophen 650 mg 07/06/20 15:54 07/13/20 06:43 Tylenol - PO 650 mg Q6H PRN Administration PAIN LEVEL 1-5 Amlodipine Besylate 10 mg 07/07/20 10:00 07/13/20 09:43 Norvasc - PO 10 mg DAILY [facility] Administration Atorvastatin Calcium 40 mg 07/06/20 22:00 07/12/20 21:54 Lipitor - PO 40 mg HS [facility] Administration Cyclobenzaprine HCl 5 mg 07/09/20 12:20 07/12/20 00:10 Flexeril - PO 5 mg BID PRN Administration BACK PAIN Diphenhydramine HCl 25 mg 07/06/20 14:30 Benadryl - PO Q6H PRN FOR ITCHING Ferrous Sulfate 325 mg 07/07/20 08:00 07/13/20 09:43 Feosol - PO 325 mg DAILY@0800 [facility] Administration Folic Acid 1 mg 07/07/20 10:00 07/13/20 09:43 Folic Acid - PO 1 mg DAILY [facility] Administration Gabapentin 200 mg 07/06/20 22:00 07/13/20 13:50 Neurontin - PO 200 mg TID [facility] Administration Heparin Sodium (Porcine) 5,000 unit 07/07/20 10:00 07/13/20 13:50 Heparin - SQ 5,000 unit TID [facility] Administration Sodium Chloride 1,000 mls @ 42 mls/hr 07/11/20 13:15 07/13/20 13:52 1/2 Normal Saline IV Not Given ASDIR [facility] Insulin Aspart 1 vial 07/06/20 16:30 07/13/20 12:11 Novolog Vial Sliding Scale - SQ Not Given ACHS [facility] Protocol Insulin Detemir 7 units 07/06/20 22:00 07/12/20 21:56 Levemir Vial SQ 7 units HS [facility] Administration Metoprolol Tartrate 100 mg 07/06/20 22:00 07/13/20 09:43 Lopressor - PO 100 mg BID [facility] Administration Ondansetron HCl 4 mg 07/06/20 14:30 Zofran Injection IVPUSH Q6H PRN NAUSEA Pantoprazole Sodium 40 mg 07/07/20 07:00 07/13/20 06:42 Protonix - PO 40 mg ACBK [facility] Administration Polyethylene Glycol 17 gm 07/12/20 11:00 07/12/20 11:32 Miralax (For Daily Use) - PO Not Given DAILY [facility] Senna 2 tab 07/11/20 09:32 Senna - PO HS PRN CONSTIPATION Impression 1. CKD 2. TIM 3. back pain 4. dm 5. htn 6. obesity 7. possible spinal mass lesion Plan - renal function improved - repeat labs in am - can cont 1/2 ns at 42 - avoid nephrotoxins - tim likely in part pre-renal
--- NOTE | 2020-07-13 15:18 | PN ---
Progress Note (short form) - Note Progress Note: Patient is s/p L 4-L 5 laminectomy with decompression/fusion, POD#7. Patient seen this afternoon at bedside to assess surgical wound site as patient has been febrile with leukocytosis. Surgery PA and Dr. Ramos also present at bedside today. Surgical wound site appears clean, dry and intact. No signs of erythema, no fluctuance on palpation, no active bleeding. No other signs of skin ulcerations or abrasions noted on the patient. Surgical and ID recommendations appreciated.
--- NOTE | 2020-07-13 16:03 | PN ---
Physical Exam: SUBJECTIVE: Patient seen and examined at bedside. No acute events reported overnight. OBJECTIVE: Vital Signs Period Temp Pulse Resp BP Sys/Ruiz Pulse Ox Last 24 Hr 97.6 F-100.3 F 85-94 18-20 123-160/68-84 93-98 GENERAL: AAOx3, in no acute distress. more responsive today than yesterday. HEENT: NCAT, PERRLA, EOMI, sclera anicteric, conjunctiva clear, oropharynx clear w/o exudates. MMM. NECK: Normal ROM, supple, no lymphadenopathy, JVD, or masses LUNGS: CTABL no wheezes/ rhonchi/ rales. No distress, speaks in full sentences. No increased work of breathing. HEART: RRR, normal S1 S2, no M/R/G, peripheral pulses 2+ and equal b/l ABDOMEN: Soft, NTND, + BS. No guarding or rebound. No hepatomegaly or splenomegaly. MSK: LE limited strength 4/5 EXTREMITIES: Normal inspection. No peripheral edema. No clubbing or cyanosis. NEUROLOGICAL: CN II-XII intact. Normal speech, no focal sensorimotor deficits; no foot dropped. SKIN: Warm, Dry, normal turgor, no rashes or lesions noted Laboratory Results - last 24 hr CBC, BMP 07/13/20 07:19 07/13/20 07:19 07/05/20 07/12/20 07/12/20 16:35 17:32 21:52 WBC RBC Hgb Hct MCV MCH MCHC RDW Plt Count MPV Absolute Neuts (auto) Neutrophils % Lymphocytes % Monocytes % Eosinophils % Basophils % Nucleated RBC % Sodium Potassium Chloride Carbon Dioxide Anion Gap BUN Creatinine Est GFR (CKD-EPI)AfAm Est GFR (CKD-EPI)NonAf POC Glucometer 218 187 Random Glucose Calcium Total Bilirubin AST ALT Alkaline Phosphatase Total Protein Albumin Blood Type A POSITIVE Antibody Screen Negative Crossmatch See Detail 07/13/20 07/13/20 07/13/20 06:23 07:19 07:19 WBC 13.0 H RBC 2.66 L Hgb 7.9 L Hct 23.5 L MCV 88.5 MCH 29.6 MCHC 33.4 RDW 16.4 H Plt Count 457 H MPV 7.7 Absolute Neuts (auto) 9.8 H Neutrophils % 74.9 Lymphocytes % 12.1 Monocytes % 9.5 Eosinophils % 3.0 Basophils % 0.5 Nucleated RBC % 0 Sodium 138 Potassium 4.9 Chloride 108 H Carbon Dioxide 24 Anion Gap 6 L BUN 48.4 H Creatinine 1.6 H Est GFR (CKD-EPI)AfAm 39.61 Est GFR (CKD-EPI)NonAf 34.18 POC Glucometer 117 Random Glucose 120 H Calcium 9.1 Total Bilirubin 0.3 AST 22 ALT 16 Alkaline Phosphatase 255 H Total Protein 5.5 L Albumin 1.6 L Blood Type Antibody Screen Crossmatch 07/13/20 11:55 WBC RBC Hgb Hct MCV MCH MCHC RDW Plt Count MPV Absolute Neuts (auto) Neutrophils % Lymphocytes % Monocytes % Eosinophils % Basophils % Nucleated RBC % Sodium Potassium Chloride Carbon Dioxide Anion Gap BUN Creatinine Est GFR (CKD-EPI)AfAm Est GFR (CKD-EPI)NonAf POC Glucometer 152 Random Glucose Calcium Total Bilirubin AST ALT Alkaline Phosphatase Total Protein Albumin Blood Type Antibody Screen Crossmatch Active Medications Generic Name Dose Route Start Last Admin Trade Name Freq PRN Reason Stop Dose Admin Acetaminophen 650 mg 07/06/20 15:54 07/13/20 06:43 Tylenol - PO 650 mg Q6H PRN Administration PAIN LEVEL 1-5 Amlodipine Besylate 10 mg 07/07/20 10:00 07/13/20 09:43 Norvasc - PO 10 mg DAILY [facility] Administration Atorvastatin Calcium 40 mg 07/06/20 22:00 07/12/20 21:54 Lipitor - PO 40 mg HS [facility] Administration Cyclobenzaprine HCl 5 mg 07/09/20 12:20 07/12/20 00:10 Flexeril - PO 5 mg BID PRN Administration BACK PAIN Diphenhydramine HCl 25 mg 07/06/20 14:30 Benadryl - PO Q6H PRN FOR ITCHING Ferrous Sulfate 325 mg 07/07/20 08:00 07/13/20 09:43 Feosol - PO 325 mg DAILY@0800 [facility] Administration Folic Acid 1 mg 07/07/20 10:00 07/13/20 09:43 Folic Acid - PO 1 mg DAILY [facility] Administration Gabapentin 200 mg 07/06/20 22:00 07/13/20 13:50 Neurontin - PO 200 mg TID [facility] Administration Heparin Sodium (Porcine) 5,000 unit 07/07/20 10:00 07/13/20 13:50 Heparin - SQ 5,000 unit TID [facility] Administration Sodium Chloride 1,000 mls @ 42 mls/hr 07/11/20 13:15 07/13/20 13:52 1/2 Normal Saline IV Not Given ASDIR [facility] Insulin Aspart 1 vial 07/06/20 16:30 07/13/20 12:11 Novolog Vial Sliding Scale - SQ Not Given ACHS [facility] Protocol Insulin Detemir 7 units 07/06/20 22:00 07/12/20 21:56 Levemir Vial SQ 7 units HS [facility] Administration Metoprolol Tartrate 100 mg 07/06/20 22:00 07/13/20 09:43 Lopressor - PO 100 mg BID [facility] Administration Ondansetron HCl 4 mg 07/06/20 14:30 Zofran Injection IVPUSH Q6H PRN NAUSEA Pantoprazole Sodium 40 mg 07/07/20 07:00 07/13/20 06:42 Protonix - PO 40 mg ACBK [facility] Administration Polyethylene Glycol 17 gm 07/12/20 11:00 07/12/20 11:32 Miralax (For Daily Use) - PO Not Given DAILY [facility] Senna 2 tab 07/11/20 09:32 Senna - PO HS PRN CONSTIPATION ASSESSMENT/PLAN: 64 y/o Lady with a PMHx of DM, HTN, HLD, and CKD who is admitted for intractable back pain and s/p Laminectomy. #s/p Laminectomy for a disc herniation - Neurosurgery preformed L4-5 laminectomies with decompressions and fusion - recommends aggressive PT-OOB, pt not compliant with PT - continue incentive spirometer - Oxy as needed for pain, morphine 2 q4h prn - continue to monitor H/H, keep hgb > 7 - creatinine back to baseline: renal contacted for MRI reccs- not indicated this admission due to low GFR radiology will not do the study #Leukocytosis -WBC 13.0 today -patient was febrile last night -Surgical wound site evaluated by Neurosurgery - no signs of infection -blood/urine cultures ordered today -CXR ordered; negative for acute chest pathology -f/u ID reccs -continue to monitor CBC #Urinary Retention -failed TOV -Patient will be d/c with Pathak -outpt urology f/u #Constipation -resolved -responded to laxatives and enema -patient had large bowel movement in bed genao #HTN - continue amlodipine #anemia - likely multifactoral, iron deficiency - continue ferrous sulfate #TIM on CKD - cannot exclude AIN -1/2 NS @ 42 mls/hr - continue to monitor creatinine -K 5.2 today continue to monitor #DM - ISS, BGM - c/w levemir 7 #Dysfunctional Uterine Bleeding -post-menopausal bleeding -Rt hemipelvic mass -outpatient f/u with OBGYN #FEN -1/2 NS @ 42 mls/hr -monitor lytes, replete PRN -diabetic diet #Ppx -DVT: heparin tid dispo: continue rehab planning Visit type - Emergency Visit Emergency Visit: No - New Patient This patient is new to me today: No - Critical Care Critical Care patient: No - Discharge Referral Referred to [facility] No ATTENDING PHYSICIAN STATEMENT I saw and evaluated the patient. I reviewed the resident's note and discussed the case with the resident. I agree with the resident's findings and plan as documented. SUBJECTIVE: OBJECTIVE: ASSESSMENT AND PLAN:
[2020-07-13 17:08] LABS: TOTAL PROTEIN, URINE 29.7 mg/dL (Not Estab.)
[2020-07-13] MEDS: POLYETHYLENE GLYCOL 3350 119 GM BTL PO SCH (17:29)
[2020-07-13] MEDS: INSULIN (LEVEMIR) 100 UNITS/ML UNITS SQ SCH (21:30)
[2020-07-13] MEDS: ATORVASTATIN CA 40 MG TABLET (FP) PO SCH (21:31)
[2020-07-14] MEDS: GABAPENTIN 100 MG CAPSULE PO SCH ×3 (06:48→23:12)
[2020-07-14] MEDS: HEPARIN NA (PORCINE) 5,000 UNITS/ML 1ML VIAL SQ SCH ×3 (06:49→23:11)
[2020-07-14] MEDS: PANTOPRAZOLE 40 MG TABLET PO SCH (06:49)
[2020-07-14] MEDS: ACETAMINOPHEN 325 MG TABLET (FP) PO PRN (06:50)
[2020-07-14] MEDS: SODIUM CHLORIDE 0.45% 1,000 ML IV SCH (06:53)
[2020-07-14] MEDS: INSULIN SLIDING SCALE (NOVOLOG) 1 VIAL SQ SCH ×4 (07:01→23:13)
[2020-07-14 08:40] LABS: EOS % 2.9 % (0-4.5); HEMOGLOBIN 7.9 GM/dL (10.7-15.3); LYMPH % 13.3 % (8-40); MCHC 34.1 g/dl (32.0-36.0); MEAN CELL VOLUME 88.1 fl (80-96); MEAN PLT VOLUME 7.7 fl (7.5-11.1); MONO % 9.2 % (3.8-10.2); NEUT % 73.6 % (42.8-82.8); PLATELET COUNT 423 K/MM3 (134-434); RBC 2.62 M/mm3 (3.60-5.2); RDW 16.4 % (11.6-15.6); WHITE BLOOD COUNT 10.9 K/mm3 (4.0-10.0)
[2020-07-14 09:02] LABS: BLOOD UREA NITROGEN 44.5 mg/dL (7-18); CREATININE 1.7 mg/dL (0.55-1.3); MAGNESIUM 1.7 mg/dL (1.8-2.4); PHOSPHOROUS 3.5 mg/dL (2.5-4.9); POTASSIUM 4.7 mmol/L (3.5-5.1)
[2020-07-14] MEDS: FERROUS SO4 325 MG TABLET (FP) PO SCH (09:07)
[2020-07-14] MEDS: METOPROLOL TARTRATE 50 MG TABLET (FP) PO SCH ×2 (09:08→23:12)
[2020-07-14] MEDS: amLODIPine BESYLATE 10 MG TABLET (FP) PO SCH (09:08)
[2020-07-14] MEDS: FOLIC ACID 1 MG TABLET (FP) PO SCH (09:08)
[2020-07-14] MEDS ORDERED: MAGNESIUM 1GM/D5W 100ML - 100 ML IVPB IVPB ONE (09:30)
--- NOTE | 2020-07-14 12:56 | PN ---
Progress Note, Physician History of Present Illness: Pt seen and examined at bedside. She is awake and alert. She denies shortness of breath. - Current Medication List Current Medications: Active Medications Acetaminophen (Tylenol -) 650 mg PO Q6H PRN PRN Reason: PAIN LEVEL 1-5 Last Admin: 07/14/20 06:50 Dose: 650 mg Documented by: Amlodipine Besylate (Norvasc -) 10 mg PO DAILY [facility] Last Admin: 07/14/20 09:08 Dose: 10 mg Documented by: Atorvastatin Calcium (Lipitor -) 40 mg PO [facility] Last Admin: 07/13/20 21:31 Dose: 40 mg Documented by: Cyclobenzaprine HCl (Flexeril -) 5 mg PO BID PRN PRN Reason: BACK PAIN Last Admin: 07/12/20 00:10 Dose: 5 mg Documented by: Diphenhydramine HCl (Benadryl -) 25 mg PO Q6H PRN PRN Reason: FOR ITCHING Ferrous Sulfate (Feosol -) 325 mg PO DAILY@0800 [facility] Last Admin: 07/14/20 09:07 Dose: 325 mg Documented by: Folic Acid (Folic Acid -) 1 mg PO DAILY [facility] Last Admin: 07/14/20 09:08 Dose: 1 mg Documented by: Gabapentin (Neurontin -) 200 mg PO TID [facility] Last Admin: 07/14/20 06:48 Dose: 200 mg Documented by: Heparin Sodium (Porcine) (Heparin -) 5,000 unit SQ TID [facility] Insulin Aspart (Novolog Vial Sliding Scale -) 1 vial SQ [facility]; Protocol Last Admin: 07/14/20 11:20 Dose: Not Given Documented by: Insulin Detemir (Levemir Vial) 7 units SQ [facility] Last Admin: 07/13/20 21:30 Dose: 7 units Documented by: Magnesium Oxide (Mag-Ox -) 400 mg PO ONCE ONE Stop: 07/14/20 13:01 Metoprolol Tartrate (Lopressor -) 100 mg PO BID [facility] Last Admin: 07/14/20 09:08 Dose: 100 mg Documented by: Ondansetron HCl (Zofran Injection) 4 mg IVPUSH Q6H PRN PRN Reason: NAUSEA Pantoprazole Sodium (Protonix -) 40 mg PO ACBK [facility] Last Admin: 07/14/20 06:49 Dose: 40 mg Documented by: Polyethylene Glycol (Miralax (For Daily Use) -) 17 gm PO DAILY [facility] Last Admin: 07/13/20 17:29 Dose: Not Given Documented by: Senna (Senna -) 2 tab PO HS PRN PRN Reason: CONSTIPATION - Objective Vital Signs: Vital Signs Temperature 98.9 F 07/14/20 06:00 Pulse Rate 92 H 07/14/20 10:00 Respiratory Rate 18 07/14/20 10:00 Blood Pressure 158/74 07/14/20 10:00 O2 Sat by Pulse Oximetry (%) 95 07/14/20 10:00 Constitutional: Yes: Calm Eyes: Yes: Conjunctiva Clear HENT: Yes: Atraumatic Neck: Yes: Supple Cardiovascular: Yes: S1, S2 Respiratory: Yes: CTA Bilaterally Gastrointestinal: Yes: Normal Bowel Sounds, Soft Genitourinary: Yes: Pathak Present Musculoskeletal: Yes: Back Pain Edema: No Neurological: Yes: Oriented Psychiatric: Yes: Oriented Labs: CBC, BMP 07/14/20 07:05 07/14/20 07:05 INR, PTT INR 1.14 (0.83-1.09) H 06/26/20 10:15 Problem List - Problems (1) CKD (chronic kidney disease) Code(s): N18.9 - CHRONIC KIDNEY DISEASE, UNSPECIFIED (2) Sciatica Code(s): M54.30 - SCIATICA, UNSPECIFIED SIDE Qualifiers: Laterality: left Qualified Code(s): M54.32 - Sciatica, left side (3) Hypertension Code(s): I10 - ESSENTIAL (PRIMARY) HYPERTENSION Assessment/Plan Current Medications Generic Name Dose Route Start Last Admin Trade Name Freq PRN Reason Stop Dose Admin Acetaminophen 650 mg 07/06/20 15:54 07/14/20 06:50 Tylenol - PO 650 mg Q6H PRN Administration PAIN LEVEL 1-5 Amlodipine Besylate 10 mg 07/07/20 10:00 07/14/20 09:08 Norvasc - PO 10 mg DAILY [facility] Administration Atorvastatin Calcium 40 mg 07/06/20 22:00 07/13/20 21:31 Lipitor - PO 40 mg HS [facility] Administration Cyclobenzaprine HCl 5 mg 07/09/20 12:20 07/12/20 00:10 Flexeril - PO 5 mg BID PRN Administration BACK PAIN Diphenhydramine HCl 25 mg 07/06/20 14:30 Benadryl - PO Q6H PRN FOR ITCHING Ferrous Sulfate 325 mg 07/07/20 08:00 07/14/20 09:07 Feosol - PO 325 mg DAILY@0800 [facility] Administration Folic Acid 1 mg 07/07/20 10:00 07/14/20 09:08 Folic Acid - PO 1 mg DAILY [facility] Administration Gabapentin 200 mg 07/06/20 22:00 07/14/20 06:48 Neurontin - PO 200 mg TID [facility] Administration Heparin Sodium (Porcine) 5,000 unit 07/14/20 14:00 Heparin - SQ TID [facility] Insulin Aspart 1 vial 07/06/20 16:30 07/14/20 11:20 Novolog Vial Sliding Scale - SQ Not Given ACHS [facility] Protocol Insulin Detemir 7 units 07/06/20 22:00 07/13/20 21:30 Levemir Vial SQ 7 units HS [facility] Administration Magnesium Oxide 400 mg 07/14/20 13:00 Mag-Ox - PO 07/14/20 13:01 ONCE ONE Metoprolol Tartrate 100 mg 07/06/20 22:00 07/14/20 09:08 Lopressor - PO 100 mg BID [facility] Administration Ondansetron HCl 4 mg 07/06/20 14:30 Zofran Injection IVPUSH Q6H PRN NAUSEA Pantoprazole Sodium 40 mg 07/07/20 07:00 07/14/20 06:49 Protonix - PO 40 mg ACBK [facility] Administration Polyethylene Glycol 17 gm 07/12/20 11:00 07/13/20 17:29 Miralax (For Daily Use) - PO Not Given DAILY [facility] Senna 2 tab 07/11/20 09:32 Senna - PO HS PRN CONSTIPATION Laboratory Tests 06/27/20 06/27/20 06/27/20 06:19 20:00 20:00 Creatinine Est GFR (CKD-EPI)AfAm Uqfoo-1-[id number] (%) [id number]-[id number] (%) Beta Globulins (%) Gamma Globulins (%) M-Braden % SHAZIA M-Braden Not observed c-ANCA Proteinase 3 (PR3) p-ANCA Atypical p-ANCA Myeloperoxidase Ab Double Strand DNA Ab Glomerular Base Memb Ab Free [place] LC, Quant 83.6 H Free Lambda LC, Quant 65.7 H Free [place]/Lambda Ratio 1.27 Hep A IgM Ab Confirm Negative Hep Bs Antigen Negative Hep B Core IgM Ab Negative Hepatitis C Ab (EIA) <0.1 06/30/20 07/10/20 07/11/20 15:00 17:40 07:40 Creatinine 2.0 H Est GFR (CKD-EPI)AfAm 30.25 Llvwt-5-Sgmpkbcic (%) 4.1 Bpsgi-3-Vuitsmhkj (%) 8.8 Beta Globulins (%) 13.7 Gamma Globulins (%) 18.7 M-Braden % Not observed SHAZIA M-Braden c-ANCA <1:20 Proteinase 3 (PR3) <3.5 p-ANCA <1:20 Atypical p-ANCA <1:20 Myeloperoxidase Ab <9.0 Double Strand DNA Ab <1 Glomerular Base Memb Ab 3 Free [place] LC, Quant Free Lambda LC, Quant [place]/Lambda Ratio Hep A IgM Ab Confirm Hep Bs Antigen Hep B Core IgM Ab Hepatitis C Ab (EIA) Impression 1. CKD 2. TIM 3. back pain 4. dm 5. htn 6. obesity 7. possible spinal mass lesion Plan - can d/c fluids - renal function is stable - will need outpt follow up - replace mag - can d/c fluids - discussed with medical team - avoid nephrotoxins - tim likely in part pre-renal
[2020-07-14] MEDS ORDERED: MAGNESIUM OXIDE 400 MG TABLET (FP) PO ONE (13:00)
--- NOTE | 2020-07-14 13:13 | PN ---
Teaching Attending Note Name of Resident: Glenn Monson ATTENDING PHYSICIAN STATEMENT I saw and evaluated the patient. I reviewed the resident's note and discussed the case with the resident. I agree with the resident's findings and plan as documented. SUBJECTIVE: Some ongoing improvement in L back pain, radiating down L hip and LLE, still difficult to weight bear/mobilize. No fever overnight. OBJECTIVE: Tmax 99.2, Hemodynamically stable. AAO x 3 Last Vital Signs Temp Pulse Resp BP Pulse Ox 98.9 F 92 H 18 158/74 95 07/14/20 06:00 07/14/20 10:00 07/14/20 10:00 07/14/20 10:00 07/14/20 10:00 Heart - S1 S2, RRR Lungs - clear to auscultation Abdomen - High BMI, soft, non-tender. Bowel Sounds normal. Extremities - mild edema, no calf tenderness. Some ongoing improvement in ROM of LLE - limited due to pain on movement Laboratory Results - last 24 hr 07/05/20 07/10/20 07/13/20 16:35 17:40 17:01 WBC RBC Hgb Hct MCV MCH MCHC RDW Plt Count MPV Absolute Neuts (auto) Neutrophils % Lymphocytes % Monocytes % Eosinophils % Basophils % Nucleated RBC % Sodium Potassium Chloride Carbon Dioxide Anion Gap BUN Creatinine Est GFR (CKD-EPI)AfAm Est GFR (CKD-EPI)NonAf POC Glucometer 192 Random Glucose Calcium Phosphorus Magnesium Djxld-5-Ybgkxndky (%) 4.1 Jpofi-5-Tfybphyke (%) 8.8 Beta Globulins (%) 13.7 Gamma Globulins (%) 18.7 M-Braden % Not observed Urine Total Protein 29.7 Urine PEP Interpret 54.7 Ref Test Comments Blood Type A POSITIVE Antibody Screen Negative Crossmatch See Detail 07/13/20 07/14/20 07/14/20 21:29 06:58 07:05 WBC 10.9 H RBC 2.62 L Hgb 7.9 L Hct 23.0 L MCV 88.1 MCH 30.0 MCHC 34.1 RDW 16.4 H Plt Count 423 MPV 7.7 Absolute Neuts (auto) 8.0 Neutrophils % 73.6 Lymphocytes % 13.3 Monocytes % 9.2 Eosinophils % 2.9 Basophils % 1.0 Nucleated RBC % 0 Sodium Potassium Chloride Carbon Dioxide Anion Gap BUN Creatinine Est GFR (CKD-EPI)AfAm Est GFR (CKD-EPI)NonAf POC Glucometer 198 156 Random Glucose Calcium Phosphorus Magnesium Dpsko-4-Hjiqcieny (%) Vbirg-5-Bgccnpmhd (%) Beta Globulins (%) Gamma Globulins (%) M-Braden % Urine Total Protein Urine PEP Interpret Ref Test Comments Blood Type Antibody Screen Crossmatch 07/14/20 07/14/20 07:05 11:19 WBC RBC Hgb Hct MCV MCH MCHC RDW Plt Count MPV Absolute Neuts (auto) Neutrophils % Lymphocytes % Monocytes % Eosinophils % Basophils % Nucleated RBC % Sodium 138 Potassium 4.7 Chloride 105 Carbon Dioxide 25 Anion Gap 7 L BUN 44.5 H Creatinine 1.7 H Est GFR (CKD-EPI)AfAm 36.81 Est GFR (CKD-EPI)NonAf 31.76 POC Glucometer 168 Random Glucose 154 H Calcium 9.0 Phosphorus 3.5 Magnesium 1.7 L Grlxn-2-Fnttkobtu (%) Bjnft-0-Jwczziuqi (%) Beta Globulins (%) Gamma Globulins (%) M-Braden % Urine Total Protein Urine PEP Interpret Ref Test Comments Blood Type Antibody Screen Crossmatch Current Medications Generic Name Dose Route Start Last Admin Trade Name Freq PRN Reason Stop Dose Admin Acetaminophen 650 mg 07/06/20 15:54 07/14/20 06:50 Tylenol - PO 650 mg Q6H PRN Administration PAIN LEVEL 1-5 Amlodipine Besylate 10 mg 07/07/20 10:00 07/14/20 09:08 Norvasc - PO 10 mg DAILY ROSCOE Administration Atorvastatin Calcium 40 mg 07/06/20 22:00 07/13/20 21:31 Lipitor - PO 40 mg HS ROSCOE Administration Cyclobenzaprine HCl 5 mg 07/09/20 12:20 07/12/20 00:10 Flexeril - PO 5 mg BID PRN Administration BACK PAIN Diphenhydramine HCl 25 mg 07/06/20 14:30 Benadryl - PO Q6H PRN FOR ITCHING Ferrous Sulfate 325 mg 07/07/20 08:00 07/14/20 09:07 Feosol - PO 325 mg DAILY@0800 ROSCOE Administration Folic Acid 1 mg 07/07/20 10:00 07/14/20 09:08 Folic Acid - PO 1 mg DAILY ROSCOE Administration Gabapentin 200 mg 07/06/20 22:00 07/14/20 06:48 Neurontin - PO 200 mg TID ROSCOE Administration Heparin Sodium (Porcine) 5,000 unit 07/14/20 14:00 Heparin - SQ TID ROSCOE Insulin Aspart 1 vial 07/06/20 16:30 07/14/20 11:20 Novolog Vial Sliding Scale - SQ Not Given ACHS ROSCOE Protocol Insulin Detemir 7 units 07/06/20 22:00 07/13/20 21:30 Levemir Vial SQ 7 units HS ROSCOE Administration Metoprolol Tartrate 100 mg 07/06/20 22:00 07/14/20 09:08 Lopressor - PO 100 mg BID ROSCOE Administration Ondansetron HCl 4 mg 07/06/20 14:30 Zofran Injection IVPUSH Q6H PRN NAUSEA Pantoprazole Sodium 40 mg 07/07/20 07:00 07/14/20 06:49 Protonix - PO 40 mg ACBK ROSCOE Administration Polyethylene Glycol 17 gm 07/12/20 11:00 07/13/20 17:29 Miralax (For Daily Use) - PO Not Given DAILY ROSCOE Senna 2 tab 07/11/20 09:32 Senna - PO HS PRN CONSTIPATION Home Medications Medication Instructions Recorded Amlodipine Besylate [Norvasc -] 10 mg PO DAILY 06/26/20 Glimepiride [Amaryl -] 4 mg PO BID 06/26/20 Metoprolol Tartrate [Lopressor] 100 mg PO BID 06/26/20 Telmisartan/Hydrochlorothiazid 1 each PO DAILY 06/26/20 [Telmisartan-Hctz 80-25 mg Tab] Sitagliptin Phosphate [Januvia] 50 mg PO DAILY 06/27/20 ASSESSMENT AND PLAN: 64 year old female with history of DM 2, HTN, HLD, CKD 3, presents with lower back pain, L Hip pain, radiating down LLE, as well as 3 day history of post-todd pausal vaginal bleeding, now resolved. 1. Sciatica and Back Pain sec to DJD, nerve impingement, spinal stenosis, possible vertebral mass(es) POD 8 s/p L4-5 laminectomy/decompression/fusion s/p SAMANTHA drain removal Continue Gabapentin Neurosurgery following. Ongoing PT - for transfer to SNF for continued Rehab/PT Radiology recommended MRI to exclude mass - unable to obtain due to renal function. Further management as per Neurosurgery and Hem/Onc. Temp elevation improving as is leukocytosis - no clear source of infection. CXR - clear. Urine and Blood Cultures negative. Tmax overnight 99.2 Incentive Spirometry encouraged. Surgical wound site evaluated by Neurosurgery - no signs of infection. ID re-eval requested 07/13. 2. TIM on CKD 3 - continued improvement. Creat down to 1.7 from 5.1 Renal US - bilateral renal lipomatosis, R renal cyst. Creat at baseline - no need fro further IV fluids as per Nephrology. Nephrology and Urology follow-ups on discharge. 3. Normocytic anemia, multifactorial sec to CKD/Chronic Disease/adalberto-op blood loss - Stable s/p transfusion 1 unit PRBCs. FOBT negative. 4. Urinary Retention Failed TOV Pathak in situ For urology follow up as out-patient. 5. Post-menopausal Dysfunctional Uterine Bleeding Abdominal US - enlarged myomatous uterus. CT - mass-like density R hemipelvis, exophytic fibroid versus ovarian mass. Gynecology evaluated - no bleeding currently - Gynecology mass not the cause of patient's TIM/urinary obstruction as per Gynecology. For outpatient endometrial biopsy as per Gyne. 6. HLD - on Statin. 7. DM 2 - Glimepiride, Januvia held. Maintain on Levemir/Novolog as per sliding scale. 8. HTN - continue Norvasc, Lopressor. ARB held due to TIM. Can reintroduce ARB when Nephrology suggests. DVT Px - Heparin SQ
--- NOTE | 2020-07-14 15:25 | DS ---
Physical Exam: SUBJECTIVE: Patient seen and examined at beside. No acute events reported overnight. OBJECTIVE: Vital Signs Period Temp Pulse Resp BP Sys/Ruiz Pulse Ox Last 24 Hr 98.9 F-99.7 F 86-95 16-20 140-162/74-88 95-100 PHYSICAL EXAM GENERAL: AAOx3, in no acute distress. more responsive today than yesterday. HEENT: NCAT, PERRLA, EOMI, sclera anicteric, conjunctiva clear, oropharynx clear w/o exudates. MMM. NECK: Normal ROM, supple, no lymphadenopathy, JVD, or masses LUNGS: CTABL no wheezes/ rhonchi/ rales. No distress, speaks in full sentences. No increased work of breathing. HEART: RRR, normal S1 S2, no M/R/G, peripheral pulses 2+ and equal b/l ABDOMEN: Soft, NTND, + BS. No guarding or rebound. No hepatomegaly or splenomegaly. MSK: LE limited strength 4/5 EXTREMITIES: Normal inspection. No peripheral edema. No clubbing or cyanosis. NEUROLOGICAL: CN II-XII intact. Normal speech, no focal sensorimotor deficits; no foot dropped. SKIN: Warm, Dry, normal turgor, no rashes or lesions noted LABS Laboratory Results - last 24 hr CBC, BMP 07/14/20 07:05 07/14/20 07:05 07/10/20 07/13/20 07/13/20 17:40 17:01 21:29 WBC RBC Hgb Hct MCV MCH MCHC RDW Plt Count MPV Absolute Neuts (auto) Neutrophils % Lymphocytes % Monocytes % Eosinophils % Basophils % Nucleated RBC % Sodium Potassium Chloride Carbon Dioxide Anion Gap BUN Creatinine Est GFR (CKD-EPI)AfAm Est GFR (CKD-EPI)NonAf POC Glucometer 192 198 Random Glucose Calcium Phosphorus Magnesium Ojmmj-0-Ikpcyamhf (%) 4.1 Fimml-5-Vbwcoxxue (%) 8.8 Beta Globulins (%) 13.7 Gamma Globulins (%) 18.7 M-Braden % Not observed Urine Total Protein 29.7 Urine PEP Interpret 54.7 Ref Test Comments 07/14/20 07/14/20 07/14/20 06:58 07:05 07:05 WBC 10.9 H RBC 2.62 L Hgb 7.9 L Hct 23.0 L MCV 88.1 MCH 30.0 MCHC 34.1 RDW 16.4 H Plt Count 423 MPV 7.7 Absolute Neuts (auto) 8.0 Neutrophils % 73.6 Lymphocytes % 13.3 Monocytes % 9.2 Eosinophils % 2.9 Basophils % 1.0 Nucleated RBC % 0 Sodium 138 Potassium 4.7 Chloride 105 Carbon Dioxide 25 Anion Gap 7 L BUN 44.5 H Creatinine 1.7 H Est GFR (CKD-EPI)AfAm 36.81 Est GFR (CKD-EPI)NonAf 31.76 POC Glucometer 156 Random Glucose 154 H Calcium 9.0 Phosphorus 3.5 Magnesium 1.7 L Fstzl-6-Qzggnejfj (%) Eouej-3-Fahefvhkv (%) Beta Globulins (%) Gamma Globulins (%) M-Braden % Urine Total Protein Urine PEP Interpret Ref Test Comments 07/14/20 11:19 WBC RBC Hgb Hct MCV MCH MCHC RDW Plt Count MPV Absolute Neuts (auto) Neutrophils % Lymphocytes % Monocytes % Eosinophils % Basophils % Nucleated RBC % Sodium Potassium Chloride Carbon Dioxide Anion Gap BUN Creatinine Est GFR (CKD-EPI)AfAm Est GFR (CKD-EPI)NonAf POC Glucometer 168 Random Glucose Calcium Phosphorus Magnesium Qivvm-6-Gfylxmobt (%) Clese-4-Wzqgtwhev (%) Beta Globulins (%) Gamma Globulins (%) M-Braden % Urine Total Protein Urine PEP Interpret Ref Test Comments HOSPITAL COURSE: 64 year old female with history of DM 2, HTN, HLD, CKD 3, presented with lower back pain, L Hip pain, radiating down LLE, as well as 3 day of post-menopausal vaginal bleeding. Patient was found to have Sciatica and Back Pain sec to DJD, nerve impingement, spinal stenosis, possible vertebral mass(es). Patient underwent a L4-L5 laminectomy/decompression/fusion with neurosurgery. Patient had a TLSO brace after the surgery but it did not fit the patient well; neurosurgery was aware. Patient had PT on board after the procedure but she was not compliant with it due to pain. Patient was worked up with her post- menupausal vaginal bleeding and was found to have a mass in her uterus but was unable to get further imaging done due to her kidney function due to CKD. Patient will follow up outpatient regarding the mass with SCIENTIFIC SOFTWARE ENGINEER. Patient also had periods of elevated temperature and leukocytosis throughout her stay which did not resolve despite antibiotics. ID was consulted regarding this but they felt the patient needed a malignancy workup with the leukocytosis did not respond to the antibiotics but the patient was unable to get an MRI w/ contrast due to her GFR. Patient also had problems with urinary retention and failed TOV and was discharged with a Pathak in place with urology outpatient followup recommended. Date of Admission:06/26/20 06/26/2069-XCQ-Inlug tachycardia; septal infact age undetermined 06/26/20- Pelvic/bladder US- Transabdominal pelvic sonography demonstrates enlarge d myomatous uterus. However the endometrium and the ovaries were not visualized. If clinically warranted consider either pelvic MRI or transvaginal sonography for further information and for confirmation of these findings and to excl ude other pathology 06/26/20- CXR- Weak inspiration with large heart and prominent hilar markings. Central crowding. 06/27/20-L Spine MRI- MRI with lumbar spine with contrast with attention to the cauda equina strongly recommended. As mentioned above there is some asymmetry in the appearance of the nerve roots which may be related to clumping and arachnoiditis or to underlying mass lesion. Degenerative disease of the lumbosacral spine with accentuation of the lumbar lordosis. L3-L4 L2-L3 moderate degree of spinal stenosis related to bulging annuli and prominent posterior epidural fat with moderate degenerative ages articular facets. L4-L5 grade 1 anterolisthesis of L4 over L5 with broad-based bulging annulus toward the right and left epidural recess with mass effect on the L5 nerve roots in the recesses with more extension into the right L4-L5 foramen. Also hypertrophic changes articular facets contributing to moderate degree of spinal stenosis. Multiple lesions related to the uterus and possibly the right adnexa sonography of the pelvis or MRI of pelvis with contrast strongly recommended for further evaluation. 06/27/20- Renal US- Small right renal simple cyst measuring 10 x 8 mm. Bilateral renal sinus lipomatosis. Both kidneys appear otherwise unremarkable. 06/28/20-CT L Spine- Minimal anterolisthesis of L4 over L5, likely degenerative. Degenerative changes, as described above with moderate degenerative central spinal canal stenosis at the L4-L5 level. 06/28/20-CT Pelvis and lower extremity- No gross acute fracture is identified. Mild osteoarthritic changes involving the left hip joint. Mild sclerotic changes involving the sacroiliac joints. Significant degenerative changes involving both knee joints. No gross focal bone destruction or periosteal elevation is identified. Masslike density in the right hemipelvis with peripheral calcif ications. It is unclear whether this represents an exophytic uterine fibroid versus an ovarian mass. Please correlate with pelvis ultrasound report dated 06/26/2020 06/29/20-CXR- No significant interval change - Cardiomegaly with prominent pulmonary vascularity suggestive of venous congestion. Recommend clinical correlation. 06/30/20- Knee b-nrq-Bioicx tricompartmental arthrosis - most pronounced at the medial compartment with osteophyte formation, subchondral sclerosis, and joint space narrowing. Chondrocalcinosis is also demonstrated. Small suprapatellar effusion identified. Osseous structures appear intact. If clinical concern persists for underlying soft tissue injury or occult fracture, MRI is recommended for further investigation. 07/01/20-Pelvis/bladder US-Large post void residual 07/06/20-Flurosocopy- 9 views of the lumbar spine have been obtained during what appears to be posterior fusion at L4-5 with disc space replacement. Imaging is available for review. Total fluoroscopy time 3.2 seconds. Total number of images 9. 07/06/20-CT L spine w/o contrast-Status post posterior fusion of L4 and L5 vertebral bodies with an interbody spacer and place and minimal anterolisthesis of L4 over L5 again seen. Transpedicular screws at L5 level are extending to beyond the anterior cortex of L5 vertebral body, left more the right. Correlating to. Postop soft tissue changes with air and a right paramedian posterior drainage catheter are present at the site of surgery. Diverticulosis coli in included portion of the colon without evidence of acute diverticulitis. Masslike density in the right adnexa measuring 7.5 x 5.8 cm for which correlation with pelvis ultra sound is recommended to evaluate for an exophytic fibroid versus an enlarged right ovary. Correlatio n with pelvis ultrasound, transabdominal and transvaginal would be very helpful for further evaluati on. Status post cholecystectomy surgical metallic clips are present. 07/13/20-CXR- Impression: No acute chest pathology. Date of Discharge: 07/14/20 Minutes to complete discharge: 36 Discharge Summary Problems reviewed: Yes Reason For Visit: SCIATICA, LEIOMYOMA Current Active Problems CKD (chronic kidney disease) (Acute) Intractable pain (Acute) S/P lumbar spinal fusion (Acute) Sciatica (Acute) Condition: Stable - Instructions Diet, Activity, Other Instructions: Post Operative Instructions Physical Activity Resume your normal everyday activity as tolerated. No heavy lifting or exercise until seen by your surgeon. You may walk unlimited amounts and climb stairs. You may resume driving the car when you feel safe and comfortable behind the wheel and you are no longer wearing your brace. Do not operate a vehicle while taking narcotic medication. Brace If you had back surgery, wear TLSO Brace whenever out of bed. May remove to sleep and shower. Wound Care Keep your incision clean, dry and covered at all times. Apply an occlusive dressing (Saran wrap or Tegaderm) when showering to avoid getting your incision wet. Do not submerge incision or apply ointments or creams. The ema will be removed in the office in 10-14 days post-op. Diet There are no dietary restrictions. Eat healthy, high-fiber foods. Drink 6-8 glasses of liquid each day. This will assist in keeping your bowels regular. Pain Management You may take Tylenol or acetaminophen. Any pain prescription medication ordered should be taken as prescribed for moderate to severe pain. Avoid any ibuprofen (Motrin, Advil, Aleve, Toradol, etc) for 3 months unless otherwise discussed with your surgeon. Call Dr Ramos for any of the following: Severe pain not relieved by medication Fever of 101 or higher Excessive bleeding or drainage on dressing Inability to urinate Any chest pain or shortness of breath, seek Emergency Care. Call the office to confirm a post-operative appointment for 2-3 weeks post-op Alberto Gonzalez MD [facility] [address] [place] [address] Your visit: You were admitted to the hospital for back pain. You were found to have a lumbar spinal stenosis with radiculopathy. You were treated with surgery with improvement of your symptoms. Additional Imaging Findings: -During your stay, we did an EKG which showed some abnormalities. Please follow up with your Primary Care Physician about this. -Bladder ultrasound: large uterus with some lesions on it -Chest X-ray: large heart and some prominent hilar markings -Kidney ultrasound: small cyst on your right kidney. Please follow up with your medical and scientific illustrator about this -CT scan pelvis: degeneration of both of your knees and your left hip joint. Mass line lesion in your uterus measuring 6.7 cm. -X-ray of your knee: small effusion on your knee cap. -CT scan abdomen: diverticulosis of your colon which is inflammation of your colon wall. Surgical metallic clips that were put in during your gallbladder re moval surgery. Medications changes: -Continue Ferrous sulfate 325mg by mouth, once daily. -Continue folic acid supplements, 1mg once daily -Continue atorvastatin 40mg once daily -Gabapentin 200mg three times daily -Flexeril 5mg three times per day NEEDED for back pain -Continue to take all other home medications as prescribed Follow up: -Please follow-up with your neurosurgeon, Dr. Dominguez in 2 weeks. -Please follow-up with your urologist, Dr. Milton in 2 weeks. -Please follow-up with your OB-VIDEOGAME DESIGNER, Dr. Qureshi, in 2 weeks about your vaginal bleeding and the mass in your pelvis. You will need an endometrial biopsy done. -Please follow-up with your medical and scientific illustrator, Dr. Butler, in 2 weeks. - Visit with your Primary Care Provider, Dr. Gonzalez in 2 weeks. . Additional Instructions: -You are being discharged to your home. -Please return to the Emergency Department if you experience worsening pain, fevers, chills, shortness of breath, or chest pain, or if you experience any worsening, new or concerning symptoms. Referrals: Alberto Gonzalez MD, FA[facility] [Staff Physician] - 2 Weeks Kevin Qureshi MD [Staff Physician] - 2 Weeks Kristina Gonzalez MD [Non Staff, Medical] - 2 Weeks Ava Butelr MD [Staff Physician] - 2 Weeks Arturo Milton MD [Staff Physician] - 2 Weeks Disposition: [facility] F[facility] - Home Medications Comprehensive Discharge Medication List: Ambulatory Orders Amlodipine Besylate [Norvasc -] 10 mg PO DAILY 06/26/20 Glimepiride [Amaryl -] 4 mg PO BID 06/26/20 Metoprolol Tartrate [Lopressor] 100 mg PO BID 06/26/20 Telmisartan/Hydrochlorothiazid [Telmisartan-Hctz 80-25 mg Tab] 1 each PO DAILY 06/26/20 Sitagliptin Phosphate [Januvia] 50 mg PO DAILY 06/27/20 Atorvastatin Ca [Lipitor] 40 mg PO HS #30 tablet 07/14/20 Cyclobenzaprine HCl [Flexeril -] 5 mg PO TID PRN 14 Days #20 tablet 07/14/20 Ferrous Sulfate [Feosol] 325 mg PO DAILY@0800 #30 ud 07/14/20 Folic Acid - 1 mg PO DAILY #30 tablet 07/14/20 Gabapentin [Neurontin -] 200 mg PO TID #90 capsule 07/14/20 This patient is new to me today: No Emergency Visit: No Critical Care patient: No - Discharge Referral Referred to [facility] No ATTENDING PHYSICIAN STATEMENT I saw and evaluated the patient. I reviewed the resident's note and discussed the case with the resident. I agree with the resident's findings and plan as documented. SUBJECTIVE: OBJECTIVE: ASSESSMENT AND PLAN:
[2020-07-14] MEDS: POLYETHYLENE GLYCOL 3350 119 GM BTL PO SCH (19:26)
[2020-07-14] MEDS: INSULIN (LEVEMIR) 100 UNITS/ML UNITS SQ SCH (23:12)
[2020-07-14] MEDS: ATORVASTATIN CA 40 MG TABLET (FP) PO SCH (23:12)
[2020-07-15] MEDS: CYCLOBENZAPRINE HCL 10 MG TABLET (FP) PO PRN ×3 (02:28→21:39)
[2020-07-15] MEDS: HEPARIN NA (PORCINE) 5,000 UNITS/ML 1ML VIAL SQ SCH ×3 (06:39→21:39)
[2020-07-15] MEDS: GABAPENTIN 100 MG CAPSULE PO SCH ×3 (06:39→21:40)
[2020-07-15] MEDS: PANTOPRAZOLE 40 MG TABLET PO SCH (06:40)
[2020-07-15] MEDS: INSULIN SLIDING SCALE (NOVOLOG) 1 VIAL SQ SCH ×4 (06:40→21:40)
[2020-07-15] MEDS: FERROUS SO4 325 MG TABLET (FP) PO SCH (08:55)
[2020-07-15] MEDS: amLODIPine BESYLATE 10 MG TABLET (FP) PO SCH (10:20)
[2020-07-15] MEDS: FOLIC ACID 1 MG TABLET (FP) PO SCH (10:20)
[2020-07-15] MEDS: METOPROLOL TARTRATE 50 MG TABLET (FP) PO SCH ×2 (10:20→21:39)
[2020-07-15] MEDS: ACETAMINOPHEN 325 MG TABLET (FP) PO PRN (10:21)
[2020-07-15] MEDS: POLYETHYLENE GLYCOL 3350 119 GM BTL PO SCH (10:21)
--- NOTE | 2020-07-15 11:13 | PN ---
Physical Exam: SUBJECTIVE: Patient seen and examined at bedside. No acute events reported overnight. OBJECTIVE: Vital Signs Period Temp Pulse Resp BP Sys/Ruiz Pulse Ox Last 24 Hr 99 F-99.4 F 86-101 20-20 143-160/67-82 95-97 GENERAL: AAOx3, in no acute distress. more responsive today than yesterday. HEENT: NCAT, PERRLA, EOMI, sclera anicteric, conjunctiva clear, oropharynx clear w/o exudates. MMM. NECK: Normal ROM, supple, no lymphadenopathy, JVD, or masses LUNGS: CTABL no wheezes/ rhonchi/ rales. No distress, speaks in full sentences. No increased work of breathing. HEART: RRR, normal S1 S2, no M/R/G, peripheral pulses 2+ and equal b/l ABDOMEN: Soft, NTND, + BS. No guarding or rebound. No hepatomegaly or splenomegaly. MSK: LE limited strength 4/5 EXTREMITIES: Normal inspection. No peripheral edema. No clubbing or cyanosis. NEUROLOGICAL: CN II-XII intact. Normal speech, no focal sensorimotor deficits; no foot dropped. SKIN: Warm, Dry, normal turgor, no rashes or lesions noted Laboratory Results - last 24 hr CBC, BMP 07/14/20 07:05 07/14/20 07:05 07/14/20 07/14/20 07/14/20 11:19 12:15 17:34 POC Glucometer 168 188 COVID-19 ([facility]) Not detected 07/14/20 07/15/20 23:10 05:55 POC Glucometer 172 148 COVID-19 ([facility]) Active Medications Generic Name Dose Route Start Last Admin Trade Name Freq PRN Reason Stop Dose Admin Acetaminophen 650 mg 07/06/20 15:54 07/15/20 10:21 Tylenol - PO 650 mg Q6H PRN Administration PAIN LEVEL 1-5 Amlodipine Besylate 10 mg 07/07/20 10:00 07/15/20 10:20 Norvasc - PO 10 mg DAILY [facility] Administration Atorvastatin Calcium 40 mg 07/06/20 22:00 07/14/20 23:12 Lipitor - PO 40 mg HS [facility] Administration Cyclobenzaprine HCl 5 mg 07/09/20 12:20 07/15/20 10:19 Flexeril - PO 5 mg BID PRN Administration BACK PAIN Diphenhydramine HCl 25 mg 07/06/20 14:30 Benadryl - PO Q6H PRN FOR ITCHING Ferrous Sulfate 325 mg 07/07/20 08:00 07/15/20 08:55 Feosol - PO 325 mg DAILY@0800 [facility] Administration Folic Acid 1 mg 07/07/20 10:00 07/15/20 10:20 Folic Acid - PO 1 mg DAILY [facility] Administration Gabapentin 200 mg 07/06/20 22:00 07/15/20 06:39 Neurontin - PO 200 mg TID [facility] Administration Heparin Sodium (Porcine) 5,000 unit 07/14/20 14:00 07/15/20 06:39 Heparin - SQ 5,000 unit TID [facility] Administration Insulin Aspart 1 vial 07/06/20 16:30 07/15/20 06:40 Novolog Vial Sliding Scale - SQ Not Given ACHS [facility] Protocol Insulin Detemir 7 units 07/06/20 22:00 07/14/20 23:12 Levemir Vial SQ 7 units HS [facility] Administration Metoprolol Tartrate 100 mg 07/06/20 22:00 07/15/20 10:20 Lopressor - PO 100 mg BID [facility] Administration Ondansetron HCl 4 mg 07/06/20 14:30 Zofran Injection IVPUSH Q6H PRN NAUSEA Pantoprazole Sodium 40 mg 07/07/20 07:00 07/15/20 06:40 Protonix - PO 40 mg ACBK [facility] Administration Polyethylene Glycol 17 gm 07/12/20 11:00 07/15/20 10:21 Miralax (For Daily Use) - PO 17 grams DAILY [facility] Administration Senna 2 tab 07/11/20 09:32 Senna - PO HS PRN CONSTIPATION ASSESSMENT/PLAN: 64 y/o Lady with a PMHx of DM, HTN, HLD, and CKD who is admitted for intractable back pain and s/p Laminectomy. #s/p Laminectomy for a disc herniation - Neurosurgery preformed L4-5 laminectomies with decompressions and fusion - recommends aggressive PT-OOB, pt not compliant with PT - continue incentive spirometer - Oxy as needed for pain, morphine 2 q4h prn - continue to monitor H/H, keep hgb > 7 - creatinine back to baseline: renal contacted for MRI reccs- not indicated this admission due to low GFR radiology will not do the study; can go to rehab without fluids -TLSO brace does not fit the patient; neurosurgery aware #Leukocytosis -WBC 10.9 today; trending down -temp remains ~99 -Surgical wound site evaluated by Neurosurgery - no signs of infection -blood/urine cultures ordered -CXR ordered; negative for acute chest pathology -f/u ID reccs -continue to monitor CBC #Urinary Retention -failed TOV -Patient will be d/c with [facility] -outpt urology f/u #Constipation -resolved -responded to laxatives and enema #HTN - continue amlodipine #anemia - likely multifactoral, iron deficiency - continue ferrous sulfate #TIM on CKD - continue to monitor creatinine #DM - ISS, BGM - c/w levemir 7 #Dysfunctional Uterine Bleeding -post-menopausal bleeding -Rt hemipelvic mass -outpatient f/u with OBGYN #FEN -no standing fluids -monitor lytes, replete PRN -diabetic diet #Ppx -DVT: heparin tid dispo: continue rehab planning Visit type - Emergency Visit Emergency Visit: No - New Patient This patient is new to me today: No - Critical Care Critical Care patient: No - Discharge Referral Referred to [facility] Med P.C[facility] No ATTENDING PHYSICIAN STATEMENT I saw and evaluated the patient. I reviewed the resident's note and discussed the case with the resident. I agree with the resident's findings and plan as documented. SUBJECTIVE: OBJECTIVE: ASSESSMENT AND PLAN:
[2020-07-15 12:33] LABS: BASO % 0.6 % (0-2.0); EOS % 2.8 % (0-4.5); HEMATOCRIT 24.4 % (32.4-45.2); HEMOGLOBIN 8.1 GM/dL (10.7-15.3); LYMPH % 13.5 % (8-40); MCH 29.2 pg (25.7-33.7); MCHC 33.4 g/dl (32.0-36.0); MEAN CELL VOLUME 87.6 fl (80-96); MEAN PLT VOLUME 7.1 fl (7.5-11.1); MONO % 7.7 % (3.8-10.2); NEUT % 75.4 % (42.8-82.8); PLATELET COUNT 419 K/MM3 (134-434); RBC 2.78 M/mm3 (3.60-5.2); RDW 16.2 % (11.6-15.6); WHITE BLOOD COUNT 9.7 K/mm3 (4.0-10.0)
--- NOTE | 2020-07-15 13:02 | PN ---
Progress Note (short form) - Note Progress Note: UROLOGY NOTE 64 Y/O Female patient with PMHx. of DM, HTN, HLD, and CKD. DJD with central spinal canal stenosis L 4/5, L4 nerve root impingement S/P meatal dilation and foster insertion. no pain no hematuria, foster drains clear urine. BUN 44 S.Creat 1.7 Plan keep foster will schedule her for cystoscopy and UDS as outpatient
[2020-07-15 13:12] LABS: BLOOD UREA NITROGEN 40.9 mg/dL (7-18); CALCIUM 9.3 mg/dL (8.5-10.1); CREATININE 1.6 mg/dL (0.55-1.3); POTASSIUM 4.4 mmol/L (3.5-5.1)
[2020-07-15] MEDS ORDERED: MAGNESIUM SULF 50% (8.12 MEQ/2 ML-1 GM VIAL) IVPB ONE (15:00)
--- NOTE | 2020-07-15 15:09 | PN ---
Teaching Attending Note Name of Resident: Glenn Monson ATTENDING PHYSICIAN STATEMENT I saw and evaluated the patient. I reviewed the resident's note and discussed the case with the resident. I agree with the resident's findings and plan as documented. SUBJECTIVE: Ongoing improvement in L back pain, radiating down L hip and LLE, still difficult to weight bear/mobilize. No fever overnight. OBJECTIVE: Tmax 99.4, Hemodynamically stable. AAO x 3 Last Vital Signs Temp Pulse Resp BP Pulse Ox 98.5 F 79 20 144/72 95 07/15/20 14:24 07/15/20 14:24 07/15/20 14:24 07/15/20 14:24 07/15/20 06:00 Heart - S1 S2, RRR Lungs - clear to auscultation Abdomen - High BMI, soft, non-tender. Bowel Sounds normal. Extremities - mild edema, no calf tenderness. Some ongoing improvement in ROM of LLE - limited due to pain on movement Laboratory Results - last 24 hr 07/14/20 07/14/20 07/14/20 12:15 17:34 23:10 WBC RBC Hgb Hct MCV MCH MCHC RDW Plt Count MPV Absolute Neuts (auto) Neutrophils % Lymphocytes % Monocytes % Eosinophils % Basophils % Nucleated RBC % Sodium Potassium Chloride Carbon Dioxide Anion Gap BUN Creatinine Est GFR (CKD-EPI)AfAm Est GFR (CKD-EPI)NonAf POC Glucometer 188 172 Random Glucose Calcium Magnesium COVID-19 ([facility]) Not detected 07/15/20 07/15/20 07/15/20 05:55 12:10 12:10 WBC 9.7 RBC 2.78 L Hgb 8.1 L Hct 24.4 L MCV 87.6 MCH 29.2 MCHC 33.4 RDW 16.2 H Plt Count 419 MPV 7.1 L Absolute Neuts (auto) 7.3 Neutrophils % 75.4 Lymphocytes % 13.5 Monocytes % 7.7 Eosinophils % 2.8 Basophils % 0.6 Nucleated RBC % 0 Sodium 139 Potassium 4.4 Chloride 108 H Carbon Dioxide 25 Anion Gap 6 L BUN 40.9 H Creatinine 1.6 H Est GFR (CKD-EPI)AfAm 39.34 Est GFR (CKD-EPI)NonAf 33.94 POC Glucometer 148 Random Glucose 204 H Calcium 9.3 Magnesium COVID-19 ([facility]) 07/15/20 07/15/20 12:12 12:13 WBC RBC Hgb Hct MCV MCH MCHC RDW Plt Count MPV Absolute Neuts (auto) Neutrophils % Lymphocytes % Monocytes % Eosinophils % Basophils % Nucleated RBC % Sodium Potassium Chloride Carbon Dioxide Anion Gap BUN Creatinine Est GFR (CKD-EPI)AfAm Est GFR (CKD-EPI)NonAf POC Glucometer 153 Random Glucose Calcium Magnesium 1.6 L COVID-19 ([facility]) Current Medications Generic Name Dose Route Start Last Admin Trade Name Freq PRN Reason Stop Dose Admin Acetaminophen 650 mg 07/06/20 15:54 07/15/20 10:21 Tylenol - PO 650 mg Q6H PRN Administration PAIN LEVEL 1-5 Amlodipine Besylate 10 mg 07/07/20 10:00 07/15/20 10:20 Norvasc - PO 10 mg DAILY [facility] Administration Atorvastatin Calcium 40 mg 07/06/20 22:00 07/14/20 23:12 Lipitor - PO 40 mg HS [facility]E Administration Cyclobenzaprine HCl 5 mg 07/09/20 12:20 07/15/20 10:19 Flexeril - PO 5 mg BID PRN Administration BACK PAIN Diphenhydramine HCl 25 mg 07/06/20 14:30 Benadryl - PO Q6H PRN FOR ITCHING Ferrous Sulfate 325 mg 07/07/20 08:00 07/15/20 08:55 Feosol - PO 325 mg DAILY@0800 [facility] Administration Folic Acid 1 mg 07/07/20 10:00 07/15/20 10:20 Folic Acid - PO 1 mg DAILY [facility] Administration Gabapentin 200 mg 07/06/20 22:00 07/15/20 14:39 Neurontin - PO 200 mg TID [facility] Administration Heparin Sodium (Porcine) 5,000 unit 07/14/20 14:00 07/15/20 14:39 Heparin - SQ 5,000 unit TID [facility] Administration Magnesium Sulfate/Dextrose 1 gm in 100 mls @ 100 mls/hr 07/15/20 15:15 Magnesium 1gm/D5w - IVPB 07/15/20 16:14 ONCE ONE Insulin Aspart 1 vial 07/06/20 16:30 07/15/20 12:18 Novolog Vial Sliding Scale - SQ Not Given ACHS [facility] Protocol Insulin Detemir 7 units 07/06/20 22:00 07/14/20 23:12 Levemir Vial SQ 7 units HS [facility] Administration Metoprolol Tartrate 100 mg 07/06/20 22:00 07/15/20 10:20 Lopressor - PO 100 mg BID [facility] Administration Ondansetron HCl 4 mg 07/06/20 14:30 Zofran Injection IVPUSH Q6H PRN NAUSEA Pantoprazole Sodium 40 mg 07/07/20 07:00 07/15/20 06:40 Protonix - PO 40 mg ACBK [facility] Administration Polyethylene Glycol 17 gm 07/12/20 11:00 07/15/20 10:21 Miralax (For Daily Use) - PO 17 grams DAILY [facility] Administration Senna 2 tab 07/11/20 09:32 Senna - PO HS PRN CONSTIPATION Home Medications Medication Instructions Recorded Amlodipine Besylate [Norvasc -] 10 mg PO DAILY 06/26/20 Glimepiride [Amaryl -] 4 mg PO BID 06/26/20 Metoprolol Tartrate [Lopressor] 100 mg PO BID 06/26/20 Telmisartan/Hydrochlorothiazid 1 each PO DAILY 06/26/20 [Telmisartan-Hctz 80-25 mg Tab] Sitagliptin Phosphate [Januvia] 50 mg PO DAILY 06/27/20 Atorvastatin Ca [Lipitor] 40 mg PO HS #30 tablet 07/14/20 Cyclobenzaprine HCl [Flexeril -] 5 mg PO TID PRN 14 Days #20 tablet 07/14/20 Ferrous Sulfate [Feosol] 325 mg PO DAILY@0800 #30 ud 07/14/20 Folic Acid - 1 mg PO DAILY #30 tablet 07/14/20 Gabapentin [Neurontin -] 200 mg PO TID #90 capsule 07/14/20 ASSESSMENT AND PLAN: 64 year old female with history of DM 2, HTN, HLD, CKD 3, presents with lower back pain, L Hip pain, radiating down LLE, as well as 3 day history of post- menopausal vaginal bleeding, now resolved. 1. Sciatica and Back Pain sec to DJD, nerve impingement, spinal stenosis, possible vertebral mass(es) POD 9 s/p L4-5 laminectomy/decompression/fusion. s/p SAMANTHA drain removal Continue Gabapentin Ongoing PT - for transfer to SNF for continued Rehab/PT Radiology recommended MRI to exclude mass - unable to obtain due to renal function. Further management as per Neurosurgery and Hem/Onc. Temp elevation improving as is leukocytosis - no clear source of infection. CXR - clear. Urine and Blood Cultures negative. Tmax overnight 99.4 Incentive Spirometry encouraged. Surgical wound site evaluated by Neurosurgery - no signs of infection. awaiting ID re-eval requested daily since 07/13 2. TIM on CKD 3 - continued improvement. Creat down to 1.6 from 5.1 Renal US - bilateral renal lipomatosis, R renal cyst. Creat at baseline - no need fro further IV fluids as per Nephrology. Nephrology and Urology follow-ups on discharge. 3. Normocytic Anemia, multifactorial, sec to CKD/Chronic Disease/adalberto-op blood loss - Stable s/p transfusion 1 unit PRBCs. FOBT negative. 4. Urinary Retention Failed TOV [facility] in situ - for discharge with [facility] For Urology follow up and TOV as out-patient. 5. Post-menopausal Dysfunctional Uterine Bleeding Abdominal US - enlarged myomatous uterus. CT - mass-like density R hemipelvis, exophytic fibroid versus ovarian mass. Gynecology evaluated - no bleeding currently - Gynecology mass not the cause of patient's TIM/urinary obstruction as per Gynecology. For outpatient endometrial biopsy as per Gyne. 6. HLD - on Statin. 7. DM 2 - Glimepiride, Januvia held. Maintain on Levemir/Novolog as per sliding scale. 8. HTN - continue Norvasc, Lopressor. ARB held due to TIM. Can reintroduce ARB when Nephrology suggests. 9. Hypomagnesemia - repleted. DVT Px - Heparin SQ
[2020-07-15] MEDS ORDERED: MAGNESIUM OXIDE 400 MG TABLET (FP) PO ONE (15:14)
[2020-07-15] MEDS ORDERED: MAGNESIUM 1GM/D5W - 1 GM/100 ML IVPB IVPB ONE (15:15)
[2020-07-15] MEDS: INSULIN (LEVEMIR) 100 UNITS/ML UNITS SQ SCH (21:37)
[2020-07-15] MEDS: ATORVASTATIN CA 40 MG TABLET (FP) PO SCH (21:39)
[2020-07-16] MEDS: ACETAMINOPHEN 325 MG TABLET (FP) PO PRN (03:24)
[2020-07-16] MEDS: diphenhydrAMINE HCL 25 MG CAPSULE (FP) PO PRN ×2 (03:24→22:13)
[2020-07-16] MEDS: INSULIN SLIDING SCALE (NOVOLOG) 1 VIAL SQ SCH ×4 (06:21→22:14)
[2020-07-16] MEDS: GABAPENTIN 100 MG CAPSULE PO SCH ×3 (06:23→22:15)
[2020-07-16] MEDS: HEPARIN NA (PORCINE) 5,000 UNITS/ML 1ML VIAL SQ SCH ×3 (06:23→22:14)
[2020-07-16] MEDS: PANTOPRAZOLE 40 MG TABLET PO SCH (06:23)
[2020-07-16] MEDS ORDERED: INSULIN (NOVOLOG) ASPART 100 UNITS/ML 10ML VIAL ONE ×2 (06:49→22:12)
[2020-07-16] MEDS: FERROUS SO4 325 MG TABLET (FP) PO SCH (08:41)
[2020-07-16 09:24] LABS: BASO % 0.7 % (0-2.0); EOS % 4.5 % (0-4.5); HEMATOCRIT 23.9 % (32.4-45.2); HEMOGLOBIN 7.9 GM/dL (10.7-15.3); MCH 28.9 pg (25.7-33.7); MCHC 32.9 g/dl (32.0-36.0); MEAN CELL VOLUME 87.7 fl (80-96); MEAN PLT VOLUME 7.1 fl (7.5-11.1); MONO % 9.4 % (3.8-10.2); NEUT % 66.4 % (42.8-82.8); PLATELET COUNT 376 K/MM3 (134-434); RBC 2.73 M/mm3 (3.60-5.2); RDW 16.5 % (11.6-15.6); WHITE BLOOD COUNT 8.4 K/mm3 (4.0-10.0)
[2020-07-16 09:55] LABS: BLOOD UREA NITROGEN 36.8 mg/dL (7-18); CALCIUM 8.9 mg/dL (8.5-10.1); CREATININE 1.5 mg/dL (0.55-1.3); POTASSIUM 4.6 mmol/L (3.5-5.1)
[2020-07-16] MEDS: amLODIPine BESYLATE 10 MG TABLET (FP) PO SCH (10:08)
[2020-07-16] MEDS: FOLIC ACID 1 MG TABLET (FP) PO SCH (10:08)
[2020-07-16] MEDS: METOPROLOL TARTRATE 50 MG TABLET (FP) PO SCH ×2 (10:08→22:13)
[2020-07-16 11:33] LABS: MAGNESIUM 1.6 mg/dL (1.8-2.4)
--- NOTE | 2020-07-16 13:28 | PN ---
Progress Note (short form) - Note Progress Note: RENAL pt is awake and alert says she couldnt sleep due to pain having plenty of urine output Last Vital Signs Temp Pulse Resp BP Pulse Ox 98.0 F 88 18 160/80 98 07/16/20 02:00 07/16/20 10:00 07/16/20 10:00 07/16/20 10:00 07/16/20 10:00 lungs clear cvs s1s2 rr abd soft ext no edema neuro a+ox3 foster bag full of urine CBC, BMP 07/16/20 08:47 07/16/20 08:47 Current Medications Generic Name Dose Route Start Last Admin Trade Name Freq PRN Reason Stop Dose Admin Acetaminophen 650 mg 07/06/20 15:54 07/16/20 03:24 Tylenol - PO 650 mg Q6H PRN Administration PAIN LEVEL 1-5 Amlodipine Besylate 10 mg 07/07/20 10:00 07/16/20 10:08 Norvasc - PO 10 mg DAILY [facility]E Administration Atorvastatin Calcium 40 mg 07/06/20 22:00 07/15/20 21:39 Lipitor - PO 40 mg HS [facility]E Administration Cyclobenzaprine HCl 5 mg 07/09/20 12:20 07/15/20 21:39 Flexeril - PO 5 mg BID PRN Administration BACK PAIN Diphenhydramine HCl 25 mg 07/06/20 14:30 07/16/20 03:24 Benadryl - PO 25 mg Q6H PRN Administration FOR ITCHING Ferrous Sulfate 325 mg 07/07/20 08:00 07/16/20 08:41 Feosol - PO 325 mg DAILY@0800 [facility]E Administration Folic Acid 1 mg 07/07/20 10:00 07/16/20 10:08 Folic Acid - PO 1 mg DAILY ROSCOE Administration Gabapentin 200 mg 07/06/20 22:00 07/16/20 06:23 Neurontin - PO 200 mg TID [facility] Administration Heparin Sodium (Porcine) 5,000 unit 07/14/20 14:00 07/16/20 06:23 Heparin - SQ 5,000 unit TID ROSCOE Administration Insulin Aspart 1 vial 07/06/20 16:30 07/16/20 12:38 Novolog Vial Sliding Scale - SQ Not Given [facility] Protocol Insulin Detemir 7 units 07/06/20 22:00 07/15/20 21:37 Levemir Vial SQ 7 units HS [facility]E Administration Metoprolol Tartrate 100 mg 07/06/20 22:00 07/16/20 10:08 Lopressor - PO 100 mg BID [facility]E Administration Ondansetron HCl 4 mg 07/06/20 14:30 Zofran Injection IVPUSH Q6H PRN NAUSEA Pantoprazole Sodium 40 mg 07/07/20 07:00 07/16/20 06:23 Protonix - PO 40 mg ACBK [facility]E Administration Polyethylene Glycol 17 gm 07/12/20 11:00 07/15/20 10:21 Miralax (For Daily Use) - PO 17 grams DAILY [facility] Administration Senna 2 tab 07/11/20 09:32 Senna - PO HS PRN CONSTIPATION IMPRESSION TIM slowly improving- has great urine output anemia on iron PLAN encourage fluids monitor renal function MV
[2020-07-16] MEDS: POLYETHYLENE GLYCOL 3350 119 GM BTL PO SCH (13:33)
[2020-07-16] MEDS ORDERED: MAGNESIUM SULF 50% (8.12 MEQ/2 ML-1 GM VIAL) IVPB ONE (13:43)
--- NOTE | 2020-07-16 13:54 | PN ---
Progress Note (short form) - Note Progress Note: SUBJECTIVE: General improvement in L back pain, radiating down L hip and LLE, still difficult to weight bear/mobilize. No fever overnight. OBJECTIVE: Afebrile, Hemodynamically stable. AAO x 3 Last Vital Signs Temp Pulse Resp BP Pulse Ox 98.0 F 88 18 160/80 98 07/16/20 02:00 07/16/20 10:00 07/16/20 10:00 07/16/20 10:00 07/16/20 10:00 Heart - S1 S2, RRR Lungs - clear to auscultation Abdomen - High BMI, soft, non-tender. Bowel Sounds normal. Extremities - mild edema, no calf tenderness. Some ongoing improvement in ROM of LLE - limited due to pain on movement Laboratory Results - last 24 hr 07/15/20 07/15/20 07/16/20 16:40 21:34 06:15 WBC RBC Hgb Hct MCV MCH MCHC RDW Plt Count MPV Absolute Neuts (auto) Neutrophils % Lymphocytes % Monocytes % Eosinophils % Basophils % Nucleated RBC % Sodium Potassium Chloride Carbon Dioxide Anion Gap BUN Creatinine Est GFR (CKD-EPI)AfAm Est GFR (CKD-EPI)NonAf POC Glucometer 235 172 142 Random Glucose Calcium Magnesium 07/16/20 07/16/20 07/16/20 08:47 08:47 12:21 WBC 8.4 RBC 2.73 L Hgb 7.9 L Hct 23.9 L MCV 87.7 MCH 28.9 MCHC 32.9 RDW 16.5 H Plt Count 376 MPV 7.1 L Absolute Neuts (auto) 5.6 Neutrophils % 66.4 Lymphocytes % 19.0 D Monocytes % 9.4 Eosinophils % 4.5 Basophils % 0.7 Nucleated RBC % 0 Sodium 140 Potassium 4.6 Chloride 107 Carbon Dioxide 25 Anion Gap 8 BUN 36.8 H Creatinine 1.5 H Est GFR (CKD-EPI)AfAm 42.53 Est GFR (CKD-EPI)NonAf 36.69 POC Glucometer 192 Random Glucose 172 H Calcium 8.9 Magnesium 1.6 L Current Medications Generic Name Dose Route Start Last Admin Trade Name Freq PRN Reason Stop Dose Admin Acetaminophen 650 mg 07/06/20 15:54 07/16/20 03:24 Tylenol - PO 650 mg Q6H PRN Administration PAIN LEVEL 1-5 Amlodipine Besylate 10 mg 07/07/20 10:00 07/16/20 10:08 Norvasc - PO 10 mg DAILY [facility] Administration Atorvastatin Calcium 40 mg 07/06/20 22:00 07/15/20 21:39 Lipitor - PO 40 mg HS [facility]COE Administration Cyclobenzaprine HCl 5 mg 07/09/20 12:20 07/15/20 21:39 Flexeril - PO 5 mg BID PRN Administration BACK PAIN Diphenhydramine HCl 25 mg 07/06/20 14:30 07/16/20 03:24 Benadryl - PO 25 mg Q6H PRN Administration FOR ITCHING Ferrous Sulfate 325 mg 07/07/20 08:00 07/16/20 08:41 Feosol - PO 325 mg DAILY@0800 [facility] Administration Folic Acid 1 mg 07/07/20 10:00 07/16/20 10:08 Folic Acid - PO 1 mg DAILY [facility]COE Administration Gabapentin 200 mg 07/06/20 22:00 07/16/20 13:32 Neurontin - PO 200 mg TID [facility] Administration Heparin Sodium (Porcine) 5,000 unit 07/14/20 14:00 07/16/20 13:33 Heparin - SQ 5,000 unit TID [facility] Administration Insulin Aspart 1 vial 07/06/20 16:30 07/16/20 12:38 Novolog Vial Sliding Scale - SQ Not Given [facility] Protocol Insulin Detemir 7 units 07/06/20 22:00 07/15/20 21:37 Levemir Vial SQ 7 units HS [facility] Administration Magnesium Sulfate 2 gm 07/16/20 13:43 Magnesium Sulfate IVPB 07/16/20 13:44 ONCE ONE Metoprolol Tartrate 100 mg 07/06/20 22:00 07/16/20 10:08 Lopressor - PO 100 mg BID [facility] Administration Ondansetron HCl 4 mg 07/06/20 14:30 Zofran Injection IVPUSH Q6H PRN NAUSEA Pantoprazole Sodium 40 mg 07/07/20 07:00 07/16/20 06:23 Protonix - PO 40 mg ACBK [facility]E Administration Polyethylene Glycol 17 gm 07/12/20 11:00 07/16/20 13:33 Miralax (For Daily Use) - PO Not Given DAILY [facility] Senna 2 tab 07/11/20 09:32 Senna - PO HS PRN CONSTIPATION Home Medications Medication Instructions Recorded Amlodipine Besylate [Norvasc -] 10 mg PO DAILY 06/26/20 Glimepiride [Amaryl -] 4 mg PO BID 06/26/20 Metoprolol Tartrate [Lopressor] 100 mg PO BID 06/26/20 Telmisartan/Hydrochlorothiazid 1 each PO DAILY 06/26/20 [Telmisartan-Hctz 80-25 mg Tab] Sitagliptin Phosphate [Januvia] 50 mg PO DAILY 06/27/20 Atorvastatin Ca [Lipitor] 40 mg PO HS #30 tablet 07/14/20 Cyclobenzaprine HCl [Flexeril -] 5 mg PO TID PRN 14 Days #20 tablet 07/14/20 Ferrous Sulfate [Feosol] 325 mg PO DAILY@0800 #30 ud 07/14/20 Folic Acid - 1 mg PO DAILY #30 tablet 07/14/20 Gabapentin [Neurontin -] 200 mg PO TID #90 capsule 07/14/20 ASSESSMENT AND PLAN: 64 year old female with history of DM 2, HTN, HLD, CKD 3, presents with lower back pain, L Hip pain, radiating down LLE, as well as 3 day history of post- menopausal vaginal bleeding, now resolved. 1. Sciatica and Back Pain sec to DJD, nerve impingement, spinal stenosis, possible vertebral mass(es) POD 10 s/p L4-5 laminectomy/decompression/fusion. s/p SAMANTHA drain removal Continue Gabapentin Ongoing PT - for transfer to SNF for continued Rehab/PT Radiology recommended MRI to exclude mass - unable to obtain due to renal function. Further management as per Neurosurgery and Hem/Onc. Temp elevation improving as is leukocytosis - no clear source of infection. CXR - clear. Urine and Blood Cultures negative. Tmax overnight 99.4 Incentive Spirometry encouraged. Surgical wound site evaluated by Neurosurgery - no signs of infection. Discussed with Dr. Zaragoza who agrees to follow up and make recommendations from an ID perspective. 2. TIM on CKD 3 - continued improvement. Creat down to 1.5 from 5.1 Renal US - bilateral renal lipomatosis, R renal cyst. Creatinine at baseline - no need for further IV fluids as per Nephrology. Nephrology and Urology follow-ups on discharge. 3. Normocytic Anemia, multifactorial, sec to CKD/Chronic Disease/adalberto-op blood loss - Stable s/p transfusion 1 unit PRBCs. FOBT negative. 4. Urinary Retention Failed TOV [facility] in situ - for discharge with [facility] For Urology follow up and TOV as out-patient. 5. Post-menopausal Dysfunctional Uterine Bleeding Abdominal US - enlarged myomatous uterus. CT - mass-like density R jolene-pelvis, exophytic fibroid versus ovarian mass. Gynecology evaluated - no bleeding currently - Gynecology mass not the cause of patient's TIM/urinary obstruction as per Gynecology. For outpatient endometrial biopsy as per Gyne. 6. HLD - on Statin. 7. DM 2 - Glimepiride, Januvia held. Maintain on Levemir/Novolog as per sliding scale. 8. HTN - continue Norvasc, Lopressor. ARB held due to TIM. Can reintroduce ARB when Nephrology suggests. 9. Hypomagnesemia - recurrent, repleted. DVT Px - Heparin SQ Visit type - Emergency Visit Emergency Visit: Yes ED Registration Date: 06/26/20 Care time: The patient presented to the Emergency Department on the above date and was hospitalized for further evaluation of their emergent condition. - New Patient This patient is new to me today: No - Critical Care Critical Care patient: No - Discharge Referral Referred to [facility] Med P.C[facility] No
--- NOTE | 2020-07-16 14:09 | PN ---
Progress Note, Physician History of Present Illness: AWAKE, ALERT IN BED C/O L SIDED LOW BACK PAIN NO C/O CHEST PAIN/DYSPNEA/ COUGH MALCOLM IN PLACE NO CALF PAIN AFEBRILE WBC WNL C/S NEGATIVE CXR NO INFILTRATE - Current Medication List Current Medications: Active Medications Acetaminophen (Tylenol -) 650 mg PO Q6H PRN PRN Reason: PAIN LEVEL 1-5 Last Admin: 07/16/20 03:24 Dose: 650 mg Documented by: Amlodipine Besylate (Norvasc -) 10 mg PO DAILY [facility] Last Admin: 07/16/20 10:08 Dose: 10 mg Documented by: Atorvastatin Calcium (Lipitor -) 40 mg PO [facility] Last Admin: 07/15/20 21:39 Dose: 40 mg Documented by: Cyclobenzaprine HCl (Flexeril -) 5 mg PO BID PRN PRN Reason: BACK PAIN Last Admin: 07/15/20 21:39 Dose: 5 mg Documented by: Diphenhydramine HCl (Benadryl -) 25 mg PO Q6H PRN PRN Reason: FOR ITCHING Last Admin: 07/16/20 03:24 Dose: 25 mg Documented by: Ferrous Sulfate (Feosol -) 325 mg PO DAILY@0800 [facility] Last Admin: 07/16/20 08:41 Dose: 325 mg Documented by: Folic Acid (Folic Acid -) 1 mg PO DAILY [facility] Last Admin: 07/16/20 10:08 Dose: 1 mg Documented by: Gabapentin (Neurontin -) 200 mg PO TID [facility] Last Admin: 07/16/20 13:32 Dose: 200 mg Documented by: Heparin Sodium (Porcine) (Heparin -) 5,000 unit SQ TID [facility] Last Admin: 07/16/20 13:33 Dose: 5,000 unit Documented by: Insulin Aspart (Novolog Vial Sliding Scale -) 1 vial SQ [facility]; Protocol Last Admin: 07/16/20 12:38 Dose: Not Given Documented by: Insulin Detemir (Levemir Vial) 7 units SQ [facility] Last Admin: 07/15/20 21:37 Dose: 7 units Documented by: Magnesium Sulfate (Magnesium Sulfate) 2 gm IVPB ONCE ONE Stop: 07/16/20 13:44 Metoprolol Tartrate (Lopressor -) 100 mg PO BID [facility] Last Admin: 07/16/20 10:08 Dose: 100 mg Documented by: Ondansetron HCl (Zofran Injection) 4 mg IVPUSH Q6H PRN PRN Reason: NAUSEA Pantoprazole Sodium (Protonix -) 40 mg PO ACBK [facility] Last Admin: 07/16/20 06:23 Dose: 40 mg Documented by: Polyethylene Glycol (Miralax (For Daily Use) -) 17 gm PO DAILY [facility] Last Admin: 07/16/20 13:33 Dose: Not Given Documented by: Senna (Senna -) 2 tab PO HS PRN PRN Reason: CONSTIPATION - Objective Vital Signs: Vital Signs Temperature 97.5 F L 07/16/20 14:04 Pulse Rate 80 07/16/20 14:04 Respiratory Rate 18 07/16/20 14:04 Blood Pressure 160/75 07/16/20 14:04 O2 Sat by Pulse Oximetry (%) 98 07/16/20 10:00 Constitutional: Yes: Obese Cardiovascular: Yes: Regular Rate and Rhythm, S1, S2 Respiratory: Yes: Diminished Gastrointestinal: Yes: Normal Bowel Sounds, Soft Edema: Yes (NO CALF TENDERNESS) Integumentary: Yes: Other (SURGICAL DRESSING IN PLACE NOT REMOVED) Labs: CBC, BMP 07/16/20 08:47 07/16/20 08:47 INR, PTT INR 1.14 (0.83-1.09) H 06/26/20 10:15 Assessment/Plan POST OP LAMINECTOMY NO EVIDENCE OF INFECTIOUS PROCESS OBSERVE OFF ANTIBIOTICS DISCUSSED WITH HOSPITALIST
[2020-07-16] MEDS: ATORVASTATIN CA 40 MG TABLET (FP) PO SCH (22:13)
[2020-07-16] MEDS: CYCLOBENZAPRINE HCL 10 MG TABLET (FP) PO PRN (22:13)
[2020-07-16] MEDS: INSULIN (LEVEMIR) 100 UNITS/ML UNITS SQ SCH (22:14)
[2020-07-17] MEDS: INSULIN SLIDING SCALE (NOVOLOG) 1 VIAL SQ SCH ×4 (06:24→21:43)
[2020-07-17] MEDS: HEPARIN NA (PORCINE) 5,000 UNITS/ML 1ML VIAL SQ SCH ×3 (06:24→21:41)
[2020-07-17] MEDS: GABAPENTIN 100 MG CAPSULE PO SCH ×3 (06:25→21:43)
[2020-07-17] MEDS: PANTOPRAZOLE 40 MG TABLET PO SCH (06:26)
[2020-07-17] MEDS: FERROUS SO4 325 MG TABLET (FP) PO SCH (08:42)
[2020-07-17] MEDS: amLODIPine BESYLATE 10 MG TABLET (FP) PO SCH (09:17)
[2020-07-17] MEDS: FOLIC ACID 1 MG TABLET (FP) PO SCH (09:17)
[2020-07-17] MEDS: METOPROLOL TARTRATE 50 MG TABLET (FP) PO SCH ×2 (09:18→21:42)
[2020-07-17] MEDS: POLYETHYLENE GLYCOL 3350 119 GM BTL PO SCH (09:57)
[2020-07-17 10:48] LABS: BASO % 0.5 % (0-2.0); EOS % 4.2 % (0-4.5); HEMOGLOBIN 8.3 GM/dL (10.7-15.3); LYMPH % 14.5 % (8-40); MCH 29.2 pg (25.7-33.7); MCHC 33.3 g/dl (32.0-36.0); MEAN CELL VOLUME 87.6 fl (80-96); MONO % 8.4 % (3.8-10.2); NEUT % 72.4 % (42.8-82.8); PLATELET COUNT 366 K/MM3 (134-434); RBC 2.85 M/mm3 (3.60-5.2); RDW 16.5 % (11.6-15.6); WHITE BLOOD COUNT 8.9 K/mm3 (4.0-10.0)
[2020-07-17 11:11] LABS: BLOOD UREA NITROGEN 30.2 mg/dL (7-18); CALCIUM 9.1 mg/dL (8.5-10.1); CREATININE 1.5 mg/dL (0.55-1.3); POTASSIUM 4.7 mmol/L (3.5-5.1)
--- NOTE | 2020-07-17 14:02 | PN ---
Physical Exam: SUBJECTIVE: Patient seen and examined at bedside. No acute events reported overnight. OBJECTIVE: Vital Signs Period Temp Pulse Resp BP Sys/Ruiz Pulse Ox Last 24 Hr 97.5 F-99.2 F 80-93 18-20 138-170/63-90 95-98 GENERAL: AAOx3, in no acute distress. more responsive today than yesterday. HEENT: NCAT, PERRLA, EOMI, sclera anicteric, conjunctiva clear, oropharynx clear w/o exudates. MMM. NECK: Normal ROM, supple, no lymphadenopathy, JVD, or masses LUNGS: CTABL no wheezes/ rhonchi/ rales. No distress, speaks in full sentences. No increased work of breathing. HEART: RRR, normal S1 S2, no M/R/G, peripheral pulses 2+ and equal b/l ABDOMEN: Soft, NTND, + BS. No guarding or rebound. No hepatomegaly or splenomegaly. MSK: LE limited strength 4/5 EXTREMITIES: Normal inspection. No peripheral edema. No clubbing or cyanosis. NEUROLOGICAL: CN II-XII intact. Normal speech, no focal sensorimotor deficits; no foot dropped. SKIN: Warm, Dry, normal turgor, no rashes or lesions noted Laboratory Results - last 24 hr CBC, BMP 07/17/20 10:28 07/17/20 10:28 07/16/20 07/16/20 07/17/20 17:16 22:03 06:23 WBC RBC Hgb Hct MCV MCH MCHC RDW Plt Count MPV Absolute Neuts (auto) Neutrophils % Lymphocytes % Monocytes % Eosinophils % Basophils % Nucleated RBC % Sodium Potassium Chloride Carbon Dioxide Anion Gap BUN Creatinine Est GFR (CKD-EPI)AfAm Est GFR (CKD-EPI)NonAf POC Glucometer 232 235 138 Random Glucose Calcium Magnesium 07/17/20 07/17/20 07/17/20 10: 10:28 11:31 WBC 8.9 RBC 2.85 L Hgb 8.3 L Hct 25.0 L MCV 87.6 MCH 29.2 MCHC 33.3 RDW 16.5 H Plt Count 366 MPV 7.0 L Absolute Neuts (auto) 6.4 Neutrophils % 72.4 Lymphocytes % 14.5 D Monocytes % 8.4 Eosinophils % 4.2 Basophils % 0.5 Nucleated RBC % 0 Sodium 137 Potassium 4.7 Chloride 105 Carbon Dioxide 27 Anion Gap 6 L BUN 30.2 H Creatinine 1.5 H Est GFR (CKD-EPI)AfAm 42.53 Est GFR (CKD-EPI)NonAf 36.69 POC Glucometer 195 Random Glucose 235 H Calcium 9.1 Magnesium 2.0 Active Medications Generic Name Dose Route Start Last Admin Trade Name Freq PRN Reason Stop Dose Admin Acetaminophen 650 mg 07/06/20 15:54 07/16/20 03:24 Tylenol - PO 650 mg Q6H PRN Administration PAIN LEVEL 1-5 Amlodipine Besylate 10 mg 07/07/20 10:00 07/17/20 09:17 Norvasc - PO 10 mg DAILY [facility] Administration Atorvastatin Calcium 40 mg 07/06/20 22:00 07/16/20 22:13 Lipitor - PO 40 mg HS [facility] Administration Cyclobenzaprine HCl 5 mg 07/09/20 12:20 07/16/20 22:13 Flexeril - PO 5 mg BID PRN Administration BACK PAIN Diphenhydramine HCl 25 mg 07/06/20 14:30 07/16/20 22:13 Benadryl - PO 25 mg Q6H PRN Administration FOR ITCHING Ferrous Sulfate 325 mg 07/07/20 08:00 07/17/20 08:42 Feosol - PO 325 mg DAILY@0800 [facility] Administration Folic Acid 1 mg 07/07/20 10:00 07/17/20 09:17 Folic Acid - PO 1 mg DAILY [facility] Administration Gabapentin 200 mg 07/06/20 22:00 07/17/20 13:44 Neurontin - PO 200 mg TID [facility] Administration Heparin Sodium (Porcine) 5,000 unit 07/14/20 14:00 07/17/20 13:44 Heparin - SQ 5,000 unit TID [facility] Administration Insulin Aspart 1 vial 07/06/20 16:30 07/17/20 11:55 Novolog Vial Sliding Scale - SQ Not Given [facility] Protocol Insulin Detemir 7 units 07/06/20 22:00 07/16/20 22:14 Levemir Vial SQ 7 units HS [facility] Administration Metoprolol Tartrate 100 mg 07/06/20 22:00 07/17/20 09:18 Lopressor - PO 100 mg BID [facility] Administration Ondansetron HCl 4 mg 07/06/20 14:30 Zofran Injection IVPUSH Q6H PRN NAUSEA Pantoprazole Sodium 40 mg 07/07/20 07:00 07/17/20 06:26 Protonix - PO 40 mg ACBK [facility] Administration Polyethylene Glycol 17 gm 07/12/20 11:00 07/17/20 09:57 Miralax (For Daily Use) - PO Not Given DAILY [facility] Senna 2 tab 07/11/20 09:32 Senna - PO HS PRN CONSTIPATION ASSESSMENT/PLAN: 64 y/o Lady with a PMHx of DM, HTN, HLD, and CKD who is admitted for intractable back pain and s/p Laminectomy. #s/p Laminectomy for a disc herniation - Neurosurgery preformed L4-5 laminectomies with decompressions and fusion - recommends aggressive PT-OOB, pt not compliant with PT - continue incentive spirometer - Oxy as needed for pain, morphine 2 q4h prn - continue to monitor H/H, keep hgb > 7 - creatinine back to baseline: renal contacted for MRI reccs- not indicated this admission due to low GFR radiology will not do the study; can go to rehab without fluids -TLSO brace does not fit the patient; neurosurgery aware #Leukocytosis -WBC 8.9 today; trending down -Surgical wound site evaluated by Neurosurgery - no signs of infection -blood/urine cultures ordered -CXR ordered; negative for acute chest pathology -f/u ID reccs -continue to monitor CBC #Urinary Retention -failed TOV -Patient will be d/c with Pathak -outpt urology f/u #Constipation -resolved -responded to laxatives and enema #HTN - continue amlodipine #anemia - likely multifactoral, iron deficiency - continue ferrous sulfate -patient to be discharged with Ferrous sulfate and outpt f/u for further iron studies #TIM on CKD - continue to monitor creatinine #DM - ISS, BGM - c/w levemir 7 #Dysfunctional Uterine Bleeding -post-menopausal bleeding -Rt hemipelvic mass -outpatient f/u with OBGYN #FEN -no standing fluids -monitor lytes, replete PRN -diabetic diet #Ppx -DVT: heparin tid dispo: continue rehab planning Visit type - Emergency Visit Emergency Visit: No - New Patient This patient is new to me today: No - Critical Care Critical Care patient: No - Discharge Referral Referred to [facility] Med P.C[facility] No ATTENDING PHYSICIAN STATEMENT I saw and evaluated the patient. I reviewed the resident's note and discussed the case with the resident. I agree with the resident's findings and plan as documented. SUBJECTIVE: OBJECTIVE: ASSESSMENT AND PLAN:
--- NOTE | 2020-07-17 14:37 | PN ---
Teaching Attending Note Name of Resident: Glenn Monson ATTENDING PHYSICIAN STATEMENT I saw and evaluated the patient. I reviewed the resident's note and discussed the case with the resident. I agree with the resident's findings and plan as documented. SUBJECTIVE: General improvement in L back pain, radiating down L hip and LLE, still difficult to weight bear/mobilize. OBJECTIVE: Afebrile, Hemodynamically stable. AAO x 3 Last Vital Signs Temp Pulse Resp BP Pulse Ox 98.7 F 93 H 20 148/69 96 07/17/20 09:17 07/17/20 09:17 07/17/20 09:17 07/17/20 09:17 07/17/20 09:17 Heart - S1 S2, RRR Lungs - clear to auscultation Abdomen - High BMI, soft, non-tender. Bowel Sounds normal. Extremities - mild edema, no calf tenderness. Some ongoing improvement in ROM of LLE - limited due to pain on movement Laboratory Results - last 24 hr 07/16/20 07/16/20 07/17/20 17:16 22:03 06:23 WBC RBC Hgb Hct MCV MCH MCHC RDW Plt Count MPV Absolute Neuts (auto) Neutrophils % Lymphocytes % Monocytes % Eosinophils % Basophils % Nucleated RBC % Sodium Potassium Chloride Carbon Dioxide Anion Gap BUN Creatinine Est GFR (CKD-EPI)AfAm Est GFR (CKD-EPI)NonAf POC Glucometer 232 235 138 Random Glucose Calcium Magnesium 07/17/20 07/17/20 07/17/20 10:28 10:28 11:31 WBC 8.9 RBC 2.85 L Hgb 8.3 L Hct 25.0 L MCV 87.6 MCH 29.2 MCHC 33.3 RDW 16.5 H Plt Count 366 MPV 7.0 L Absolute Neuts (auto) 6.4 Neutrophils % 72.4 Lymphocytes % 14.5 D Monocytes % 8.4 Eosinophils % 4.2 Basophils % 0.5 Nucleated RBC % 0 Sodium 137 Potassium 4.7 Chloride 105 Carbon Dioxide 27 Anion Gap 6 L BUN 30.2 H Creatinine 1.5 H Est GFR (CKD-EPI)AfAm 42.53 Est GFR (CKD-EPI)NonAf 36.69 POC Glucometer 195 Random Glucose 235 H Calcium 9.1 Magnesium 2.0 Current Medications Generic Name Dose Route Start Last Admin Trade Name Freq PRN Reason Stop Dose Admin Acetaminophen 650 mg 07/06/20 15:54 07/16/20 03:24 Tylenol - PO 650 mg Q6H PRN Administration PAIN LEVEL 1-5 Amlodipine Besylate 10 mg 07/07/20 10:00 07/17/20 09:17 Norvasc - PO 10 mg DAILY [facility] Administration Atorvastatin Calcium 40 mg 07/06/20 22:00 07/16/20 22:13 Lipitor - PO 40 mg HS [facility] Administration Cyclobenzaprine HCl 5 mg 07/09/20 12:20 07/16/20 22:13 Flexeril - PO 5 mg BID PRN Administration BACK PAIN Diphenhydramine HCl 25 mg 07/06/20 14:30 07/16/20 22:13 Benadryl - PO 25 mg Q6H PRN Administration FOR ITCHING Ferrous Sulfate 325 mg 07/07/20 08:00 07/17/20 08:42 Feosol - PO 325 mg DAILY@0800 [facility] Administration Folic Acid 1 mg 07/07/20 10:00 07/17/20 09:17 Folic Acid - PO 1 mg DAILY [facility] Administration Gabapentin 200 mg 07/06/20 22:00 07/17/20 13:44 Neurontin - PO 200 mg TID [facility] Administration Heparin Sodium (Porcine) 5,000 unit 07/14/20 14:00 07/17/20 13:44 Heparin - SQ 5,000 unit TID [facility] Administration Insulin Aspart 1 vial 07/06/20 16:30 07/17/20 11:55 Novolog Vial Sliding Scale - SQ Not Given [facility] Protocol Insulin Detemir 7 units 07/06/20 22:00 07/16/20 22:14 Levemir Vial SQ 7 units HS [facility] Administration Metoprolol Tartrate 100 mg 07/06/20 22:00 07/17/20 09:18 Lopressor - PO 100 mg BID [facility] Administration Ondansetron HCl 4 mg 07/06/20 14:30 Zofran Injection IVPUSH Q6H PRN NAUSEA Pantoprazole Sodium 40 mg 07/07/20 07:00 07/17/20 06:26 Protonix - PO 40 mg ACBK [facility] Administration Polyethylene Glycol 17 gm 07/12/20 11:00 07/17/20 09:57 Miralax (For Daily Use) - PO Not Given DAILY [facility] Senna 2 tab 07/11/20 09:32 Senna - PO HS PRN CONSTIPATION Discharge Medications Medication Instructions Recorded Amlodipine Besylate [Norvasc -] 10 mg PO DAILY 06/26/20 Glimepiride [Amaryl -] 4 mg PO BID 06/26/20 Metoprolol Tartrate [Lopressor] 100 mg PO BID 06/26/20 Telmisartan 80mg 1 each PO DAILY 06/26/20 Sitagliptin Phosphate [Januvia] 50 mg PO DAILY 06/27/20 Atorvastatin Ca [Lipitor] 40 mg PO HS #30 tablet 07/14/20 Cyclobenzaprine HCl [Flexeril -] 5 mg PO TID PRN 14 Days #20 tablet 07/14/20 Ferrous Sulfate [Feosol] 325 mg PO DAILY@0800 #30 ud 07/14/20 Folic Acid - 1 mg PO DAILY #30 tablet 07/14/20 Gabapentin [Neurontin -] 200 mg PO TID #90 capsule 07/14/20 ASSESSMENT AND PLAN: 64 year old female with history of DM 2, HTN, HLD, CKD 3, presents with lower back pain, L Hip pain, radiating down LLE, as well as 3 day history of post- menopausal vaginal bleeding, now resolved. 1. Sciatica and Back Pain sec to DJD, nerve impingement, spinal stenosis, possible vertebral mass(es) POD 11 s/p L4-5 laminectomy/decompression/fusion. s/p SAMANTHA drain removal Continue Gabapentin Ongoing PT - for transfer to SNF for continued Rehab/PT Radiology recommended MRI to exclude mass - unable to obtain due to renal function. Further management as per Neurosurgery and Hem/Onc. Temp elevation improving as is leukocytosis - no clear source of infection. CXR - clear. Urine and Blood Cultures negative. Tmax overnight 99.2 Incentive Spirometry encouraged. Surgical wound site evaluated by Neurosurgery 07/13 - no signs of infection. Further wound care as per Neurosurgery. Evaluated by ID - no infectious process currently. 2. TIM on CKD 3 - continued improvement. Creat down to 1.5 from 5.1 Renal US - bilateral renal lipomatosis, R renal cyst. Creatinine currently at baseline seemingly - no need for further IV fluids as per Nephrology. Nephrology and Urology follow-ups on discharge. 3. Normocytic Anemia, multifactorial, sec to CKD/Chronic Disease/adalberto-op blood loss - Stable s/p transfusion 1 unit PRBCs. FOBT negative. Iron supplementation. Nephrology follow up. 4. Urinary Retention Failed TOV Pathak in situ - for discharge with Pathak For Urology follow up and TOV as out-patient. 5. Post-menopausal Dysfunctional Uterine Bleeding Abdominal US - enlarged myomatous uterus. CT - mass-like density R jolene-pelvis, exophytic fibroid versus ovarian mass. Gynecology evaluated - no bleeding currently - Gynecology mass not the cause of patient's TIM/urinary obstruction as per Gynecology. For outpatient endometrial biopsy as per Gyne. Iron supplementation. 6. HLD - on Statin. 7. DM 2 - to resume Glimepiride and Januvia on discharge. 8. HTN - continue Norvasc, Lopressor. To resume ARB on discharge. 9. Hypomagnesemia - recurrent, repleted. DVT Px - Heparin SQ Medically stable and optimized for discharge to SNF for ongoing Rehab.
--- NOTE | 2020-07-17 15:14 | PN ---
Progress Note, Physician History of Present Illness: Pt seen and examined at bedside. She is awake and alert. She denies shortness of breath. - Current Medication List Current Medications: Active Medications Acetaminophen (Tylenol -) 650 mg PO Q6H PRN PRN Reason: PAIN LEVEL 1-5 Last Admin: 07/16/20 03:24 Dose: 650 mg Documented by: Amlodipine Besylate (Norvasc -) 10 mg PO DAILY [facility] Last Admin: 07/17/20 09:17 Dose: 10 mg Documented by: Atorvastatin Calcium (Lipitor -) 40 mg PO HS [facility] Last Admin: 07/16/20 22:13 Dose: 40 mg Documented by: Cyclobenzaprine HCl (Flexeril -) 5 mg PO BID PRN PRN Reason: BACK PAIN Last Admin: 07/16/20 22:13 Dose: 5 mg Documented by: Diphenhydramine HCl (Benadryl -) 25 mg PO Q6H PRN PRN Reason: FOR ITCHING Last Admin: 07/16/20 22:13 Dose: 25 mg Documented by: Ferrous Sulfate (Feosol -) 325 mg PO DAILY@0800 [facility] Last Admin: 07/17/20 08:42 Dose: 325 mg Documented by: Folic Acid (Folic Acid -) 1 mg PO DAILY [facility] Last Admin: 07/17/20 09:17 Dose: 1 mg Documented by: Gabapentin (Neurontin -) 200 mg PO TID [facility] Last Admin: 07/17/20 13:44 Dose: 200 mg Documented by: Heparin Sodium (Porcine) (Heparin -) 5,000 unit SQ TID [facility] Last Admin: 07/17/20 13:44 Dose: 5,000 unit Documented by: Insulin Aspart (Novolog Vial Sliding Scale -) 1 vial SQ [facility]; Protocol Last Admin: 07/17/20 11:55 Dose: Not Given Documented by: Insulin Detemir (Levemir Vial) 7 units SQ [facility] Last Admin: 07/16/20 22:14 Dose: 7 units Documented by: Metoprolol Tartrate (Lopressor -) 100 mg PO BID [facility] Last Admin: 07/17/20 09:18 Dose: 100 mg Documented by: Ondansetron HCl (Zofran Injection) 4 mg IVPUSH Q6H PRN PRN Reason: NAUSEA Pantoprazole Sodium (Protonix -) 40 mg PO ACBK [facility] Last Admin: 07/17/20 06:26 Dose: 40 mg Documented by: Polyethylene Glycol (Miralax (For Daily Use) -) 17 gm PO DAILY [facility] Last Admin: 07/17/20 09:57 Dose: Not Given Documented by: Senbriana (Senna -) 2 tab PO HS PRN PRN Reason: CONSTIPATION - Objective Vital Signs: Vital Signs Temperature 98.7 F 07/17/20 09:17 Pulse Rate 93 H 07/17/20 09:17 Respiratory Rate 20 07/17/20 09:17 Blood Pressure 148/69 07/17/20 09:17 O2 Sat by Pulse Oximetry (%) 96 07/17/20 09:17 Constitutional: Yes: Calm Eyes: Yes: Conjunctiva Clear HENT: Yes: Atraumatic Neck: Yes: Supple Cardiovascular: Yes: S1, S2 Respiratory: Yes: CTA Bilaterally Gastrointestinal: Yes: Soft, Abdomen, Obese Genitourinary: Yes: WNL Musculoskeletal: Yes: Back Pain Edema: No Neurological: Yes: Oriented Psychiatric: Yes: Oriented Labs: CBC, BMP 07/17/20 10:28 07/17/20 10:28 INR, PTT INR 1.14 (0.83-1.09) H 06/26/20 10:15 Problem List - Problems (1) CKD (chronic kidney disease) Code(s): N18.9 - CHRONIC KIDNEY DISEASE, UNSPECIFIED (2) Sciatica Code(s): M54.30 - SCIATICA, UNSPECIFIED SIDE Qualifiers: Laterality: left Qualified Code(s): M54.32 - Sciatica, left side (3) Hypertension Code(s): I10 - ESSENTIAL (PRIMARY) HYPERTENSION Assessment/Plan Current Medications Generic Name Dose Route Start Last Admin Trade Name Freq PRN Reason Stop Dose Admin Acetaminophen 650 mg 07/06/20 15:54 07/16/20 03:24 Tylenol - PO 650 mg Q6H PRN Administration PAIN LEVEL 1-5 Amlodipine Besylate 10 mg 07/07/20 10:00 07/17/20 09:17 Norvasc - PO 10 mg DAILY [facility] Administration Atorvastatin Calcium 40 mg 07/06/20 22:00 07/16/20 22:13 Lipitor - PO 40 mg HS [facility] Administration Cyclobenzaprine HCl 5 mg 07/09/20 12:20 09/27/20 22:13 Flexeril - PO 5 mg BID PRN Administration BACK PAIN Diphenhydramine HCl 25 mg 07/06/20 14:30 07/16/20 22:13 Benadryl - PO 25 mg Q6H PRN Administration FOR ITCHING Ferrous Sulfate 325 mg 07/07/20 08:00 07/17/20 08:42 Feosol - PO 325 mg DAILY@0800 [facility] Administration Folic Acid 1 mg 07/07/20 10:00 07/17/20 09:17 Folic Acid - PO 1 mg DAILY [facility] Administration Gabapentin 200 mg 07/06/20 22:00 07/17/20 13:44 Neurontin - PO 200 mg TID [facility] Administration Heparin Sodium (Porcine) 5,000 unit 07/14/20 14:00 07/17/20 13:44 Heparin - SQ 5,000 unit TID [facility] Administration Insulin Aspart 1 vial 07/06/20 16:30 07/17/20 11:55 Novolog Vial Sliding Scale - SQ Not Given [facility] Protocol Insulin Detemir 7 units 07/06/20 22:00 07/16/20 22:14 Levemir Vial SQ 7 units HS [facility] Administration Metoprolol Tartrate 100 mg 07/06/20 22:00 07/17/20 09:18 Lopressor - PO 100 mg BID [facility] Administration Ondansetron HCl 4 mg 07/06/20 14:30 Zofran Injection IVPUSH Q6H PRN NAUSEA Pantoprazole Sodium 40 mg 07/07/20 07:00 07/17/20 06:26 Protonix - PO 40 mg ACBK [facility] Administration Polyethylene Glycol 17 gm 07/12/20 11:00 07/17/20 09:57 Miralax (For Daily Use) - PO Not Given DAILY [facility] Senna 2 tab 07/11/20 09:32 Senna - PO HS PRN CONSTIPATION Impression 1. CKD 2. TIM 3. back pain 4. dm 5. htn 6. obesity 7. possible spinal mass lesion Plan - renal function is improved - will need outpt follow up - repeat labs in am - foster in place for retention - avoid nephrotoxins - tim likely in part pre-renal
[2020-07-17] MEDS ORDERED: INSULIN (NOVOLOG) ASPART 100 UNITS/ML 10ML VIAL ONE (16:51)
[2020-07-17] MEDS: OXYBUTYNIN CHLORIDE 5 MG TABLET PO SCH (21:41)
[2020-07-17] MEDS: INSULIN (LEVEMIR) 100 UNITS/ML UNITS SQ SCH (21:41)
[2020-07-17] MEDS: ATORVASTATIN CA 40 MG TABLET (FP) PO SCH (21:42)
--- NOTE | 2020-07-18 00:30 | PN ---
DATE OF VISIT: DATE OF DICTATION: 07/17/2020 The patient is a 65-year-old female with overactive bladder. She complains of urinary frequency, urgency, and incontinence. She has had a Pathak catheter for the past 2 weeks. Will recommend that she be placed on an anticholinergic to decrease her bladder contractions and overactive bladder symptoms. An ultrasound of her kidneys revealed a small right simple cyst measuring 10 x 8 mm. There was bilateral renal sinus lipomatosis. Otherwise both kidneys appear unremarkable. Will place patient on oxybutynin 5 mg daily. Will discontinue Pathak in 48 hours. DENNIS HOLT M.D. [id number]
--- NOTE | 2020-07-18 07:03 | SURG ---
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 Bilateral L4/5 laminectomies 2. L4/5 Transpedicular approach 3. Fluroscopy 4. Microdissection 5. Interbody Cage L4/5 6. Interbody & Posterior/Lateral arthrodesis L4/5 7. L4/5 posterior Instrumentation 8. Local autograft 9. L4 Osteotomy 10. L5 Osteotomy 11. Bilateral soft tissue advancement flaps (50cm2) I was present for the entirety of the operative procedure. For further detail, please refer to operative report. Visit type - Case Type Case Type: ED Admission - Emergency Emergency Visit: Yes ED Registration Date: 06/26/20 Care time: The patient presented to the Emergency Department on the above date and was hospitalized for further evaluation of their emergent condition. - New patient This patient is new to me today: Yes Date on this admission: 07/18/20
[2020-07-18] MEDS: GABAPENTIN 100 MG CAPSULE PO SCH (07:22)
[2020-07-18] MEDS: HEPARIN NA (PORCINE) 5,000 UNITS/ML 1ML VIAL SQ SCH (07:22)
[2020-07-18] MEDS: PANTOPRAZOLE 40 MG TABLET PO SCH (07:22)
[2020-07-18] MEDS: INSULIN SLIDING SCALE (NOVOLOG) 1 VIAL SQ SCH ×2 (07:23→12:20)
[2020-07-18] MEDS ORDERED: INSULIN (NOVOLOG) ASPART 100 UNITS/ML 10ML VIAL ONE (07:35)
[2020-07-18 08:24] LABS: BASO % 0.5 % (0-2.0); EOS % 3.1 % (0-4.5); HEMATOCRIT 25.3 % (32.4-45.2); HEMOGLOBIN 8.4 GM/dL (10.7-15.3); LYMPH % 14.2 % (8-40); MCH 28.7 pg (25.7-33.7); MCHC 33.2 g/dl (32.0-36.0); MEAN CELL VOLUME 86.4 fl (80-96); MEAN PLT VOLUME 6.9 fl (7.5-11.1); MONO % 9.7 % (3.8-10.2); NEUT % 72.5 % (42.8-82.8); PLATELET COUNT 338 K/MM3 (134-434); RBC 2.92 M/mm3 (3.60-5.2); RDW 16.4 % (11.6-15.6); WHITE BLOOD COUNT 10.2 K/mm3 (4.0-10.0)
[2020-07-18 08:42] LABS: BLOOD UREA NITROGEN 26.1 mg/dL (7-18); CALCIUM 8.9 mg/dL (8.5-10.1); CREATININE 1.4 mg/dL (0.55-1.3); POTASSIUM 4.8 mmol/L (3.5-5.1)
[2020-07-18] MEDS: CYCLOBENZAPRINE HCL 10 MG TABLET (FP) PO PRN (09:09)
[2020-07-18] MEDS: FERROUS SO4 325 MG TABLET (FP) PO SCH (09:09)
[2020-07-18] MEDS: ACETAMINOPHEN 325 MG TABLET (FP) PO PRN (09:09)
[2020-07-18] MEDS ORDERED: PT OWN MED DRAWER 7, Y5N ONE (09:54)
[2020-07-18] MEDS: POLYETHYLENE GLYCOL 3350 119 GM BTL PO SCH (09:56)
[2020-07-18] MEDS: OXYBUTYNIN CHLORIDE 5 MG TABLET PO SCH (09:56)
[2020-07-18] MEDS: amLODIPine BESYLATE 10 MG TABLET (FP) PO SCH (09:56)
[2020-07-18] MEDS: FOLIC ACID 1 MG TABLET (FP) PO SCH (09:56)
[2020-07-18] MEDS: METOPROLOL TARTRATE 50 MG TABLET (FP) PO SCH (09:56)
--- NOTE | 2020-07-18 11:12 | DS ---
Physical Exam: SUBJECTIVE: Patient seen and examined at bedside. No acute events reported overnight. OBJECTIVE: Vital Signs Period Temp Pulse Resp BP Sys/Ruiz Pulse Ox Last 24 Hr 98.3 F-99.1 F 86-95 20-20 156-170/81-93 95-97 PHYSICAL EXAM GENERAL: AAOx3, in no acute distress. more responsive today than yesterday. HEENT: NCAT, PERRLA, EOMI, sclera anicteric, conjunctiva clear, oropharynx clear w/o exudates. MMM. NECK: Normal ROM, supple, no lymphadenopathy, JVD, or masses LUNGS: CTABL no wheezes/ rhonchi/ rales. No distress, speaks in full sentences. No increased work of breathing. HEART: RRR, normal S1 S2, no M/R/G, peripheral pulses 2+ and equal b/l ABDOMEN: Soft, NTND, + BS. No guarding or rebound. No hepatomegaly or splenomegaly. MSK: LE limited strength 4/5 EXTREMITIES: Normal inspection. No peripheral edema. No clubbing or cyanosis. NEUROLOGICAL: CN II-XII intact. Normal speech, no focal sensorimotor deficits; no foot dropped. SKIN: Warm, Dry, normal turgor, no rashes or lesions noted LABS Laboratory Results - last 24 hr CBC, BMP 07/18/20 08:00 07/18/20 08:00 07/17/20 07/17/20 07/17/20 10:28 11:31 16:45 WBC 8.9 RBC 2.85 L Hgb 8.3 L Hct 25.0 L MCV 87.6 MCH 29.2 MCHC 33.3 RDW 16.5 H Plt Count 366 MPV 7.0 L Absolute Neuts (auto) 6.4 Neutrophils % 72.4 Lymphocytes % 14.5 D Monocytes % 8.4 Eosinophils % 4.2 Basophils % 0.5 Nucleated RBC % 0 Sodium Potassium Chloride Carbon Dioxide Anion Gap BUN Creatinine Est GFR (CKD-EPI)AfAm Est GFR (CKD-EPI)NonAf POC Glucometer 195 211 Random Glucose Calcium 07/17/20 07/18/20 07/18/20 21:20 06:20 08:00 WBC 10.2 H RBC 2.92 L Hgb 8.4 L Hct 25.3 L MCV 86.4 MCH 28.7 MCHC 33.2 RDW 16.4 H Plt Count 338 MPV 6.9 L Absolute Neuts (auto) 7.4 Neutrophils % 72.5 Lymphocytes % 14.2 Monocytes % 9.7 Eosinophils % 3.1 Basophils % 0.5 Nucleated RBC % 0 Sodium Potassium Chloride Carbon Dioxide Anion Gap BUN Creatinine Est GFR (CKD-EPI)AfAm Est GFR (CKD-EPI)NonAf POC Glucometer 228 135 Random Glucose Calcium 07/18/20 08:00 WBC RBC Hgb Hct MCV MCH MCHC RDW Plt Count MPV Absolute Neuts (auto) Neutrophils % Lymphocytes % Monocytes % Eosinophils % Basophils % Nucleated RBC % Sodium 137 Potassium 4.8 Chloride 105 Carbon Dioxide 27 Anion Gap 6 L BUN 26.1 H Creatinine 1.4 H Est GFR (CKD-EPI)AfAm 46.23 Est GFR (CKD-EPI)NonAf 39.89 POC Glucometer Random Glucose 140 H Calcium 8.9 HOSPITAL COURSE: 64 year old female with history of DM 2, HTN, HLD, CKD 3, presented with lower back pain, L Hip pain, radiating down LLE, as well as 3 day of post-menopausal vaginal bleeding. Patient was found to have Sciatica and Back Pain sec to DJD, nerve impingement, spinal stenosis, possible vertebral mass(es). Patient underwent a L4-L5 laminectomy/decompression/fusion with neurosurgery. Patient had a TLSO brace after the surgery but it did not fit the patient well; neurosurgery was aware. Patient had PT on board after the procedure but she was not compliant with it due to pain. Patient was worked up with her post- menupausal vaginal bleeding and was found to have a mass in her uterus but was unable to get further imaging done due to her kidney function due to CKD. Patient will follow up outpatient regarding the mass with PASTRY WRAPPER. Patient also had periods of elevated temperature and leukocytosis throughout her stay which did not resolve despite antibiotics. ID was consulted regarding this but they felt the patient needed a malignancy workup with the leukocytosis did not respond to the antibiotics but the patient was unable to get an MRI w/ contrast due to her GFR. Patient also had problems with urinary retention and failed TOV and was discharged with a Path[place] in place with urology outpatient followup recommended. Patient was discharged with iron supplements with follow up recommended for repeat iron studies to find out the source of her anemia. Date of Admission:06/26/20 06/26/2019-YKP-Trefb tachycardia; septal infact age undetermined 06/26/20- Pelvic/bladder US- Transabdominal pelvic sonography demonstrates enlarged myomatous uterus. However the endometrium and the ovaries were not visualized. If clinically warranted consider either pelvic MRI or transvaginal sonography for further information and for confirmation of these findings and to excl ude other pathology 06/26/20- CXR- Weak inspiration with large heart and prominent hilar markings. Central crowding. 06/27/20-L Spine MRI- MRI with lumbar spine with contrast with attention to the cauda equina strongly recommended. As mentioned above there is some asymmetry in the appearance of the nerve roots which may be related to clumping and arachnoiditis or to underlying mass lesion. Degenerative disease of the lumbosacral spine with accentuation of the lumbar lordosis. L3-L4 L2-L3 moderate degree of spinal stenosis related to bulging annuli and prominent posterior epidural fat with moderate degenerative ages articular facets. L4-L5 grade 1 anterolisthesis of L4 over L5 with broad-based bulging annulus toward the right and left epidural recess with mass effect on the L5 nerve roots in the recesses with more extension into the right L4-L5 foramen. Also hypertrophic changes articular facets contributing to moderate degree of spinal stenosis. Multiple lesions related to the uterus and possibly the right adnexa sonography of the pelvis or MRI of pelvis with contrast strongly recommended for further evaluation. 06/27/20- Renal US- Small right renal simple cyst measuring 10 x 8 mm. Bilateral renal sinus lipomatosis. Both kidneys appear otherwise unremarkable. 06/28/20-CT L Spine- Minimal anterolisthesis of L4 over L5, likely degenerative. Degenerative changes, as described above with moderate degenerative central spinal canal stenosis at the L4-L5 level. 06/28/20-CT Pelvis and lower extremity- No gross acute fracture is identified. Mild osteoarthritic changes involving the left hip joint. Mild sclerotic changes involving the sacroiliac joints. Significant degenerative changes involving both knee joints. No gross focal bone destruction or periosteal elevation is identified. Masslike density in the right hemipelvis with peripheral calcifications. It is unclear whether this represents an exophytic uterine fibroid versus an ovarian mass. Please correlate with pelvis ultrasound report dated 06/26/2020 06/29/20-CXR- No significant interval change - Cardiomegaly with prominent pulmonary vascularity suggestive of venous congestion. Recommend clinical correlation. 06/30/20- Knee [id number] tricompartmental arthrosis - most pronounced at the medial compartment with osteophyte formation, subchondral sclerosis, and joint space narrowing. Chondrocalcinosis is also demonstrated. Small suprapatellar effusion identified. Osseous structures appear intact. If clinical concern persists for underlying soft tissue injury or occult fracture, MRI is recommended for further investigation. 07/01/20-Pelvis/bladder US-Large post void residual 07/06/20-Flurosocopy- 9 views of the lumbar spine have been obtained during what appears to be posterior fusion at L4-5 with disc space replacement. Imaging is available for review. Total fluoroscopy time 3.2 seconds. Total number of images 9. 07/06/20-CT L spine w/o contrast-Status post posterior fusion of L4 and L5 vertebral bodies with an interbody spacer and place and minimal anterolisthesis of L4 over L5 again seen. Transpedicular screws at L5 level are extending to beyond the anterior cortex of L5 vertebral body, left more the right. Correlating to. Postop soft tissue changes with air and a right paramedian posterior drainage catheter are present at the site of surgery. Diverticulosis coli in included portion of the colon without evidence of acute diverticulitis. Masslike density in the right adnexa measuring 7.5 x 5.8 cm for which correlation with pelvis ultra sound is recommended to evaluate for an exophytic fibroid versus an enlarged right ovary. Correlatio n with pelvis ultrasound, transabdominal and transvaginal would be very helpful for further evaluati on. Status post cholecystectomy surgical metallic clips are present. 07/13/20-CXR- Impression: No acute chest pathology. Date of Discharge: 07/14/20 Date of Discharge: 07/18/20 Minutes to complete discharge: 36 Discharge Summary Problems reviewed: Yes Reason For Visit: SCIATICA, LEIOMYOMA Current Active Problems CKD (chronic kidney disease) (Acute) Intractable pain (Acute) S/P lumbar spinal fusion (Acute) Sciatica (Acute) Condition: Stable - Instructions Diet, Activity, Other Instructions: Post Operative Instructions Physical Activity Resume your normal everyday activity as tolerated. No heavy lifting or exercise until seen by your surgeon. You may walk unlimited amounts and climb stairs. You may resume driving the car when you feel safe and comfortable behind the wheel and you are no longer wearing your brace. Do not operate a vehicle while taking narcotic medication. Brace If you had back surgery, wear TLSO Brace whenever out of bed. May remove to sleep and shower. Wound Care Keep your incision clean, dry and covered at all times. Apply an occlusive dressing (Saran wrap or Tegaderm) when showering to avoid getting your incision wet. Do not submerge incision or apply ointments or creams. The ema will be removed in the office in 10-14 days post-op. Diet There are no dietary restrictions. Eat healthy, high-fiber foods. Drink 6-8 glasses of liquid each day. This will assist in keeping your bowels regular. Pain Management You may take Tylenol or acetaminophen. Any pain prescription medication ordered should be taken as prescribed for moderate to severe pain. Avoid any ibuprofen (Motrin, Advil, Aleve, Toradol, etc) for 3 months unless otherwise discussed with your surgeon. Call Dr Ramos for any of the following: Severe pain not relieved by medication Fever of 101 or higher Excessive bleeding or drainage on dressing Inability to urinate Any chest pain or shortness of breath, seek Emergency Care. Call the office to confirm a post-operative appointment for 2-3 weeks post-op Alberto Gonzalez MD [facility] [address] [place] [address]. [place] [address] Your visit: You were admitted to the hospital for back pain. You were found to have a lumbar spinal stenosis with radiculopathy. You were treated with surgery with improvement of your symptoms. Additional Imaging Findings: -During your stay, we did an EKG which showed some abnormalities. Please follow up with your Primary Care Physician about this. -Bladder ultrasound: large uterus with some lesions on it -Chest X-ray: large heart and some prominent hilar markings -Kidney ultrasound: small cyst on your right kidney. Please follow up with your director of public safety about this -CT scan pelvis: degeneration of both of your knees and your left hip joint. Mass line lesion in your uterus measuring 6.7 cm. -X-ray of your knee: small effusion on your knee cap. -CT scan abdomen: diverticulosis of your colon which is inflammation of your colon wall. Surgical metallic clips that were put in during your gallbladder removal surgery. Medications changes: -Continue Ferrous sulfate 325mg by mouth, once daily. -Continue folic acid supplements, 1mg once daily -Continue atorvastatin 40mg once daily -Gabapentin 200mg three times daily -Flexeril 5mg three times per day NEEDED for back pain -Continue to take all other home medications as prescribed NEW MED: We started you on Telmisartan 80 MG ONCE A DAY. Please stop taking you Telmisartan-hydrochlorothiazide medication. Follow up: -Please follow-up with your neurosurgeon, Dr. Dominguez in 2 weeks. -Please follow-up with your urologist, Dr. Milton in 2 weeks. -Please follow-up with your OB-GRIND OPERATOR, Dr. Qureshi, in 2 weeks about your vaginal bleeding and the mass in your pelvis. You will need an endometrial biopsy done. -Please follow-up with your director of public safety, Dr. Butler, in 2 weeks. - Visit with your Primary Care Provider, Dr. Gonzalez in 2 weeks for further anemia testing. You will need a repeat of your iron studies done at your primary care office. Additional Instructions: -You are being discharged to your home. -Please return to the Emergency Department if you experience worsening pain, fevers, chills, shortness of breath, or chest pain, or if you experience any worsening, new or concerning symptoms. Referrals: Alberto Gonzalez MD, [facility] [Staff Physician] - 2 Weeks Kevin Qureshi MD [Staff Physician] - 2 Weeks Kristina Gonzalez MD [Non Staff, Medical] - 2 Weeks Ava Butler MD [Staff Physician] - 2 Weeks Arturo Milton MD [Staff Physician] - 2 Weeks Disposition: [facility] - Home Medications Comprehensive Discharge Medication List: Ambulatory Orders Amlodipine Besylate [Norvasc -] 10 mg PO DAILY 06/26/20 Glimepiride [Amaryl -] 4 mg PO BID 06/26/20 Metoprolol Tartrate [Lopressor] 100 mg PO BID 06/26/20 Sitagliptin Phosphate [Januvia] 50 mg PO DAILY 06/27/20 Atorvastatin Ca [Lipitor] 40 mg PO HS #30 tablet 07/14/20 Cyclobenzaprine HCl [Flexeril -] 5 mg PO TID PRN 14 Days #20 tablet 07/14/20 Ferrous Sulfate [Feosol] 325 mg PO DAILY@0800 #30 ud 07/14/20 Folic Acid - 1 mg PO DAILY #30 tablet 07/14/20 Gabapentin [Neurontin -] 200 mg PO TID #90 capsule 07/14/20 Telmisartan [Micardis] 80 mg PO DAILY #30 tablet 07/17/20 This patient is new to me today: No Emergency Visit: No Critical Care patient: No - Discharge Referral Referred to [facility] No ATTENDING PHYSICIAN STATEMENT I saw and evaluated the patient. I reviewed the resident's note and discussed the case with the resident. I agree with the resident's findings and plan as documented. SUBJECTIVE: OBJECTIVE: ASSESSMENT AND PLAN:
[2020-07-18 12:07] VITALS: BP 149/80; PULSE 89; TEMP 99.5
--- NOTE | 2020-07-18 12:36 | PN ---
Progress Note, Physician History of Present Illness: Pt seen and examined at bedside. She is awake and alert. She denies shortness of breath. - Objective Vital Signs: Vital Signs Temperature 99.5 F 07/18/20 12:06 Pulse Rate 89 07/18/20 12:06 Respiratory Rate 18 07/18/20 12:06 Blood Pressure 149/80 07/18/20 12:06 O2 Sat by Pulse Oximetry (%) 97 07/18/20 12:06 Constitutional: Yes: Calm Eyes: Yes: Conjunctiva Clear HENT: Yes: Atraumatic Neck: Yes: Supple Cardiovascular: Yes: S1, S2 Respiratory: Yes: CTA Bilaterally Gastrointestinal: Yes: Normal Bowel Sounds, Soft Genitourinary: Yes: Foster Present Musculoskeletal: Yes: Muscle Weakness Edema: No Neurological: Yes: Oriented Psychiatric: Yes: Oriented Labs: CBC, BMP 07/18/20 08:00 07/18/20 08:00 INR, PTT INR 1.14 (0.83-1.09) H 06/26/20 10:15 Problem List - Problems (1) CKD (chronic kidney disease) Code(s): N18.9 - CHRONIC KIDNEY DISEASE, UNSPECIFIED (2) Sciatica Code(s): M54.30 - SCIATICA, UNSPECIFIED SIDE Qualifiers: Laterality: left Qualified Code(s): M54.32 - Sciatica, left side (3) Hypertension Code(s): I10 - ESSENTIAL (PRIMARY) HYPERTENSION Assessment/Plan Current Medications Generic Name Dose Route Start Last Admin Trade Name Freq PRN Reason Stop Dose Admin Acetaminophen 650 mg 07/06/20 15:54 07/16/20 03:24 Tylenol - PO 650 mg Q6H PRN Administration PAIN LEVEL 1-5 Amlodipine Besylate 10 mg 07/07/20 10:00 07/17/20 09:17 Norvasc - PO 10 mg DAILY ROSCOE Administration Atorvastatin Calcium 40 mg 07/06/20 22:00 07/16/20 22:13 Lipitor - PO 40 mg HS ROSCOE Administration Cyclobenzaprine HCl 5 mg 07/09/20 12:20 07/16/20 22:13 Flexeril - PO 5 mg BID PRN Administration BACK PAIN Diphenhydramine HCl 25 mg 07/06/20 14:30 07/16/20 22:13 Benadryl - PO 25 mg Q6H PRN Administration FOR ITCHING Ferrous Sulfate 325 mg 07/07/20 08:00 07/17/20 08:42 Feosol - PO 325 mg DAILY@0800 ROSCOE Administration Folic Acid 1 mg 07/07/20 10:00 07/17/20 09:17 Folic Acid - PO 1 mg DAILY ROSCOE Administration Gabapentin 200 mg 07/06/20 22:00 07/17/20 13:44 Neurontin - PO 200 mg TID ROSCOE Administration Heparin Sodium (Porcine) 5,000 unit 07/14/20 14:00 07/17/20 13:44 Heparin - SQ 5,000 unit TID ROSCOE Administration Insulin Aspart 1 vial 07/06/20 16:30 07/17/20 11:55 Novolog Vial Sliding Scale - SQ Not Given ACHS [facility] Protocol Insulin Detemir 7 units 07/06/20 22:00 07/16/20 22:14 Levemir Vial SQ 7 units HS ROSCOE Administration Metoprolol Tartrate 100 mg 07/06/20 22:00 07/17/20 09:18 Lopressor - PO 100 mg BID ROSCOE Administration Ondansetron HCl 4 mg 07/06/20 14:30 Zofran Injection IVPUSH Q6H PRN NAUSEA Pantoprazole Sodium 40 mg 07/07/20 07:00 07/17/20 06:26 Protonix - PO 40 mg ACBK ROSCOE Administration Polyethylene Glycol 17 gm 07/12/20 11:00 07/17/20 09:57 Miralax (For Daily Use) - PO Not Given DAILY ROSCOE Senna 2 tab 07/11/20 09:32 Senna - PO HS PRN CONSTIPATION Impression 1. CKD 2. TIM 3. back pain 4. dm 5. htn 6. obesity 7. possible spinal mass lesion Plan - renal function continues to improve - will need outpt follow up - avoid nephrotoxins - foster in place for retention - tim likely in part pre-renal as she did have a response to fluids
--- NOTE | 2020-07-18 15:54 | PN ---
Teaching Attending Note Name of Resident: Glenn Monson ATTENDING PHYSICIAN STATEMENT I saw and evaluated the patient. I reviewed the resident's note and discussed the case with the resident. I agree with the resident's findings and plan as documented. SUBJECTIVE: pt seen and examined, prior to leaving to rehab OBJECTIVE: Last Vital Signs Temp Pulse Resp BP Pulse Ox 99.5 F 89 18 149/80 97 07/18/20 12:06 07/18/20 12:06 07/18/20 12:06 07/18/20 12:06 07/18/20 12:06 Heart - S1 S2, RRR Lungs - clear to auscultation Abdomen - High BMI, soft, non-tender. Bowel Sounds normal. Extremities - mild edema, no calf tenderness. Some ongoing improvement in ROM of LLE - limited due to pain on movement Laboratory Last Values WBC 10.2 K/mm3 (4.0-10.0) H 07/18/20 08:00 RBC 2.92 M/mm3 (3.60-5.2) L 07/18/20 08:00 Hgb 8.4 GM/dL (10.7-15.3) L 07/18/20 08:00 Hct 25.3 % (32.4-45.2) L 07/18/20 08:00 MCV 86.4 fl (80-96) 07/18/20 08:00 MCH 28.7 pg (25.7-33.7) 07/18/20 08:00 MCHC 33.2 g/dl (32.0-36.0) 07/18/20 08:00 RDW 16.4 % (11.6-15.6) H 07/18/20 08:00 Plt Count 338 K/MM3 (134-434) 07/18/20 08:00 MPV 6.9 fl (7.5-11.1) L 07/18/20 08:00 Absolute Neuts (auto) 7.4 K/mm3 (1.5-8.0) 07/18/20 08:00 Neutrophils % 72.5 % (42.8-82.8) 07/18/20 08:00 Neutrophils % (Manual) 80.0 % (42.8-82.8) 07/11/20 07:40 Band Neutrophils % 0.0 % 07/11/20 07:40 Lymphocytes % 14.2 % (8-40) 07/18/20 08:00 Lymphocytes % (Manual) 9.0 % (8-40) 07/11/20 07:40 Monocytes % 9.7 % (3.8-10.2) 07/18/20 08:00 Monocytes % (Manual) 7 % (3.8-10.2) D 07/11/20 07:40 Eosinophils % 3.1 % (0-4.5) 07/18/20 08:00 Eosinophils % (Manual) 2.0 % (0-4.5) 07/11/20 07:40 Basophils % 0.5 % (0-2.0) 07/18/20 08:00 Basophils % (Manual) 0.0 % (0-2.0) 07/11/20 07:40 Myelocytes % (Man) 0 % (0-2) D 07/11/20 07:40 Promyelocytes % (Man) 0 % (0-2) 07/11/20 07:40 Blast Cells % (Manual) 0 % (0-0) 07/11/20 07:40 Nucleated RBC % 0 % (0-0) 07/18/20 08:00 Metamyelocytes 2 % (0-2) D 07/11/20 07:40 Hypochromia 0 07/11/20 07:40 Platelet Estimate Adequate 07/11/20 07:40 Polychromasia 0 07/11/20 07:40 Poikilocytosis 0 07/11/20 07:40 Basophilic Stippling 1+ 07/11/20 07:40 Anisocytosis 0 07/11/20 07:40 Microcytosis 0 07/11/20 07:40 Macrocytosis 0 07/11/20 07:40 Stomatocytes 1+ 07/04/20 06:40 Rouleaux 1+ 07/04/20 06:40 ESR 119 mm/hr (0-30) H 06/29/20 07:35 Retic Count 3.34 % (0.5-1.5) H 07/10/20 13:30 PT with INR 13.50 SEC (9.7-13.0) H 06/26/20 10:15 INR 1.14 (0.83-1.09) H 06/26/20 10:15 PTT (Actin FS) 27.3 SECONDS (25.2-36.5) 06/26/20 10:15 Sodium 137 mmol/L (136-145) 07/18/20 08:00 Potassium 4.8 mmol/L (3.5-5.1) 07/18/20 08:00 Chloride 105 mmol/L (98-107) 07/18/20 08:00 Carbon Dioxide 27 mmol/L (21-32) 07/18/20 08:00 Anion Gap 6 MMOL/L (8-16) L 07/18/20 08:00 BUN 26.1 mg/dL (7-18) H 07/18/20 08:00 Creatinine 1.4 mg/dL (0.55-1.3) H 07/18/20 08:00 Est GFR (CKD-EPI)AfAm 46.23 07/18/20 08:00 Est GFR (CKD-EPI)NonAf 39.89 07/18/20 08:00 POC Glucometer 135 UNITS (80-120) 07/18/20 06:20 Random Glucose 140 mg/dL (74-106) H 07/18/20 08:00 Hemoglobin A1c % 8.0 % (4.2-6.3) H 06/27/20 06:19 Calcium 8.9 mg/dL (8.5-10.1) 07/18/20 08:00 Phosphorus 3.5 mg/dL (2.5-4.9) 07/14/20 07:05 Magnesium 2.0 mg/dL (1.8-2.4) 07/17/20 10:28 Iron 14 ug/dL (50-175) L 06/29/20 07:35 TIBC 166 ug/dL (250-450) L 06/29/20 07:35 Iron Saturation 8 % (17.5-39) L 06/29/20 07:35 Unsaturated IBC 152 ug/dL (200-275) L 06/29/20 07:35 Ferritin 159.3 ng/ml (8-388) 06/29/20 07:35 Total Bilirubin 0.3 mg/dL (0.2-1) 07/13/20 07:19 Direct Bilirubin 0.2 mg/dL (0.0-0.2) 07/11/20 07:40 AST 22 U/L (15-37) 07/13/20 07:19 ALT 16 U/L (13-61) 07/13/20 07:19 Alkaline Phosphatase 255 U/L (45-117) H 07/13/20 07:19 LD Total 214 U/L (84-246) 06/29/20 07:35 C-Reactive Protein 35.3 MG/DL (0.00-0.3) H 06/29/20 07:35 Total Protein 5.5 g/dl (6.4-8.2) L 07/13/20 07:19 Total Protein (PEP) 5.9 g/dL (6.0-8.5) L 06/27/20 20:00 Albumin 1.6 g/dl (3.4-5.0) L 07/13/20 07:19 Albumin (PEP) 2.5 gm/dl (2.9-4.4) L 06/27/20 20:00 Globulin 3.4 g/dL (2.2-3.9) 06/27/20 20:00 Albumin/Globulin Ratio 0.7 (0.7-1.7) 06/27/20 20:00 [id number] (%) 4.1 % (.) 07/10/20 17:40 Vlkxc-6-[id number] (%) 8.8 % (.) 07/10/20 17:40 Beta Globulins 0.9 gm/dL (0.7-1.3) 06/27/20 20:00 Beta Globulins (%) 13.7 % (.) 07/10/20 17:40 Gamma Globulins (%) 18.7 % (.) 07/10/20 17:40 M-Braden % Not observed % (Not Observed) 07/10/20 17:40 Triglycerides 69 mg/dL (0-150) 06/26/20 10:15 Cholesterol 95 mg/dL (50-200) 06/26/20 10:15 Total LDL Cholesterol 34 mg/dL (5-100) 06/26/20 10:15 HDL Cholesterol 50 mg/dL (40-60) 06/26/20 10:15 CA 125 Antigen 6.8 U/mL (0.0-38.1) 06/29/20 07:35 Vitamin B12 713 pg/ml (193-986) 06/29/20 07:35 Serum Folate 10 ng/mL (3.1-17.5) 06/29/20 07:35 TSH 0.97 uIU/ml (0.358-3.74) 06/26/20 10:15 Urine Color Yellow 06/27/20 17:38 Urine Appearance Clear 06/27/20 17:38 Urine pH 5.0 (5.0-8.0) 06/27/20 17:38 Ur Specific [place] 1.011 (1.010-1.035) 06/27/20 17:38 Urine Protein 2+ (NEGATIVE) H 06/27/20 17:38 Urine Glucose (UA) Negative (NEGATIVE) 06/27/20 17:38 Urine Ketones Negative (NEGATIVE) 06/27/20 17:38 Urine Blood 3+ (NEGATIVE) H 06/27/20 17:38 Urine Nitrite Negative (NEGATIVE) 06/27/20 17:38 Urine Bilirubin Negative (NEGATIVE) 06/27/20 17:38 Urine Urobilinogen 0.2 mg/dL (0.2-1.0) 06/27/20 17:38 Ur Leukocyte Esterase Negative (NEGATIVE) 06/27/20 17:38 Urine WBC (Auto) 27 /uL (0-25.8) 06/27/20 17:38 Urine RBC (Auto) 424 /uL (0-23.9) 06/27/20 17:38 Urine Casts (Auto) 0 /uL (0-3.1) 06/27/20 17:38 U Epithel Cells (Auto) 13 /uL (0-25.1) 06/27/20 17:38 Urine Bacteria (Auto) 151 /uL (0-1359) 06/27/20 17:38 Urine Yeast (Auto) Rare (NEGATIVE) 06/27/20 17:38 Urine Eosinophils None seen % (.) 07/01/20 15:30 Urine Osmolality 340 mosm/kg (300-900) 07/01/20 15:30 Ur Random Creatinine 208.0 mg/dL (30-150) H 07/01/20 15:30 U Random Total Protein 81.1 mg/dL (0-11.9) H 06/27/20 17:38 Ur Random Sodium < 18 MMOL/L (40-220) L 07/01/20 15:30 Ur Random Sodium < 18 MMOL/L (40-220) L 07/01/20 15:30 Ur Random Potassium 47.0 MMOL/L (25-125) 07/01/20 15:30 Ur Random Chloride < 11 MMOL/L (110-250) L 07/01/20 15:30 Protein/Creatinin Ratio 1.4 mg/dL 06/27/20 17:38 Urine Total Protein 29.7 mg/dL (Not Estab.) 07/10/20 17:40 Urine PEP Interpret 54.7 % (.) 07/10/20 17:40 Stool Occult Blood Negative (NEGATIVE) 07/12/20 10:12 SHAZIA M-Braden Not observed g/dL (Not Observed) 06/27/20 20:00 c-ANCA <1:20 titer (Neg:<1:20) 06/30/20 15:00 Proteinase 3 (PR3) <3.5 06/30/20 15:00 p-ANCA <1:20 titer (Neg:<1:20) 06/30/20 15:00 Atypical p-ANCA <1:20 titer (Neg:<1:20) 06/30/20 15:00 Myeloperoxidase Ab <9.0 06/30/20 15:00 Double Strand DNA Ab <1 IU/mL (0-9) 06/30/20 15:00 Glomerular Base Memb Ab 3 units (0-20) 06/30/20 15:00 Free [place] LC, Quant 83.6 mg/L (3.3-19.4) H 06/27/20 20:00 Free [place] LC, Quant 65.7 mg/L (5.7-26.3) H 06/27/20 20:00 Free [place]/Lambda Ratio 1.27 (0.26-1.65) 06/27/20 20:00 Syphilis Serology Non-reactive (NONREACTIVE) 06/26/20 16:50 COVID-19 ([place]) Not detected (Not Detected) 07/14/20 12:15 Hep A IgM Ab Confirm Negative (Negative) 06/27/20 06:19 Hep Bs Antigen Negative (Negative) 06/27/20 06:19 Hep B Core IgM Ab Negative (Negative) 06/27/20 06:19 Hepatitis C Ab (EIA) <0.1 s/co ratio (0.0-0.9) 06/27/20 06:19 SARS-CoV-2 (PCR) Negative (Negative) 07/11/20 11:30 Ref Test Comments (.) 07/10/20 17:40 Blood Type A POSITIVE 07/10/20 10:48 Antibody Screen Negative 07/10/20 10:48 Crossmatch See Detail 07/10/20 10:48 ASSESSMENT AND PLAN: 64 year old female with history of DM 2, HTN, HLD, CKD 3, presents with lower b ack pain, L Hip pain, radiating down LLE, as well as 3 day history of post- menopausal vaginal bleeding, now resolved. 1. Sciatica and Back Pain sec to DJD, nerve impingement, spinal stenosis, possible vertebral mass(es) POD 11 s/p L4-5 laminectomy/decompression/fusion. s/p SAMANTHA drain removal Continue Gabapentin Ongoing PT - for transfer to SNF for continued Rehab/PT Radiology recommended MRI to exclude mass - unable to obtain due to renal function. Further management as per Neurosurgery and Hem/Onc. Temp elevation improving as is leukocytosis - no clear source of infection. CXR - clear. Urine and Blood Cultures negative. Tmax overnight 99.2 Incentive Spirometry encouraged. Surgical wound site evaluated by Neurosurgery 07/13 - no signs of infection. Further wound care as per Neurosurgery. Evaluated by ID - no infectious process currently. 2. TIM on CKD 3 - continued improvement. Creat down to 1.5 from 5.1 Renal US - bilateral renal lipomatosis, R renal cyst. Creatinine currently at baseline seemingly - no need for further IV fluids as per Nephrology. Nephrology and Urology follow-ups on discharge. 3. Normocytic Anemia, multifactorial, sec to CKD/Chronic Disease/adalberto-op blood loss - Stable s/p transfusion 1 unit PRBCs. FOBT negative. Iron supplementation. Nephrology follow up. 4. Urinary Retention Failed TOV [facility] in situ - for discharge with [facility] For Urology follow up and TOV as out-patient. 5. Post-menopausal Dysfunctional Uterine Bleeding Abdominal US - enlarged myomatous uterus. CT - mass-like density R jolene-pelvis, exophytic fibroid versus ovarian mass. Gynecology evaluated - no bleeding currently - Gynecology mass not the cause of patient's TIM/urinary obstruction as per Gynecology. For outpatient endometrial biopsy as per Gyne. Iron supplementation. 6. HLD - on Statin. 7. DM 2 - to resume Glimepiride and Januvia on discharge. 8. HTN - continue Norvasc, Lopressor. To resume ARB on discharge. 9. Hypomagnesemia - recurrent, repleted. DVT Px - Heparin SQ Medically stable and optimized for discharge to SNF for ongoing Rehab.
== END 2020-07-18 12:22 | DRG 454 ==
LOC: JER 08:54 → JERBED 14:56 → J8W 06-27 18:30 → J5S 07-10 19:18
PROVIDERS: ADMIT Internal Medicine Endocrinology, Diabetes & Metabolism; ATTEND Student in an Organized Health Care Education/Training Program
PROC: 0SG0071 Fusion of Lumbar Vertebral Joint with Autologous Tissue Substitute, Posterior Approach, Posterior Column, Open Approach (ICD-10-PCS; 2020-07-06)
PROC: 0ST20ZZ Resection of Lumbar Vertebral Disc, Open Approach (ICD-10-PCS; 2020-07-06)
PROC: 0JX70ZZ Transfer Back Subcutaneous Tissue and Fascia, Open Approach (ICD-10-PCS; 2020-07-06)
PROC: B01BZZZ Fluoroscopy of Spinal Cord (ICD-10-PCS; 2020-07-06)
PROC: 4A11X4G Monitoring of Peripheral Nervous Electrical Activity, Intraoperative, External Approach (ICD-10-PCS; 2020-07-06)
PROC: 0SG00AJ Fusion of Lumbar Vertebral Joint with Interbody Fusion Device, Posterior Approach, Anterior Column, Open Approach (ICD-10-PCS; principal; 2020-07-06 08:00)
DX: M51.16 Intervertebral disc disorders with radiculopathy, lumbar region (principal); N17.9 Acute kidney failure, unspecified; N39.0 Urinary tract infection, site not specified; Z68.41 Body mass index [BMI] 40.0-44.9, adult; G95.9 Disease of spinal cord, unspecified; M47.26 Other spondylosis with radiculopathy, lumbar region; M48.061 Spinal stenosis, lumbar region without neurogenic claudication; E78.5 Hyperlipidemia, unspecified; N93.9 Abnormal uterine and vaginal bleeding, unspecified; D72.829 Elevated white blood cell count, unspecified; E66.01 Morbid (severe) obesity due to excess calories; I12.9 Hypertensive chronic kidney disease with stage 1 through stage 4 chronic kidney disease, or unspecified chronic kidney disease; E11.22 Type 2 diabetes mellitus with diabetic chronic kidney disease; R50.9 Fever, unspecified; N18.3 Chronic kidney disease, stage 3 (moderate); N95.0 Postmenopausal bleeding; N83.9 Noninflammatory disorder of ovary, fallopian tube and broad ligament, unspecified; D25.9 Leiomyoma of uterus, unspecified; N28.1 Cyst of kidney, acquired; E88.2 Lipomatosis, not elsewhere classified; D64.9 Anemia, unspecified; R33.9 Retention of urine, unspecified; E83.42 Hypomagnesemia
CPT/HCPCS: 36415; 36430; 71045-TC-FY; 72131-TC; 72148-TC; 72192-TC; 73560-TC-RT-FY; 73700-TC-RT; 76000-TC-FY; 76775-TC; 76856-TC; 80048; 80053; 80061; 80074; 80076; 81003; 82272; 82436; 82565; 82607; 82728; 82746; 82962; 83036; 83516; 83520; 83540; 83550; 83615; 83721; 83735; 83883; 83935; 84100; 84133; 84155; 84156; 84157; 84165; 84300; 84443; 85025; 85027; 85045; 85610; 85651; 85730; 86140; 86225; 86256; 86304; 86780; 86850; 86900; 86901; 86922; 87040; 87086; 87205; 93005; 93010; 94760; 97116-GP; 97162-GP; 99283-25; E0186; J0131; J1644; P9058; U0003